=== PATIENT | male | born 1950 | race Caucasian/White ===

== ENCOUNTER 2018-03-13 17:22 | Inpatient (IN) | payer MEDICARE, MEDICAID ==
[~2018-03-13] VITALS: Ht 165.1 cm; Wt 73.5 kg
[2018-03-13 17:36] VITALS: BP 100/68
[2018-03-13] MEDS ORDERED: Sodium Chloride 500ML 500 ML IV ONE (17:45)
[2018-03-13 18:20] LABS: ANION GAP 10 mmol/L (5-15); BLOOD UREA NITROGEN 48 mg/dL (7-18); CALCIUM 8.8 MG/DL (8.5-10.1); CARBON DIOXIDE 21 MMOL/L (21-32); CHLORIDE 103 MMOL/L (98-107); CREATININE 1.3 MG/DL (0.55-1.30); POTASSIUM 3.9 MMOL/L (3.5-5.1); SODIUM 134 MMOL/L (136-145)
[2018-03-13 18:30] LABS: ALANINE AMINOTRANSFERASE 270 U/L (12-78); ALBUMIN 3.4 G/DL (3.4-5.0); ALBUMIN/GLOBULIN RATIO 0.8 (1.0-2.7); ALKALINE PHOSPHATASE 70 U/L (46-116); ASPARTATE AMINO TRANSFERASE 1206 U/L (15-37); BILIRUBIN,TOTAL 0.6 MG/DL (0.2-1.0)
[2018-03-13 18:32] LABS: INR 1.1 (0.9-1.1)
[2018-03-13 18:40] LABS: APPEARANCE,URINE CLEAR; BILIRUBIN, URINE 1+ (NEGATIVE); GLUCOSE, URINE (UA) NEGATIVE (NEGATIVE); KETONES,URINE 1+ (NEGATIVE); LEUKOCYTE ESTERASE ,URINE 1+ (NEGATIVE); NITRITE,URINE NEGATIVE (NEGATIVE); PH,URINE 6 (4.5-8.0); PROTEIN,URINE 3+ (NEGATIVE); UROBILINOGEN,URINE NORMAL (NORMAL)
[2018-03-13 18:42] LABS: COLOR,URINE YELLOW
--- NOTE | 2018-03-13 18:53 | Emergency Room Report ---
History of Present Illness General Chief Complaint: Altered Level of Consciousness Source: Patient, EMS Present Illness HPI Patient is a 67-year-old male brought in by EMS after increased generalized weakness and altered mental status. Patient had reportedly had prior history of ALS and was noted to have increased generalized weakness by caregiver. The patient was noted to have a DO NOT RESUSCITATE. The patient was noted to have been less responsive. History is limited by patient's mental status Allergies: Coded Allergies: CEPHALEXIN MONOHYDRATE (Verified Allergy, Unknown, 01/24/12) TETRACYCLINE (Verified Allergy, Unknown, 01/24/12) Patient History Reviewed Nursing Documentation: PMH: Agreed; PSxH: Agreed Nursing Documentation-PMH Hx Neurological Problems: Yes Hx Seizures: Yes Review of Systems All Other Systems: limited - by mental status Physical Exam Vital Signs Date Time Temp Pulse Resp B/P (MAP) Pulse Ox O2 Delivery O2 Flow Rate FiO2 03/13/18 17:26 110 16 100/68 98 Room Air 03/13/18 17:51 100 General Appearance: moderate distress, Chronically Ill Head: normocephalic Eyes: bilateral eye PERRL, bilateral eye other - tracks with eyes ENT: dry mucus membranes Neck: limited range of motion Respiratory: normal inspection, lungs clear Cardiovascular #1: normal peripheral pulses, no edema Gastrointestinal: normal inspection, normal bowel sounds, non tender Musculoskeletal: normal inspection, decreased range of motion Neurologic: responsive, motor weakness, other - tracks with eyes Psychiatric: normal inspection Skin: normal inspection, no rash Procedures Critical Care Time Critical Care Time Patient had a critical medical condition which untreated could potentially result in life or limb threatening injury. Total critical care time excluding procedures approximately 45 minutes. Medical Decision Making Diagnostic Impression: Primary Impression: Hypotension Additional Impressions: ALS (amyotrophic lateral sclerosis) Generalized weakness Dehydration Gastroenteritis ER Course Patient was noted for altered mental status and hypotension. Differential diagnosis included but was not limited to dehydration, sepsis, cardiomyopathy, medication reaction, anaphylaxis, distributive shock, pulmonary embolism, cardiac tamponade.Because of complexity of patient's case laboratory testing and imaging studies were ordered. Patient was given IV fluids. The patient was noted to be hypotensive initially. Additional history was obtained from caregiver and patient was noted to be baseline able to ambulate with a walker. The patient had recently had episodes of vomiting and diarrhea. The patient's durable power of employee benefits attorney was contacted. The patient was noted to have the prior documentation which was patient is DO NOT RESUSCITATE. The patient is to receive IV fluids and not to receive any blood transfusions. Dr. Marc Conley was contacted for inpatient management due to covering physician for Dr. Wan Labs Test 03/13/18 10:15 03/13/18 18:00 Urine Color Yellow Urine Appearance Clear Urine pH 6 (4.5-8.0) Urine Specific [place] 1.015 (1.005-1.035) Urine Protein 3+ (NEGATIVE) Urine Glucose (UA) Negative (NEGATIVE) Urine Ketones 1+ (NEGATIVE) Urine Occult Blood 5+ (NEGATIVE) Urine Nitrite Negative (NEGATIVE) Urine Bilirubin 1+ (NEGATIVE) Urine Urobilinogen Normal MG/DL (NORMAL) Urine Leukocyte Esterase 1+ (NEGATIVE) Urine HCG, Qualitative Negative (NEGATIVE) Prothrombin Time 11.2 SEC (9.30-11.50) Prothromb Time International Ratio 1.1 (0.9-1.1) Activated Partial Thromboplast Time 21 SEC (23-33) Sodium Level 134 MMOL/L (136-145) Potassium Level 3.9 MMOL/L (3.5-5.1) Chloride Level 103 MMOL/L (98-107) Carbon Dioxide Level 21 MMOL/L (21-32) Anion Gap 10 mmol/L (5-15) Blood Urea Nitrogen 48 mg/dL (7-18) Creatinine 1.3 MG/DL (0.55-1.30) Estimat Glomerular Filtration Rate 55.1 mL/min (>60) Glucose Level 106 MG/DL (74-106) Calcium Level 8.8 MG/DL (8.5-10.1) Total Bilirubin 0.6 MG/DL (0.2-1.0) Aspartate Amino Transf (AST/SGOT) 1206 U/L (15-37) Alanine Aminotransferase (ALT/SGPT) 270 U/L (12-78) Alkaline Phosphatase 70 U/L (46-116) Troponin I 0.065 ng/mL (0.000-0.056) Total Protein 7.5 G/DL (6.4-8.2) Albumin 3.4 G/DL (3.4-5.0) Globulin 4.1 g/dL Albumin/Globulin Ratio 0.8 (1.0-2.7) Last Vital Signs Date Time Temp Pulse Resp B/P (MAP) Pulse Ox O2 Delivery O2 Flow Rate FiO2 03/13/18 17:51 116 18 97 Facial 100 03/13/18 17:36 100/68 Status: unchanged Disposition: ADMITTED INPATIENT Condition: Serious Referrals: NOT CHOSEN IPA/,REFERRING (PCP) Raghavendra Olivares MD Mar 13, 2018 18:53
[2018-03-13 19:33] LABS: BASOPHILS % (AUTO) 0.7 % (0.0-2.0); EOSINOPHILS % (AUTO) 0.1 % (0.0-3.0); HEMATOCRIT 52.4 % (42.0-52.0); HEMOGLOBIN 16.2 G/DL (14.2-18.0); LYMPHOCYTES % (AUTO) 22.7 % (20.0-45.0); MEAN CORPUSCULAR VOLUME 97 FL (80-99); MONOCYTES % (AUTO) 12.1 % (1.0-10.0); NEUTROPHILS % (AUTO) 64.4 % (45.0-75.0); PLATELET COUNT 186 K/UL (150-450); RED BLOOD COUNT 5.41 M/UL (4.70-6.10); RED CELL DISTRIBUTION WIDTH 13.6 % (11.6-14.8); WHITE BLOOD COUNT 12.5 K/UL (4.8-10.8)
[2018-03-13] MEDS ORDERED: GABAPENTIN800 MG ORAL (19:52)
[2018-03-13] MEDS ORDERED: KLONOPIN0.5 MG ORAL (19:52)
[2018-03-13] MEDS ORDERED: FENOFIBRIC ACID35 MG PO (19:52)
[2018-03-13] MEDS ORDERED: CRESTOR10 M2 ORAL (19:52)
[2018-03-13] MEDS ORDERED: DIAZEPAM5 MG ORAL (19:52)
[2018-03-13] MEDS ORDERED: [UNRECOGNIZED DRUG - OTHER] PO (19:52)
[2018-03-13] MEDS ORDERED: FUROSEMIDE40 MG ORAL (19:52)
[2018-03-13] MEDS ORDERED: AMBIEN5 MG ORAL (19:52)
[2018-03-13] MEDS ORDERED: BENADRYL25 MG ORAL (19:52)
[2018-03-13] MEDS ORDERED: TOPIRAMATE100 MG ORAL (20:06)
[2018-03-13] MEDS ORDERED: VALACYCLOVIR500 MG ORAL (20:06)
[2018-03-13] MEDS ORDERED: PROAIR HFA8.5 GM INH (20:06)
[2018-03-13] MEDS ORDERED: ZANTAC150 MG ORAL (20:06)
[2018-03-13] MEDS ORDERED: ZOCOR40 MG ORAL (20:06)
[2018-03-13] MEDS ORDERED: METFORMIN HCL500 M1 ORAL (20:06)
[2018-03-13] MEDS ORDERED: TIZANIDINE HCL4 MG ORAL (20:06)
[2018-03-13] MEDS ORDERED: RISPERDAL2 MG ORAL (20:06)
[2018-03-13] MEDS ORDERED: MODAFINIL100 MG ORAL (20:06)
[2018-03-13] MEDS ORDERED: NORTRIPTYLINE H50 MG PO (20:06)
[2018-03-13] MEDS ORDERED: PRAMIPEXOLE D0.25 MG ORAL (20:06)
[2018-03-13] MEDS ORDERED: LORAZEPAM1 MG ORAL (20:06)
[2018-03-13] MEDS ORDERED: SALAGEN5 MG GT (20:06)
[2018-03-13] MEDS ORDERED: MELOXICAM7.5 MG PO (20:06)
[2018-03-13 20:19] VITALS: BP 106/63
[2018-03-13 21:00] VITALS: BP 107/69
[2018-03-13 22:00] VITALS: BP 108/63
[2018-03-13] MEDS ORDERED: Albuterol/Ipratropium 3ml neb HHN PRN (22:00)
[2018-03-13] MEDS ORDERED: Morphine Sulfate 2mg/ml Inj(IV/IM USE ONLY) IVP PRN (22:00)
[2018-03-13] MEDS ORDERED: Miralax 17gm pkt ORAL PRN (22:00)
[2018-03-13] MEDS ORDERED: Nitroglycerin Subl 0.4mg tab SL PRN (22:00)
[2018-03-13] MEDS: NS w/KCl 20mEq 1,000 ML IV SCH (22:35)
[2018-03-13] MEDS: Heparin 5000 units/ml inj SUBQ SCH (22:49)
[2018-03-13 23:00] VITALS: BP 112/70
[2018-03-14] VITALS (24 sets, daily range): BP systolic 90–124; BP diastolic 61–81
[2018-03-14] MEDS: Topiramate 100mg tab ORAL SCH ×2 (01:48→08:46)
[2018-03-14] MEDS: Vancomycin 1 GM in D5W 275 ML IVPB SCH (01:48)
[2018-03-14] MEDS: Nortriptyline 25mg cap ORAL SCH ×2 (01:54→21:08)
[2018-03-14 06:12] LABS: BASOPHILS % (AUTO) 0.3 % (0.0-2.0); EOSINOPHILS % (AUTO) 0.1 % (0.0-3.0); HEMATOCRIT 49.9 % (42.0-52.0); HEMOGLOBIN 15.8 G/DL (14.2-18.0); LYMPHOCYTES % (AUTO) 8.2 % (20.0-45.0); MEAN CORPUSCULAR VOLUME 98 FL (80-99); NEUTROPHILS % (AUTO) 83.4 % (45.0-75.0); PLATELET COUNT 158 K/UL (150-450); RED BLOOD COUNT 5.09 M/UL (4.70-6.10); RED CELL DISTRIBUTION WIDTH 13.4 % (11.6-14.8); WHITE BLOOD COUNT 15.4 K/UL (4.8-10.8)
[2018-03-14] MEDS ORDERED: metFORMIN 500mg tab ORAL SCH (06:30)
[2018-03-14 06:39] LABS: ALANINE AMINOTRANSFERASE 229 U/L (12-78); ALBUMIN 2.2 G/DL (3.4-5.0); ALBUMIN/GLOBULIN RATIO 0.6 (1.0-2.7); ALKALINE PHOSPHATASE 53 U/L (46-116); ANION GAP 11 mmol/L (5-15); ASPARTATE AMINO TRANSFERASE 856 U/L (15-37); BILIRUBIN,TOTAL 0.4 MG/DL (0.2-1.0); CALCIUM 7.3 MG/DL (8.5-10.1); CARBON DIOXIDE 22 MMOL/L (21-32); CHLORIDE 108 MMOL/L (98-107); CREATINE KINASE > 10000 U/L (26-308); CREATININE 1.6 MG/DL (0.55-1.30); POTASSIUM 3.9 MMOL/L (3.5-5.1); SODIUM 140 MMOL/L (136-145)
[2018-03-14 07:07] LABS: BLOOD UREA NITROGEN 48 mg/dL (7-18)
[2018-03-14] MEDS: Pilocarpine 2% Opth 15ml Soln BOTH EYES SCH ×2 (08:45→18:38)
[2018-03-14] MEDS: Modafinil 100mg tab ORAL SCH (08:46)
[2018-03-14] MEDS: Pramipexole 0.5mg tab ORAL SCH ×3 (08:47→18:38)
[2018-03-14] MEDS: Heparin 5000 units/ml inj SUBQ SCH ×2 (08:48→21:09)
--- NOTE | 2018-03-14 10:12 | Consultation ---
History of Present Illness General Date patient seen: Mar 14, 2018 Chief Complaint: Altered Level of Consciousness Present Illness HPI 67-year-old male with hx of ALS or around 10 years, DM, brought in by EMS after increased generalized weakness and altered mental status. Patient was noted to have increased generalized weakness by caregiver. She was less responsive. History is limited by patient's mental status. She was hypotensive and tachycardic and admitted to ICU last night. He looks chronically ill and c/o poor appetite. Allergies: Coded Allergies: CEPHALEXIN MONOHYDRATE (Verified Allergy, Unknown, 01/24/12) TETRACYCLINE (Verified Allergy, Unknown, 01/24/12) Medication History Scheduled Albuterol Sulfate* (Proair Hfa*), 1 PUFF INH Q6H, (Reported) Clonazepam* (Klonopin*), 0.5 MG ORAL Q6H, (Reported) Furosemide* (Lasix*), 40 MG ORAL DAILY, (Reported) Gabapentin* (Gabapentin*), 1,200 MG ORAL THREE TIMES A DAY, (Reported) Lorazepam* (Lorazepam*), 1 MG ORAL THREE TIMES A DAY, (Reported) Meloxicam* (Meloxicam*), 7.5 MG PO DAILY, (Reported) Metformin Hcl* (Metformin Hcl*), 500 MG ORAL THREE TIMES A DAY, (Reported) Modafinil* (Provigil), 200 MG ORAL DAILY, (Reported) Pramipexole* (Mirapex*), 0.25 MG ORAL THREE TIMES A DAY, (Reported) Ranitidine Hcl* (Zantac*), 300 MG ORAL DAILY, (Reported) Risperidone* (Risperdal*), 15 MG ORAL DAILY, (Reported) Rosuvastatin Calcium* (Crestor*), 10 MG ORAL DAILY, (Reported) Simvastatin (Zocor), 40 MG ORAL BEDTIME, (Reported) Tizanidine Hcl* (Zanaflex*), 4 MG ORAL BID, (Reported) Topiramate* (Topamax*), 200 MG ORAL TWICE A DAY, (Reported) Valacyclovir Hcl* (Valtrex*), 1,000 MG ORAL TWICE A DAY, (Reported) [andorxy CIII], 15 MG PO DAILY, (Reported) Scheduled PRN Diazepam* (Diazepam*), 5 MG ORAL BID PRN for ANXIETY, (Reported) Diphenhydramine Hcl* (Benadryl*), 25 MG ORAL Q6H PRN for Itching, (Reported) Zolpidem Tartrate* (Ambien*), 5 MG ORAL BEDTIME PRN for Insomnia, (Reported) Miscellaneous Medications Fenofibric Acid (Fenofibric Acid), 135 MG PO, (Reported) Nortriptyline Hcl (Nortriptyline Hcl), 50 MG PO, (Reported) Pilocarpine (Pilocarpine HCl), 5 MG GT, (Reported) Patient History Healthcare decision maker JULITA URBAN Resuscitation status Do Not Resuscitate Advanced Directive on File Yes Past Medical/Surgical History Past Medical/Surgical History: (1) Diabetes mellitus (2) ALS (amyotrophic lateral sclerosis) (3) Depression Review of Systems All Other Systems: negative except mentioned in HPI Physical Exam General Appearance: cachetic Lines, tubes and drains: peripheral HEENT: normocephalic, atraumatic Neck: non-tender, normal alignment Respiratory/Chest: chest wall non-tender, lungs clear, normal breath sounds Breasts: no masses Cardiovascular/Chest: normal peripheral pulses Abdomen: normal bowel sounds Genitourinary/Rectal: normal genital exam Extremities: normal range of motion Last 24 Hour Vital Signs Date Time Temp Pulse Resp B/P (MAP) Pulse Ox O2 Delivery O2 Flow Rate FiO2 03/14/18 08:00 103 03/14/18 07:00 97.9 98 17 123/81 (95) 99 97.9 03/14/18 07:00 Nasal Cannula 2.0 28 03/14/18 07:00 99 Nasal Cannula 2.0 28 03/14/18 06:00 102 17 114/74 (87) 99 03/14/18 05:00 98 16 108/80 (89) 99 03/14/18 04:00 Nasal Cannula 2.0 03/14/18 04:00 96 03/14/18 04:00 97.6 91 16 107/76 (86) 100 97.6 03/14/18 03:00 90 17 120/74 (89) 100 03/14/18 02:00 91 13 124/68 (86) 100 03/14/18 01:00 91 13 124/68 (86) 100 03/14/18 00:00 Nasal Cannula 2.0 03/14/18 00:00 97.2 89 13 112/73 (86) 100 97.2 03/13/18 23:00 89 13 112/70 (84) 99 03/13/18 22:00 Nasal Cannula 2.0 03/13/18 22:00 Nasal Cannula 2.0 03/13/18 22:00 92 14 108/63 (78) 99 03/13/18 21:35 Nasal Cannula 03/13/18 21:35 99 Nasal Cannula 2.0 28 03/13/18 21:15 94 8 106/62 100 Bi-pap 03/13/18 21:00 97.6 91 13 107/69 (82) 100 97.6 03/13/18 21:00 93 03/13/18 20:19 96 14 106/63 100 Bi-pap 03/13/18 19:05 108 23 100 Facial 100 03/13/18 18:00 15.0 100 03/13/18 17:51 116 18 97 Facial 100 03/13/18 17:36 16 100/68 98 Room Air 03/13/18 17:26 110 16 100/68 98 Room Air Intake and Output 03/13/18 03/14/18 19:00 07:00 Intake Total 1686.6 ml Output Total 330 ml Balance 1356.6 ml Intake Oral 220 ml IV Total 1466.6 ml Output Urine Total 330 ml # Voids 1 Laboratory Tests Test 03/13/18 10:15 03/13/18 18:00 03/13/18 18:39 03/13/18 19:00 Urine Color Yellow Urine Appearance Clear Urine pH 6 (4.5-8.0) Urine Specific [place] 1.015 (1.005-1.035) Urine Protein 3+ (NEGATIVE) H Urine Glucose (UA) Negative (NEGATIVE) Urine Ketones 1+ (NEGATIVE) H Urine Occult Blood 5+ (NEGATIVE) H Urine Nitrite Negative (NEGATIVE) Urine Bilirubin 1+ (NEGATIVE) H Urine Ictotest Negative (NEGATIVE) Urine Urobilinogen Normal MG/DL (NORMAL) Urine Leukocyte Esterase 1+ (NEGATIVE) H Urine RBC 2-4 /HPF (0 - 0) H Urine WBC 0-2 /HPF (0 - 0) Urine Squamous Epithelial Cells None /LPF (NONE/OCC) Urine Amorphous Sediment Few /LPF (NONE) H Urine Bacteria Few /HPF (NONE) Urine HCG, Qualitative Negative (NEGATIVE) Prothrombin Time 11.2 SEC (9.30-11.50) Prothromb Time International Ratio 1.1 (0.9-1.1) Activated Partial Thromboplast Time 21 SEC (23-33) L Sodium Level 134 MMOL/L (136-145) L Potassium Level 3.9 MMOL/L (3.5-5.1) Chloride Level 103 MMOL/L (98-107) Carbon Dioxide Level 21 MMOL/L (21-32) Anion Gap 10 mmol/L (5-15) Blood Urea Nitrogen 48 mg/dL (7-18) H Creatinine 1.3 MG/DL (0.55-1.30) Estimat Glomerular Filtration Rate 55.1 mL/min (>60) Glucose Level 106 MG/DL (74-106) Calcium Level 8.8 MG/DL (8.5-10.1) Total Bilirubin 0.6 MG/DL (0.2-1.0) Aspartate Amino Transf (AST/SGOT) 1206 U/L (15-37) H Alanine Aminotransferase (ALT/SGPT) 270 U/L (12-78) H Alkaline Phosphatase 70 U/L (46-116) Troponin I 0.065 ng/mL (0.000-0.056) Total Protein 7.5 G/DL (6.4-8.2) Albumin 3.4 G/DL (3.4-5.0) Globulin 4.1 g/dL Albumin/Globulin Ratio 0.8 (1.0-2.7) L Arterial Blood pH 7.286 (7.350-7.450) Arterial Blood Partial Pressure CO2 36.1 mmHg (35.0-45.0) Arterial Blood Partial Pressure O2 539.4 mmHg (75.0-100.0) H Arterial Blood HCO3 16.8 mmol/L (22.0-26.0) L Arterial Blood Oxygen Saturation 99.8 % (92.0-98.0) H Arterial Blood Base Excess -8.9 Damion Test Positive White Blood Count 12.5 K/UL (4.8-10.8) H Red Blood Count 5.41 M/UL (4.70-6.10) Hemoglobin 16.2 G/DL (14.2-18.0) Hematocrit 52.4 % (42.0-52.0) H Mean Corpuscular Volume 97 FL (80-99) Mean Corpuscular Hemoglobin 29.9 PG (27.0-31.0) Mean Corpuscular Hemoglobin Concent 31.0 G/DL (32.0-36.0) L Red Cell Distribution Width 13.6 % (11.6-14.8) Platelet Count 186 K/UL (150-450) Mean Platelet Volume 6.7 FL (6.5-10.1) Neutrophils (%) (Auto) 64.4 % (45.0-75.0) Lymphocytes (%) (Auto) 22.7 % (20.0-45.0) Monocytes (%) (Auto) 12.1 % (1.0-10.0) H Eosinophils (%) (Auto) 0.1 % (0.0-3.0) Basophils (%) (Auto) 0.7 % (0.0-2.0) Test 03/14/18 05:20 White Blood Count 15.4 K/UL (4.8-10.8) H Red Blood Count 5.09 M/UL (4.70-6.10) Hemoglobin 15.8 G/DL (14.2-18.0) Hematocrit 49.9 % (42.0-52.0) Mean Corpuscular Volume 98 FL (80-99) Mean Corpuscular Hemoglobin 31.1 PG (27.0-31.0) H Mean Corpuscular Hemoglobin Concent 31.8 G/DL (32.0-36.0) L Red Cell Distribution Width 13.4 % (11.6-14.8) Platelet Count 158 K/UL (150-450) Mean Platelet Volume 6.8 FL (6.5-10.1) Neutrophils (%) (Auto) 83.4 % (45.0-75.0) H Lymphocytes (%) (Auto) 8.2 % (20.0-45.0) L Monocytes (%) (Auto) 8.0 % (1.0-10.0) Eosinophils (%) (Auto) 0.1 % (0.0-3.0) Basophils (%) (Auto) 0.3 % (0.0-2.0) Sodium Level 140 MMOL/L (136-145) Potassium Level 3.9 MMOL/L (3.5-5.1) Chloride Level 108 MMOL/L (98-107) H Carbon Dioxide Level 22 MMOL/L (21-32) Anion Gap 11 mmol/L (5-15) Blood Urea Nitrogen 48 mg/dL (7-18) H Creatinine 1.6 MG/DL (0.55-1.30) H Estimat Glomerular Filtration Rate 43.3 mL/min (>60) Glucose Level 197 MG/DL (74-106) H Osmolality 306 mOsm/kg (297-317) Uric Acid Pending Calcium Level 7.3 MG/DL (8.5-10.1) L Phosphorus Level 6.0 MG/DL (2.5-4.9) H Magnesium Level 1.9 MG/DL (1.8-2.4) Total Bilirubin 0.4 MG/DL (0.2-1.0) Aspartate Amino Transf (AST/SGOT) 856 U/L (15-37) H Alanine Aminotransferase (ALT/SGPT) 229 U/L (12-78) H Alkaline Phosphatase 53 U/L (46-116) Total Creatine Kinase Pending Troponin I 0.048 ng/mL (0.000-0.056) Total Protein 5.7 G/DL (6.4-8.2) L Albumin 2.2 G/DL (3.4-5.0) L Globulin 3.5 g/dL Albumin/Globulin Ratio 0.6 (1.0-2.7) L Free Thyroxine 0.92 NG/DL (0.76-1.46) Microbiology Date/Time Source Procedure Growth Status 03/13/18 19:30 Rectum Received Height (Feet): 5 Height (Inches): 5.00 Weight (Pounds): 128 Medications Current Medications Medications (Trade) Dose Ordered Sig/Maria Victoria Route PRN Reason Start Time Stop Time Status Last Admin Dose Admin Acetaminophen (Tylenol) 650 mg Q4H PRN ORAL fever 03/13/18 22:00 04/12/18 21:59 Albuterol/ Ipratropium (Albuterol/ Ipratropium) 3 ml Q4H PRN HHN Shortness of Breath 03/13/18 22:00 03/18/18 21:59 Clonazepam (KlonoPIN) 0.5 mg Q6H ORAL 03/14/18 09:45 03/21/18 09:44 UNV Dextrose (Dextrose 50%) STAT PRN IV Hypoglycemia 03/13/18 22:00 04/12/18 21:59 Dextrose (Dextrose 50%) STAT PRN IV Hypoglycemia 03/14/18 10:00 04/13/18 09:59 UNV Gabapentin (Neurontin) 1,200 mg THREE TIMES A DAY ORAL 03/14/18 09:00 04/13/18 08:59 UNV Gabapentin (Neurontin) 1,200 mg THREE TIMES A DAY ORAL 03/14/18 13:00 04/13/18 12:59 UNV Heparin Sodium (Porcine) (Heparin 5000 units/ml) 5,000 units EVERY 12 HOURS SUBQ 03/13/18 22:15 04/12/18 22:14 03/14/18 08:48 Insulin Aspart (NovoLOG) BEFORE MEALS AND HS SUBQ 03/14/18 11:30 04/13/18 11:29 UNV Modafinil (Provigil) 200 mg DAILY ORAL 03/14/18 09:00 03/21/18 08:59 03/14/18 08:46 Morphine Sulfate (Morphine Sulfate) 2 mg EVERY 4 HOURS PRN IVP Moderate Pain (Pain Scale 4-6) 03/13/18 22:00 03/20/18 21:59 Nitroglycerin (Ntg) 0.4 mg Q5M PRN SL Prn Chest Pain 03/13/18 22:00 04/12/18 21:59 Nortriptyline HCl (Pamelor) 50 mg BEDTIME ORAL 03/13/18 23:00 04/12/18 22:59 03/14/18 01:54 Ondansetron HCl (Zofran) 4 mg Q6H PRN IVP Nausea & Vomiting 03/13/18 22:00 04/12/18 21:59 Pantoprazole (Protonix) 40 mg DAILY ORAL 03/14/18 09:00 04/13/18 08:59 03/14/18 08:47 Pilocarpine (Isopto Carpine 2% Op Soln) 1 drop BID BOTH EYES 03/14/18 09:00 04/13/18 08:59 03/14/18 08:45 Pramipexole (Mirapex) 0.25 mg TID ORAL 03/14/18 09:00 04/13/18 08:59 03/14/18 08:47 Risperidone (RisperDAL) 2 mg DAILY ORAL 03/14/18 09:00 04/13/18 08:59 03/14/18 08:47 Risperidone (RisperDAL) 15 mg DAILY ORAL 03/15/18 09:00 04/14/18 08:59 UNV Sodium Chloride 1,000 ml @ 75 mls/hr [id number] IV 03/13/18 22:00 04/12/18 21:59 03/13/18 22:35 Temazepam (Restoril) 15 mg HSPRN PRN ORAL Insomnia 03/13/18 22:00 03/20/18 21:59 Topiramate (Topamax) 200 mg EVERY 12 HOURS ORAL 03/13/18 23:00 04/12/18 22:59 03/14/18 08:46 Vancomycin HCl (Vanco rx to dose) 1 ea DAILY PRN MISC . 03/14/18 09:00 04/13/18 08:59 Vancomycin HCl 1 gm/Dextrose 275 ml @ 183.3 mls/ hr Q24H IVPB 03/14/18 00:30 03/19/18 00:29 03/14/18 01:48 Assessment/Plan Problem List: (1) Hypotension ICD Codes: I95.9 - Hypotension, unspecified SNOMED: 91295388 (2) ALS (amyotrophic lateral sclerosis) ICD Codes: G12.21 - Amyotrophic lateral sclerosis SNOMED: 24550482 (3) ATN (acute tubular necrosis) ICD Codes: N17.0 - Acute kidney failure with tubular necrosis SNOMED: 43166334 (4) Generalized weakness ICD Codes: R53.1 - Weakness SNOMED: 76331071 (5) Amyotrophic lateral sclerosis (ALS) ICD Codes: G12.21 - Amyotrophic lateral sclerosis SNOMED: 83591443 (6) Diabetes mellitus ICD Codes: E11.9 - Type 2 diabetes mellitus without complications SNOMED: 70885036 (7) Depression ICD Codes: F32.9 - Major depressive disorder, single episode, unspecified SNOMED: 13468334 Assessment/Plan pereyra cultures iv fluids echo renals studies Neuro to see sliding scale dc nephrotoxic drugs. Loulou Ernandez MD Mar 14, 2018 10:12
[2018-03-14 10:40] LABS: CREATINE KINASE > 10000 U/L (26-308)
--- NOTE | 2018-03-14 10:42 | Consultation ---
History of Present Illness General Date patient seen: Mar 14, 2018 Chief Complaint: Altered Level of Consciousness Reason for Consultation: Leukocytosis Present Illness HPI Mr. Albarado is a 67 yo male with ALS who is presenting with weakness and AMS after a fall. He was sent to the ER by ambulance yesterday and then admitted the ICU for AMS and Hypotension. Today he is alert and oriented to name location. He is not sure exactly why he was brought to the ED. He reports not being hungry and not eating, He says that he has had some diarrhea last week but not any more. He says that he has not been having any other symptoms of infection. He denies Dysuria, Abdominal pain and SOB. He now had a stable blood pressure and is only on 2L O2. He is noted to have leukocytosis of 15 and dark urine. Cultures are pending. He was started on vancomycin. He denies sick contacts but has been losing weight. 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 FamHx Non-contributory Allergies: Coded Allergies: CEPHALEXIN MONOHYDRATE (Verified Allergy, Unknown, 01/24/12) TETRACYCLINE (Verified Allergy, Unknown, 01/24/12) Medication History Scheduled Albuterol Sulfate* (Proair Hfa*), 1 PUFF INH Q6H, (Reported) Clonazepam* (Klonopin*), 0.5 MG ORAL Q6H, (Reported) Furosemide* (Lasix*), 40 MG ORAL DAILY, (Reported) Gabapentin* (Gabapentin*), 1,200 MG ORAL THREE TIMES A DAY, (Reported) Lorazepam* (Lorazepam*), 1 MG ORAL THREE TIMES A DAY, (Reported) Meloxicam* (Meloxicam*), 7.5 MG PO DAILY, (Reported) Metformin Hcl* (Metformin Hcl*), 500 MG ORAL THREE TIMES A DAY, (Reported) Modafinil* (Provigil), 200 MG ORAL DAILY, (Reported) Pramipexole* (Mirapex*), 0.25 MG ORAL THREE TIMES A DAY, (Reported) Ranitidine Hcl* (Zantac*), 300 MG ORAL DAILY, (Reported) Risperidone* (Risperdal*), 15 MG ORAL DAILY, (Reported) Rosuvastatin Calcium* (Crestor*), 10 MG ORAL DAILY, (Reported) Simvastatin (Zocor), 40 MG ORAL BEDTIME, (Reported) Tizanidine Hcl* (Zanaflex*), 4 MG ORAL BID, (Reported) Topiramate* (Topamax*), 200 MG ORAL TWICE A DAY, (Reported) Valacyclovir Hcl* (Valtrex*), 1,000 MG ORAL TWICE A DAY, (Reported) [andorxy CIII], 15 MG PO DAILY, (Reported) Scheduled PRN Diazepam* (Diazepam*), 5 MG ORAL BID PRN for ANXIETY, (Reported) Diphenhydramine Hcl* (Benadryl*), 25 MG ORAL Q6H PRN for Itching, (Reported) Zolpidem Tartrate* (Ambien*), 5 MG ORAL BEDTIME PRN for Insomnia, (Reported) Miscellaneous Medications Fenofibric Acid (Fenofibric Acid), 135 MG PO, (Reported) Nortriptyline Hcl (Nortriptyline Hcl), 50 MG PO, (Reported) Pilocarpine (Pilocarpine HCl), 5 MG GT, (Reported) Patient History Healthcare decision maker JULITA URBAN Resuscitation status Do Not Resuscitate Advanced Directive on File Yes Review of Systems All Other Systems: negative except mentioned in HPI Physical Exam Last 24 Hour Vital Signs Date Time Temp Pulse Resp B/P (MAP) Pulse Ox O2 Delivery O2 Flow Rate FiO2 03/14/18 10:00 107 17 90/76 (81) 99 03/14/18 09:00 103 17 106/69 (81) 99 03/14/18 08:00 102 17 118/76 (90) 99 03/14/18 08:00 Nasal Cannula 2.0 03/14/18 08:00 103 03/14/18 07:00 97.9 98 17 123/81 (95) 99 97.9 03/14/18 07:00 Nasal Cannula 2.0 28 03/14/18 07:00 99 Nasal Cannula 2.0 28 03/14/18 06:00 102 17 114/74 (87) 99 03/14/18 05:00 98 16 108/80 (89) 99 03/14/18 04:00 Nasal Cannula 2.0 03/14/18 04:00 96 03/14/18 04:00 97.6 91 16 107/76 (86) 100 97.6 03/14/18 03:00 90 17 120/74 (89) 100 03/14/18 02:00 91 13 124/68 (86) 100 03/14/18 01:00 91 13 124/68 (86) 100 03/14/18 00:00 Nasal Cannula 2.0 03/14/18 00:00 97.2 89 13 112/73 (86) 100 97.2 03/13/18 23:00 89 13 112/70 (84) 99 03/13/18 22:00 Nasal Cannula 2.0 03/13/18 22:00 Nasal Cannula 2.0 03/13/18 22:00 92 14 108/63 (78) 99 03/13/18 21:35 Nasal Cannula 03/13/18 21:35 99 Nasal Cannula 2.0 28 03/13/18 21:15 94 8 106/62 100 Bi-pap 03/13/18 21:00 97.6 91 13 107/69 (82) 100 97.6 03/13/18 21:00 93 03/13/18 20:19 96 14 106/63 100 Bi-pap 03/13/18 19:05 108 23 100 Facial 100 03/13/18 18:00 15.0 100 03/13/18 17:51 116 18 97 Facial 100 03/13/18 17:36 16 100/68 98 Room Air 03/13/18 17:26 110 16 100/68 98 Room Air Intake and Output 03/13/18 03/14/18 19:00 07:00 Intake Total 1686.6 ml Output Total 330 ml Balance 1356.6 ml Intake Oral 220 ml IV Total 1466.6 ml Output Urine Total 330 ml # Voids 1 Laboratory Tests Test 03/13/18 18:00 03/13/18 18:39 03/13/18 19:00 03/14/18 05:20 Prothrombin Time 11.2 SEC (9.30-11.50) Prothromb Time International Ratio 1.1 (0.9-1.1) Activated Partial Thromboplast Time 21 SEC (23-33) L Sodium Level 134 MMOL/L (136-145) L 140 MMOL/L (136-145) Potassium Level 3.9 MMOL/L (3.5-5.1) 3.9 MMOL/L (3.5-5.1) Chloride Level 103 MMOL/L (98-107) 108 MMOL/L (98-107) H Carbon Dioxide Level 21 MMOL/L (21-32) 22 MMOL/L (21-32) Anion Gap 10 mmol/L (5-15) 11 mmol/L (5-15) Blood Urea Nitrogen 48 mg/dL (7-18) H 48 mg/dL (7-18) H Creatinine 1.3 MG/DL (0.55-1.30) 1.6 MG/DL (0.55-1.30) H Estimat Glomerular Filtration Rate 55.1 mL/min (>60) 43.3 mL/min (>60) Glucose Level 106 MG/DL (74-106) 197 MG/DL (74-106) H Calcium Level 8.8 MG/DL (8.5-10.1) 7.3 MG/DL (8.5-10.1) L Total Bilirubin 0.6 MG/DL (0.2-1.0) 0.4 MG/DL (0.2-1.0) Aspartate Amino Transf (AST/SGOT) 1206 U/L (15-37) H 856 U/L (15-37) H Alanine Aminotransferase (ALT/SGPT) 270 U/L (12-78) H 229 U/L (12-78) H Alkaline Phosphatase 70 U/L (46-116) 53 U/L (46-116) Troponin I 0.065 ng/mL (0.000-0.056) 0.048 ng/mL (0.000-0.056) Total Protein 7.5 G/DL (6.4-8.2) 5.7 G/DL (6.4-8.2) L Albumin 3.4 G/DL (3.4-5.0) 2.2 G/DL (3.4-5.0) L Globulin 4.1 g/dL 3.5 g/dL Albumin/Globulin Ratio 0.8 (1.0-2.7) L 0.6 (1.0-2.7) L Arterial Blood pH 7.286 (7.350-7.450) Arterial Blood Partial Pressure CO2 36.1 mmHg (35.0-45.0) Arterial Blood Partial Pressure O2 539.4 mmHg (75.0-100.0) H Arterial Blood HCO3 16.8 mmol/L (22.0-26.0) L Arterial Blood Oxygen Saturation 99.8 % (92.0-98.0) H Arterial Blood Base Excess -8.9 Damion Test Positive White Blood Count 12.5 K/UL (4.8-10.8) H 15.4 K/UL (4.8-10.8) H Red Blood Count 5.41 M/UL (4.70-6.10) 5.09 M/UL (4.70-6.10) Hemoglobin 16.2 G/DL (14.2-18.0) 15.8 G/DL (14.2-18.0) Hematocrit 52.4 % (42.0-52.0) H 49.9 % (42.0-52.0) Mean Corpuscular Volume 97 FL (80-99) 98 FL (80-99) Mean Corpuscular Hemoglobin 29.9 PG (27.0-31.0) 31.1 PG (27.0-31.0) H Mean Corpuscular Hemoglobin Concent 31.0 G/DL (32.0-36.0) L 31.8 G/DL (32.0-36.0) L Red Cell Distribution Width 13.6 % (11.6-14.8) 13.4 % (11.6-14.8) Platelet Count 186 K/UL (150-450) 158 K/UL (150-450) Mean Platelet Volume 6.7 FL (6.5-10.1) 6.8 FL (6.5-10.1) Neutrophils (%) (Auto) 64.4 % (45.0-75.0) 83.4 % (45.0-75.0) H Lymphocytes (%) (Auto) 22.7 % (20.0-45.0) 8.2 % (20.0-45.0) L Monocytes (%) (Auto) 12.1 % (1.0-10.0) H 8.0 % (1.0-10.0) Eosinophils (%) (Auto) 0.1 % (0.0-3.0) 0.1 % (0.0-3.0) Basophils (%) (Auto) 0.7 % (0.0-2.0) 0.3 % (0.0-2.0) Osmolality 306 mOsm/kg (297-317) Uric Acid Pending Phosphorus Level 6.0 MG/DL (2.5-4.9) H Magnesium Level 1.9 MG/DL (1.8-2.4) Total Creatine Kinase Pending Free Thyroxine 0.92 NG/DL (0.76-1.46) Microbiology Date/Time Source Procedure Growth Status 03/13/18 19:30 Rectum Received Height (Feet): 5 Height (Inches): 5.00 Weight (Pounds): 128 Medications Current Medications Medications (Trade) Dose Ordered Sig/Maria Victoria Route PRN Reason Start Time Stop Time Status Last Admin Dose Admin Acetaminophen (Tylenol) 650 mg Q4H PRN ORAL fever 03/13/18 22:00 04/12/18 21:59 Albuterol/ Ipratropium (Albuterol/ Ipratropium) 3 ml Q4H PRN HHN Shortness of Breath 03/13/18 22:00 03/18/18 21:59 Clonazepam (KlonoPIN) 0.5 mg Q6H ORAL 03/14/18 09:45 03/21/18 09:44 UNV Dextrose (Dextrose 50%) STAT PRN IV Hypoglycemia 03/13/18 22:00 04/12/18 21:59 Dextrose (Dextrose 50%) STAT PRN IV Hypoglycemia 03/14/18 10:00 04/13/18 09:59 UNV Gabapentin (Neurontin) 1,200 mg THREE TIMES A DAY ORAL 03/14/18 09:00 04/13/18 08:59 UNV Gabapentin (Neurontin) 1,200 mg THREE TIMES A DAY ORAL 03/14/18 13:00 04/13/18 12:59 UNV Heparin Sodium (Porcine) (Heparin 5000 units/ml) 5,000 units EVERY 12 HOURS SUBQ 03/13/18 22:15 04/12/18 22:14 03/14/18 08:48 Insulin Aspart (NovoLOG) BEFORE MEALS AND HS SUBQ 03/14/18 11:30 04/13/18 11:29 UNV Modafinil (Provigil) 200 mg DAILY ORAL 03/14/18 09:00 03/21/18 08:59 03/14/18 08:46 Morphine Sulfate (Morphine Sulfate) 2 mg EVERY 4 HOURS PRN IVP Moderate Pain (Pain Scale 4-6) 03/13/18 22:00 03/20/18 21:59 Nitroglycerin (Ntg) 0.4 mg Q5M PRN SL Prn Chest Pain 03/13/18 22:00 04/12/18 21:59 Nortriptyline HCl (Pamelor) 50 mg BEDTIME ORAL 03/13/18 23:00 04/12/18 22:59 03/14/18 01:54 Ondansetron HCl (Zofran) 4 mg Q6H PRN IVP Nausea & Vomiting 03/13/18 22:00 04/12/18 21:59 Pantoprazole (Protonix) 40 mg DAILY ORAL 03/14/18 09:00 04/13/18 08:59 03/14/18 08:47 Pilocarpine (Isopto Carpine 2% Op Soln) 1 drop BID BOTH EYES 03/14/18 09:00 04/13/18 08:59 03/14/18 08:45 Pramipexole (Mirapex) 0.25 mg TID ORAL 03/14/18 09:00 04/13/18 08:59 03/14/18 08:47 Risperidone (RisperDAL) 2 mg DAILY ORAL 03/14/18 09:00 04/13/18 08:59 03/14/18 08:47 Risperidone (RisperDAL) 15 mg DAILY ORAL 03/15/18 09:00 04/14/18 08:59 UNV Sodium Chloride 1,000 ml @ 75 mls/hr [id number] IV 03/13/18 22:00 04/12/18 21:59 03/13/18 22:35 Temazepam (Restoril) 15 mg HSPRN PRN ORAL Insomnia 03/13/18 22:00 03/20/18 21:59 Topiramate (Topamax) 200 mg EVERY 12 HOURS ORAL 03/13/18 23:00 04/12/18 22:59 03/14/18 08:46 Vancomycin HCl (Vanco rx to dose) 1 ea DAILY PRN MISC . 03/14/18 09:00 04/13/18 08:59 Vancomycin HCl 1 gm/Dextrose 275 ml @ 183.3 mls/ hr Q24H IVPB 03/14/18 00:30 03/19/18 00:29 03/14/18 01:48 Objective Narrative Gen:~ NAD, Think male, Ill appearing HEENT: NCAT, MMM, EOMI, PERRL, No Oral lesion, no scleral icterus~ NECK:~ full range of motion, supple, no meningismus, No LAD, No JVD LUNGS:~ CTAB, No W/C, No Accessory muscle use CARDS: RRR, S1, S2, No M/R/G,~ ABD: Soft, NT, ND, No R/G, + BS, No HSM, No Masses Ext: C/C/E, Pulses 2+ B/L (DP, Rad), Left shoulder with bruising and decreases ROM NEURO: A/O x 2 (Name and location), Strength and Sensation Grossly intact PSYCH:~ mood/affect normal SKIN:~ warm/dry, No rashes, Multiple erythematous patches/bruising. Assessment/Plan Assessment/Plan Mr. Albarado is a 67 yo male with ALS who is presenting with weakness and AMS after a fall #Leukocytosis Post trauma vs active infection UTI? PNA? Cultures and CXR still pending On Vancomycin empirically #Diabetes mellitus #ALS (amyotrophic lateral sclerosis) #Depression #S/P Fall with bruising of left shoulder PLAN - - Patient stable mentation improved. - Will continue vancomycin today and f/u cultures and imaging - Monitor CBC and Temps -f/u imaging -Supportive care Thank you for consulting us for the care of this patient. We will continue to follow with you. Ovidio Acosta M.D. Mar 14, 2018 10:42
[2018-03-14] MEDS ORDERED: clonazePAM 0.5mg tab ORAL PRN (10:45)
[2018-03-14] MEDS ORDERED: clonazePAM 0.5mg tab ORAL SCH (10:45)
--- NOTE | 2018-03-14 11:45 | Diagnostic Imaging Report ---
Indication: Dyspnea Technique: XRAY Chest 1v Comparison: None Findings: Heart size and mediastinal contours within normal limits. There is elevation of the right hemidiaphragm and mild eventration of the left hemidiaphragm. There is linear atelectasis in the right base. There is no definite focal consolidation. No pleural effusion or pneumothorax. There is osteopenia and degenerative change of the spine. No appreciable acute osseous abnormality. There are atherosclerotic vascular calcifications. Impression: * Elevation of the right hemidiaphragm with adjacent linear likely atelectasis at the right base. * Otherwise no focal airspace consolidation, pleural effusion. No pneumothorax.
--- NOTE | 2018-03-14 12:13 | Diagnostic Imaging Report ---
Indication: Pain status post fall Technique: Portable frontal view of the shoulder Comparison: None FINDINGS/IMPRESSION: Limited exam without orthogonal views. No definite evidence of acute fracture or subluxation noted on this single frontal projection of the shoulder. Acromioclavicular joint appears preserved. Imaged portions of the left lung grossly clear. This corresponds with the [facility] preliminary report.
--- NOTE | 2018-03-14 12:23 | Diagnostic Imaging Report ---
Indication: Pain status post fall Technique: Single portable frontal view of the left hip Comparison: None Findings: No radiographically evident acute fracture or dislocation noted on this single frontal portable view of the left hip. Left sacroiliac joint and symphysis pubis appear maintained. There are pelvic phleboliths. No radiopaque foreign body identified. IMPRESSION: No definite radiographically appreciable acute fracture noted on this single portable frontal view of the pelvis.
--- NOTE | 2018-03-14 12:25 | Diagnostic Imaging Report ---
Indication: Pain status post fall Technique: Frontal and frog lateral view of the left hip Comparison: Exam 03/13/2018, 23:05 Findings: No radiographically evident acute fracture or dislocation. Additional findings without significant change. IMPRESSION: No evidence of acute fracture or dislocation. This corresponds with the [facility] preliminary report.
[2018-03-14] MEDS: NS w/KCl 20mEq 1,000 ML IV SCH (12:31)
[2018-03-14] MEDS: NovoLOG Insulin Flexpen SUBQ SCH ×3 (12:34→21:16)
--- NOTE | 2018-03-14 13:32 | Cardiology Report ---
APPROVED REPORT EXAM: Two-dimensional and M-mode echocardiogram with Doppler and color Doppler. INDICATION LV FUNCTION M-Mode DIMENSIONS IVSd2.0 (0.7-1.1cm)Left Atrium (MM)2.4 (1.6-4.0cm) LVDd3.8 (3.5-5.6cm)Aortic Root2.5 (2.0-3.7cm) PWd1.9 (0.7-1.1cm)Aortic Cusp Exc.1.6 (1.5-2.0cm) IVSs2.0 cm LVDs2.4 (2.5-4.0cm) PWs2.6 cm Normal left ventricular chamber size, Not all quiroz were seen and the lv cavity was poorly visualized Left ventricular ejection fraction cannot estimated No evidence of left ventricular hypertrophy. No evidence of pericardial effusion. All other cardiac chamber sizes are within normal limits. Focal aortic valve sclerosis with adequate cusp excursion. Thickened mitral valve leaflets with normal excursion. Mitral annulus and aortic root calcification. Pulmonic valve not well visualized. Normal tricuspid valve structure.
--- NOTE | 2018-03-14 14:46 | Consultation ---
Consult Note Consult Note asked to eval for renal failure Patient is a 67-year-old male brought in by EMS after increased generalized weakness and altered mental status. Patient had reportedly had prior history of ALS and was noted to have increased generalized weakness by caregiver. The patient was noted to have a DO NOT RESUSCITATE. The patient was noted to have been less responsive. History is limited by patient's mental status Allergies: Coded Allergies: CEPHALEXIN MONOHYDRATE (Verified Allergy, Unknown, 01/24/12) TETRACYCLINE (Verified Allergy, Unknown, 01/24/12) Hx Neurological Problems: Yes Hx Seizures: Yes data reviewed Patient examined Assessment/Plan Hypotension, leading to acute renal failure and rising Cr ALS (amyotrophic lateral sclerosis) Generalized weakness Dehydration Gastroenteritis Bolus IV Monitor renal parameters Avoid Nephrotoxics Urine studies per orders discussed with Eleazar Garner MD Mar 14, 2018 14:46
--- NOTE | 2018-03-14 15:14 | Consultation ---
History of Present Illness General Date patient seen: Mar 14, 2018 Chief Complaint: Altered Level of Consciousness Reason for Consultation: Leukocytosis Present Illness HPI 67 yo male with ALS who is presenting with weakness and AMS after a fall. He was sent to the ER by ambulance yesterday and then admitted the ICU for AMS and Hypotension. the pt has hx of seizure and depression. the pt has not been eating and is depressed. low energy, his sister committed suicide in november the pt doesn't endorse suicidal homicidal ideations Allergies: Coded Allergies: CEPHALEXIN MONOHYDRATE (Verified Allergy, Unknown, 01/24/12) TETRACYCLINE (Verified Allergy, Unknown, 01/24/12) Medication History Scheduled Albuterol Sulfate* (Proair Hfa*), 1 PUFF INH Q6H, (Reported) Clonazepam* (Klonopin*), 0.5 MG ORAL Q6H, (Reported) Furosemide* (Lasix*), 40 MG ORAL DAILY, (Reported) Gabapentin* (Gabapentin*), 1,200 MG ORAL THREE TIMES A DAY, (Reported) Lorazepam* (Lorazepam*), 1 MG ORAL THREE TIMES A DAY, (Reported) Meloxicam* (Meloxicam*), 7.5 MG PO DAILY, (Reported) Metformin Hcl* (Metformin Hcl*), 500 MG ORAL THREE TIMES A DAY, (Reported) Modafinil* (Provigil), 200 MG ORAL DAILY, (Reported) Pramipexole* (Mirapex*), 0.25 MG ORAL THREE TIMES A DAY, (Reported) Ranitidine Hcl* (Zantac*), 300 MG ORAL DAILY, (Reported) Risperidone* (Risperdal*), 15 MG ORAL DAILY, (Reported) Rosuvastatin Calcium* (Crestor*), 10 MG ORAL DAILY, (Reported) Simvastatin (Zocor), 40 MG ORAL BEDTIME, (Reported) Tizanidine Hcl* (Zanaflex*), 4 MG ORAL BID, (Reported) Topiramate* (Topamax*), 200 MG ORAL TWICE A DAY, (Reported) Valacyclovir Hcl* (Valtrex*), 1,000 MG ORAL TWICE A DAY, (Reported) [andorxy CIII], 15 MG PO DAILY, (Reported) Scheduled PRN Diazepam* (Diazepam*), 5 MG ORAL BID PRN for ANXIETY, (Reported) Diphenhydramine Hcl* (Benadryl*), 25 MG ORAL Q6H PRN for Itching, (Reported) Zolpidem Tartrate* (Ambien*), 5 MG ORAL BEDTIME PRN for Insomnia, (Reported) Miscellaneous Medications Fenofibric Acid (Fenofibric Acid), 135 MG PO, (Reported) Nortriptyline Hcl (Nortriptyline Hcl), 50 MG PO, (Reported) Pilocarpine (Pilocarpine HCl), 5 MG GT, (Reported) Patient History Limited by: medical condition History Provided By: Patient, Medical Record, PMD Healthcare decision maker JULITA URBAN Resuscitation status Do Not Resuscitate Advanced Directive on File Yes Past Medical/Surgical History Past Medical/Surgical History: (1) Dehydration (2) Gastroenteritis (3) Hypotension (4) ALS (amyotrophic lateral sclerosis) (5) Diabetes mellitus (6) Depression (7) Generalized weakness (8) Amyotrophic lateral sclerosis (ALS) (9) ATN (acute tubular necrosis) Review of Systems Psychiatric: Reports: prior hx, anxiety, depressed feelings, emotional problems Physical Exam General Appearance: no apparent distress, alert Neurologic: oriented x 3, responsive, depressed affect Last 24 Hour Vital Signs Date Time Temp Pulse Resp B/P (MAP) Pulse Ox O2 Delivery O2 Flow Rate FiO2 03/14/18 14:00 109 16 93/62 (72) 99 03/14/18 13:00 108 16 95/63 (74) 99 03/14/18 12:00 102 16 102/72 (82) 99 03/14/18 12:00 102 03/14/18 12:00 Nasal Cannula 2.0 03/14/18 11:00 103 17 114/69 (84) 99 03/14/18 10:00 107 17 90/76 (81) 99 03/14/18 09:00 103 17 106/69 (81) 99 03/14/18 08:00 102 17 118/76 (90) 99 03/14/18 08:00 Nasal Cannula 2.0 03/14/18 08:00 103 03/14/18 07:00 97.9 98 17 123/81 (95) 99 97.9 03/14/18 07:00 Nasal Cannula 2.0 28 03/14/18 07:00 99 Nasal Cannula 2.0 28 03/14/18 06:00 102 17 114/74 (87) 99 03/14/18 05:00 98 16 108/80 (89) 99 03/14/18 04:00 Nasal Cannula 2.0 03/14/18 04:00 96 03/14/18 04:00 97.6 91 16 107/76 (86) 100 97.6 03/14/18 03:00 90 17 120/74 (89) 100 03/14/18 02:00 91 13 124/68 (86) 100 03/14/18 01:00 91 13 124/68 (86) 100 03/14/18 00:00 Nasal Cannula 2.0 03/14/18 00:00 97.2 89 13 112/73 (86) 100 97.2 03/13/18 23:00 89 13 112/70 (84) 99 03/13/18 22:00 Nasal Cannula 2.0 03/13/18 22:00 Nasal Cannula 2.0 03/13/18 22:00 92 14 108/63 (78) 99 03/13/18 21:35 Nasal Cannula 03/13/18 21:35 99 Nasal Cannula 2.0 28 03/13/18 21:15 94 8 106/62 100 Bi-pap 03/13/18 21:00 97.6 91 13 107/69 (82) 100 97.6 03/13/18 21:00 93 03/13/18 20:19 96 14 106/63 100 Bi-pap 03/13/18 19:05 108 23 100 Facial 100 03/13/18 18:00 15.0 100 03/13/18 17:51 116 18 97 Facial 100 03/13/18 17:36 16 100/68 98 Room Air 03/13/18 17:26 110 16 100/68 98 Room Air Intake and Output 03/13/18 03/14/18 19:00 07:00 Intake Total 1686.6 ml Output Total 330 ml Balance 1356.6 ml Intake Oral 220 ml IV Total 1466.6 ml Output Urine Total 330 ml # Voids 1 Laboratory Tests Test 03/13/18 18:00 03/13/18 18:39 03/13/18 19:00 03/14/18 05:20 Prothrombin Time 11.2 SEC (9.30-11.50) Prothromb Time International Ratio 1.1 (0.9-1.1) Activated Partial Thromboplast Time 21 SEC (23-33) L Sodium Level 134 MMOL/L (136-145) L 140 MMOL/L (136-145) Potassium Level 3.9 MMOL/L (3.5-5.1) 3.9 MMOL/L (3.5-5.1) Chloride Level 103 MMOL/L (98-107) 108 MMOL/L (98-107) H Carbon Dioxide Level 21 MMOL/L (21-32) 22 MMOL/L (21-32) Anion Gap 10 mmol/L (5-15) 11 mmol/L (5-15) Blood Urea Nitrogen 48 mg/dL (7-18) H 48 mg/dL (7-18) H Creatinine 1.3 MG/DL (0.55-1.30) 1.6 MG/DL (0.55-1.30) H Estimat Glomerular Filtration Rate 55.1 mL/min (>60) 43.3 mL/min (>60) Glucose Level 106 MG/DL (74-106) 197 MG/DL (74-106) H Calcium Level 8.8 MG/DL (8.5-10.1) 7.3 MG/DL (8.5-10.1) L Total Bilirubin 0.6 MG/DL (0.2-1.0) 0.4 MG/DL (0.2-1.0) Aspartate Amino Transf (AST/SGOT) 1206 U/L (15-37) H 856 U/L (15-37) H Alanine Aminotransferase (ALT/SGPT) 270 U/L (12-78) H 229 U/L (12-78) H Alkaline Phosphatase 70 U/L (46-116) 53 U/L (46-116) Troponin I 0.065 ng/mL (0.000-0.056) 0.048 ng/mL (0.000-0.056) Total Protein 7.5 G/DL (6.4-8.2) 5.7 G/DL (6.4-8.2) L Albumin 3.4 G/DL (3.4-5.0) 2.2 G/DL (3.4-5.0) L Globulin 4.1 g/dL 3.5 g/dL Albumin/Globulin Ratio 0.8 (1.0-2.7) L 0.6 (1.0-2.7) L Arterial Blood pH 7.286 (7.350-7.450) Arterial Blood Partial Pressure CO2 36.1 mmHg (35.0-45.0) Arterial Blood Partial Pressure O2 539.4 mmHg (75.0-100.0) H Arterial Blood HCO3 16.8 mmol/L (22.0-26.0) L Arterial Blood Oxygen Saturation 99.8 % (92.0-98.0) H Arterial Blood Base Excess -8.9 Damion Test Positive White Blood Count 12.5 K/UL (4.8-10.8) H 15.4 K/UL (4.8-10.8) H Red Blood Count 5.41 M/UL (4.70-6.10) 5.09 M/UL (4.70-6.10) Hemoglobin 16.2 G/DL (14.2-18.0) 15.8 G/DL (14.2-18.0) Hematocrit 52.4 % (42.0-52.0) H 49.9 % (42.0-52.0) Mean Corpuscular Volume 97 FL (80-99) 98 FL (80-99) Mean Corpuscular Hemoglobin 29.9 PG (27.0-31.0) 31.1 PG (27.0-31.0) H Mean Corpuscular Hemoglobin Concent 31.0 G/DL (32.0-36.0) L 31.8 G/DL (32.0-36.0) L Red Cell Distribution Width 13.6 % (11.6-14.8) 13.4 % (11.6-14.8) Platelet Count 186 K/UL (150-450) 158 K/UL (150-450) Mean Platelet Volume 6.7 FL (6.5-10.1) 6.8 FL (6.5-10.1) Neutrophils (%) (Auto) 64.4 % (45.0-75.0) 83.4 % (45.0-75.0) H Lymphocytes (%) (Auto) 22.7 % (20.0-45.0) 8.2 % (20.0-45.0) L Monocytes (%) (Auto) 12.1 % (1.0-10.0) H 8.0 % (1.0-10.0) Eosinophils (%) (Auto) 0.1 % (0.0-3.0) 0.1 % (0.0-3.0) Basophils (%) (Auto) 0.7 % (0.0-2.0) 0.3 % (0.0-2.0) Osmolality 306 mOsm/kg (297-317) Uric Acid 3.7 MG/DL (2.6-7.2) Phosphorus Level 6.0 MG/DL (2.5-4.9) H Magnesium Level 1.9 MG/DL (1.8-2.4) Total Creatine Kinase > 83228 U/L (26-308) H Free Thyroxine 0.92 NG/DL (0.76-1.46) Test 03/14/18 05:35 C-Reactive Protein, Quantitative Pending Microbiology Date/Time Source Procedure Growth Status 03/13/18 19:30 Rectum Received Height (Feet): 5 Height (Inches): 5.00 Weight (Pounds): 128 Medications Current Medications Medications (Trade) Dose Ordered Sig/Maria Victoria Route PRN Reason Start Time Stop Time Status Last Admin Dose Admin Acetaminophen (Tylenol) 650 mg Q4H PRN ORAL fever 03/13/18 22:00 04/12/18 21:59 Albumin Human 500 ml @ 0 mls/hr Q0M ONCE IV 03/14/18 15:00 03/14/18 15:01 UNV Albuterol/ Ipratropium (Albuterol/ Ipratropium) 3 ml Q4H PRN HHN Shortness of Breath 03/13/18 22:00 03/18/18 21:59 Clonazepam (KlonoPIN) 0.5 mg Q6H PRN ORAL anxiety/agitation 03/14/18 10:45 03/21/18 10:44 Dextrose (Dextrose 50%) STAT PRN IV Hypoglycemia 03/14/18 11:00 04/13/18 10:59 Dextrose (Dextrose 50%) STAT PRN IV Hypoglycemia 03/14/18 11:00 04/13/18 10:59 Gabapentin (Neurontin) 600 mg Q12HR ORAL 03/14/18 12:00 04/13/18 11:59 03/14/18 12:47 Heparin Sodium (Porcine) (Heparin 5000 units/ml) 5,000 units EVERY 12 HOURS SUBQ 03/13/18 22:15 04/12/18 22:14 03/14/18 08:48 Insulin Aspart (NovoLOG) BEFORE MEALS AND HS SUBQ 03/14/18 11:30 04/13/18 11:29 03/14/18 12:34 Modafinil (Provigil) 200 mg DAILY ORAL 03/14/18 09:00 03/21/18 08:59 03/14/18 08:46 Morphine Sulfate (Morphine Sulfate) 2 mg EVERY 4 HOURS PRN IVP Moderate Pain (Pain Scale 4-6) 03/13/18 22:00 03/20/18 21:59 Nitroglycerin (Ntg) 0.4 mg Q5M PRN SL Prn Chest Pain 03/13/18 22:00 04/12/18 21:59 Nortriptyline HCl (Pamelor) 50 mg BEDTIME ORAL 03/13/18 23:00 04/12/18 22:59 03/14/18 01:54 Ondansetron HCl (Zofran) 4 mg Q6H PRN IVP Nausea & Vomiting 03/13/18 22:00 04/12/18 21:59 Pantoprazole (Protonix) 40 mg DAILY ORAL 03/14/18 09:00 04/13/18 08:59 03/14/18 08:47 Pilocarpine (Isopto Carpine 2% Op Soln) 1 drop BID BOTH EYES 03/14/18 09:00 04/13/18 08:59 03/14/18 08:45 Pramipexole (Mirapex) 0.25 mg TID ORAL 03/14/18 09:00 04/13/18 08:59 03/14/18 12:47 Risperidone (RisperDAL) 2 mg DAILY ORAL 03/14/18 09:00 04/13/18 08:59 03/14/18 08:47 Sodium Chloride 500 ml @ 999 mls/hr Q31M ONCE IV 03/14/18 15:15 03/14/18 15:45 UNV Sodium Chloride 1,000 ml @ 75 mls/hr [id number] IV 03/13/18 22:00 04/12/18 21:59 03/14/18 12:31 Temazepam (Restoril) 15 mg HSPRN PRN ORAL Insomnia 03/13/18 22:00 03/20/18 21:59 Topiramate (Topamax) 200 mg EVERY 12 HOURS ORAL 03/13/18 23:00 04/12/18 22:59 03/14/18 08:46 Vancomycin HCl (Vanco rx to dose) 1 ea DAILY PRN MISC . 03/14/18 09:00 04/13/18 08:59 Vancomycin HCl 1 gm/Dextrose 275 ml @ 183.3 mls/ hr Q24H IVPB 03/14/18 00:30 03/19/18 00:29 03/14/18 01:48 Assessment/Plan Status: stable, progressing Assessment/Plan MDD Anxiety d/o Encephalopathy -Remeron 15mg qhs -dc topamax -dc welbutrin -change risperdal to qhs -start Merritt Mustafa MD Mar 14, 2018 15:14
[2018-03-14] MEDS: Depakote 500mg tab ORAL SCH ×2 (15:15→21:08)
[2018-03-14] MEDS ORDERED: Sodium Chloride 500ML 500 ML IV ONE (15:15)
--- NOTE | 2018-03-14 16:43 | History & Physical ---
History and Physical History & Physicial Dictated for Int Med Dr Conley no. [id number]. Pipo Marvin MD Mar 14, 2018 16:43
--- NOTE | 2018-03-14 20:45 | Consultation ---
Consult Note Consult Note NEUROLOGY CONSULTATION: Full note dictated #[id number] 67 y/o, RH, CM with PH of ALS, Seizures, depression, glaucoma, and spinal problems who was found down at home one day after he was seen by his caregiver. He was found on his left side with bruises and in a confused disoriented state. ON EXAM: Problems with orientation, memory, VSF, HCF language. Generally weak with poor effort. Globally absent DTRs IMPRESSION: Encephalopathy - multifactorial. REC: CT of brain. Labs for encephalopathy Mobilize with PT/OT. Sandra Obregon M.D., M.S.P.H. SANDRA OBREGON Mar 14, 2018 20:45
--- NOTE | 2018-03-14 22:30 | History and Physical Report ---
DATE OF ADMISSION: 03/13/2018 CHIEF COMPLAINT: The patient is a 67-year-old white male with history of amyotrophic lateral sclerosis, who presents with a chief complaint of syncopal episode. HISTORY OF PRESENT ILLNESS: The patient apparently lives alone. The patient has a caregiver, who comes in part-time. The patient states history of present illness began on Monday March 12, 2018. The patient states he was on his way to the kitchen, however, decided to go to the bathroom. The patient then fell. The patient denies loss of consciousness. The patient was found by his caregiver. The patient was transported to [facility]. It is not unknown how long the patient was down. The patient thinks it may have only been a few minutes. The patient presented to [facility] emergency room. The patient was admitted for altered mental status and syncopal episode. PAST MEDICAL HISTORY: Significant for, 1. Hypertension. 2. Amyotrophic lateral sclerosis, which was diagnosed in 2008. 3. Diabetes CURRENT MEDICATIONS: 1. Tylenol 650 mg p.o. q.6 hours p.r.n. 2. Metformin 500 mg p.o. BID ALLERGIES: Keflex SOCIAL HISTORY: The patient is single. The patient denies tobacco use having quit in the 70s. The patient denies alcohol use. REVIEW OF SYSTEMS: CONSTITUTIONAL: The patient has relapsed again. The patient denies fevers or chills. HEENT: The patient denies ear or throat pain. The patient denies headache. CARDIOVASCULAR: The patient denies palpitations or chest pain. CHEST: The patient denies wheeze or shortness of breath. ABDOMEN: The patient denies nausea, vomiting, diarrhea, or constipation. GENITOURINARY: The patient denies dysuria or frequency of urination. NEUROMUSCULAR: The patient has a history of a ALS as above. The patient denies seizures. The patient does complain of generalized weakness. PHYSICAL EXAMINATION: VITAL SIGNS: Temperature 98.1, respirations 18, pulse 65, blood pressure 112/44, and pulse ox 84 on two liters per nasal cannula. GENERAL: The patient is frail appearing male, who appears older than his stated age. HEENT: Pupils equal and responsive to light and accommodation. Extraocular movements are intact. NECK: Supple without lymphadenopathy. CHEST: Decreased breath sounds in bilateral bases. Otherwise, without wheezes or rales. CARDIOVASCULAR: Regular rhythm and rate. S1 and S2 are normal without murmurs, rubs, or gallops. ABDOMEN: Soft, nontender, and nondistended. Positive bowel sounds. No evidence of hepatosplenomegaly. Currently, no rebound or guarding. EXTREMITIES: Negative for clubbing, cyanosis, or edema. RECTAL/GENITAL: Refused. NEUROLOGIC: Cranial nerves II through XII are grossly intact without focal deficits. Motor strength is 2/5 bilaterally. LABORATORY STUDIES: WBC 7.6, hemoglobin 11.5, hematocrit 37.8, and platelets 43,000. Sodium 147, potassium 3.9, chloride 113, CO2 22, BUN 80, creatinine 3.9, and glucose . Troponin elevated at 0.086. CPK elevated at greater than 1,000. Chest x-ray revealed bilateral opacities consistent with pneumonia. A CT scan of the brain failed to demonstrate acute hemorrhage or infarct. ASSESSMENT: This is a 67-year-old white male. 1. Altered mental status. 2. Rhabdomyolysis. 3. Syncopal episode. 4. Renal failure. 5. Amyotrophic lateral sclerosis. 9. Diabetes TREATMENT: 1. Altered mental status probably secondary to sepsis. 2. Possible Sepsis. A Pulmonary consultation has been obtained with Dr. Loulou Ernandez. The patient has been started empirically on cefepime and vancomycin. 3. Syncopal episode. 4. Elevated CPK/Rhabdomyolysis. A cardiology consultation has been obtained with Dr Duque. Differential includes acute coronary syndrome versus Rhabdomyolysis. Serial troponin and CPK levels will be performed. 5. Renal failure. This may be secondary to dehydration as it is unknown how long the patient was down. A nephrology consult has been obtained with Dr. Aguilar. 6. Amyotrophic lateral sclerosis. A Neurology consultation was obtained with Dr. Obregon. 7. Diabetes. A novolog sliding scale has been instituted. Pipo Marvin M.D. DR: ROLY JOB#: [id number] CC: CARA
--- NOTE | 2018-03-14 22:52 | Consultation ---
History of Present Illness General Date patient seen: Mar 14, 2018 Time patient seen: 22:38 Chief Complaint: Altered Level of Consciousness Reason for Consultation: Leukocytosis Present Illness HPI Pt was brought in by ambulance from home with AMS, found down with Unknown fall incident. 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 Creatinine kinase elevated. He has a hx of DM. He was found to be hypotensive and tachycardic. He was given NS blous with good response. NO fractures. Echo inadequate visualization. BP stable. WBC elevated, troponin marginally elevated. Patient does not endorse chest pain but does not make much sense otherwise. Allergies: Coded Allergies: CEPHALEXIN MONOHYDRATE (Verified Allergy, Unknown, 01/24/12) TETRACYCLINE (Verified Allergy, Unknown, 01/24/12) Medication History Scheduled Albuterol Sulfate* (Proair Hfa*), 1 PUFF INH Q6H, (Reported) Clonazepam* (Klonopin*), 0.5 MG ORAL Q6H, (Reported) Furosemide* (Lasix*), 40 MG ORAL DAILY, (Reported) Gabapentin* (Gabapentin*), 1,200 MG ORAL THREE TIMES A DAY, (Reported) Lorazepam* (Lorazepam*), 1 MG ORAL THREE TIMES A DAY, (Reported) Meloxicam* (Meloxicam*), 7.5 MG PO DAILY, (Reported) Metformin Hcl* (Metformin Hcl*), 500 MG ORAL THREE TIMES A DAY, (Reported) Modafinil* (Provigil), 200 MG ORAL DAILY, (Reported) Pramipexole* (Mirapex*), 0.25 MG ORAL THREE TIMES A DAY, (Reported) Ranitidine Hcl* (Zantac*), 300 MG ORAL DAILY, (Reported) Risperidone* (Risperdal*), 15 MG ORAL DAILY, (Reported) Rosuvastatin Calcium* (Crestor*), 10 MG ORAL DAILY, (Reported) Simvastatin (Zocor), 40 MG ORAL BEDTIME, (Reported) Tizanidine Hcl* (Zanaflex*), 4 MG ORAL BID, (Reported) Topiramate* (Topamax*), 200 MG ORAL TWICE A DAY, (Reported) Valacyclovir Hcl* (Valtrex*), 1,000 MG ORAL TWICE A DAY, (Reported) [andorxy CIII], 15 MG PO DAILY, (Reported) Scheduled PRN Diazepam* (Diazepam*), 5 MG ORAL BID PRN for ANXIETY, (Reported) Diphenhydramine Hcl* (Benadryl*), 25 MG ORAL Q6H PRN for Itching, (Reported) Zolpidem Tartrate* (Ambien*), 5 MG ORAL BEDTIME PRN for Insomnia, (Reported) Miscellaneous Medications Fenofibric Acid (Fenofibric Acid), 135 MG PO, (Reported) Nortriptyline Hcl (Nortriptyline Hcl), 50 MG PO, (Reported) Pilocarpine (Pilocarpine HCl), 5 MG GT, (Reported) Patient History Healthcare decision maker JULITA URBAN Resuscitation status Do Not Resuscitate Advanced Directive on File Yes Review of Systems Constitutional: Reports: no symptoms, chills, fever, malaise, weakness Eye: Reports: no symptoms ENT: Reports: no symptoms Respiratory: Reports: no symptoms Cardiovascular: Reports: no symptoms Gastrointestinal: Reports: no symptoms Genitourinary: Reports: no symptoms Musculoskeletal: Reports: no symptoms Skin: Reports: no symptoms Psychiatric: Reports: no symptoms Neurological: Reports: no symptoms Endocrine: Reports: no symptoms Hematologic/Lymphatic: Reports: no symptoms Physical Exam General Appearance: no apparent distress, lethargic, confused Lines, tubes and drains: peripheral HEENT: normocephalic, atraumatic Neck: non-tender, normal alignment, supple, normal inspection Respiratory/Chest: chest wall non-tender, lungs clear, normal breath sounds Cardiovascular/Chest: normal peripheral pulses, normal rate Abdomen: normal bowel sounds, non tender Neurologic: concrete rod buster II-XII grossly normal Lymphatic: posterior cervical (L) Last 24 Hour Vital Signs Date Time Temp Pulse Resp B/P (MAP) Pulse Ox O2 Delivery O2 Flow Rate FiO2 03/14/18 22:00 102 19 102/63 (76) 99 03/14/18 21:00 110 19 100/65 (77) 99 03/14/18 20:00 98.0 108 18 100/65 (77) 99 98.0 03/14/18 20:00 Nasal Cannula 2.0 28 03/14/18 20:00 Nasal Cannula 2.0 03/14/18 20:00 108 03/14/18 20:00 99 Nasal Cannula 2.0 28 03/14/18 20:00 110 18 Nasal Cannula 2.0 28 03/14/18 19:00 110 21 100/65 (77) 99 03/14/18 18:00 110 21 95/66 (76) 99 03/14/18 17:00 112 21 99/63 (75) 99 03/14/18 16:00 112 03/14/18 16:00 Nasal Cannula 2.0 03/14/18 16:00 98.1 110 20 99/63 (75) 99 98.1 03/14/18 15:00 110 21 96/67 (77) 99 03/14/18 14:00 109 16 93/62 (72) 99 03/14/18 13:00 108 16 95/63 (74) 99 03/14/18 12:00 102 16 102/72 (82) 99 03/14/18 12:00 102 03/14/18 12:00 Nasal Cannula 2.0 03/14/18 11:00 103 17 114/69 (84) 99 03/14/18 10:00 107 17 90/76 (81) 99 03/14/18 09:00 103 17 106/69 (81) 99 03/14/18 08:00 102 17 118/76 (90) 99 03/14/18 08:00 Nasal Cannula 2.0 03/14/18 08:00 103 03/14/18 07:00 97.9 98 17 123/81 (95) 99 97.9 03/14/18 07:00 Nasal Cannula 2.0 28 03/14/18 07:00 99 Nasal Cannula 2.0 28 03/14/18 06:00 102 17 114/74 (87) 99 03/14/18 05:00 98 16 108/80 (89) 99 03/14/18 04:00 Nasal Cannula 2.0 03/14/18 04:00 96 03/14/18 04:00 97.6 91 16 107/76 (86) 100 97.6 03/14/18 03:00 90 17 120/74 (89) 100 03/14/18 02:00 91 13 124/68 (86) 100 03/14/18 01:00 91 13 124/68 (86) 100 03/14/18 00:00 Nasal Cannula 2.0 03/14/18 00:00 97.2 89 13 112/73 (86) 100 97.2 03/13/18 23:00 89 13 112/70 (84) 99 Intake and Output 03/13/18 03/14/18 19:00 07:00 Intake Total 1761.6 ml Output Total 330 ml Balance 1431.6 ml Intake Oral 220 ml IV Total 1541.6 ml Output Urine Total 330 ml # Voids 1 Laboratory Tests Test 03/14/18 05:20 03/14/18 05:35 03/14/18 21:35 White Blood Count 15.4 K/UL (4.8-10.8) H Red Blood Count 5.09 M/UL (4.70-6.10) Hemoglobin 15.8 G/DL (14.2-18.0) Hematocrit 49.9 % (42.0-52.0) Mean Corpuscular Volume 98 FL (80-99) Mean Corpuscular Hemoglobin 31.1 PG (27.0-31.0) H Mean Corpuscular Hemoglobin Concent 31.8 G/DL (32.0-36.0) L Red Cell Distribution Width 13.4 % (11.6-14.8) Platelet Count 158 K/UL (150-450) Mean Platelet Volume 6.8 FL (6.5-10.1) Neutrophils (%) (Auto) 83.4 % (45.0-75.0) H Lymphocytes (%) (Auto) 8.2 % (20.0-45.0) L Monocytes (%) (Auto) 8.0 % (1.0-10.0) Eosinophils (%) (Auto) 0.1 % (0.0-3.0) Basophils (%) (Auto) 0.3 % (0.0-2.0) Sodium Level 140 MMOL/L (136-145) Potassium Level 3.9 MMOL/L (3.5-5.1) Chloride Level 108 MMOL/L (98-107) H Carbon Dioxide Level 22 MMOL/L (21-32) Anion Gap 11 mmol/L (5-15) Blood Urea Nitrogen 48 mg/dL (7-18) H Creatinine 1.6 MG/DL (0.55-1.30) H Estimat Glomerular Filtration Rate 43.3 mL/min (>60) Glucose Level 197 MG/DL (74-106) H Osmolality 306 mOsm/kg (297-317) Uric Acid 3.7 MG/DL (2.6-7.2) Calcium Level 7.3 MG/DL (8.5-10.1) L Phosphorus Level 6.0 MG/DL (2.5-4.9) H Magnesium Level 1.9 MG/DL (1.8-2.4) Total Bilirubin 0.4 MG/DL (0.2-1.0) Aspartate Amino Transf (AST/SGOT) 856 U/L (15-37) H Alanine Aminotransferase (ALT/SGPT) 229 U/L (12-78) H Alkaline Phosphatase 53 U/L (46-116) Total Creatine Kinase > 61737 U/L (26-308) H Troponin I 0.048 ng/mL (0.000-0.056) Total Protein 5.7 G/DL (6.4-8.2) L Albumin 2.2 G/DL (3.4-5.0) L Globulin 3.5 g/dL Albumin/Globulin Ratio 0.6 (1.0-2.7) L Free Thyroxine 0.92 NG/DL (0.76-1.46) C-Reactive Protein, Quantitative 5.8 mg/dL (0.00-0.90) H Ammonia 12 umol/L (11-32) Vitamin D 25-Hydroxy Pending 25-Hydroxy Vitamin D2 Pending 25-Hydroxy Vitamin D3 Pending Rapid Plasma Reagin Pending Height (Feet): 5 Height (Inches): 5.00 Weight (Pounds): 128 Medications Current Medications Medications (Trade) Dose Ordered Sig/Maria Victoria Route PRN Reason Start Time Stop Time Status Last Admin Dose Admin Acetaminophen (Tylenol) 650 mg Q4H PRN ORAL fever 03/13/18 22:00 04/12/18 21:59 Albuterol/ Ipratropium (Albuterol/ Ipratropium) 3 ml Q4H PRN HHN Shortness of Breath 03/13/18 22:00 03/18/18 21:59 Clonazepam (KlonoPIN) 0.5 mg Q6H PRN ORAL anxiety/agitation 03/14/18 10:45 03/21/18 10:44 Dextrose (Dextrose 50%) STAT PRN IV Hypoglycemia 03/14/18 11:00 04/13/18 10:59 Dextrose (Dextrose 50%) STAT PRN IV Hypoglycemia 03/14/18 11:00 04/13/18 10:59 Divalproex Sodium (Depakote) 500 mg EVERY 12 HOURS ORAL 03/14/18 15:15 04/13/18 15:14 03/14/18 21:08 Gabapentin (Neurontin) 600 mg Q12HR ORAL 03/14/18 12:00 04/13/18 11:59 03/14/18 21:08 Heparin Sodium (Porcine) (Heparin 5000 units/ml) 5,000 units EVERY 12 HOURS SUBQ 03/13/18 22:15 04/12/18 22:14 03/14/18 21:09 Insulin Aspart (NovoLOG) BEFORE MEALS AND HS SUBQ 03/14/18 11:30 04/13/18 11:29 03/14/18 21:16 Mirtazapine (Remeron) 15 mg BEDTIME ORAL 03/14/18 21:00 04/13/18 20:59 03/14/18 21:08 Modafinil (Provigil) 200 mg DAILY ORAL 03/14/18 09:00 03/21/18 08:59 03/14/18 08:46 Morphine Sulfate (Morphine Sulfate) 2 mg EVERY 4 HOURS PRN IVP Moderate Pain (Pain Scale 4-6) 03/13/18 22:00 03/20/18 21:59 Nitroglycerin (Ntg) 0.4 mg Q5M PRN SL Prn Chest Pain 03/13/18 22:00 04/12/18 21:59 Nortriptyline HCl (Pamelor) 50 mg BEDTIME ORAL 03/13/18 23:00 04/12/18 22:59 03/14/18 21:08 Ondansetron HCl (Zofran) 4 mg Q6H PRN IVP Nausea & Vomiting 03/13/18 22:00 04/12/18 21:59 Pantoprazole (Protonix) 40 mg DAILY ORAL 03/14/18 09:00 04/13/18 08:59 03/14/18 08:47 Pilocarpine (Isopto Carpine 2% Op Soln) 1 drop BID BOTH EYES 03/14/18 09:00 04/13/18 08:59 03/14/18 18:38 Pramipexole (Mirapex) 0.25 mg TID ORAL 03/14/18 09:00 04/13/18 08:59 03/14/18 18:38 Risperidone (RisperDAL) 2 mg BEDTIME ORAL 03/14/18 21:00 04/13/18 20:59 03/14/18 21:08 Sodium Chloride 1,000 ml @ 75 mls/hr [id number] IV 03/13/18 22:00 04/12/18 21:59 03/14/18 12:31 Temazepam (Restoril) 15 mg HSPRN PRN ORAL Insomnia 03/13/18 22:00 03/20/18 21:59 Vancomycin HCl (Vanco rx to dose) 1 ea DAILY PRN MISC . 03/14/18 09:00 04/13/18 08:59 Vancomycin HCl 1 gm/Dextrose 275 ml @ 183.3 mls/ hr Q24H IVPB 03/14/18 00:30 03/19/18 00:29 03/14/18 01:48 Assessment/Plan Status: stable Assessment/Plan Assessment/Plan Problem List: (1) Hypotension (2) ALS (amyotrophic lateral sclerosis) (3) ATN (acute tubular necrosis) (4) Generalized weakness (5) Amyotrophic lateral sclerosis (ALS) (6) Diabetes mellitus (7) Depression Plan: IV fluids Cultures Abx Serial Troponin No indication for cath Telemetry to evaluate arrhythmias CT brain Carotid Ovidio Clement M.D. Mar 14, 2018 22:52
[2018-03-15] VITALS (19 sets, daily range): BP systolic 96–117; BP diastolic 56–73
[2018-03-15] MEDS: Vancomycin 1 GM in D5W 275 ML IVPB SCH (00:33)
--- NOTE | 2018-03-15 01:00 | Consultation ---
DATE OF CONSULTATION: 03/14/2018 NEUROLOGY CONSULTATION CONSULTING PHYSICIAN: Julien Obregon M.D. REQUESTING PHYSICIAN: Pipo Marvin M.D. HISTORY: Mr. Jana Albarado is a 67-year-old, right-handed, gentleman, who carries a past history of amyotrophic lateral sclerosis, a seizure disorder which is ill-defined, depression, glaucoma, spinal problems as a result of which he has had a kyphoscoliotic curve who was functioning relatively well at home until he apparently fell down and was found by his caregiver a day later. He was apparently lying on his left side and had bruises on his left side with swelling and pain involving his left shoulder and left hip. He has since been x-rayed and no fracture has been discovered. He however has continued to be in a confused disoriented state ever since. This consultation was requested to evaluate the patient for his altered mental state. At this point in time, the patient is unable to give me much of a history. He is quite oblivious as to what exactly happened. He is also quite oblivious with regards to his prior medical history. PAST MEDICAL HISTORY: Significant for ALS diagnosed by Dr. Lindsay Johnston 8 years ago, seizure disorder - the exact details of which are unknown to us, depression, glaucoma, kyphoscoliotic curve involving the spine. FAMILY HISTORY: Nothing significant. PERSONAL HISTORY: Home: He lives at home with a caregiver. 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 Habits: He used to smoke and drink in the past, but stopped doing both quite sometime back. He denies use of any illicit drugs. MEDICATIONS: Risperidone, mirtazapine, Depakote 500 mg q.12 h., gabapentin 600 mg q.12 h., insulin, clonazepam 0.5 mg q.6 h. p.r.n., modafinil 200 mg daily, Mirapex 0.25 mg 3 times a day, pilocarpine eye drops, Protonix, vancomycin, nortriptyline 50 mg at bedtime, topiramate 200 mg every 12 hours, heparin for DVT prophylaxis, Duo-Neb inhaler, Tylenol p.r.n., morphine p.r.n., Zofran p.r.n., Restoril p.r.n. and nitroglycerin p.r.n. PHYSICAL EXAMINATION: GENERAL: He is a well-developed, well-nourished, gentleman, lying in bed, in no acute distress. VITAL SIGNS: Pulse 110/minute, blood pressure 100/65 mmHg, respirations 20/minute, and temperature 98.1 degrees Fahrenheit. HEAD: Normocephalic and atraumatic with light bruise over his nose. EENT: Examination benign. NECK: No neck rigidity was observed. NEUROLOGIC EXAMINATION: MENTAL STATUS EXAMINATION: He was awake, but not alert. He was oriented to [facility]. He did not know the date or the month. He was able to recall 3/3 words immediately, but could only remember 1/3 words in 1 minute and 3 minutes even on the second trial. He was unable to remember any [place] presidents. His mathematical skills were impaired. His visuospatial function was also impaired. SPEECH: He had a mild dysarthria. LANGUAGE: He had problems with comprehension, repetition, naming and expression of language. CRANIAL NERVE EXAMINATION: II: The visual oquedno were intact on confrontation testing. III, IV & : External ocular movements were full and the pupils 3 mm in diameter, equal, round, regular, and reactive to light. V: He had normal facial sensations and the temporales, masseters, and pterygoids functioned normally. VII: He had normal facial expressions and no facial asymmetry. VIII: He was able to hear well bilaterally and had no nystagmus. IX: The palate moved symmetrically on phonation. X: He had no hoarseness of voice. XI: Sternocleidomastoids and trapezii functioned normally. XII: The tongue was in the midline without any fasciculations or atrophy. MOTOR SYSTEM: The tone was normal in all four extremities. Examination of muscle mass revealed mild generalized wasting. Examination of power was exceedingly difficult to perform because of varying degrees of cooperation. He however moved all four extremities relatively well, but tended to move his left side less due to pain in his left shoulder and left hip. SENSORY EXAMINATION: He was unable to cooperate for sensory testing. He did however feel painful stimuli well. REFLEXES: 0 at the biceps, triceps, brachioradialis, knees, and ankles. The plantar responses were flexor bilaterally. COORDINATION, STANCE & GAIT: Could not be tested. DIAGNOSTIC IMPRESSION: 1. Mr. Jana Albarado is a 67-year-old, right-handed, gentleman, who does have a past history of ALS, seizures, depression, glaucoma, and spinal problems who apparently fell down in the absence of any one at home and was found on the next day by his caregiver lying on his left-side, with bruises over his left side in a confused disoriented state. At this point in time, he continues to be confused and disoriented. 2. On neurological examination, at this time, he has problems with orientation, recent and remote memory, visuospatial function, higher cognitive function, and language. He is also generally weak and gives a poor effort with motor testing. He also has globally absent deep tendon reflexes. 3. The patient's history and neurological examination are most compatible with an ongoing encephalopathic process, the exact etiology for the encephalopathy is unclear at this point in time. Offending factors could be an acute infectious process as he does have WBC count elevated to 15,400. He also has renal dysfunction with a BUN of 48 with a creatinine of 1.6. His blood glucose is elevated at 197. He has liver dysfunction in the form of AST elevated to 856 and ALT elevated to 229, and he does have rhabdomyolysis with his CK is greater than 10,000. His free T4 is normal at 0.92. His urinalysis also reveals 1+ leukocyte esterase, 0-4 RBCs and 0-2 WBCs per high-power field. 4. Although, the patient carries a history of ALS, his neurological findings at this point in time are not very consistent with it. The diagnosis is suspect. RECOMMENDATIONS: 1. Agree with management thus far. 2. A CT scan of the brain will be ordered to evaluate the patient for intracranial pathology. 3. He should be worked up thoroughly for treatable causes of encephalopathy with a B12 level, folate level, vitamin D level, RPR, glycohemoglobin, and Westergren sedimentation rate. 4. An EEG will be ordered to evaluate the patient for his underlying seizure disorder. 5. The patient should be mobilized with the help of physical and occupational therapy. Thank you for entrusting me with the care of Mr. Albarado. I shall follow him with you. Julien Obregon M.D., M.S.P.H. DR: KRYSTAL JOB#: [id number] CARA
[2018-03-15] MEDS: NS w/KCl 20mEq 1,000 ML IV SCH (04:20)
[2018-03-15] MEDS: NovoLOG Insulin Flexpen SUBQ SCH ×4 (06:25→20:46)
[2018-03-15] MEDS: Pramipexole 0.5mg tab ORAL SCH ×3 (08:21→18:26)
[2018-03-15] MEDS: Depakote 500mg tab ORAL SCH ×2 (08:21→20:35)
[2018-03-15] MEDS: Modafinil 100mg tab ORAL SCH (08:22)
[2018-03-15] MEDS: Heparin 5000 units/ml inj SUBQ SCH ×2 (08:26→20:39)
[2018-03-15 08:27] LABS: HEMATOCRIT 45.8 % (42.0-52.0); HEMOGLOBIN 14.5 G/DL (14.2-18.0); MEAN CORPUSCULAR VOLUME 96 FL (80-99); PLATELET COUNT 144 K/UL (150-450); RED BLOOD COUNT 4.79 M/UL (4.70-6.10); RED CELL DISTRIBUTION WIDTH 12.8 % (11.6-14.8); WHITE BLOOD COUNT 16.9 K/UL (4.8-10.8)
[2018-03-15] MEDS: Pilocarpine 2% Opth 15ml Soln BOTH EYES SCH ×2 (08:34→18:27)
[2018-03-15 08:56] LABS: ALANINE AMINOTRANSFERASE 161 U/L (12-78); ALBUMIN 1.6 G/DL (3.4-5.0); ALBUMIN/GLOBULIN RATIO 0.4 (1.0-2.7); ALKALINE PHOSPHATASE 49 U/L (46-116); ANION GAP 10 mmol/L (5-15); ASPARTATE AMINO TRANSFERASE 437 U/L (15-37); BILIRUBIN,TOTAL 0.3 MG/DL (0.2-1.0); BLOOD UREA NITROGEN 53 mg/dL (7-18); CALCIUM 7.7 MG/DL (8.5-10.1); CARBON DIOXIDE 18 MMOL/L (21-32); CHLORIDE 105 MMOL/L (98-107); CHOLESTEROL 150 MG/DL (< 200); CREATININE 1.8 MG/DL (0.55-1.30); HDL CHOLESTEROL 29 MG/DL (40-60); POTASSIUM 4.7 MMOL/L (3.5-5.1); SODIUM 132 MMOL/L (136-145); TRIGLYCERIDES 155 MG/DL (30-150)
[2018-03-15 09:08] LABS: CREATINE KINASE > 10000 U/L (26-308); GAMMA GLUTAMYL TRANSPEPTIDASE 109 U/L (5-85); PHOSPHORUS 5.3 MG/DL (2.5-4.9)
--- NOTE | 2018-03-15 09:38 | Diagnostic Imaging Report ---
Indication: Dyspnea Technique: Portable AP view of the chest Comparison: 03/14/2018 Findings: Heart size and mediastinal contours within normal limits. There is elevation of the right hemidiaphragm with unchanged mild recent linear atelectasis in the right base. There is eventration of the left hemidiaphragm versus small left-sided diaphragmatic hernia; margins appear well circumscribed. There is no definite focal airspace consolidation. No pleural effusion or pneumothorax. There is osteopenia and degenerative change of the spine. No appreciable acute osseous abnormality. There are atherosclerotic vascular calcifications. IMPRESSION: No significant interval change compared to exam one day prior. Unchanged elevation of the right hemidiaphragm with adjacent linear atelectasis at the right base. Eventration of the left hemidiaphragm versus small diaphragmatic hernia. CT of the chest can be obtained for further evaluation as clinically indicated.
--- NOTE | 2018-03-15 09:55 | Pulmonolgy Critical Care Note ---
Critical Care - Asmt/Plan Problems: (1) Sepsis (2) Hypotension (3) ATN (acute tubular necrosis) (4) Generalized weakness (5) Dehydration (6) Diabetes mellitus (7) Depression (8) Amyotrophic lateral sclerosis (ALS) Respiratory: monitor respiratory rate, adjust FIO2, CXR Cardiac: d/c monitoring coordinator Renal: F/U I&O, keep IV fluid, check electrolytes, other - check renal US Infectious Disease: check cultures Gastrointestinal: continue feedings/current rate Endocrine: monitor blood sugar, continue sliding scale insulin Hematologic: monitor H/H, transfuse if hgb<8.5 Neurologic: PRN Ativan, PRN Morphine Disposition: transfer to Time Spent (Minutes): 40 Notes Reviewed: broaching machine repairer, cardio, renal Discussed with: nurses, consultants, rehabilitation case coordinatortactical air control party manager - Objective Last 24 Hour Vital Signs Date Time Temp Pulse Resp B/P (MAP) Pulse Ox O2 Delivery O2 Flow Rate FiO2 03/15/18 09:00 109 14 104/62 (76) 98 03/15/18 08:00 Nasal Cannula 2.0 03/15/18 08:00 104 03/15/18 08:00 104 16 114/67 (83) 95 03/15/18 07:00 98.6 102 16 110/70 (83) 100 98.6 03/15/18 06:55 100 Nasal Cannula 2.0 28 03/15/18 06:55 Nasal Cannula 2.0 28 03/15/18 06:55 104 18 Nasal Cannula 2.0 28 03/15/18 06:00 90 17 110/70 (83) 100 03/15/18 05:00 100 17 117/63 (81) 100 03/15/18 04:00 Nasal Cannula 2.0 03/15/18 04:00 98.4 100 16 115/61 (79) 100 98.4 03/15/18 03:00 100 14 117/63 (81) 100 03/15/18 02:00 102 19 114/73 (87) 99 03/15/18 01:00 101 03/15/18 01:00 101 17 117/72 (87) 99 03/15/18 00:00 98.0 106 19 115/56 (75) 99 98.0 03/15/18 00:00 Nasal Cannula 2.0 03/15/18 00:00 106 03/14/18 23:00 106 18 106/61 (76) 99 03/14/18 22:00 102 19 102/63 (76) 99 03/14/18 21:00 110 19 100/65 (77) 99 03/14/18 20:00 98.0 108 18 100/65 (77) 99 98.0 03/14/18 20:00 Nasal Cannula 2.0 28 03/14/18 20:00 Nasal Cannula 2.0 03/14/18 20:00 108 03/14/18 20:00 99 Nasal Cannula 2.0 28 03/14/18 20:00 110 18 Nasal Cannula 2.0 28 03/14/18 19:00 110 21 100/65 (77) 99 03/14/18 18:00 110 21 95/66 (76) 99 03/14/18 17:00 112 21 99/63 (75) 99 03/14/18 16:00 112 03/14/18 16:00 Nasal Cannula 2.0 03/14/18 16:00 98.1 110 20 99/63 (75) 99 98.1 03/14/18 15:00 110 21 96/67 (77) 99 03/14/18 14:00 109 16 93/62 (72) 99 03/14/18 13:00 108 16 95/63 (74) 99 03/14/18 12:00 102 16 102/72 (82) 99 03/14/18 12:00 102 03/14/18 12:00 Nasal Cannula 2.0 03/14/18 11:00 103 17 114/69 (84) 99 03/14/18 10:00 107 17 90/76 (81) 99 Status: awake Condition: improving HEENT: atraumatic Neck: full ROM Lungs: clear Heart: HR/BP stable Abdomen: soft, non-tender Extremities: no C/C/E Decubiti: location Micro: Microbiology Date/Time Source Procedure Growth Status 03/14/18 18:43 Indwelling Cath Urine Culture - Preliminary Gram Negative Bacillus 1 Resulted 03/13/18 19:30 Rectum VRE Culture - Final NO VANCOMYCIN RESISTANT ENTEROCOCCUS ... Complete Accucheck: 98 Critical Care - Subjective ROS Limited/Unobtainable: No Condition: critical EKG Rhythm: Sinus Rhythm FI02: 28 Vent Support Breath Rate: 14 Vent Support Mode: BiLevel Sputum Amount: None I&O: Intake and Output 03/14/18 03/15/18 19:00 07:00 Intake Total 1550 ml 525 ml Output Total 185 ml 370 ml Balance 1365 ml 155 ml Intake Oral 650 ml 300 ml IV Total 900 ml 225 ml Output Urine Total 185 ml 370 ml Stool Total 0 ml CXR: jose rafael Labs: Laboratory Tests Test 03/14/18 21:35 03/15/18 06:30 03/15/18 07:55 Ammonia 12 umol/L (11-32) Vitamin D 25-Hydroxy Pending 25-Hydroxy Vitamin D2 Pending 25-Hydroxy Vitamin D3 Pending Rapid Plasma Reagin Pending Hemoglobin A1c 6.0 % (4.3-6.0) Uric Acid 3.8 MG/DL (2.6-7.2) Phosphorus Level 5.3 MG/DL (2.5-4.9) H Magnesium Level 1.8 MG/DL (1.8-2.4) Gamma Glutamyl Transpeptidase 109 U/L (5-85) H Total Creatine Kinase > 71407 U/L (26-308) H Troponin I 0.020 ng/mL (0.000-0.056) Vitamin B12 Level 1085 PG/ML (193-986) H Folate 14.8 NG/ML (8.6-58.9) White Blood Count 16.9 K/UL (4.8-10.8) H Red Blood Count 4.79 M/UL (4.70-6.10) Hemoglobin 14.5 G/DL (14.2-18.0) Hematocrit 45.8 % (42.0-52.0) Mean Corpuscular Volume 96 FL (80-99) Mean Corpuscular Hemoglobin 30.3 PG (27.0-31.0) Mean Corpuscular Hemoglobin Concent 31.7 G/DL (32.0-36.0) L Red Cell Distribution Width 12.8 % (11.6-14.8) Platelet Count 144 K/UL (150-450) L Mean Platelet Volume 8.0 FL (6.5-10.1) Neutrophils (%) (Auto) % (45.0-75.0) Lymphocytes (%) (Auto) % (20.0-45.0) Monocytes (%) (Auto) % (1.0-10.0) Eosinophils (%) (Auto) % (0.0-3.0) Basophils (%) (Auto) % (0.0-2.0) Differential Total Cells Counted 100 Neutrophils % (Manual) 79 % (45-75) H Lymphocytes % (Manual) 12 % (20-45) L Monocytes % (Manual) 5 % (1-10) Eosinophils % (Manual) 0 % (0-3) Basophils % (Manual) 0 % (0-2) Band Neutrophils 4 % (0-8) Platelet Estimate Decreased L Platelet Morphology Normal Red Blood Cell Morphology Normal Sodium Level 132 MMOL/L (136-145) L Potassium Level 4.7 MMOL/L (3.5-5.1) Chloride Level 105 MMOL/L (98-107) Carbon Dioxide Level 18 MMOL/L (21-32) L Anion Gap 10 mmol/L (5-15) Blood Urea Nitrogen 53 mg/dL (7-18) H Creatinine 1.8 MG/DL (0.55-1.30) H Estimat Glomerular Filtration Rate 37.8 mL/min (>60) Glucose Level 146 MG/DL (74-106) H Calcium Level 7.7 MG/DL (8.5-10.1) L Total Bilirubin 0.3 MG/DL (0.2-1.0) Aspartate Amino Transf (AST/SGOT) 437 U/L (15-37) H Alanine Aminotransferase (ALT/SGPT) 161 U/L (12-78) H Alkaline Phosphatase 49 U/L (46-116) Pro-B-Type Natriuretic Peptide 34 pg/mL (0-125) Total Protein 5.2 G/DL (6.4-8.2) L Albumin 1.6 G/DL (3.4-5.0) L Globulin 3.6 g/dL Albumin/Globulin Ratio 0.4 (1.0-2.7) L Triglycerides Level 155 MG/DL (30-150) H Cholesterol Level 150 MG/DL (< 200) LDL Cholesterol 97 mg/dL (<100) HDL Cholesterol 29 MG/DL (40-60) L Cholesterol/HDL Ratio 5.2 (3.3-4.4) H Thyroid Stimulating Hormone (TSH) 0.565 uiU/mL (0.358-3.740) Loulou Ernandez MD Mar 15, 2018 09:55
--- NOTE | 2018-03-15 11:20 | Diagnostic Imaging Report ---
Indication: altered mental status Technique: Continuous helical CT scanning of the head was performed utilizing automated exposure control without intravenous contrast material. Axial and coronal reconstructions were obtained. Comparison: 01/24/2012 CT dose: Total DLP 1375.91 mGycm; CTDI vol 70.38 mGy Findings: There is no acute intracranial hemorrhage, mass effect or cortical edema. The ventricles, cisterns and sulci are within normal limits for age and overall stable compared to the prior exam. There are minimal the ventricular hypoattenuation is seen, a nonspecific finding suggestive of sequela of chronic microvascular ischemia. There are atherosclerotic vascular calcifications. Visualized mastoid air cells and paranasal sinuses are unremarkable. No focal lesions of the bony calvarium or soft tissues of the scalp are seen. IMPRESSION: No evidence of acute intracranial hemorrhage, mass effect or cortical edema. MRI may be obtained for more sensitive evaluation as clinically indicated. The CT scanner at [facility] is accredited by the [employer] and the scans are performed using protocols designed to limit radiation exposure to as low as reasonably achievable to attain images of sufficient resolution adequate for diagnostic evaluation.
--- NOTE | 2018-03-15 12:14 | Cardiology Progress Note ---
Assessment/Plan Status: stable Assessment/Plan Assessment/Plan Problem List: (1) Hypotension (2) ALS (amyotrophic lateral sclerosis) (3) ATN (acute tubular necrosis) (4) Generalized weakness (5) Amyotrophic lateral sclerosis (ALS) (6) Diabetes mellitus (7) Depression Plan: IV fluids EEG Renal US Physical therapy Cultures Abx Serial Troponin No indication for cath Telemetry to evaluate arrhythmias CT brain negative for CVA Carotid US Subjective Cardiovascular: Reports: no symptoms Respiratory: Reports: no symptoms Gastrointestinal/Abdominal: Reports: no symptoms Genitourinary: Reports: no symptoms Subjective Remains in ICU, altered and can not provide history. CT brain negative for CVA. Renal US/EEG pending. CXR negative for PNA/Effusion/consolidations. Vitals stable. Objective Last 24 Hour Vital Signs Date Time Temp Pulse Resp B/P (MAP) Pulse Ox O2 Delivery O2 Flow Rate FiO2 03/15/18 10:00 102 14 113/64 (80) 100 03/15/18 09:00 109 14 104/62 (76) 98 03/15/18 08:00 Nasal Cannula 2.0 03/15/18 08:00 104 03/15/18 08:00 104 16 114/67 (83) 95 03/15/18 07:00 98.6 102 16 110/70 (83) 100 98.6 03/15/18 06:55 100 Nasal Cannula 2.0 28 03/15/18 06:55 Nasal Cannula 2.0 28 03/15/18 06:55 104 18 Nasal Cannula 2.0 28 03/15/18 06:00 90 17 110/70 (83) 100 03/15/18 05:00 100 17 117/63 (81) 100 03/15/18 04:00 Nasal Cannula 2.0 03/15/18 04:00 98.4 100 16 115/61 (79) 100 98.4 03/15/18 03:00 100 14 117/63 (81) 100 03/15/18 02:00 102 19 114/73 (87) 99 03/15/18 01:00 101 03/15/18 01:00 101 17 117/72 (87) 99 03/15/18 00:00 98.0 106 19 115/56 (75) 99 98.0 03/15/18 00:00 Nasal Cannula 2.0 8/8/18 00:00 106 03/14/18 23:00 106 18 106/61 (76) 99 03/14/18 22:00 102 19 102/63 (76) 99 03/14/18 21:00 110 19 100/65 (77) 99 03/14/18 20:00 98.0 108 18 100/65 (77) 99 98.0 03/14/18 20:00 Nasal Cannula 2.0 28 03/14/18 20:00 Nasal Cannula 2.0 03/14/18 20:00 108 03/14/18 20:00 99 Nasal Cannula 2.0 28 03/14/18 20:00 110 18 Nasal Cannula 2.0 28 03/14/18 19:00 110 21 100/65 (77) 99 03/14/18 18:00 110 21 95/66 (76) 99 03/14/18 17:00 112 21 99/63 (75) 99 03/14/18 16:00 112 03/14/18 16:00 Nasal Cannula 2.0 03/14/18 16:00 98.1 110 20 99/63 (75) 99 98.1 03/14/18 15:00 110 21 96/67 (77) 99 03/14/18 14:00 109 16 93/62 (72) 99 03/14/18 13:00 108 16 95/63 (74) 99 General Appearance: no apparent distress, alert EENT: PERRL/EOMI, normal ENT inspection Neck: non-tender, normal alignment Rhythm: ST Cardiovascular: normal peripheral pulses, normal rate, regular rhythm Respiratory/Chest: chest wall non-tender, lungs clear Abdomen: normal bowel sounds, non tender, soft, no organomegaly, no mass Extremities: normal range of motion, non-tender Neurologic: cutter inspector II-XII grossly normal, no motor/sensory deficits Intake and Output 03/14/18 03/15/18 19:00 07:00 Intake Total 1550 ml 525 ml Output Total 185 ml 370 ml Balance 1365 ml 155 ml Intake Oral 650 ml 300 ml IV Total 900 ml 225 ml Output Urine Total 185 ml 370 ml Stool Total 0 ml Laboratory Tests Test 03/14/18 21:35 03/15/18 06:30 03/15/18 07:55 Ammonia 12 umol/L (11-32) Vitamin D 25-Hydroxy Pending 25-Hydroxy Vitamin D2 Pending 25-Hydroxy Vitamin D3 Pending Rapid Plasma Reagin Pending Hemoglobin A1c 6.0 % (4.3-6.0) Uric Acid 3.8 MG/DL (2.6-7.2) Phosphorus Level 5.3 MG/DL (2.5-4.9) H Magnesium Level 1.8 MG/DL (1.8-2.4) Gamma Glutamyl Transpeptidase 109 U/L (5-85) H Total Creatine Kinase > 62858 U/L (26-308) H Troponin I 0.020 ng/mL (0.000-0.056) Vitamin B12 Level 1085 PG/ML (193-986) H Folate 14.8 NG/ML (8.6-58.9) White Blood Count 16.9 K/UL (4.8-10.8) H Red Blood Count 4.79 M/UL (4.70-6.10) Hemoglobin 14.5 G/DL (14.2-18.0) Hematocrit 45.8 % (42.0-52.0) Mean Corpuscular Volume 96 FL (80-99) Mean Corpuscular Hemoglobin 30.3 PG (27.0-31.0) Mean Corpuscular Hemoglobin Concent 31.7 G/DL (32.0-36.0) L Red Cell Distribution Width 12.8 % (11.6-14.8) Platelet Count 144 K/UL (150-450) L Mean Platelet Volume 8.0 FL (6.5-10.1) Neutrophils (%) (Auto) % (45.0-75.0) Lymphocytes (%) (Auto) % (20.0-45.0) Monocytes (%) (Auto) % (1.0-10.0) Eosinophils (%) (Auto) % (0.0-3.0) Basophils (%) (Auto) % (0.0-2.0) Differential Total Cells Counted 100 Neutrophils % (Manual) 79 % (45-75) H Lymphocytes % (Manual) 12 % (20-45) L Monocytes % (Manual) 5 % (1-10) Eosinophils % (Manual) 0 % (0-3) Basophils % (Manual) 0 % (0-2) Band Neutrophils 4 % (0-8) Platelet Estimate Decreased L Platelet Morphology Normal Red Blood Cell Morphology Normal Sodium Level 132 MMOL/L (136-145) L Potassium Level 4.7 MMOL/L (3.5-5.1) Chloride Level 105 MMOL/L (98-107) Carbon Dioxide Level 18 MMOL/L (21-32) L Anion Gap 10 mmol/L (5-15) Blood Urea Nitrogen 53 mg/dL (7-18) H Creatinine 1.8 MG/DL (0.55-1.30) H Estimat Glomerular Filtration Rate 37.8 mL/min (>60) Glucose Level 146 MG/DL (74-106) H Calcium Level 7.7 MG/DL (8.5-10.1) L Total Bilirubin 0.3 MG/DL (0.2-1.0) Aspartate Amino Transf (AST/SGOT) 437 U/L (15-37) H Alanine Aminotransferase (ALT/SGPT) 161 U/L (12-78) H Alkaline Phosphatase 49 U/L (46-116) Pro-B-Type Natriuretic Peptide 34 pg/mL (0-125) Total Protein 5.2 G/DL (6.4-8.2) L Albumin 1.6 G/DL (3.4-5.0) L Globulin 3.6 g/dL Albumin/Globulin Ratio 0.4 (1.0-2.7) L Triglycerides Level 155 MG/DL (30-150) H Cholesterol Level 150 MG/DL (< 200) LDL Cholesterol 97 mg/dL (<100) HDL Cholesterol 29 MG/DL (40-60) L Cholesterol/HDL Ratio 5.2 (3.3-4.4) H Thyroid Stimulating Hormone (TSH) 0.565 uiU/mL (0.358-3.740) Cortisol Pending Microbiology Date/Time Source Procedure Growth Status 03/13/18 19:30 Nasal Nares MRSA Culture - Final NO METHICILLIN RESISTANT STAPH AUREUS... Complete 03/14/18 18:43 Indwelling Cath Urine Culture - Preliminary Gram Negative Bacillus 1 Resulted 03/13/18 19:30 Rectum VRE Culture - Final NO VANCOMYCIN RESISTANT ENTEROCOCCUS ... Complete Ovidio Duque M.D. Mar 15, 2018 12:14
--- NOTE | 2018-03-15 12:15 | Infectious Diseases Prog Note ---
Assessment/Plan Assessment/Plan Mr. Albarado is a 67 yo male with ALS who is presenting with weakness and AMS after a fall #Leukocytosis - increasing - Post trauma vs active infection UTI? PNA? Cultures pend CXR no clear sign of PNA #Diabetes mellitus #ALS (amyotrophic lateral sclerosis) #Depression #S/P Fall with bruising of left shoulder PLAN - Start Levofloxacin #1 - D/C Vancomycin - Patient stable mentation improved. - f/u cultures - Monitor CBC and Temps -Supportive care Thank you for consulting us for the care of this patient. We will continue to follow with you. Subjective Allergies: Coded Allergies: CEPHALEXIN MONOHYDRATE (Verified Allergy, Unknown, 01/24/12) TETRACYCLINE (Verified Allergy, Unknown, 01/24/12) Subjective Patient awake and alert. No Complaints Afebrile Objective Vital Signs Last 24 Hour Vital Signs Date Time Temp Pulse Resp B/P (MAP) Pulse Ox O2 Delivery O2 Flow Rate FiO2 03/15/18 10:00 102 14 113/64 (80) 100 03/15/18 09:00 109 14 104/62 (76) 98 03/15/18 08:00 Nasal Cannula 2.0 03/15/18 08:00 104 03/15/18 08:00 104 16 114/67 (83) 95 03/15/18 07:00 98.6 102 16 110/70 (83) 100 98.6 03/15/18 06:55 100 Nasal Cannula 2.0 28 03/15/18 06:55 Nasal Cannula 2.0 28 03/15/18 06:55 104 18 Nasal Cannula 2.0 28 03/15/18 06:00 90 17 110/70 (83) 100 03/15/18 05:00 100 17 117/63 (81) 100 03/15/18 04:00 Nasal Cannula 2.0 03/15/18 04:00 98.4 100 16 115/61 (79) 100 98.4 03/15/18 03:00 100 14 117/63 (81) 100 03/15/18 02:00 102 19 114/73 (87) 99 03/15/18 01:00 101 03/15/18 01:00 101 17 117/72 (87) 99 03/15/18 00:00 98.0 106 19 115/56 (75) 99 98.0 03/15/18 00:00 Nasal Cannula 2.0 8/8/18 00:00 106 03/14/18 23:00 106 18 106/61 (76) 99 03/14/18 22:00 102 19 102/63 (76) 99 03/14/18 21:00 110 19 100/65 (77) 99 03/14/18 20:00 98.0 108 18 100/65 (77) 99 98.0 03/14/18 20:00 Nasal Cannula 2.0 28 03/14/18 20:00 Nasal Cannula 2.0 03/14/18 20:00 108 03/14/18 20:00 99 Nasal Cannula 2.0 28 03/14/18 20:00 110 18 Nasal Cannula 2.0 28 03/14/18 19:00 110 21 100/65 (77) 99 03/14/18 18:00 110 21 95/66 (76) 99 03/14/18 17:00 112 21 99/63 (75) 99 03/14/18 16:00 112 03/14/18 16:00 Nasal Cannula 2.0 03/14/18 16:00 98.1 110 20 99/63 (75) 99 98.1 03/14/18 15:00 110 21 96/67 (77) 99 03/14/18 14:00 109 16 93/62 (72) 99 03/14/18 13:00 108 16 95/63 (74) 99 Height (Feet): 5 Height (Inches): 5.00 Weight (Pounds): 131 Objective Gen:~ NAD, Think male, Ill appearing HEENT: NCAT, MMM, EOMI LUNGS:~ CTAB, No W/C, CARDS: RRR, S1, S2, No M/R/G,~ ABD: Soft, NT, ND, No R/G, + BS, No HSM, No Masses Ext: C/C/E, Pulses 2+ B/L (DP, Rad), Left shoulder with bruising and decreases ROM NEURO: A/O x 2 (Name and location), Strength and Sensation Grossly intact SKIN:~ warm/dry, No rashes, Multiple erythematous patches/bruising. Microbiology Date/Time Source Procedure Growth Status 03/13/18 19:30 Nasal Nares MRSA Culture - Final NO METHICILLIN RESISTANT STAPH AUREUS... Complete 03/14/18 18:43 Indwelling Cath Urine Culture - Preliminary Gram Negative Bacillus 1 Resulted 03/13/18 19:30 Rectum VRE Culture - Final NO VANCOMYCIN RESISTANT ENTEROCOCCUS ... Complete Laboratory Tests Test 03/14/18 21:35 03/15/18 06:30 03/15/18 07:55 Ammonia 12 umol/L (11-32) Vitamin D 25-Hydroxy Pending 25-Hydroxy Vitamin D2 Pending 25-Hydroxy Vitamin D3 Pending Rapid Plasma Reagin Pending Hemoglobin A1c 6.0 % (4.3-6.0) Uric Acid 3.8 MG/DL (2.6-7.2) Phosphorus Level 5.3 MG/DL (2.5-4.9) H Magnesium Level 1.8 MG/DL (1.8-2.4) Gamma Glutamyl Transpeptidase 109 U/L (5-85) H Total Creatine Kinase > 36167 U/L (26-308) H Troponin I 0.020 ng/mL (0.000-0.056) Vitamin B12 Level 1085 PG/ML (193-986) H Folate 14.8 NG/ML (8.6-58.9) White Blood Count 16.9 K/UL (4.8-10.8) H Red Blood Count 4.79 M/UL (4.70-6.10) Hemoglobin 14.5 G/DL (14.2-18.0) Hematocrit 45.8 % (42.0-52.0) Mean Corpuscular Volume 96 FL (80-99) Mean Corpuscular Hemoglobin 30.3 PG (27.0-31.0) Mean Corpuscular Hemoglobin Concent 31.7 G/DL (32.0-36.0) L Red Cell Distribution Width 12.8 % (11.6-14.8) Platelet Count 144 K/UL (150-450) L Mean Platelet Volume 8.0 FL (6.5-10.1) Neutrophils (%) (Auto) % (45.0-75.0) Lymphocytes (%) (Auto) % (20.0-45.0) Monocytes (%) (Auto) % (1.0-10.0) Eosinophils (%) (Auto) % (0.0-3.0) Basophils (%) (Auto) % (0.0-2.0) Differential Total Cells Counted 100 Neutrophils % (Manual) 79 % (45-75) H Lymphocytes % (Manual) 12 % (20-45) L Monocytes % (Manual) 5 % (1-10) Eosinophils % (Manual) 0 % (0-3) Basophils % (Manual) 0 % (0-2) Band Neutrophils 4 % (0-8) Platelet Estimate Decreased L Platelet Morphology Normal Red Blood Cell Morphology Normal Sodium Level 132 MMOL/L (136-145) L Potassium Level 4.7 MMOL/L (3.5-5.1) Chloride Level 105 MMOL/L (98-107) Carbon Dioxide Level 18 MMOL/L (21-32) L Anion Gap 10 mmol/L (5-15) Blood Urea Nitrogen 53 mg/dL (7-18) H Creatinine 1.8 MG/DL (0.55-1.30) H Estimat Glomerular Filtration Rate 37.8 mL/min (>60) Glucose Level 146 MG/DL (74-106) H Calcium Level 7.7 MG/DL (8.5-10.1) L Total Bilirubin 0.3 MG/DL (0.2-1.0) Aspartate Amino Transf (AST/SGOT) 437 U/L (15-37) H Alanine Aminotransferase (ALT/SGPT) 161 U/L (12-78) H Alkaline Phosphatase 49 U/L (46-116) Pro-B-Type Natriuretic Peptide 34 pg/mL (0-125) Total Protein 5.2 G/DL (6.4-8.2) L Albumin 1.6 G/DL (3.4-5.0) L Globulin 3.6 g/dL Albumin/Globulin Ratio 0.4 (1.0-2.7) L Triglycerides Level 155 MG/DL (30-150) H Cholesterol Level 150 MG/DL (< 200) LDL Cholesterol 97 mg/dL (<100) HDL Cholesterol 29 MG/DL (40-60) L Cholesterol/HDL Ratio 5.2 (3.3-4.4) H Thyroid Stimulating Hormone (TSH) 0.565 uiU/mL (0.358-3.740) Cortisol Pending Current Medications Medications (Trade) Dose Ordered Sig/Maria Victoria Route PRN Reason Start Time Stop Time Status Last Admin Dose Admin Acetaminophen (Tylenol) 650 mg Q4H PRN ORAL fever 03/13/18 22:00 04/12/18 21:59 Albuterol/ Ipratropium (Albuterol/ Ipratropium) 3 ml Q4H PRN HHN Shortness of Breath 03/13/18 22:00 03/18/18 21:59 Clonazepam (KlonoPIN) 0.5 mg Q6H PRN ORAL anxiety/agitation 03/14/18 10:45 03/21/18 10:44 Dextrose (Dextrose 50%) STAT PRN IV Hypoglycemia 03/14/18 11:00 04/13/18 10:59 Dextrose (Dextrose 50%) STAT PRN IV Hypoglycemia 03/14/18 11:00 04/13/18 10:59 Divalproex Sodium (Depakote) 500 mg EVERY 12 HOURS ORAL 03/14/18 15:15 04/13/18 15:14 03/15/18 08:21 Gabapentin (Neurontin) 600 mg Q12HR ORAL 03/14/18 12:00 04/13/18 11:59 03/15/18 08:21 Heparin Sodium (Porcine) (Heparin 5000 units/ml) 5,000 units EVERY 12 HOURS SUBQ 03/13/18 22:15 04/12/18 22:14 03/15/18 08:26 Insulin Aspart (NovoLOG) BEFORE MEALS AND HS SUBQ 03/14/18 11:30 04/13/18 11:29 03/14/18 21:16 Mirtazapine (Remeron) 15 mg BEDTIME ORAL 03/14/18 21:00 04/13/18 20:59 03/14/18 21:08 Modafinil (Provigil) 200 mg DAILY ORAL 03/14/18 09:00 03/21/18 08:59 03/15/18 08:22 Morphine Sulfate (Morphine Sulfate) 2 mg EVERY 4 HOURS PRN IVP Moderate Pain (Pain Scale 4-6) 03/13/18 22:00 03/20/18 21:59 Nitroglycerin (Ntg) 0.4 mg Q5M PRN SL Prn Chest Pain 03/13/18 22:00 04/12/18 21:59 Nortriptyline HCl (Pamelor) 50 mg BEDTIME ORAL 03/13/18 23:00 04/12/18 22:59 03/14/18 21:08 Ondansetron HCl (Zofran) 4 mg Q6H PRN IVP Nausea & Vomiting 03/13/18 22:00 04/12/18 21:59 Pantoprazole (Protonix) 40 mg DAILY ORAL 03/14/18 09:00 04/13/18 08:59 03/15/18 08:20 Pilocarpine (Isopto Carpine 2% Op Soln) 1 drop BID BOTH EYES 03/14/18 09:00 04/13/18 08:59 03/15/18 08:34 Pramipexole (Mirapex) 0.25 mg TID ORAL 03/14/18 09:00 04/13/18 08:59 03/15/18 08:21 Risperidone (RisperDAL) 2 mg BEDTIME ORAL 03/14/18 21:00 04/13/18 20:59 03/14/18 21:08 Sodium Chloride 1,000 ml @ 75 mls/hr [id number] IV 03/13/18 22:00 04/12/18 21:59 03/15/18 04:20 Temazepam (Restoril) 15 mg HSPRN PRN ORAL Insomnia 03/13/18 22:00 03/20/18 21:59 Vancomycin HCl (Vanco rx to dose) 1 ea DAILY PRN MISC . 03/14/18 09:00 04/13/18 08:59 Vancomycin HCl 1 gm/Dextrose 275 ml @ 183.3 mls/ hr Q24H IVPB 03/14/18 00:30 03/19/18 00:29 03/15/18 00:33 Ovidio Acosta M.D. Mar 15, 2018 12:15
--- NOTE | 2018-03-15 12:46 | Nephrology Progress Note ---
Assessment/Plan Problem List: (1) ATN (acute tubular necrosis) (2) Sepsis (3) ALS (amyotrophic lateral sclerosis) (4) Hypotension (5) Dehydration (6) Hypoalbuminemia due to protein-calorie malnutrition Assessment: 3+ proteinuria Assessment Hypotension, leading to acute renal failure and rising Cr- Cr up 1.8 ALS (amyotrophic lateral sclerosis) Generalized weakness Dehydration Gastroenteritis Hypoalbuminemia , Malnutrition Elevated liver enzymes, improving Plan Bolus IV as needed Monitor renal parameters Avoid Nephrotoxics Urine studies per orders discussed with RN Subjective ROS Limited/Unobtainable: No Constitutional: Reports: malaise Objective Objective Last 24 Hour Vital Signs Date Time Temp Pulse Resp B/P (MAP) Pulse Ox O2 Delivery O2 Flow Rate FiO2 03/15/18 10:00 102 14 113/64 (80) 100 03/15/18 09:00 109 14 104/62 (76) 98 03/15/18 08:00 Nasal Cannula 2.0 03/15/18 08:00 104 03/15/18 08:00 104 16 114/67 (83) 95 03/15/18 07:00 98.6 102 16 110/70 (83) 100 98.6 03/15/18 06:55 100 Nasal Cannula 2.0 28 03/15/18 06:55 Nasal Cannula 2.0 28 03/15/18 06:55 104 18 Nasal Cannula 2.0 28 03/15/18 06:00 90 17 110/70 (83) 100 03/15/18 05:00 100 17 117/63 (81) 100 03/15/18 04:00 Nasal Cannula 2.0 03/15/18 04:00 98.4 100 16 115/61 (79) 100 98.4 03/15/18 03:00 100 14 117/63 (81) 100 03/15/18 02:00 102 19 114/73 (87) 99 03/15/18 01:00 101 03/15/18 01:00 101 17 117/72 (87) 99 03/15/18 00:00 98.0 106 19 115/56 (75) 99 98.0 03/15/18 00:00 Nasal Cannula 2.0 03/15/18 00:00 106 03/14/18 23:00 106 18 106/61 (76) 99 03/14/18 22:00 102 19 102/63 (76) 99 03/14/18 21:00 110 19 100/65 (77) 99 03/14/18 20:00 98.0 108 18 100/65 (77) 99 98.0 03/14/18 20:00 Nasal Cannula 2.0 28 03/14/18 20:00 Nasal Cannula 2.0 03/14/18 20:00 108 03/14/18 20:00 99 Nasal Cannula 2.0 28 03/14/18 20:00 110 18 Nasal Cannula 2.0 28 03/14/18 19:00 110 21 100/65 (77) 99 03/14/18 18:00 110 21 95/66 (76) 99 03/14/18 17:00 112 21 99/63 (75) 99 03/14/18 16:00 112 03/14/18 16:00 Nasal Cannula 2.0 03/14/18 16:00 98.1 110 20 99/63 (75) 99 98.1 03/14/18 15:00 110 21 96/67 (77) 99 03/14/18 14:00 109 16 93/62 (72) 99 03/14/18 13:00 108 16 95/63 (74) 99 Intake and Output 03/14/18 03/15/18 19:00 07:00 Intake Total 1550 ml 525 ml Output Total 185 ml 370 ml Balance 1365 ml 155 ml Intake Oral 650 ml 300 ml IV Total 900 ml 225 ml Output Urine Total 185 ml 370 ml Stool Total 0 ml Laboratory Tests 03/14/18 21:35: Ammonia 12, Vitamin D 25-Hydroxy [Pending], 25-Hydroxy Vitamin D2 [Pending], 25- Hydroxy Vitamin D3 [Pending], Rapid Plasma Reagin [Pending] 03/15/18 06:30: Hemoglobin A1c 6.0, Uric Acid 3.8, Phosphorus Level 5.3H, Magnesium Level 1.8, Gamma Glutamyl Transpeptidase 109H, Total Creatine Kinase > 51473J, Troponin I 0.020, Vitamin B12 Level 1085H, Folate 14.8 03/15/18 07:55: White Blood Count 16.9H, Red Blood Count 4.79, Hemoglobin 14.5, Hematocrit 45.8 , Mean Corpuscular Volume 96, Mean Corpuscular Hemoglobin 30.3, Mean Corpuscular Hemoglobin Concent 31.7L, Red Cell Distribution Width 12.8, Platelet Count 144L, Mean Platelet Volume 8.0, Neutrophils (%) (Auto) , Lymphocytes (%) (Auto) , Monocytes (%) (Auto) , Eosinophils (%) (Auto) , Basophils (%) (Auto) , Differential Total Cells Counted 100, Neutrophils % ( Manual) 79H, Lymphocytes % (Manual) 12L, Monocytes % (Manual) 5, Eosinophils % ( Manual) 0, Basophils % (Manual) 0, Band Neutrophils 4, Platelet Estimate DecreasedL, Platelet Morphology Normal, Red Blood Cell Morphology Normal, Sodium Level 132L, Potassium Level 4.7, Chloride Level 105, Carbon Dioxide Level 18L, Anion Gap 10, Blood Urea Nitrogen 53H, Creatinine 1.8H, Estimat Glomerular Filtration Rate 37.8, Glucose Level 146H, Calcium Level 7.7L, Total Bilirubin 0.3, Aspartate Amino Transf (AST/SGOT) 437H, Alanine Aminotransferase (ALT/SGPT) 161H, Alkaline Phosphatase 49, Pro-B-Type Natriuretic Peptide 34, Total Protein 5.2L, Albumin 1.6L, Globulin 3.6, Albumin/Globulin Ratio 0.4L, Triglycerides Level 155H, Cholesterol Level 150, LDL Cholesterol 97, HDL Cholesterol 29L, Cholesterol/HDL Ratio 5.2H, Thyroid Stimulating Hormone (TSH) 0.565, Cortisol [Pending] Height (Feet): 5 Height (Inches): 5.00 Weight (Pounds): 131 General Appearance: no apparent distress Objective PE no change Eleazar Aguilar MD Mar 15, 2018 12:46
--- NOTE | 2018-03-15 14:06 | Internal Med Progress Note ---
Subjective Date of Service: Mar 15, 2018 Physician Name Pipo Marvin Attending Physician Marc Conley MD Current Medications Medications (Trade) Dose Ordered Sig/Maria Victoria Route PRN Reason Start Time Stop Time Status Last Admin Dose Admin Acetaminophen (Tylenol) 650 mg Q4H PRN ORAL fever 03/13/18 22:00 04/12/18 21:59 Albuterol/ Ipratropium (Albuterol/ Ipratropium) 3 ml Q4H PRN HHN Shortness of Breath 03/13/18 22:00 03/18/18 21:59 Clonazepam (KlonoPIN) 0.5 mg Q6H PRN ORAL anxiety/agitation 03/14/18 10:45 03/21/18 10:44 Dextrose (Dextrose 50%) STAT PRN IV Hypoglycemia 03/14/18 11:00 04/13/18 10:59 Dextrose (Dextrose 50%) STAT PRN IV Hypoglycemia 03/14/18 11:00 04/13/18 10:59 Divalproex Sodium (Depakote) 500 mg EVERY 12 HOURS ORAL 03/14/18 15:15 04/13/18 15:14 03/15/18 08:21 Gabapentin (Neurontin) 600 mg Q12HR ORAL 03/14/18 12:00 04/13/18 11:59 03/15/18 08:21 Heparin Sodium (Porcine) (Heparin 5000 units/ml) 5,000 units EVERY 12 HOURS SUBQ 03/13/18 22:15 04/12/18 22:14 03/15/18 08:26 Insulin Aspart (NovoLOG) BEFORE MEALS AND HS SUBQ 03/14/18 11:30 04/13/18 11:29 03/14/18 21:16 Mirtazapine (Remeron) 15 mg BEDTIME ORAL 03/14/18 21:00 04/13/18 20:59 03/14/18 21:08 Modafinil (Provigil) 200 mg DAILY ORAL 03/14/18 09:00 03/21/18 08:59 03/15/18 08:22 Morphine Sulfate (Morphine Sulfate) 2 mg EVERY 4 HOURS PRN IVP Moderate Pain (Pain Scale 4-6) 03/13/18 22:00 03/20/18 21:59 Nitroglycerin (Ntg) 0.4 mg Q5M PRN SL Prn Chest Pain 03/13/18 22:00 04/12/18 21:59 Nortriptyline HCl (Pamelor) 50 mg BEDTIME ORAL 03/13/18 23:00 04/12/18 22:59 03/14/18 21:08 Ondansetron HCl (Zofran) 4 mg Q6H PRN IVP Nausea & Vomiting 03/13/18 22:00 04/12/18 21:59 Pantoprazole (Protonix) 40 mg DAILY ORAL 03/14/18 09:00 04/13/18 08:59 03/15/18 08:20 Pilocarpine (Isopto Carpine 2% Op Soln) 1 drop BID BOTH EYES 03/14/18 09:00 04/13/18 08:59 03/15/18 08:34 Pramipexole (Mirapex) 0.25 mg TID ORAL 03/14/18 09:00 04/13/18 08:59 03/15/18 08:21 Risperidone (RisperDAL) 2 mg BEDTIME ORAL 03/14/18 21:00 04/13/18 20:59 03/14/18 21:08 Sodium Chloride 1,000 ml @ 75 mls/hr [id number] IV 03/15/18 12:45 04/14/18 12:44 Temazepam (Restoril) 15 mg HSPRN PRN ORAL Insomnia 03/13/18 22:00 03/20/18 21:59 Vancomycin HCl (Vanco rx to dose) 1 ea DAILY PRN MISC . 03/14/18 09:00 04/13/18 08:59 Vancomycin HCl 1 gm/Dextrose 275 ml @ 183.3 mls/ hr Q24H IVPB 03/14/18 00:30 03/19/18 00:29 03/15/18 00:33 Allergies: Coded Allergies: CEPHALEXIN MONOHYDRATE (Verified Allergy, Unknown, 01/24/12) TETRACYCLINE (Verified Allergy, Unknown, 01/24/12) ROS Limited/Unobtainable: Yes Subjective 67 YO M admitted with syncope. Now rhabdomyolysis. Cover for Int Med-Dr Conley. ICU Objective Last Vital Signs Date Time Temp Pulse Resp B/P (MAP) Pulse Ox O2 Delivery O2 Flow Rate FiO2 03/15/18 10:00 102 14 113/64 (80) 100 03/15/18 08:00 Nasal Cannula 2.0 03/15/18 07:00 98.6 98.6 03/15/18 06:55 28 General Appearance: lethargic, thin EENT: PERRL/EOMI, normal ENT inspection Neck: non-tender, normal alignment, supple Cardiovascular: normal peripheral pulses, normal rate, regular rhythm, no gallop/murmur, no JVD Respiratory/Chest: chest wall non-tender, no respiratory distress, no accessory muscle use, crackles/rales, rhonchi - bilaterally Abdomen: normal bowel sounds, non tender, soft, no organomegaly, no mass Extremities: normal range of motion 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 Skin: normal pigmentation, warm/dry, palled Laboratory Tests Test 03/14/18 21:35 03/15/18 06:30 03/15/18 07:55 Ammonia 12 umol/L (11-32) Vitamin D 25-Hydroxy Pending 25-Hydroxy Vitamin D2 Pending 25-Hydroxy Vitamin D3 Pending Rapid Plasma Reagin Pending Hemoglobin A1c 6.0 % (4.3-6.0) Uric Acid 3.8 MG/DL (2.6-7.2) Phosphorus Level 5.3 MG/DL (2.5-4.9) H Magnesium Level 1.8 MG/DL (1.8-2.4) Gamma Glutamyl Transpeptidase 109 U/L (5-85) H Total Creatine Kinase > 77436 U/L (26-308) H Troponin I 0.020 ng/mL (0.000-0.056) Vitamin B12 Level 1085 PG/ML (193-986) H Folate 14.8 NG/ML (8.6-58.9) White Blood Count 16.9 K/UL (4.8-10.8) H Red Blood Count 4.79 M/UL (4.70-6.10) Hemoglobin 14.5 G/DL (14.2-18.0) Hematocrit 45.8 % (42.0-52.0) Mean Corpuscular Volume 96 FL (80-99) Mean Corpuscular Hemoglobin 30.3 PG (27.0-31.0) Mean Corpuscular Hemoglobin Concent 31.7 G/DL (32.0-36.0) L Red Cell Distribution Width 12.8 % (11.6-14.8) Platelet Count 144 K/UL (150-450) L Mean Platelet Volume 8.0 FL (6.5-10.1) Neutrophils (%) (Auto) % (45.0-75.0) Lymphocytes (%) (Auto) % (20.0-45.0) Monocytes (%) (Auto) % (1.0-10.0) Eosinophils (%) (Auto) % (0.0-3.0) Basophils (%) (Auto) % (0.0-2.0) Differential Total Cells Counted 100 Neutrophils % (Manual) 79 % (45-75) H Lymphocytes % (Manual) 12 % (20-45) L Monocytes % (Manual) 5 % (1-10) Eosinophils % (Manual) 0 % (0-3) Basophils % (Manual) 0 % (0-2) Band Neutrophils 4 % (0-8) Platelet Estimate Decreased L Platelet Morphology Normal Red Blood Cell Morphology Normal Sodium Level 132 MMOL/L (136-145) L Potassium Level 4.7 MMOL/L (3.5-5.1) Chloride Level 105 MMOL/L (98-107) Carbon Dioxide Level 18 MMOL/L (21-32) L Anion Gap 10 mmol/L (5-15) Blood Urea Nitrogen 53 mg/dL (7-18) H Creatinine 1.8 MG/DL (0.55-1.30) H Estimat Glomerular Filtration Rate 37.8 mL/min (>60) Glucose Level 146 MG/DL (74-106) H Calcium Level 7.7 MG/DL (8.5-10.1) L Total Bilirubin 0.3 MG/DL (0.2-1.0) Aspartate Amino Transf (AST/SGOT) 437 U/L (15-37) H Alanine Aminotransferase (ALT/SGPT) 161 U/L (12-78) H Alkaline Phosphatase 49 U/L (46-116) Pro-B-Type Natriuretic Peptide 34 pg/mL (0-125) Total Protein 5.2 G/DL (6.4-8.2) L Albumin 1.6 G/DL (3.4-5.0) L Globulin 3.6 g/dL Albumin/Globulin Ratio 0.4 (1.0-2.7) L Triglycerides Level 155 MG/DL (30-150) H Cholesterol Level 150 MG/DL (< 200) LDL Cholesterol 97 mg/dL (<100) HDL Cholesterol 29 MG/DL (40-60) L Cholesterol/HDL Ratio 5.2 (3.3-4.4) H Thyroid Stimulating Hormone (TSH) 0.565 uiU/mL (0.358-3.740) Cortisol Pending Microbiology Date/Time Source Procedure Growth Status 03/13/18 19:30 Nasal Nares MRSA Culture - Final NO METHICILLIN RESISTANT STAPH AUREUS... Complete 03/14/18 18:43 Indwelling Cath Urine Culture - Preliminary Gram Negative Bacillus 1 Resulted 03/13/18 19:30 Rectum VRE Culture - Final NO VANCOMYCIN RESISTANT ENTEROCOCCUS ... Complete Intake and Output 03/14/18 03/15/18 19:00 07:00 Intake Total 1550 ml 525 ml Output Total 185 ml 370 ml Balance 1365 ml 155 ml Intake Oral 650 ml 300 ml IV Total 900 ml 225 ml Output Urine Total 185 ml 370 ml Stool Total 0 ml Assessment/Plan Problem List: (1) Rhabdomyolysis Assessment & Plan: See nephrology and cardiology note. (2) Syncope (3) Diabetes mellitus type II, controlled Assessment & Plan: Continue novolog sliding sclae. (4) Renal failure (5) Amyotrophic lateral sclerosis (ALS) Assessment & Plan: See neuro note. (6) Seizure disorder Assessment & Plan: D/C topamax. See neruo note. Status: progressing Pipo Marvin MD Mar 15, 2018 14:06
--- NOTE | 2018-03-15 16:14 | Cardiology Report ---
APPROVED REPORT EKG Measurement Heart [id number] Sinus tachycardia Left anterior fascicular block Possible Lateral infarct, age undetermined Abnormal ECG
--- NOTE | 2018-03-15 17:41 | Neurology Progress Note ---
Interim History Interim History Interim History Mr. Albarado feels better. He is still confused about the circumstances that brought him to the hospital. He is very intolerant of loud sounds. He continues to be cognitively impoverished. He continues to be generally weak. He denies any new neurologic symptoms. He has been transferred out of the ICU. Review of Systems Neuro Review of Systems Benign. Objective Physical Exam Last Vital Signs Date Time Temp Pulse Resp B/P (MAP) Pulse Ox O2 Delivery O2 Flow Rate FiO2 03/15/18 15:44 Nasal Cannula 2.0 03/15/18 15:00 107 18 99/60 (73) 81 03/15/18 12:00 98.9 98.9 03/15/18 06:55 28 Laboratory Tests Test 03/14/18 21:35 03/15/18 06:30 03/15/18 07:55 Ammonia 12 umol/L (11-32) Vitamin D 25-Hydroxy Pending 25-Hydroxy Vitamin D2 Pending 25-Hydroxy Vitamin D3 Pending Rapid Plasma Reagin Pending Hemoglobin A1c 6.0 % (4.3-6.0) Uric Acid 3.8 MG/DL (2.6-7.2) Phosphorus Level 5.3 MG/DL (2.5-4.9) H Magnesium Level 1.8 MG/DL (1.8-2.4) Gamma Glutamyl Transpeptidase 109 U/L (5-85) H Total Creatine Kinase > 81594 U/L (26-308) H Troponin I 0.020 ng/mL (0.000-0.056) Vitamin B12 Level 1085 PG/ML (193-986) H Folate 14.8 NG/ML (8.6-58.9) White Blood Count 16.9 K/UL (4.8-10.8) H Red Blood Count 4.79 M/UL (4.70-6.10) Hemoglobin 14.5 G/DL (14.2-18.0) Hematocrit 45.8 % (42.0-52.0) Mean Corpuscular Volume 96 FL (80-99) Mean Corpuscular Hemoglobin 30.3 PG (27.0-31.0) Mean Corpuscular Hemoglobin Concent 31.7 G/DL (32.0-36.0) L Red Cell Distribution Width 12.8 % (11.6-14.8) Platelet Count 144 K/UL (150-450) L Mean Platelet Volume 8.0 FL (6.5-10.1) Neutrophils (%) (Auto) % (45.0-75.0) Lymphocytes (%) (Auto) % (20.0-45.0) Monocytes (%) (Auto) % (1.0-10.0) Eosinophils (%) (Auto) % (0.0-3.0) Basophils (%) (Auto) % (0.0-2.0) Differential Total Cells Counted 100 Neutrophils % (Manual) 79 % (45-75) H Lymphocytes % (Manual) 12 % (20-45) L Monocytes % (Manual) 5 % (1-10) Eosinophils % (Manual) 0 % (0-3) Basophils % (Manual) 0 % (0-2) Band Neutrophils 4 % (0-8) Platelet Estimate Decreased L Platelet Morphology Normal Red Blood Cell Morphology Normal Sodium Level 132 MMOL/L (136-145) L Potassium Level 4.7 MMOL/L (3.5-5.1) Chloride Level 105 MMOL/L (98-107) Carbon Dioxide Level 18 MMOL/L (21-32) L Anion Gap 10 mmol/L (5-15) Blood Urea Nitrogen 53 mg/dL (7-18) H Creatinine 1.8 MG/DL (0.55-1.30) H Estimat Glomerular Filtration Rate 37.8 mL/min (>60) Glucose Level 146 MG/DL (74-106) H Calcium Level 7.7 MG/DL (8.5-10.1) L Total Bilirubin 0.3 MG/DL (0.2-1.0) Aspartate Amino Transf (AST/SGOT) 437 U/L (15-37) H Alanine Aminotransferase (ALT/SGPT) 161 U/L (12-78) H Alkaline Phosphatase 49 U/L (46-116) Pro-B-Type Natriuretic Peptide 34 pg/mL (0-125) Total Protein 5.2 G/DL (6.4-8.2) L Albumin 1.6 G/DL (3.4-5.0) L Globulin 3.6 g/dL Albumin/Globulin Ratio 0.4 (1.0-2.7) L Triglycerides Level 155 MG/DL (30-150) H Cholesterol Level 150 MG/DL (< 200) LDL Cholesterol 97 mg/dL (<100) HDL Cholesterol 29 MG/DL (40-60) L Cholesterol/HDL Ratio 5.2 (3.3-4.4) H Thyroid Stimulating Hormone (TSH) 0.565 uiU/mL (0.358-3.740) Cortisol Pending Neurologic Exam Objective PHYSICAL EXAMINATION: GENERAL: He is a well-developed, well-nourished, gentleman, lying in bed, in no acute distress. HEAD: Normocephalic and atraumatic with light bruise over his nose. EENT: Examination benign. NECK: No neck rigidity was observed. NEUROLOGIC EXAMINATION: MENTAL STATUS EXAMINATION: He was awake, but not alert. He was oriented to [facility], [facility] and March 2018. He did not know the date. He was able to recall 3/3 words immediately, but could only remember 1/3 words in 1 minute and 3 minutes even on the second trial. He was able to remember presidents Trump and Obama only with hints. His mathematical skills were impaired. His visuospatial function was also impaired. SPEECH: He had a mild dysarthria. LANGUAGE: He had problems with comprehension, repetition, naming and expression of language - but was less aphasic. CRANIAL NERVE EXAMINATION: II: The visual oquendo were intact on confrontation testing. III, IV & : External ocular movements were full and the pupils 3 mm in diameter, equal, round, regular, and reactive to light. V: He had normal facial sensations and the temporales, masseters, and pterygoids functioned normally. VII: He had normal facial expressions and no facial asymmetry. VIII: He was able to hear well bilaterally and had no nystagmus. IX: The palate moved symmetrically on phonation. X: He had no hoarseness of voice. XI: Sternocleidomastoids and trapezii functioned normally. XII: The tongue was in the midline without any fasciculations or atrophy. MOTOR SYSTEM: The tone was normal in all four extremities. Examination of muscle mass revealed mild generalized wasting. Examination of power was exceedingly difficult to perform because of varying degrees of cooperation. He however moved all four extremities relatively well, but tended to move his left side less due to pain in his left shoulder and left hip. SENSORY EXAMINATION: He was unable to cooperate for sensory testing. He did however feel painful stimuli well. REFLEXES: 0 at the biceps, triceps, brachioradialis, knees, and ankles. The plantar responses were flexor bilaterally. COORDINATION: He performed well on finger to nose testing. STANCE & GAIT: Could not be tested. Impression/Recommendations Diagnostic Impression 1. Mr. Jana Albarado is a 67-year-old, right-handed, gentleman, who does have a past history of ALS, seizures, depression, glaucoma, and spinal problems who apparently fell down in the absence of any one at home and was found on the next day by his caregiver lying on his left-side, with bruises over his left side in a confused disoriented state. 2. He feels better. He is still confused about the circumstances that brought him to the hospital. He is very intolerant of loud sounds. He continues to be cognitively impoverished. He continues to be generally weak. He denies any new neurologic symptoms. He has been transferred out of the ICU. 3. On neurological examination, at this time, he has mild problems with orientation, problems with recent and remote memory, visuospatial function, higher cognitive function, and language. He is also generally weak and gives a poor effort with motor testing. He also has globally absent deep tendon reflexes. 4. The CT of the brain is normal. 5. The patient's history and neurological examination are most compatible with an ongoing encephalopathic process, the exact etiology for the encephalopathy is unclear at this point in time. Offending factors could be an acute infectious process as he does have WBC count elevated to 15,400. He also has renal dysfunction with a BUN of 48 with a creatinine of 1.6. His blood glucose is elevated at 197. He has liver dysfunction in the form of AST elevated to 856 and ALT elevated to 229, and he does have rhabdomyolysis with his CK is greater than 10,000. His free T4 is normal at 0.92. His urinalysis also reveals 1+ leukocyte esterase, 0-4 RBCs and 0-2 WBCs per high- power field. 6. Although, the patient carries a history of ALS, his neurological findings at this point in time are not very consistent with it. The diagnosis is suspect. Recommendations 1. Continue present management. 2. An EEG to evaluate for an underlying seizure disorder. 3. The patient should be mobilized with the help of physical and occupational therapy. Sandra Obregon M.D., M.S.P.H. SANDRA OBREGON Mar 15, 2018 17:41
[2018-03-15] MEDS ORDERED: Nitroglycerin Subl 0.4mg tab SL PRN (17:45)
[2018-03-15] MEDS ORDERED: clonazePAM 0.5mg tab ORAL PRN (18:00)
[2018-03-15] MEDS ORDERED: Morphine Sulfate 2mg/ml Inj(IV/IM USE ONLY) IVP PRN (18:00)
[2018-03-15] MEDS ORDERED: Albuterol/Ipratropium 3ml neb HHN PRN (18:00)
[2018-03-15] MEDS ORDERED: Nortriptyline 25mg cap ORAL SCH (21:00)
[2018-03-15 21:42] LABS: APPEARANCE,URINE CLEAR; BILIRUBIN, URINE NEGATIVE (NEGATIVE); GLUCOSE, URINE (UA) NEGATIVE (NEGATIVE); KETONES,URINE 1+ (NEGATIVE); LEUKOCYTE ESTERASE ,URINE 2+ (NEGATIVE); NITRITE,URINE POSITIVE (NEGATIVE); PH,URINE 5 (4.5-8.0); PROTEIN,URINE 2+ (NEGATIVE); UROBILINOGEN,URINE NORMAL MG/DL (0.0-1.0)
[2018-03-15 21:45] LABS: COLOR,URINE YELLOW
--- NOTE | 2018-03-15 23:00 | General Progress Note ---
Assessment/Plan Assessment/Plan MDD Anxiety d/o Encephalopathy -Remeron 15mg qhs -dc topamax -dc welbutrin -change risperdal to qhs -start depakote Subjective Date patient seen: Mar 15, 2018 Neurologic/Psychiatric: Reports: anxiety, depressed, emotional problems Allergies: Coded Allergies: CEPHALEXIN MONOHYDRATE (Verified Allergy, Unknown, 01/24/12) TETRACYCLINE (Verified Allergy, Unknown, 01/24/12) Subjective appetite improved Objective Last 24 Hour Vital Signs Date Time Temp Pulse Resp B/P (MAP) Pulse Ox O2 Delivery O2 Flow Rate FiO2 03/15/18 20:00 98.8 109 20 109/61 (77) 95 98.8 03/15/18 20:00 109 03/15/18 20:00 Nasal Cannula 2.0 03/15/18 17:00 107 18 96/62 (73) 95 03/15/18 16:00 106 03/15/18 16:00 99.0 109 19 96/62 (73) 83 99.0 03/15/18 15:44 Nasal Cannula 2.0 03/15/18 15:00 107 18 99/60 (73) 81 03/15/18 14:00 105 18 111/60 (77) 81 03/15/18 13:00 105 17 108/56 (73) 88 03/15/18 12:00 Nasal Cannula 2.0 03/15/18 12:00 103 03/15/18 12:00 98.9 103 14 102/67 (79) 84 98.9 03/15/18 11:00 102 14 103/66 (78) 84 03/15/18 10:00 102 14 113/64 (80) 100 03/15/18 09:00 109 14 104/62 (76) 98 03/15/18 08:00 Nasal Cannula 2.0 03/15/18 08:00 104 03/15/18 08:00 104 16 114/67 (83) 95 03/15/18 07:00 98.6 102 16 110/70 (83) 100 98.6 03/15/18 06:55 100 Nasal Cannula 2.0 28 03/15/18 06:55 Nasal Cannula 2.0 28 03/15/18 06:55 104 18 Nasal Cannula 2.0 28 03/15/18 06:00 90 17 110/70 (83) 100 03/15/18 05:00 100 17 117/63 (81) 100 03/15/18 04:00 Nasal Cannula 2.0 03/15/18 04:00 98.4 100 16 115/61 (79) 100 98.4 03/15/18 03:00 100 14 117/63 (81) 100 03/15/18 02:00 102 19 114/73 (87) 99 03/15/18 01:00 101 03/15/18 01:00 101 17 117/72 (87) 99 03/15/18 00:00 98.0 106 19 115/56 (75) 99 98.0 03/15/18 00:00 Nasal Cannula 2.0 03/15/18 00:00 106 03/14/18 23:00 106 18 106/61 (76) 99 Intake and Output 03/14/18 03/15/18 19:00 07:00 Intake Total 1550 ml 525 ml Output Total 185 ml 370 ml Balance 1365 ml 155 ml Intake Oral 650 ml 300 ml IV Total 900 ml 225 ml Output Urine Total 185 ml 370 ml Stool Total 0 ml Laboratory Tests 03/15/18 06:30: Hemoglobin A1c 6.0, Uric Acid 3.8, Phosphorus Level 5.3H, Magnesium Level 1.8, Gamma Glutamyl Transpeptidase 109H, Total Creatine Kinase > [id number], Troponin I 0.020, Vitamin B12 Level 1085H, Folate 14.8 03/15/18 07:55: White Blood Count 16.9H, Red Blood Count 4.79, Hemoglobin 14.5, Hematocrit 45.8 , Mean Corpuscular Volume 96, Mean Corpuscular Hemoglobin 30.3, Mean Corpuscular Hemoglobin Concent 31.7L, Red Cell Distribution Width 12.8, Platelet Count 144L, Mean Platelet Volume 8.0, Neutrophils (%) (Auto) , Lymphocytes (%) (Auto) , Monocytes (%) (Auto) , Eosinophils (%) (Auto) , Basophils (%) (Auto) , Differential Total Cells Counted 100, Neutrophils % ( Manual) 79H, Lymphocytes % (Manual) 12L, Monocytes % (Manual) 5, Eosinophils % ( Manual) 0, Basophils % (Manual) 0, Band Neutrophils 4, Platelet Estimate DecreasedL, Platelet Morphology Normal, Red Blood Cell Morphology Normal, Sodium Level 132L, Potassium Level 4.7, Chloride Level 105, Carbon Dioxide Level 18L, Anion Gap 10, Blood Urea Nitrogen 53H, Creatinine 1.8H, Estimat Glomerular Filtration Rate 37.8, Glucose Level 146H, Calcium Level 7.7L, Total Bilirubin 0.3, Aspartate Amino Transf (AST/SGOT) 437H, Alanine Aminotransferase (ALT/SGPT) 161H, Alkaline Phosphatase 49, Pro-B-Type Natriuretic Peptide 34, Total Protein 5.2L, Albumin 1.6L, Globulin 3.6, Albumin/Globulin Ratio 0.4L, Triglycerides Level 155H, Cholesterol Level 150, LDL Cholesterol 97, HDL Cholesterol 29L, Cholesterol/HDL Ratio 5.2H, Thyroid Stimulating Hormone (TSH) 0.565, Cortisol [Pending] 03/15/18 21:00: Urine Color Yellow, Urine Appearance Clear, Urine pH 5, Urine Specific [place] 1.020, Urine Protein 2+H, Urine Glucose (UA) Negative, Urine Ketones 1+H, Urine Occult Blood 5+H, Urine Nitrite PositiveH, Urine Bilirubin Negative, Urine Urobilinogen Normal, Urine Leukocyte Esterase 2+H, Urine RBC 5-10H, Urine WBC 10 -15H, Urine Squamous Epithelial Cells None, Urine Bacteria ManyH, Urine Eosinophils None seen, Urine Random Sodium < 20L, Urine Potassium Timed 46 Height (Feet): 5 Height (Inches): 5.00 Weight (Pounds): 131 General Appearance: no apparent distress, alert Neurologic: oriented x 3, responsive, depressed affect Merritt Martinez MD Mar 15, 2018 22:59
[2018-03-16] VITALS: BP 105/56
[2018-03-16 04:00] VITALS: BP 106/45
[2018-03-16 05:20] LABS: BASOPHILS % (AUTO) 0.4 % (0.0-2.0); EOSINOPHILS % (AUTO) 0.4 % (0.0-3.0); HEMATOCRIT 37.3 % (42.0-52.0); HEMOGLOBIN 12.1 G/DL (14.2-18.0); LYMPHOCYTES % (AUTO) 10.7 % (20.0-45.0); MEAN CORPUSCULAR VOLUME 97 FL (80-99); MONOCYTES % (AUTO) 8.8 % (1.0-10.0); NEUTROPHILS % (AUTO) 79.8 % (45.0-75.0); PLATELET COUNT 131 K/UL (150-450); RED BLOOD COUNT 3.86 M/UL (4.70-6.10); WHITE BLOOD COUNT 13.3 K/UL (4.8-10.8)
[2018-03-16] MEDS: NovoLOG Insulin Flexpen SUBQ SCH ×4 (06:13→21:45)
[2018-03-16 06:44] LABS: ALANINE AMINOTRANSFERASE 142 U/L (12-78); ALBUMIN 1.4 G/DL (3.4-5.0); ALBUMIN/GLOBULIN RATIO 0.4 (1.0-2.7); ALKALINE PHOSPHATASE 53 U/L (46-116); ANION GAP 9 mmol/L (5-15); ASPARTATE AMINO TRANSFERASE 355 U/L (15-37); BILIRUBIN,TOTAL 0.2 MG/DL (0.2-1.0); BLOOD UREA NITROGEN 59 mg/dL (7-18); CARBON DIOXIDE 19 MMOL/L (21-32); CHLORIDE 107 MMOL/L (98-107); PHOSPHORUS 3.2 MG/DL (2.5-4.9); POTASSIUM 4.5 MMOL/L (3.5-5.1); SODIUM 135 MMOL/L (136-145)
[2018-03-16 07:38] LABS: CKMB 11.5 NG/ML (0.0-3.6)
[2018-03-16 08:00] VITALS: BP 101/63
[2018-03-16] MEDS ORDERED: Modafinil 100mg tab ORAL SCH (09:00)
[2018-03-16] MEDS: Pilocarpine 2% Opth 15ml Soln BOTH EYES SCH ×2 (09:09→19:17)
[2018-03-16] MEDS: Depakote 500mg tab ORAL SCH ×2 (09:09→21:43)
[2018-03-16] MEDS: Pramipexole 0.5mg tab ORAL SCH (09:10)
[2018-03-16] MEDS: Heparin 5000 units/ml inj SUBQ SCH ×2 (09:11→21:00)
--- NOTE | 2018-03-16 09:20 | Infectious Diseases Prog Note ---
Assessment/Plan Assessment/Plan Mr. Albarado is a 67 yo male with ALS who is presenting with weakness and AMS after a fall #Leukocytosis - Resolving - 2/2 to UTI - K. pneumo on UCx UTI? PNA? CXR no clear sign of PNA # UTI - See above #Diabetes mellitus #ALS (amyotrophic lateral sclerosis) #Depression #S/P Fall with bruising of left shoulder PLAN -Continue Levofloxacin #2/7 - end date 03/21/18 - 03/15 SP Vancomycin #2 - Monitor CBC and Temps - Supportive care Thank you for consulting us for the care of this patient. We will continue to follow with you. Subjective Allergies: Coded Allergies: CEPHALEXIN MONOHYDRATE (Verified Allergy, Unknown, 01/24/12) TETRACYCLINE (Verified Allergy, Unknown, 01/24/12) Subjective Patient awake and alert. No N/V/D or fever Objective Vital Signs Last 24 Hour Vital Signs Date Time Temp Pulse Resp B/P (MAP) Pulse Ox O2 Delivery O2 Flow Rate FiO2 03/16/18 08:21 Nasal Cannula 2.0 28 03/16/18 08:20 98 Nasal Cannula 2.0 28 03/16/18 08:20 101 18 Nasal Cannula 2.0 28 03/16/18 08:19 101 03/16/18 08:00 97.4 98 17 101/63 (76) 97 97.4 03/16/18 04:00 Nasal Cannula 2.0 03/16/18 04:00 101 03/16/18 04:00 98.0 101 18 106/45 (65) 95 98.0 03/16/18 00:00 98.0 107 18 105/56 (72) 95 98.0 03/16/18 00:00 107 03/16/18 00:00 Nasal Cannula 2.0 03/15/18 20:00 98.8 109 20 109/61 (77) 95 98.8 03/15/18 20:00 109 03/15/18 20:00 Nasal Cannula 2.0 03/15/18 19:00 97 Nasal Cannula 2.0 28 03/15/18 19:00 109 20 Nasal Cannula 2.0 28 03/15/18 19:00 Nasal Cannula 2.0 28 03/15/18 17:00 107 18 96/62 (73) 95 03/15/18 16:00 106 03/15/18 16:00 99.0 109 19 96/62 (73) 83 99.0 03/15/18 15:44 Nasal Cannula 2.0 03/15/18 15:00 107 18 99/60 (73) 81 03/15/18 14:00 105 18 111/60 (77) 81 03/15/18 13:00 105 17 108/56 (73) 88 03/15/18 12:00 Nasal Cannula 2.0 03/15/18 12:00 103 03/15/18 12:00 98.9 103 14 102/67 (79) 84 98.9 03/15/18 11:00 102 14 103/66 (78) 84 03/15/18 10:00 102 14 113/64 (80) 100 Height (Feet): 5 Height (Inches): 5.00 Weight (Pounds): 132 Objective Gen: NAD, Thin male, Ill appearing HEENT: NCAT, MMM, EOMI, No scleral icterus LUNGS: CTAB, No W/C, CARDS: RRR, S1, S2, No M/R/G, ABD: Soft, NT, ND, No R/G, + BS Ext: C/C/E, Pulses 2+ B/L (DP, Rad), Left shoulder with bruising and decreases ROM NEURO: A/O x 2 (Name and location), Strength and Sensation Grossly intact SKIN:~ warm/dry, No rashes, Multiple erythematous patches/bruising. Microbiology Date/Time Source Procedure Growth Status 03/14/18 15:43 Blood Blood Culture - Preliminary NO GROWTH AFTER 24 HOURS Resulted 03/14/18 15:38 Blood Blood Culture - Preliminary NO GROWTH AFTER 24 HOURS Resulted 03/13/18 19:30 Nasal Nares MRSA Culture - Final NO METHICILLIN RESISTANT STAPH AUREUS... Complete 03/14/18 18:43 Indwelling Cath Urine Culture - Final Klebsiella Pneumoniae Complete 03/13/18 19:30 Rectum - Final NO CARBAPENEM-RESISTANT ENTEROBACTERI... Complete 03/13/18 19:30 Rectum VRE Culture - Final NO VANCOMYCIN RESISTANT ENTEROCOCCUS ... Complete Laboratory Tests Test 03/15/18 21:00 03/16/18 04:10 Urine Color Yellow Urine Appearance Clear Urine pH 5 (4.5-8.0) Urine Specific [place] 1.020 (1.005-1.035) Urine Protein 2+ (NEGATIVE) H Urine Glucose (UA) Negative (NEGATIVE) Urine Ketones 1+ (NEGATIVE) H Urine Occult Blood 5+ (NEGATIVE) H Urine Nitrite Positive (NEGATIVE) H Urine Bilirubin Negative (NEGATIVE) Urine Urobilinogen Normal MG/DL (0.0-1.0) Urine Leukocyte Esterase 2+ (NEGATIVE) H Urine RBC 5-10 /HPF (0 - 0) H Urine WBC 10-15 /HPF (0 - 0) H Urine Squamous Epithelial Cells None /LPF (NONE/OCC) Urine Bacteria Many /HPF (NONE) H Urine Eosinophils None seen (NONE SEEN) Urine Random Sodium < 20 mmol/L (20-110) L Urine Potassium Timed 46 mmol/L (12-62) White Blood Count 13.3 K/UL (4.8-10.8) H Red Blood Count 3.86 M/UL (4.70-6.10) L Hemoglobin 12.1 G/DL (14.2-18.0) L Hematocrit 37.3 % (42.0-52.0) L Mean Corpuscular Volume 97 FL (80-99) Mean Corpuscular Hemoglobin 31.3 PG (27.0-31.0) H Mean Corpuscular Hemoglobin Concent 32.4 G/DL (32.0-36.0) Red Cell Distribution Width 13.0 % (11.6-14.8) Platelet Count 131 K/UL (150-450) L Mean Platelet Volume 7.1 FL (6.5-10.1) Neutrophils (%) (Auto) 79.8 % (45.0-75.0) H Lymphocytes (%) (Auto) 10.7 % (20.0-45.0) L Monocytes (%) (Auto) 8.8 % (1.0-10.0) Eosinophils (%) (Auto) 0.4 % (0.0-3.0) Basophils (%) (Auto) 0.4 % (0.0-2.0) Sodium Level 135 MMOL/L (136-145) L Potassium Level 4.5 MMOL/L (3.5-5.1) Chloride Level 107 MMOL/L (98-107) Carbon Dioxide Level 19 MMOL/L (21-32) L Anion Gap 9 mmol/L (5-15) Blood Urea Nitrogen 59 mg/dL (7-18) H Creatinine 2.0 MG/DL (0.55-1.30) H Estimat Glomerular Filtration Rate 33.5 mL/min (>60) Glucose Level 111 MG/DL (74-106) H Uric Acid 3.8 MG/DL (2.6-7.2) Calcium Level 8.0 MG/DL (8.5-10.1) L Phosphorus Level 3.2 MG/DL (2.5-4.9) Magnesium Level 1.9 MG/DL (1.8-2.4) Total Bilirubin 0.2 MG/DL (0.2-1.0) Aspartate Amino Transf (AST/SGOT) 355 U/L (15-37) H Alanine Aminotransferase (ALT/SGPT) 142 U/L (12-78) H Alkaline Phosphatase 53 U/L (46-116) Total Creatine Kinase 9548 U/L (26-308) H Creatine Kinase MB 11.5 NG/ML (0.0-3.6) H Creatine Kinase MB Relative Index 0.1 Troponin I 0.017 ng/mL (0.000-0.056) C-Reactive Protein, Quantitative 18.9 mg/dL (0.00-0.90) H Pro-B-Type Natriuretic Peptide 36 pg/mL (0-125) Total Protein 4.7 G/DL (6.4-8.2) L Albumin 1.4 G/DL (3.4-5.0) L Globulin 3.3 g/dL Albumin/Globulin Ratio 0.4 (1.0-2.7) L Current Medications Medications (Trade) Dose Ordered Sig/Maria Victoria Route PRN Reason Start Time Stop Time Status Last Admin Dose Admin Acetaminophen (Tylenol) 650 mg Q4H PRN ORAL fever 03/15/18 18:00 04/12/18 21:59 Albuterol/ Ipratropium (Albuterol/ Ipratropium) 3 ml Q4H PRN HHN Shortness of Breath 03/15/18 18:00 03/18/18 21:59 Clonazepam (KlonoPIN) 0.5 mg Q6H PRN ORAL anxiety/agitation 03/15/18 18:00 03/21/18 17:59 Dextrose (Dextrose 50%) 25 ml STAT PRN IV Hypoglycemia 03/15/18 18:00 04/14/18 17:59 Dextrose (Dextrose 50%) 50 ml STAT PRN IV Hypoglycemia 03/15/18 18:00 04/14/18 17:59 Divalproex Sodium (Depakote) 500 mg EVERY 12 HOURS ORAL 03/15/18 21:00 04/13/18 15:14 03/16/18 09:09 Gabapentin (Neurontin) 600 mg Q12HR ORAL 03/15/18 21:00 04/13/18 11:59 03/16/18 09:09 Heparin Sodium (Porcine) (Heparin 5000 units/ml) 5,000 units EVERY 12 HOURS SUBQ 03/15/18 21:00 04/12/18 22:14 03/16/18 09:11 Insulin Aspart (NovoLOG) BEFORE MEALS AND HS SUBQ 03/15/18 21:00 04/13/18 11:29 03/16/18 06:13 Levofloxacin (Levaquin) 750 mg Q48H ORAL 03/17/18 15:00 03/22/18 14:59 Mirtazapine (Remeron) 15 mg BEDTIME ORAL 03/15/18 21:00 04/13/18 20:59 03/15/18 20:35 Modafinil (Provigil) 200 mg DAILY ORAL 03/16/18 09:00 03/21/18 08:59 03/16/18 09:09 Morphine Sulfate (Morphine Sulfate) 2 mg Q4H PRN IVP Moderate Pain (Pain Scale 4-6) 03/15/18 18:00 03/22/18 17:59 Nitroglycerin (Ntg) 0.4 mg Q5M PRN SL Prn Chest Pain 03/15/18 17:45 04/12/18 21:59 Nortriptyline HCl (Pamelor) 50 mg BEDTIME ORAL 03/15/18 21:00 04/12/18 22:59 03/15/18 20:34 Ondansetron HCl (Zofran) 4 mg Q6H PRN IVP Nausea & Vomiting 03/15/18 18:00 04/12/18 17:59 Pantoprazole (Protonix) 40 mg DAILY ORAL 03/16/18 09:00 04/13/18 08:59 03/16/18 09:10 Pilocarpine (Isopto Carpine 2% Op Soln) 1 drop BID BOTH EYES 03/15/18 18:00 04/13/18 08:59 03/16/18 09:09 Pramipexole (Mirapex) 0.25 mg TID ORAL 03/15/18 18:00 04/13/18 08:59 03/16/18 09:10 Risperidone (RisperDAL) 2 mg BEDTIME ORAL 03/15/18 21:00 04/13/18 20:59 03/15/18 20:35 Sodium Chloride 1,000 ml @ 75 mls/hr [id number] IV 03/15/18 17:45 04/14/18 12:44 03/16/18 07:41 Temazepam (Restoril) 15 mg HSPRN PRN ORAL Insomnia 03/15/18 21:00 03/20/18 20:59 Ovidio Acosta M.D. Mar 16, 2018 09:20
--- NOTE | 2018-03-16 10:32 | Pulmonology Progress Note ---
Assessment/Plan Problems: (1) Hypotension (2) ALS (amyotrophic lateral sclerosis) (3) ATN (acute tubular necrosis) (4) Generalized weakness (5) Amyotrophic lateral sclerosis (ALS) (6) Diabetes mellitus (7) Depression Assessment/Plan BP better pt/ot med/surg sliding scale renal f/u Subjective ROS Limited/Unobtainable: No Constitutional: Reports: no symptoms HEENT: Repors: no symptoms Respiratory: Reports: no symptoms Allergies: Coded Allergies: CEPHALEXIN MONOHYDRATE (Verified Allergy, Unknown, 01/24/12) TETRACYCLINE (Verified Allergy, Unknown, 01/24/12) Objective Last 24 Hour Vital Signs Date Time Temp Pulse Resp B/P (MAP) Pulse Ox O2 Delivery O2 Flow Rate FiO2 03/16/18 08:21 Nasal Cannula 2.0 28 03/16/18 08:20 98 Nasal Cannula 2.0 28 03/16/18 08:20 101 18 Nasal Cannula 2.0 28 03/16/18 08:19 101 03/16/18 08:00 97.4 98 17 101/63 (76) 97 97.4 03/16/18 04:00 Nasal Cannula 2.0 03/16/18 04:00 101 03/16/18 04:00 98.0 101 18 106/45 (65) 95 98.0 03/16/18 00:00 98.0 107 18 105/56 (72) 95 98.0 03/16/18 00:00 107 03/16/18 00:00 Nasal Cannula 2.0 03/15/18 20:00 98.8 109 20 109/61 (77) 95 98.8 03/15/18 20:00 109 03/15/18 20:00 Nasal Cannula 2.0 03/15/18 19:00 97 Nasal Cannula 2.0 28 03/15/18 19:00 109 20 Nasal Cannula 2.0 28 03/15/18 19:00 Nasal Cannula 2.0 28 03/15/18 17:00 107 18 96/62 (73) 95 03/15/18 16:00 106 03/15/18 16:00 99.0 109 19 96/62 (73) 83 99.0 03/15/18 15:44 Nasal Cannula 2.0 03/15/18 15:00 107 18 99/60 (73) 81 03/15/18 14:00 105 18 111/60 (77) 81 03/15/18 13:00 105 17 108/56 (73) 88 03/15/18 12:00 Nasal Cannula 2.0 03/15/18 12:00 103 03/15/18 12:00 98.9 103 14 102/67 (79) 84 98.9 03/15/18 11:00 102 14 103/66 (78) 84 Intake and Output 03/15/18 03/16/18 19:00 07:00 Intake Total 1205 ml 1225 ml Output Total 170 ml 200 ml Balance 1035 ml 1025 ml Intake Oral 430 ml 400 ml IV Total 775 ml 825 ml Output Urine Total 170 ml 200 ml General Appearance: cachetic HEENT: normocephalic Respiratory/Chest: chest wall non-tender, lungs clear Cardiovascular: normal peripheral pulses, normal rate Abdomen: normal bowel sounds, soft, non tender Extremities: no cyanosis Skin: no lesions Microbiology Date/Time Source Procedure Growth Status 03/14/18 15:43 Blood Blood Culture - Preliminary NO GROWTH AFTER 24 HOURS Resulted 03/14/18 15:38 Blood Blood Culture - Preliminary NO GROWTH AFTER 24 HOURS Resulted 03/13/18 19:30 Nasal Nares MRSA Culture - Final NO METHICILLIN RESISTANT STAPH AUREUS... Complete 03/14/18 18:43 Indwelling Cath Urine Culture - Final Klebsiella Pneumoniae Complete 03/13/18 19:30 Rectum - Final NO CARBAPENEM-RESISTANT ENTEROBACTERI... Complete 03/13/18 19:30 Rectum VRE Culture - Final NO VANCOMYCIN RESISTANT ENTEROCOCCUS ... Complete Laboratory Tests 03/15/18 21:00: Urine Color Yellow, Urine Appearance Clear, Urine pH 5, Urine Specific [place] 1.020, Urine Protein 2+H, Urine Glucose (UA) Negative, Urine Ketones 1+H, Urine Occult Blood 5+H, Urine Nitrite PositiveH, Urine Bilirubin Negative, Urine Urobilinogen Normal, Urine Leukocyte Esterase 2+H, Urine RBC 5-10H, Urine WBC 10 -15H, Urine Squamous Epithelial Cells None, Urine Bacteria ManyH, Urine Eosinophils None seen, Urine Random Sodium < 20L, Urine Potassium Timed 46 03/16/18 04:10: White Blood Count 13.3H, Red Blood Count 3.86L, Hemoglobin 12.1L, Hematocrit 37.3L, Mean Corpuscular Volume 97, Mean Corpuscular Hemoglobin 31.3H, Mean Corpuscular Hemoglobin Concent 32.4, Red Cell Distribution Width 13.0, Platelet Count 131L, Mean Platelet Volume 7.1, Neutrophils (%) (Auto) 79.8H, Lymphocytes (%) (Auto) 10.7L, Monocytes (%) (Auto) 8.8, Eosinophils (%) (Auto) 0.4, Basophils (%) (Auto) 0.4, Sodium Level 135L, Potassium Level 4.5, Chloride Level 107, Carbon Dioxide Level 19L, Anion Gap 9, Blood Urea Nitrogen 59H, Creatinine 2.0H, Estimat Glomerular Filtration Rate 33.5, Glucose Level 111H, Uric Acid 3.8, Calcium Level 8.0L, Phosphorus Level 3.2, Magnesium Level 1.9, Total Bilirubin 0.2, Aspartate Amino Transf (AST/SGOT) 355H, Alanine Aminotransferase (ALT/SGPT) 142H, Alkaline Phosphatase 53, Total Creatine Kinase 9548H, Creatine Kinase MB 11.5H, Creatine Kinase MB Relative Index 0.1, Troponin I 0.017, C-Reactive Protein, Quantitative 18.9H, Pro-B-Type Natriuretic Peptide 36, Total Protein 4.7L, Albumin 1.4L, Globulin 3.3, Albumin/ Globulin Ratio 0.4L Current Medications Medications (Trade) Dose Ordered Sig/Maria Victoria Route PRN Reason Start Time Stop Time Status Last Admin Dose Admin Acetaminophen (Tylenol) 650 mg Q4H PRN ORAL fever 03/15/18 18:00 04/12/18 21:59 Albuterol/ Ipratropium (Albuterol/ Ipratropium) 3 ml Q4H PRN HHN Shortness of Breath 03/15/18 18:00 03/18/18 21:59 Clonazepam (KlonoPIN) 0.5 mg Q6H PRN ORAL anxiety/agitation 03/15/18 18:00 03/21/18 17:59 Dextrose (Dextrose 50%) 25 ml STAT PRN IV Hypoglycemia 03/15/18 18:00 04/14/18 17:59 Dextrose (Dextrose 50%) 50 ml STAT PRN IV Hypoglycemia 03/15/18 18:00 04/14/18 17:59 Divalproex Sodium (Depakote) 500 mg EVERY 12 HOURS ORAL 03/15/18 21:00 04/13/18 15:14 03/16/18 09:09 Gabapentin (Neurontin) 600 mg Q12HR ORAL 03/15/18 21:00 04/13/18 11:59 03/16/18 09:09 Heparin Sodium (Porcine) (Heparin 5000 units/ml) 5,000 units EVERY 12 HOURS SUBQ 03/15/18 21:00 04/12/18 22:14 03/16/18 09:11 Insulin Aspart (NovoLOG) BEFORE MEALS AND HS SUBQ 03/15/18 21:00 04/13/18 11:29 03/16/18 06:13 Levofloxacin (Levaquin) 750 mg Q48H ORAL 03/17/18 15:00 03/22/18 14:59 Mirtazapine (Remeron) 15 mg BEDTIME ORAL 03/15/18 21:00 04/13/18 20:59 03/15/18 20:35 Modafinil (Provigil) 200 mg DAILY ORAL 03/16/18 09:00 03/21/18 08:59 03/16/18 09:09 Morphine Sulfate (Morphine Sulfate) 2 mg Q4H PRN IVP Moderate Pain (Pain Scale 4-6) 03/15/18 18:00 03/22/18 17:59 Nitroglycerin (Ntg) 0.4 mg Q5M PRN SL Prn Chest Pain 03/15/18 17:45 04/12/18 21:59 Nortriptyline HCl (Pamelor) 50 mg BEDTIME ORAL 03/15/18 21:00 04/12/18 22:59 03/15/18 20:34 Ondansetron HCl (Zofran) 4 mg Q6H PRN IVP Nausea & Vomiting 03/15/18 18:00 04/12/18 17:59 Pantoprazole (Protonix) 40 mg DAILY ORAL 03/16/18 09:00 04/13/18 08:59 03/16/18 09:10 Pilocarpine (Isopto Carpine 2% Op Soln) 1 drop BID BOTH EYES 03/15/18 18:00 04/13/18 08:59 03/16/18 09:09 Pramipexole (Mirapex) 0.25 mg TID ORAL 03/15/18 18:00 04/13/18 08:59 03/16/18 09:10 Risperidone (RisperDAL) 2 mg BEDTIME ORAL 03/15/18 21:00 04/13/18 20:59 03/15/18 20:35 Sodium Chloride 1,000 ml @ 75 mls/hr [id number] IV 03/15/18 17:45 04/14/18 12:44 03/16/18 07:41 Temazepam (Restoril) 15 mg HSPRN PRN ORAL Insomnia 03/15/18 21:00 03/20/18 20:59 Loulou Ernandez MD Mar 16, 2018 10:32
--- NOTE | 2018-03-16 11:00 | General Progress Note ---
Assessment/Plan Status: stable, progressing Assessment/Plan MDD Anxiety d/o Encephalopathy -Remeron 15mg qhs -change risperdal to qhs -depakote Subjective Date patient seen: Mar 16, 2018 Neurologic/Psychiatric: Reports: anxiety, depressed Allergies: Coded Allergies: CEPHALEXIN MONOHYDRATE (Verified Allergy, Unknown, 01/24/12) TETRACYCLINE (Verified Allergy, Unknown, 01/24/12) Subjective appetite improved sleeps better still depressed. sleep arousable Objective Last 24 Hour Vital Signs Date Time Temp Pulse Resp B/P (MAP) Pulse Ox O2 Delivery O2 Flow Rate FiO2 03/16/18 08:21 Nasal Cannula 2.0 28 03/16/18 08:20 98 Nasal Cannula 2.0 28 03/16/18 08:20 101 18 Nasal Cannula 2.0 28 03/16/18 08:19 101 03/16/18 08:00 97.4 98 17 101/63 (76) 97 97.4 03/16/18 04:00 Nasal Cannula 2.0 03/16/18 04:00 101 03/16/18 04:00 98.0 101 18 106/45 (65) 95 98.0 03/16/18 00:00 98.0 107 18 105/56 (72) 95 98.0 03/16/18 00:00 107 03/16/18 00:00 Nasal Cannula 2.0 03/15/18 20:00 98.8 109 20 109/61 (77) 95 98.8 03/15/18 20:00 109 03/15/18 20:00 Nasal Cannula 2.0 03/15/18 19:00 97 Nasal Cannula 2.0 28 03/15/18 19:00 109 20 Nasal Cannula 2.0 28 03/15/18 19:00 Nasal Cannula 2.0 28 03/15/18 17:00 107 18 96/62 (73) 95 03/15/18 16:00 106 03/15/18 16:00 99.0 109 19 96/62 (73) 83 99.0 03/15/18 15:44 Nasal Cannula 2.0 03/15/18 15:00 107 18 99/60 (73) 81 03/15/18 14:00 105 18 111/60 (77) 81 03/15/18 13:00 105 17 108/56 (73) 88 03/15/18 12:00 Nasal Cannula 2.0 03/15/18 12:00 103 03/15/18 12:00 98.9 103 14 102/67 (79) 84 98.9 03/15/18 11:00 102 14 103/66 (78) 84 Intake and Output 03/15/18 03/16/18 19:00 07:00 Intake Total 1205 ml 1225 ml Output Total 170 ml 200 ml Balance 1035 ml 1025 ml Intake Oral 430 ml 400 ml IV Total 775 ml 825 ml Output Urine Total 170 ml 200 ml Laboratory Tests 03/15/18 21:00: Urine Color Yellow, Urine Appearance Clear, Urine pH 5, Urine Specific [place] 1.020, Urine Protein 2+H, Urine Glucose (UA) Negative, Urine Ketones 1+H, Urine Occult Blood 5+H, Urine Nitrite PositiveH, Urine Bilirubin Negative, Urine Urobilinogen Normal, Urine Leukocyte Esterase 2+H, Urine RBC 5-10H, Urine WBC 10 -15H, Urine Squamous Epithelial Cells None, Urine Bacteria ManyH, Urine Eosinophils None seen, Urine Random Sodium < 20L, Urine Potassium Timed 46 03/16/18 04:10: White Blood Count 13.3H, Red Blood Count 3.86L, Hemoglobin 12.1L, Hematocrit 37.3L, Mean Corpuscular Volume 97, Mean Corpuscular Hemoglobin 31.3H, Mean Corpuscular Hemoglobin Concent 32.4, Red Cell Distribution Width 13.0, Platelet Count 131L, Mean Platelet Volume 7.1, Neutrophils (%) (Auto) 79.8H, Lymphocytes (%) (Auto) 10.7L, Monocytes (%) (Auto) 8.8, Eosinophils (%) (Auto) 0.4, Basophils (%) (Auto) 0.4, Sodium Level 135L, Potassium Level 4.5, Chloride Level 107, Carbon Dioxide Level 19L, Anion Gap 9, Blood Urea Nitrogen 59H, Creatinine 2.0H, Estimat Glomerular Filtration Rate 33.5, Glucose Level 111H, Uric Acid 3.8, Calcium Level 8.0L, Phosphorus Level 3.2, Magnesium Level 1.9, Total Bilirubin 0.2, Aspartate Amino Transf (AST/SGOT) 355H, Alanine Aminotransferase (ALT/SGPT) 142H, Alkaline Phosphatase 53, Total Creatine Kinase 9548H, Creatine Kinase MB 11.5H, Creatine Kinase MB Relative Index 0.1, Troponin I 0.017, C-Reactive Protein, Quantitative 18.9H, Pro-B-Type Natriuretic Peptide 36, Total Protein 4.7L, Albumin 1.4L, Globulin 3.3, Albumin/ Globulin Ratio 0.4L Height (Feet): 5 Height (Inches): 5.00 Weight (Pounds): 132 General Appearance: no apparent distress, alert Neurologic: oriented x 3, responsive, depressed affect Merritt Martinez MD Mar 16, 2018 11:00
--- NOTE | 2018-03-16 11:57 | Cardiology Progress Note ---
Assessment/Plan Status: stable Assessment/Plan Assessment/Plan Problem List: (1) Hypotension (2) ALS (amyotrophic lateral sclerosis) (3) ATN (acute tubular necrosis) (4) Generalized weakness (5) Amyotrophic lateral sclerosis (ALS) (6) Diabetes mellitus (7) Depression Plan: IV fluids EEG Renal US Physical therapy Cultures - continue abx treatment of UTI No indication for cath Telemetry to evaluate arrhythmias CT brain negative for CVA Carotid US Mental status improving Subjective Cardiovascular: Reports: no symptoms Respiratory: Reports: no symptoms Gastrointestinal/Abdominal: Reports: no symptoms Genitourinary: Reports: no symptoms Subjective Transferred to [facility], no acute events, BP stable, UA positive for kliebsiella, creatinine elevated. No chest pain or SOB, vitals stable. Objective Last 24 Hour Vital Signs Date Time Temp Pulse Resp B/P (MAP) Pulse Ox O2 Delivery O2 Flow Rate FiO2 03/16/18 08:21 Nasal Cannula 2.0 28 03/16/18 08:20 98 Nasal Cannula 2.0 28 03/16/18 08:20 101 18 Nasal Cannula 2.0 28 03/16/18 08:19 101 03/16/18 08:00 97.4 98 17 101/63 (76) 97 97.4 03/16/18 08:00 Nasal Cannula 2.0 03/16/18 04:00 Nasal Cannula 2.0 03/16/18 04:00 101 03/16/18 04:00 98.0 101 18 106/45 (65) 95 98.0 03/16/18 00:00 98.0 107 18 105/56 (72) 95 98.0 03/16/18 00:00 107 03/16/18 00:00 Nasal Cannula 2.0 03/15/18 20:00 98.8 109 20 109/61 (77) 95 98.8 03/15/18 20:00 109 03/15/18 20:00 Nasal Cannula 2.0 03/15/18 19:00 97 Nasal Cannula 2.0 28 03/15/18 19:00 109 20 Nasal Cannula 2.0 28 03/15/18 19:00 Nasal Cannula 2.0 28 03/15/18 17:00 107 18 96/62 (73) 95 03/15/18 16:00 106 03/15/18 16:00 99.0 109 19 96/62 (73) 83 99.0 03/15/18 15:44 Nasal Cannula 2.0 03/15/18 15:00 107 18 99/60 (73) 81 03/15/18 14:00 105 18 111/60 (77) 81 03/15/18 13:00 105 17 108/56 (73) 88 03/15/18 12:00 Nasal Cannula 2.0 03/15/18 12:00 103 03/15/18 12:00 98.9 103 14 102/67 (79) 84 98.9 General Appearance: no apparent distress, alert EENT: PERRL/EOMI, normal ENT inspection Neck: non-tender, normal alignment, supple, normal inspection, no JVD Rhythm: ST Cardiovascular: normal peripheral pulses, normal rate, regular rhythm Respiratory/Chest: chest wall non-tender, lungs clear Abdomen: normal bowel sounds, non tender Extremities: normal range of motion, non-tender Neurologic: clinical services specialist II-XII grossly normal Intake and Output 03/15/18 03/16/18 19:00 07:00 Intake Total 1205 ml 1225 ml Output Total 170 ml 200 ml Balance 1035 ml 1025 ml Intake Oral 430 ml 400 ml IV Total 775 ml 825 ml Output Urine Total 170 ml 200 ml Laboratory Tests Test 03/15/18 21:00 03/16/18 04:10 Urine Color Yellow Urine Appearance Clear Urine pH 5 (4.5-8.0) Urine Specific [place] 1.020 (1.005-1.035) Urine Protein 2+ (NEGATIVE) H Urine Glucose (UA) Negative (NEGATIVE) Urine Ketones 1+ (NEGATIVE) H Urine Occult Blood 5+ (NEGATIVE) H Urine Nitrite Positive (NEGATIVE) H Urine Bilirubin Negative (NEGATIVE) Urine Urobilinogen Normal MG/DL (0.0-1.0) Urine Leukocyte Esterase 2+ (NEGATIVE) H Urine RBC 5-10 /HPF (0 - 0) H Urine WBC 10-15 /HPF (0 - 0) H Urine Squamous Epithelial Cells None /LPF (NONE/OCC) Urine Bacteria Many /HPF (NONE) H Urine Eosinophils None seen (NONE SEEN) Urine Random Sodium < 20 mmol/L (20-110) L Urine Potassium Timed 46 mmol/L (12-62) White Blood Count 13.3 K/UL (4.8-10.8) H Red Blood Count 3.86 M/UL (4.70-6.10) L Hemoglobin 12.1 G/DL (14.2-18.0) L Hematocrit 37.3 % (42.0-52.0) L Mean Corpuscular Volume 97 FL (80-99) Mean Corpuscular Hemoglobin 31.3 PG (27.0-31.0) H Mean Corpuscular Hemoglobin Concent 32.4 G/DL (32.0-36.0) Red Cell Distribution Width 13.0 % (11.6-14.8) Platelet Count 131 K/UL (150-450) L Mean Platelet Volume 7.1 FL (6.5-10.1) Neutrophils (%) (Auto) 79.8 % (45.0-75.0) H Lymphocytes (%) (Auto) 10.7 % (20.0-45.0) L Monocytes (%) (Auto) 8.8 % (1.0-10.0) Eosinophils (%) (Auto) 0.4 % (0.0-3.0) Basophils (%) (Auto) 0.4 % (0.0-2.0) Sodium Level 135 MMOL/L (136-145) L Potassium Level 4.5 MMOL/L (3.5-5.1) Chloride Level 107 MMOL/L (98-107) Carbon Dioxide Level 19 MMOL/L (21-32) L Anion Gap 9 mmol/L (5-15) Blood Urea Nitrogen 59 mg/dL (7-18) H Creatinine 2.0 MG/DL (0.55-1.30) H Estimat Glomerular Filtration Rate 33.5 mL/min (>60) Glucose Level 111 MG/DL (74-106) H Uric Acid 3.8 MG/DL (2.6-7.2) Calcium Level 8.0 MG/DL (8.5-10.1) L Phosphorus Level 3.2 MG/DL (2.5-4.9) Magnesium Level 1.9 MG/DL (1.8-2.4) Total Bilirubin 0.2 MG/DL (0.2-1.0) Aspartate Amino Transf (AST/SGOT) 355 U/L (15-37) H Alanine Aminotransferase (ALT/SGPT) 142 U/L (12-78) H Alkaline Phosphatase 53 U/L (46-116) Total Creatine Kinase 9548 U/L (26-308) H Creatine Kinase MB 11.5 NG/ML (0.0-3.6) H Creatine Kinase MB Relative Index 0.1 Troponin I 0.017 ng/mL (0.000-0.056) C-Reactive Protein, Quantitative 18.9 mg/dL (0.00-0.90) H Pro-B-Type Natriuretic Peptide 36 pg/mL (0-125) Total Protein 4.7 G/DL (6.4-8.2) L Albumin 1.4 G/DL (3.4-5.0) L Globulin 3.3 g/dL Albumin/Globulin Ratio 0.4 (1.0-2.7) L Microbiology Date/Time Source Procedure Growth Status 03/14/18 15:43 Blood Blood Culture - Preliminary NO GROWTH AFTER 24 HOURS Resulted 03/14/18 15:38 Blood Blood Culture - Preliminary NO GROWTH AFTER 24 HOURS Resulted 03/13/18 19:30 Nasal Nares MRSA Culture - Final NO METHICILLIN RESISTANT STAPH AUREUS... Complete 03/14/18 18:43 Indwelling Cath Urine Culture - Final Klebsiella Pneumoniae Complete 03/13/18 19:30 Rectum - Final NO CARBAPENEM-RESISTANT ENTEROBACTERI... Complete 03/13/18 19:30 Rectum VRE Culture - Final NO VANCOMYCIN RESISTANT ENTEROCOCCUS ... Complete Ovidio Duque M.D. Mar 16, 2018 11:57
[2018-03-16 12:00] VITALS: BP 142/71
[2018-03-16] MEDS ORDERED: Nitroglycerin Subl 0.4mg tab SL PRN (12:15)
--- NOTE | 2018-03-16 12:17 | Neurology Progress Note ---
Interim History Interim History Interim History Mr. Albarado feels much better. The mind feels clearer. He is still confused about the circumstances that brought him to the hospital. He continues to be cognitively impoverished. He continues to be generally weak. The left shoulder and hip pain are better. He denies any new neurologic symptoms. Review of Systems Neuro Review of Systems Benign. Objective Physical Exam Last Vital Signs Date Time Temp Pulse Resp B/P (MAP) Pulse Ox O2 Delivery O2 Flow Rate FiO2 03/16/18 08:21 Nasal Cannula 2.0 28 03/16/18 08:20 98 03/16/18 08:20 101 18 03/16/18 08:00 97.4 101/63 (76) 97.4 Laboratory Tests Test 03/15/18 21:00 03/16/18 04:10 Urine Color Yellow Urine Appearance Clear Urine pH 5 (4.5-8.0) Urine Specific [place] 1.020 (1.005-1.035) Urine Protein 2+ (NEGATIVE) H Urine Glucose (UA) Negative (NEGATIVE) Urine Ketones 1+ (NEGATIVE) H Urine Occult Blood 5+ (NEGATIVE) H Urine Nitrite Positive (NEGATIVE) H Urine Bilirubin Negative (NEGATIVE) Urine Urobilinogen Normal MG/DL (0.0-1.0) Urine Leukocyte Esterase 2+ (NEGATIVE) H Urine RBC 5-10 /HPF (0 - 0) H Urine WBC 10-15 /HPF (0 - 0) H Urine Squamous Epithelial Cells None /LPF (NONE/OCC) Urine Bacteria Many /HPF (NONE) H Urine Eosinophils None seen (NONE SEEN) Urine Random Sodium < 20 mmol/L (20-110) L Urine Potassium Timed 46 mmol/L (12-62) White Blood Count 13.3 K/UL (4.8-10.8) H Red Blood Count 3.86 M/UL (4.70-6.10) L Hemoglobin 12.1 G/DL (14.2-18.0) L Hematocrit 37.3 % (42.0-52.0) L Mean Corpuscular Volume 97 FL (80-99) Mean Corpuscular Hemoglobin 31.3 PG (27.0-31.0) H Mean Corpuscular Hemoglobin Concent 32.4 G/DL (32.0-36.0) Red Cell Distribution Width 13.0 % (11.6-14.8) Platelet Count 131 K/UL (150-450) L Mean Platelet Volume 7.1 FL (6.5-10.1) Neutrophils (%) (Auto) 79.8 % (45.0-75.0) H Lymphocytes (%) (Auto) 10.7 % (20.0-45.0) L Monocytes (%) (Auto) 8.8 % (1.0-10.0) Eosinophils (%) (Auto) 0.4 % (0.0-3.0) Basophils (%) (Auto) 0.4 % (0.0-2.0) Sodium Level 135 MMOL/L (136-145) L Potassium Level 4.5 MMOL/L (3.5-5.1) Chloride Level 107 MMOL/L (98-107) Carbon Dioxide Level 19 MMOL/L (21-32) L Anion Gap 9 mmol/L (5-15) Blood Urea Nitrogen 59 mg/dL (7-18) H Creatinine 2.0 MG/DL (0.55-1.30) H Estimat Glomerular Filtration Rate 33.5 mL/min (>60) Glucose Level 111 MG/DL (74-106) H Uric Acid 3.8 MG/DL (2.6-7.2) Calcium Level 8.0 MG/DL (8.5-10.1) L Phosphorus Level 3.2 MG/DL (2.5-4.9) Magnesium Level 1.9 MG/DL (1.8-2.4) Total Bilirubin 0.2 MG/DL (0.2-1.0) Aspartate Amino Transf (AST/SGOT) 355 U/L (15-37) H Alanine Aminotransferase (ALT/SGPT) 142 U/L (12-78) H Alkaline Phosphatase 53 U/L (46-116) Total Creatine Kinase 9548 U/L (26-308) H Creatine Kinase MB 11.5 NG/ML (0.0-3.6) H Creatine Kinase MB Relative Index 0.1 Troponin I 0.017 ng/mL (0.000-0.056) C-Reactive Protein, Quantitative 18.9 mg/dL (0.00-0.90) H Pro-B-Type Natriuretic Peptide 36 pg/mL (0-125) Total Protein 4.7 G/DL (6.4-8.2) L Albumin 1.4 G/DL (3.4-5.0) L Globulin 3.3 g/dL Albumin/Globulin Ratio 0.4 (1.0-2.7) L Neurologic Exam Objective PHYSICAL EXAMINATION: GENERAL: He is a well-developed, well-nourished, gentleman, lying in bed, in no acute distress. HEAD: Normocephalic and atraumatic with light bruise over his nose. EENT: Examination benign. NECK: No neck rigidity was observed. NEUROLOGIC EXAMINATION: MENTAL STATUS EXAMINATION: He was awake and more alert. He was oriented to [facility], [facility] and March 2018. He did not know the date. He was able to recall 3/3 words immediately, but could only remember 2/3 words in 1 minute and 3 minutes. He was able to remember presidents Trump through [place] only. His mathematical skills were impaired. His visuospatial function was also impaired. SPEECH: He had no dysarthria. LANGUAGE: He had a mild anomia. CRANIAL NERVE EXAMINATION: II: The visual oquendo were intact on confrontation testing. III, IV & : External ocular movements were full and the pupils 3 mm in diameter, equal, round, regular, and reactive to light. V: He had normal facial sensations and the temporales, masseters, and pterygoids functioned normally. VII: He had normal facial expressions and no facial asymmetry. VIII: He was able to hear well bilaterally and had no nystagmus. IX: The palate moved symmetrically on phonation. X: He had no hoarseness of voice. XI: Sternocleidomastoids and trapezii functioned normally. XII: The tongue was in the midline without any fasciculations or atrophy. MOTOR SYSTEM: The tone was normal in all four extremities. Examination of muscle mass revealed mild generalized wasting. Examination of power was exceedingly difficult to perform because of varying degrees of cooperation. He however moved all four extremities relatively well, but tended to move his left side less due to pain in his left shoulder and left hip. SENSORY EXAMINATION: He was unable to cooperate for sensory testing. He did however feel painful stimuli well. REFLEXES: 0 at the biceps, triceps, brachioradialis, knees, and ankles. The plantar responses were flexor bilaterally. COORDINATION: He performed well on finger to nose testing. STANCE & GAIT: Could not be tested. Impression/Recommendations Diagnostic Impression 1. Mr. Jana Albarado is a 67-year-old, right-handed, gentleman, who does have a past history of ALS, seizures, depression, glaucoma, and spinal problems who apparently fell down in the absence of any one at home and was found on the next day by his caregiver lying on his left-side, with bruises over his left side in a confused disoriented state. 2. He feels much better. The mind feels clearer. He is still confused about the circumstances that brought him to the hospital. He continues to be cognitively impoverished. He continues to be generally weak. The left shoulder and hip pain are better. He denies any new neurologic symptoms. 3. On neurological examination, at this time, he has mild problems with orientation, problems with recent and remote memory, visuospatial function, higher cognitive function, and language - all of which are better. He is also generally weak and gives a poor effort with motor testing. He also has globally absent deep tendon reflexes. 4. The CT of the brain is normal. 5. The EEG revealed findings consis tent with a toxic/metabolic encephalopathy. 6. The patient's history and neurological examination are most compatible with an ongoing encephalopathic process, the exact etiology for the encephalopathy is unclear at this point in time. Offending factors could be an acute infectious process as he does have WBC count elevated to 15,400. He also has renal dysfunction with a BUN of 48 with a creatinine of 1.6. His blood glucose is elevated at 197. He has liver dysfunction in the form of AST elevated to 856 and ALT elevated to 229, and he does have rhabdomyolysis with his CK is greater than 10,000. His free T4 is normal at 0.92. His urinalysis also reveals 1+ leukocyte esterase, 0-4 RBCs and 0-2 WBCs per high- power field. 7. Although, the patient carries a history of ALS, his neurological findings at this point in time are not very consistent with it. The diagnosis is suspect. Recommendations 1. Continue present management. 2. Increase activity as tolerated. 3. The patient should be mobilized with the help of physical and occupational therapy. Sandra Juarez M.D., M.S.P.H. SANDRA JUAREZ Mar 16, 2018 12:17
[2018-03-16] MEDS ORDERED: clonazePAM 0.5mg tab ORAL PRN (13:30)
--- NOTE | 2018-03-16 13:41 | Nephrology Progress Note ---
Assessment/Plan Problem List: (1) ATN (acute tubular necrosis) (2) Sepsis (3) ALS (amyotrophic lateral sclerosis) (4) Hypotension (5) Dehydration (6) Hypoalbuminemia due to protein-calorie malnutrition Assessment: 3+ proteinuria (7) Rhabdomyolysis Assessment: or high CK due to ALS?? Assessment Hypotension, leading to acute renal failure and rising Cr- Cr up 2.0 CPK high too ALS (amyotrophic lateral sclerosis) Generalized weakness Dehydration Gastroenteritis Hypoalbuminemia , Malnutrition Elevated liver enzymes, improving Plan Bolus IV as needed Monitor renal parameters Avoid Nephrotoxics Urine studies per orders discussed with RN low dose beta aarti Subjective ROS Limited/Unobtainable: No Constitutional: Reports: malaise Objective Objective Last 24 Hour Vital Signs Date Time Temp Pulse Resp B/P (MAP) Pulse Ox O2 Delivery O2 Flow Rate FiO2 03/16/18 08:21 Nasal Cannula 2.0 28 03/16/18 08:20 98 Nasal Cannula 2.0 28 03/16/18 08:20 101 18 Nasal Cannula 2.0 28 03/16/18 08:19 101 03/16/18 08:00 97.4 98 17 101/63 (76) 97 97.4 03/16/18 08:00 Nasal Cannula 2.0 03/16/18 04:00 Nasal Cannula 2.0 03/16/18 04:00 101 03/16/18 04:00 98.0 101 18 106/45 (65) 95 98.0 03/16/18 00:00 98.0 107 18 105/56 (72) 95 98.0 03/16/18 00:00 107 03/16/18 00:00 Nasal Cannula 2.0 03/15/18 20:00 98.8 109 20 109/61 (77) 95 98.8 03/15/18 20:00 109 03/15/18 20:00 Nasal Cannula 2.0 03/15/18 19:00 97 Nasal Cannula 2.0 28 03/15/18 19:00 109 20 Nasal Cannula 2.0 28 03/15/18 19:00 Nasal Cannula 2.0 28 03/15/18 17:00 107 18 96/62 (73) 95 03/15/18 16:00 106 03/15/18 16:00 99.0 109 19 96/62 (73) 83 99.0 03/15/18 15:44 Nasal Cannula 2.0 03/15/18 15:00 107 18 99/60 (73) 81 03/15/18 14:00 105 18 111/60 (77) 81 Intake and Output 03/15/18 03/16/18 19:00 07:00 Intake Total 1205 ml 1225 ml Output Total 170 ml 200 ml Balance 1035 ml 1025 ml Intake Oral 430 ml 400 ml IV Total 775 ml 825 ml Output Urine Total 170 ml 200 ml Laboratory Tests 03/15/18 21:00: Urine Color Yellow, Urine Appearance Clear, Urine pH 5, Urine Specific [place] 1.020, Urine Protein 2+H, Urine Glucose (UA) Negative, Urine Ketones 1+H, Urine Occult Blood 5+H, Urine Nitrite PositiveH, Urine Bilirubin Negative, Urine Urobilinogen Normal, Urine Leukocyte Esterase 2+H, Urine RBC 5-10H, Urine WBC 10 -15H, Urine Squamous Epithelial Cells None, Urine Bacteria ManyH, Urine Eosinophils None seen, Urine Random Sodium < 20L, Urine Potassium Timed 46 03/16/18 04:10: White Blood Count 13.3H, Red Blood Count 3.86L, Hemoglobin 12.1L, Hematocrit 37.3L, Mean Corpuscular Volume 97, Mean Corpuscular Hemoglobin 31.3H, Mean Corpuscular Hemoglobin Concent 32.4, Red Cell Distribution Width 13.0, Platelet Count 131L, Mean Platelet Volume 7.1, Neutrophils (%) (Auto) 79.8H, Lymphocytes (%) (Auto) 10.7L, Monocytes (%) (Auto) 8.8, Eosinophils (%) (Auto) 0.4, Basophils (%) (Auto) 0.4, Sodium Level 135L, Potassium Level 4.5, Chloride Level 107, Carbon Dioxide Level 19L, Anion Gap 9, Blood Urea Nitrogen 59H, Creatinine 2.0H, Estimat Glomerular Filtration Rate 33.5, Glucose Level 111H, Uric Acid 3.8, Calcium Level 8.0L, Phosphorus Level 3.2, Magnesium Level 1.9, Total Bilirubin 0.2, Aspartate Amino Transf (AST/SGOT) 355H, Alanine Aminotransferase (ALT/SGPT) 142H, Alkaline Phosphatase 53, Total Creatine Kinase 9548H, Creatine Kinase MB 11.5H, Creatine Kinase MB Relative Index 0.1, Troponin I 0.017, C-Reactive Protein, Quantitative 18.9H, Pro-B-Type Natriuretic Peptide 36, Total Protein 4.7L, Albumin 1.4L, Globulin 3.3, Albumin/ Globulin Ratio 0.4L Height (Feet): 5 Height (Inches): 5.00 Weight (Pounds): 132 General Appearance: no apparent distress Cardiovascular: tachycardia Respiratory/Chest: decreased breath sounds Abdomen: distended Eleazar Aguilar MD Mar 16, 2018 13:41
[2018-03-16] MEDS ORDERED: Metoprolol Tartrate 12.5mg TAB ORAL ONE (14:00)
[2018-03-16] MEDS ORDERED: Albuterol/Ipratropium 3ml neb HHN PRN (14:00)
[2018-03-16] MEDS ORDERED: Morphine Sulfate 2mg/ml Inj(IV/IM USE ONLY) IVP PRN (14:00)
[2018-03-16] MEDS ORDERED: Albumin Human 5% 250ml IV ONE (14:30)
[2018-03-16 15:44] VITALS: BP 111/69
--- NOTE | 2018-03-16 17:12 | Internal Med Progress Note ---
Subjective Date of Service: Mar 16, 2018 Physician Name Pipo Marvin Attending Physician Marc Conley MD Current Medications Medications (Trade) Dose Ordered Sig/Maria Victoria Route PRN Reason Start Time Stop Time Status Last Admin Dose Admin Acetaminophen (Tylenol) 650 mg Q4H PRN ORAL fever 03/16/18 14:00 04/12/18 21:59 Albuterol/ Ipratropium (Albuterol/ Ipratropium) 3 ml Q4H PRN HHN Shortness of Breath 03/16/18 14:00 03/18/18 21:59 Dextrose (Dextrose 50%) 25 ml STAT PRN IV Hypoglycemia 03/16/18 13:30 04/14/18 13:29 Dextrose (Dextrose 50%) 50 ml STAT PRN IV Hypoglycemia 03/16/18 13:30 04/14/18 13:29 Divalproex Sodium (Depakote) 500 mg BEDTIME ORAL 03/16/18 21:00 04/13/18 15:14 Gabapentin (Neurontin) 600 mg Q12HR ORAL 03/16/18 21:00 04/13/18 11:59 Heparin Sodium (Porcine) (Heparin 5000 units/ml) 5,000 units EVERY 12 HOURS SUBQ 03/16/18 21:00 04/12/18 22:14 Insulin Aspart (NovoLOG) BEFORE MEALS AND HS SUBQ 03/16/18 16:30 04/13/18 11:29 Levofloxacin (Levaquin) 750 mg Q48H ORAL 03/17/18 15:00 03/22/18 14:59 Metoprolol Tartrate (Lopressor) 12.5 mg Q12HR ORAL 03/16/18 21:00 04/15/18 20:59 Mirtazapine (Remeron) 15 mg BEDTIME ORAL 03/16/18 21:00 04/13/18 20:59 Modafinil (Provigil) 200 mg DAILY ORAL 03/17/18 09:00 03/21/18 08:59 Nitroglycerin (Ntg) 0.4 mg Q5M PRN SL Prn Chest Pain 03/16/18 12:15 04/12/18 21:59 Nortriptyline HCl (Pamelor) 50 mg BEDTIME ORAL 03/16/18 21:00 04/12/18 22:59 Ondansetron HCl (Zofran) 4 mg Q6H PRN IVP Nausea & Vomiting 03/16/18 13:30 04/12/18 13:29 Pantoprazole (Protonix) 40 mg DAILY ORAL 03/17/18 09:00 04/13/18 08:59 Pilocarpine (Isopto Carpine 2% Op Soln) 1 drop BID BOTH EYES 03/16/18 18:00 04/13/18 08:59 Pramipexole (Mirapex) 0.25 mg TID ORAL 03/16/18 14:00 04/15/18 13:59 03/16/18 15:34 Risperidone (RisperDAL) 2 mg BEDTIME ORAL 03/16/18 21:00 04/13/18 20:59 Sodium Chloride 1,000 ml @ 75 mls/hr [id number] IV 03/16/18 13:30 04/14/18 13:29 Temazepam (Restoril) 15 mg HSPRN PRN ORAL Insomnia 03/16/18 21:00 03/20/18 20:59 Allergies: Coded Allergies: CEPHALEXIN MONOHYDRATE (Verified Allergy, Unknown, 01/24/12) TETRACYCLINE (Verified Allergy, Unknown, 01/24/12) ROS Limited/Unobtainable: No Constitutional: Reports: no symptoms HEENT: Reports: no symptoms Cardiovascular: Reports: no symptoms Respiratory: Reports: no symptoms Gastrointestinal/Abdominal: Reports: no symptoms Genitourinary: Reports: no symptoms Neurologic/Psychiatric: Reports: no symptoms Subjective 67 YO M with a history of ALS, admitted with syncope. Now rhabdomyolysis. Cover for Int Jon-Dr Conley. Objective Last Vital Signs Date Time Temp Pulse Resp B/P (MAP) Pulse Ox O2 Delivery O2 Flow Rate FiO2 03/16/18 15:44 97.8 98 18 111/69 (83) 97 97.8 03/16/18 12:00 Nasal Cannula 2.0 03/16/18 08:21 28 General Appearance: WD/WN, no apparent distress, alert EENT: PERRL/EOMI, normal ENT inspection Neck: non-tender, normal alignment, supple Cardiovascular: normal peripheral pulses, normal rate, regular rhythm, no gallop/murmur Respiratory/Chest: chest wall non-tender, lungs clear, normal breath sounds, no respiratory distress, no accessory muscle use Abdomen: normal bowel sounds, non tender, soft, no organomegaly, no mass Extremities: other - gen weakness Neurologic: transport medic II-XII grossly normal, motor weakness Skin: normal pigmentation, warm/dry Laboratory Tests Test 03/15/18 21:00 03/16/18 04:10 Urine Color Yellow Urine Appearance Clear Urine pH 5 (4.5-8.0) Urine Specific [place] 1.020 (1.005-1.035) Urine Protein 2+ (NEGATIVE) H Urine Glucose (UA) Negative (NEGATIVE) Urine Ketones 1+ (NEGATIVE) H Urine Occult Blood 5+ (NEGATIVE) H Urine Nitrite Positive (NEGATIVE) H Urine Bilirubin Negative (NEGATIVE) Urine Urobilinogen Normal MG/DL (0.0-1.0) Urine Leukocyte Esterase 2+ (NEGATIVE) H Urine RBC 5-10 /HPF (0 - 0) H Urine WBC 10-15 /HPF (0 - 0) H Urine Squamous Epithelial Cells None /LPF (NONE/OCC) Urine Bacteria Many /HPF (NONE) H Urine Eosinophils None seen (NONE SEEN) Urine Random Sodium < 20 mmol/L (20-110) L Urine Potassium Timed 46 mmol/L (12-62) White Blood Count 13.3 K/UL (4.8-10.8) H Red Blood Count 3.86 M/UL (4.70-6.10) L Hemoglobin 12.1 G/DL (14.2-18.0) L Hematocrit 37.3 % (42.0-52.0) L Mean Corpuscular Volume 97 FL (80-99) Mean Corpuscular Hemoglobin 31.3 PG (27.0-31.0) H Mean Corpuscular Hemoglobin Concent 32.4 G/DL (32.0-36.0) Red Cell Distribution Width 13.0 % (11.6-14.8) Platelet Count 131 K/UL (150-450) L Mean Platelet Volume 7.1 FL (6.5-10.1) Neutrophils (%) (Auto) 79.8 % (45.0-75.0) H Lymphocytes (%) (Auto) 10.7 % (20.0-45.0) L Monocytes (%) (Auto) 8.8 % (1.0-10.0) Eosinophils (%) (Auto) 0.4 % (0.0-3.0) Basophils (%) (Auto) 0.4 % (0.0-2.0) Sodium Level 135 MMOL/L (136-145) L Potassium Level 4.5 MMOL/L (3.5-5.1) Chloride Level 107 MMOL/L (98-107) Carbon Dioxide Level 19 MMOL/L (21-32) L Anion Gap 9 mmol/L (5-15) Blood Urea Nitrogen 59 mg/dL (7-18) H Creatinine 2.0 MG/DL (0.55-1.30) H Estimat Glomerular Filtration Rate 33.5 mL/min (>60) Glucose Level 111 MG/DL (74-106) H Uric Acid 3.8 MG/DL (2.6-7.2) Calcium Level 8.0 MG/DL (8.5-10.1) L Phosphorus Level 3.2 MG/DL (2.5-4.9) Magnesium Level 1.9 MG/DL (1.8-2.4) Total Bilirubin 0.2 MG/DL (0.2-1.0) Aspartate Amino Transf (AST/SGOT) 355 U/L (15-37) H Alanine Aminotransferase (ALT/SGPT) 142 U/L (12-78) H Alkaline Phosphatase 53 U/L (46-116) Total Creatine Kinase 9548 U/L (26-308) H Creatine Kinase MB 11.5 NG/ML (0.0-3.6) H Creatine Kinase MB Relative Index 0.1 Troponin I 0.017 ng/mL (0.000-0.056) C-Reactive Protein, Quantitative 18.9 mg/dL (0.00-0.90) H Pro-B-Type Natriuretic Peptide 36 pg/mL (0-125) Total Protein 4.7 G/DL (6.4-8.2) L Albumin 1.4 G/DL (3.4-5.0) L Globulin 3.3 g/dL Albumin/Globulin Ratio 0.4 (1.0-2.7) L Microbiology Date/Time Source Procedure Growth Status 03/14/18 15:43 Blood Blood Culture - Preliminary NO GROWTH AFTER 24 HOURS Resulted 03/14/18 15:38 Blood Blood Culture - Preliminary NO GROWTH AFTER 24 HOURS Resulted 03/13/18 19:30 Nasal Nares MRSA Culture - Final NO METHICILLIN RESISTANT STAPH AUREUS... Complete 03/14/18 18:43 Indwelling Cath Urine Culture - Final Klebsiella Pneumoniae Complete 03/13/18 19:30 Rectum - Final NO CARBAPENEM-RESISTANT ENTEROBACTERI... Complete 03/13/18 19:30 Rectum VRE Culture - Final NO VANCOMYCIN RESISTANT ENTEROCOCCUS ... Complete Intake and Output 03/15/18 03/16/18 19:00 07:00 Intake Total 1205 ml 1300 ml Output Total 170 ml 200 ml Balance 1035 ml 1100 ml Intake Oral 430 ml 400 ml IV Total 775 ml 900 ml Output Urine Total 170 ml 200 ml Assessment/Plan Problem List: (1) Rhabdomyolysis Assessment & Plan: See nephrology and cardiology note. (2) Syncope (3) Diabetes mellitus type II, controlled Assessment & Plan: Continue novolog sliding sclae. (4) Renal failure (5) Amyotrophic lateral sclerosis (ALS) Assessment & Plan: See neuro note. (6) Seizure disorder Assessment & Plan: D/C topamax. See neruo note. Status: progressing Pipo Marvin MD Mar 16, 2018 17:12
--- NOTE | 2018-03-16 17:30 | Electroencephalogram ---
DATE OF PROCEDURE: 03/15/2018 EEG REPORT HISTORY: This EEG was performed on a 67-year-old gentleman with a history of multiple medical problems including ALS, seizures, and spinal problems who was hospitalized after he was found down in a confused state. The purpose of this EEG was to evaluate the patient for the degree and type of cerebral dysfunction and to exclude ongoing ictal or interictal phenomena. TECHNICAL NOTE: This EEG was performed on a [employer] Unit with electrodes placed on the scalp according to the International 10-20 system. [id number] and [id number] montages were used. The EEG was technically satisfactory and was performed in the awake, drowsy and sleep states. OBSERVATIONS: In the best awake state, the background activity consisted of 6-7 Hz posterior rhythmic theta activity. Drowsiness was characterized by irregular 4-5 Hz theta, with intermixed bilateral frontotemporal polymorphic delta activity, and in addition, a few triphasics. Stage II sleep was characterized by further slowing of the background in the delta and theta range, the presence of vertex waves, and 14 hertz sleep spindles. No definite focal abnormalities or epileptiform discharges were seen. IMPRESSION: This is an abnormal EEG characterized by: 1. Slowing of the background in the 6-7 Hz theta range in the best awake state. 2. The presence of bilateral frontotemporal polymorphic delta activity seen during drowsiness. 3. The presence of triphasic waveforms seen during drowsiness. COMMENT: This study is consistent with an encephalopathy of a moderate degree, most probably with a toxic metabolic component, as evidenced by the triphasic waveforms. Julien Obregon M.D., M.S.P.H. DR: KRYSTAL JOB#: [id number] [id number]
[2018-03-16 20:00] VITALS: BP 101/59
[2018-03-16] MEDS ORDERED: Depakote 500mg tab ORAL SCH (21:00)
[2018-03-16] MEDS: Nortriptyline 25mg cap ORAL SCH (21:42)
[2018-03-16] MEDS: Metoprolol Tartrate 12.5mg TAB ORAL SCH (21:43)
[2018-03-17] VITALS: BP 96/58
[2018-03-17 04:00] VITALS: BP 85/49
[2018-03-17 06:24] LABS: BASOPHILS % (AUTO) 0.2 % (0.0-2.0); HEMATOCRIT 28.2 % (42.0-52.0); HEMOGLOBIN 9.1 G/DL (14.2-18.0); LYMPHOCYTES % (AUTO) 13.7 % (20.0-45.0); MEAN CORPUSCULAR VOLUME 96 FL (80-99); NEUTROPHILS % (AUTO) 74.1 % (45.0-75.0); PLATELET COUNT 121 K/UL (150-450); RED BLOOD COUNT 2.94 M/UL (4.70-6.10); RED CELL DISTRIBUTION WIDTH 12.6 % (11.6-14.8); WHITE BLOOD COUNT 9.2 K/UL (4.8-10.8)
[2018-03-17] MEDS: NovoLOG Insulin Flexpen SUBQ SCH ×4 (06:30→22:04)
[2018-03-17 06:40] LABS: ALANINE AMINOTRANSFERASE 114 U/L (12-78); ALBUMIN 1.6 G/DL (3.4-5.0); ALBUMIN/GLOBULIN RATIO 0.6 (1.0-2.7); ALKALINE PHOSPHATASE 42 U/L (46-116); ANION GAP 10 mmol/L (5-15); ASPARTATE AMINO TRANSFERASE 295 U/L (15-37); BILIRUBIN,TOTAL 0.4 MG/DL (0.2-1.0); BLOOD UREA NITROGEN 55 mg/dL (7-18); CALCIUM 7.8 MG/DL (8.5-10.1); CARBON DIOXIDE 18 MMOL/L (21-32); CHLORIDE 109 MMOL/L (98-107); CREATININE 1.8 MG/DL (0.55-1.30); PHOSPHORUS 2.6 MG/DL (2.5-4.9); POTASSIUM 3.9 MMOL/L (3.5-5.1); SODIUM 137 MMOL/L (136-145)
[2018-03-17 07:00] LABS: GAMMA GLUTAMYL TRANSPEPTIDASE 71 U/L (5-85)
[2018-03-17 07:33] LABS: CREATINE KINASE 7966 U/L (26-308)
[2018-03-17 08:00] VITALS: BP 94/61
--- NOTE | 2018-03-17 08:02 | Nephrology Progress Note ---
Assessment/Plan Problem List: (1) ATN (acute tubular necrosis) (2) Sepsis (3) ALS (amyotrophic lateral sclerosis) (4) Hypotension (5) Dehydration (6) Hypoalbuminemia due to protein-calorie malnutrition Assessment: 3+ proteinuria (7) Rhabdomyolysis Assessment: or high CK due to ALS?? Assessment Hypotension, leading to acute renal failure and rising Cr- Cr up 2.0 CPK high too ALS (amyotrophic lateral sclerosis) Generalized weakness Dehydration Gastroenteritis Hypoalbuminemia , Malnutrition Elevated liver enzymes, improving Plan Bolus IV as needed Monitor renal parameters Avoid Nephrotoxics Urine studies per orders discussed with RN low dose beta aarti Subjective ROS Limited/Unobtainable: No Constitutional: Reports: malaise Objective Objective Last 24 Hour Vital Signs Date Time Temp Pulse Resp B/P (MAP) Pulse Ox O2 Delivery O2 Flow Rate FiO2 03/17/18 04:00 Nasal Cannula 2.0 03/17/18 04:00 98.3 84 22 85/49 (61) 95 98.3 03/17/18 00:00 Nasal Cannula 2.0 03/17/18 00:00 98.9 82 18 96/58 (71) 96 98.9 03/16/18 21:43 98 111/69 03/16/18 20:00 99.0 89 18 101/59 (73) 95 99.0 03/16/18 15:44 97.8 98 18 111/69 (83) 97 97.8 03/16/18 14:59 99 142/71 03/16/18 12:00 Nasal Cannula 2.0 03/16/18 12:00 99 03/16/18 12:00 98.1 100 18 142/71 (94) 96 98.1 03/16/18 08:21 Nasal Cannula 2.0 28 03/16/18 08:20 98 Nasal Cannula 2.0 28 03/16/18 08:20 101 18 Nasal Cannula 2.0 28 03/16/18 08:19 101 Intake and Output 03/16/18 03/17/18 19:00 07:00 Intake Total 1245.00 ml 825 ml Output Total 1300 ml Balance 1245.00 ml -475 ml Intake Oral 305 ml IV Total 940.00 ml 825 ml Output Urine Total 1300 ml Laboratory Tests 03/17/18 05:30: White Blood Count 9.2, Red Blood Count 2.94L, Hemoglobin 9.1L, Hematocrit 28.2L , Mean Corpuscular Volume 96, Mean Corpuscular Hemoglobin 31.0, Mean Corpuscular Hemoglobin Concent 32.3, Red Cell Distribution Width 12.6, Platelet Count 121L, Mean Platelet Volume 7.6, Neutrophils (%) (Auto) 74.1, Lymphocytes ( %) (Auto) 13.7L, Monocytes (%) (Auto) 11.0H, Eosinophils (%) (Auto) 1.0, Basophils (%) (Auto) 0.2, Erythrocyte Sedimentation Rate 76H, Sodium Level 137, Potassium Level 3.9, Chloride Level 109H, Carbon Dioxide Level 18L, Anion Gap 10 , Blood Urea Nitrogen 55H, Creatinine 1.8H, Estimat Glomerular Filtration Rate 37.8, Glucose Level 97, Calcium Level 7.8L, Phosphorus Level 2.6, Magnesium Level 1.8, Total Bilirubin 0.4, Gamma Glutamyl Transpeptidase 71, Aspartate Amino Transf (AST/SGOT) 295H, Alanine Aminotransferase (ALT/SGPT) 114H, Alkaline Phosphatase 42L, Total Creatine Kinase 7966H, C-Reactive Protein, Quantitative 11.3H, Total Protein 4.5L, Albumin 1.6L, Globulin 2.9, Albumin/ Globulin Ratio 0.6L Height (Feet): 5 Height (Inches): 5.00 Weight (Pounds): 145 General Appearance: no apparent distress Objective PE not changed Eleazar Aguilar MD Mar 17, 2018 08:02
--- NOTE | 2018-03-17 08:43 | Infectious Diseases Prog Note ---
Assessment/Plan Assessment/Plan Mr. Albarado is a 67 yo male with ALS who is presenting with weakness and AMS after a fall #Leukocytosis - Resolved - 2/2 to UTI / PNA - K. pneumo on UCx CXR no clear sign of PNA # UTI - See above #Diabetes mellitus #ALS (amyotrophic lateral sclerosis) #Depression #S/P Fall with bruising of left shoulder PLAN -Continue Levofloxacin #3/7 - end date 03/21/18 - 03/15 SP Vancomycin #2 - Monitor CBC and Temps - Supportive care Thank you for consulting us for the care of this patient. We will continue to follow with you. Subjective Allergies: Coded Allergies: CEPHALEXIN MONOHYDRATE (Verified Allergy, Unknown, 01/24/12) TETRACYCLINE (Verified Allergy, Unknown, 01/24/12) Subjective Patient awake and alert. No New complaints No N/V/D or fever Objective Vital Signs Last 24 Hour Vital Signs Date Time Temp Pulse Resp B/P (MAP) Pulse Ox O2 Delivery O2 Flow Rate FiO2 03/17/18 04:00 Nasal Cannula 2.0 03/17/18 04:00 98.3 84 22 85/49 (61) 95 98.3 03/17/18 00:00 Nasal Cannula 2.0 03/17/18 00:00 98.9 82 18 96/58 (71) 96 98.9 03/16/18 21:43 98 111/69 03/16/18 20:00 99.0 89 18 101/59 (73) 95 99.0 03/16/18 15:44 97.8 98 18 111/69 (83) 97 97.8 03/16/18 14:59 99 142/71 03/16/18 12:00 Nasal Cannula 2.0 03/16/18 12:00 99 03/16/18 12:00 98.1 100 18 142/71 (94) 96 98.1 Height (Feet): 5 Height (Inches): 5.00 Weight (Pounds): 145 Objective Gen: NAD, Thin male, Ill appearing HEENT: NCAT, MMM, EOMI, No scleral icterus LUNGS: CTAB, No W/C, CARDS: RRR, S1, S2, No M/R/G, ABD: Soft, NT, ND, No R/G, + BS Ext: C/C/E, Pulses 2+ B/L (DP, Rad), Left shoulder with bruising and decreased ROM pain with movement NEURO: A/O x 4, Strength and Sensation Grossly intact SKIN:~ warm/dry, No rashes, Multiple erythematous patches/bruising. Microbiology Date/Time Source Procedure Growth Status 03/14/18 15:43 Blood Blood Culture - Preliminary NO GROWTH AFTER 48 HOURS Resulted 03/14/18 15:38 Blood Blood Culture - Preliminary NO GROWTH AFTER 48 HOURS Resulted 03/14/18 18:43 Indwelling Cath Urine Culture - Final Klebsiella Pneumoniae Complete Laboratory Tests Test 03/17/18 05:30 White Blood Count 9.2 K/UL (4.8-10.8) Red Blood Count 2.94 M/UL (4.70-6.10) L Hemoglobin 9.1 G/DL (14.2-18.0) L Hematocrit 28.2 % (42.0-52.0) L Mean Corpuscular Volume 96 FL (80-99) Mean Corpuscular Hemoglobin 31.0 PG (27.0-31.0) Mean Corpuscular Hemoglobin Concent 32.3 G/DL (32.0-36.0) Red Cell Distribution Width 12.6 % (11.6-14.8) Platelet Count 121 K/UL (150-450) L Mean Platelet Volume 7.6 FL (6.5-10.1) Neutrophils (%) (Auto) 74.1 % (45.0-75.0) Lymphocytes (%) (Auto) 13.7 % (20.0-45.0) L Monocytes (%) (Auto) 11.0 % (1.0-10.0) H Eosinophils (%) (Auto) 1.0 % (0.0-3.0) Basophils (%) (Auto) 0.2 % (0.0-2.0) Erythrocyte Sedimentation Rate 76 MM/HR (0-20) H Sodium Level 137 MMOL/L (136-145) Potassium Level 3.9 MMOL/L (3.5-5.1) Chloride Level 109 MMOL/L (98-107) H Carbon Dioxide Level 18 MMOL/L (21-32) L Anion Gap 10 mmol/L (5-15) Blood Urea Nitrogen 55 mg/dL (7-18) H Creatinine 1.8 MG/DL (0.55-1.30) H Estimat Glomerular Filtration Rate 37.8 mL/min (>60) Glucose Level 97 MG/DL (74-106) Calcium Level 7.8 MG/DL (8.5-10.1) L Phosphorus Level 2.6 MG/DL (2.5-4.9) Magnesium Level 1.8 MG/DL (1.8-2.4) Total Bilirubin 0.4 MG/DL (0.2-1.0) Gamma Glutamyl Transpeptidase 71 U/L (5-85) Aspartate Amino Transf (AST/SGOT) 295 U/L (15-37) H Alanine Aminotransferase (ALT/SGPT) 114 U/L (12-78) H Alkaline Phosphatase 42 U/L (46-116) L Total Creatine Kinase 7966 U/L (26-308) H C-Reactive Protein, Quantitative 11.3 mg/dL (0.00-0.90) H Total Protein 4.5 G/DL (6.4-8.2) L Albumin 1.6 G/DL (3.4-5.0) L Globulin 2.9 g/dL Albumin/Globulin Ratio 0.6 (1.0-2.7) L Current Medications Medications (Trade) Dose Ordered Sig/Maria Victoria Route PRN Reason Start Time Stop Time Status Last Admin Dose Admin Acetaminophen (Tylenol) 650 mg Q4H PRN ORAL fever 03/16/18 14:00 04/12/18 21:59 Albuterol/ Ipratropium (Albuterol/ Ipratropium) 3 ml Q4H PRN HHN Shortness of Breath 03/16/18 14:00 03/18/18 21:59 Dextrose (Dextrose 50%) 25 ml STAT PRN IV Hypoglycemia 03/16/18 13:30 04/14/18 13:29 Dextrose (Dextrose 50%) 50 ml STAT PRN IV Hypoglycemia 03/16/18 13:30 04/14/18 13:29 Divalproex Sodium (Depakote) 500 mg BEDTIME ORAL 03/16/18 21:00 04/13/18 15:14 03/16/18 21:43 Gabapentin (Neurontin) 600 mg Q12HR ORAL 03/16/18 21:00 04/13/18 11:59 03/16/18 21:42 Heparin Sodium (Porcine) (Heparin 5000 units/ml) 5,000 units EVERY 12 HOURS SUBQ 03/16/18 21:00 04/12/18 22:14 Insulin Aspart (NovoLOG) BEFORE MEALS AND HS SUBQ 03/16/18 16:30 04/13/18 11:29 03/16/18 21:45 Levofloxacin (Levaquin) 750 mg Q48H ORAL 03/17/18 15:00 03/22/18 14:59 Metoprolol Tartrate (Lopressor) 12.5 mg Q12HR ORAL 03/16/18 21:00 04/15/18 20:59 03/16/18 21:43 Mirtazapine (Remeron) 15 mg BEDTIME ORAL 03/16/18 21:00 04/13/18 20:59 03/16/18 21:42 Modafinil (Provigil) 200 mg DAILY ORAL 03/17/18 09:00 03/21/18 08:59 Nitroglycerin (Ntg) 0.4 mg Q5M PRN SL Prn Chest Pain 03/16/18 12:15 04/12/18 21:59 Nortriptyline HCl (Pamelor) 50 mg BEDTIME ORAL 03/16/18 21:00 04/12/18 22:59 03/16/18 21:42 Ondansetron HCl (Zofran) 4 mg Q6H PRN IVP Nausea & Vomiting 03/16/18 13:30 04/12/18 13:29 Pantoprazole (Protonix) 40 mg DAILY ORAL 03/17/18 09:00 04/13/18 08:59 Pilocarpine (Isopto Carpine 2% Op Soln) 1 drop BID BOTH EYES 03/16/18 18:00 04/13/18 08:59 03/16/18 19:17 Pramipexole (Mirapex) 0.25 mg TID ORAL 03/16/18 14:00 04/15/18 13:59 03/16/18 17:31 Risperidone (RisperDAL) 2 mg BEDTIME ORAL 03/16/18 21:00 04/13/18 20:59 03/16/18 21:43 Sodium Chloride 1,000 ml @ 75 mls/hr [id number] IV 03/16/18 13:30 04/14/18 13:29 03/17/18 03:04 Temazepam (Restoril) 15 mg HSPRN PRN ORAL Insomnia 03/16/18 21:00 03/20/18 20:59 Ovidio Acosta M.D. Mar 17, 2018 08:43
[2018-03-17] MEDS: Heparin 5000 units/ml inj SUBQ SCH ×2 (09:00→21:00)
[2018-03-17] MEDS: Metoprolol Tartrate 12.5mg TAB ORAL SCH ×2 (09:00→22:03)
[2018-03-17] MEDS: Modafinil 100mg tab ORAL SCH (09:21)
[2018-03-17] MEDS: Pilocarpine 2% Opth 15ml Soln BOTH EYES SCH ×2 (09:23→17:05)
--- NOTE | 2018-03-17 11:22 | Cardiology Progress Note ---
Assessment/Plan Status: stable, progressing Assessment/Plan Assessment/Plan Problem List: (1) Hypotension (2) ALS (amyotrophic lateral sclerosis) (3) ATN (acute tubular necrosis) (4) Generalized weakness (5) Amyotrophic lateral sclerosis (ALS) (6) Diabetes mellitus (7) Depression Plan: Improving clinically continue IV fluids until CK normal Repeat CBC to evaluate drop in HgB Cultures - continue abx treatment of UTI No indication for cath Telemetry to evaluate arrhythmias CT brain negative for CVA Carotid US Mental status improving Physical therapy Subjective Cardiovascular: Reports: no symptoms Respiratory: Reports: no symptoms Gastrointestinal/Abdominal: Reports: no symptoms Genitourinary: Reports: no symptoms Subjective Transferred to floor, no acute events, BP stable, UA positive for kliebsiella, Mental status improved. vitals stable, creatinine improved, ck improved, however HgB down from 12.1 to 9.1 for some reason. Objective Last 24 Hour Vital Signs Date Time Temp Pulse Resp B/P (MAP) Pulse Ox O2 Delivery O2 Flow Rate FiO2 03/17/18 09:00 88 94/61 03/17/18 08:00 97.0 88 17 94/61 (72) 96 97.0 03/17/18 08:00 Nasal Cannula 2.0 03/17/18 04:00 Nasal Cannula 2.0 03/17/18 04:00 98.3 84 22 85/49 (61) 95 98.3 03/17/18 00:00 Nasal Cannula 2.0 03/17/18 00:00 98.9 82 18 96/58 (71) 96 98.9 03/16/18 21:43 98 111/69 03/16/18 20:00 99.0 89 18 101/59 (73) 95 99.0 03/16/18 15:44 97.8 98 18 111/69 (83) 97 97.8 03/16/18 14:59 99 142/71 03/16/18 12:00 Nasal Cannula 2.0 03/16/18 12:00 99 03/16/18 12:00 98.1 100 18 142/71 (94) 96 98.1 General Appearance: no apparent distress, alert EENT: PERRL/EOMI, normal ENT inspection Neck: non-tender, normal alignment Rhythm: NSR Cardiovascular: normal peripheral pulses, normal rate Respiratory/Chest: chest wall non-tender, lungs clear Abdomen: normal bowel sounds, non tender Extremities: normal range of motion, non-tender 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, no motor/sensory deficits Intake and Output 03/16/18 03/17/18 18:59 06:59 Intake Total 1320.00 ml 825 ml Output Total 1300 ml Balance 1320.00 ml -475 ml Intake Oral 305 ml IV Total 1015.00 ml 825 ml Output Urine Total 1300 ml Laboratory Tests Test 03/17/18 05:30 White Blood Count 9.2 K/UL (4.8-10.8) Red Blood Count 2.94 M/UL (4.70-6.10) L Hemoglobin 9.1 G/DL (14.2-18.0) L Hematocrit 28.2 % (42.0-52.0) L Mean Corpuscular Volume 96 FL (80-99) Mean Corpuscular Hemoglobin 31.0 PG (27.0-31.0) Mean Corpuscular Hemoglobin Concent 32.3 G/DL (32.0-36.0) Red Cell Distribution Width 12.6 % (11.6-14.8) Platelet Count 121 K/UL (150-450) L Mean Platelet Volume 7.6 FL (6.5-10.1) Neutrophils (%) (Auto) 74.1 % (45.0-75.0) Lymphocytes (%) (Auto) 13.7 % (20.0-45.0) L Monocytes (%) (Auto) 11.0 % (1.0-10.0) H Eosinophils (%) (Auto) 1.0 % (0.0-3.0) Basophils (%) (Auto) 0.2 % (0.0-2.0) Erythrocyte Sedimentation Rate 76 MM/HR (0-20) H Sodium Level 137 MMOL/L (136-145) Potassium Level 3.9 MMOL/L (3.5-5.1) Chloride Level 109 MMOL/L (98-107) H Carbon Dioxide Level 18 MMOL/L (21-32) L Anion Gap 10 mmol/L (5-15) Blood Urea Nitrogen 55 mg/dL (7-18) H Creatinine 1.8 MG/DL (0.55-1.30) H Estimat Glomerular Filtration Rate 37.8 mL/min (>60) Glucose Level 97 MG/DL (74-106) Calcium Level 7.8 MG/DL (8.5-10.1) L Phosphorus Level 2.6 MG/DL (2.5-4.9) Magnesium Level 1.8 MG/DL (1.8-2.4) Total Bilirubin 0.4 MG/DL (0.2-1.0) Gamma Glutamyl Transpeptidase 71 U/L (5-85) Aspartate Amino Transf (AST/SGOT) 295 U/L (15-37) H Alanine Aminotransferase (ALT/SGPT) 114 U/L (12-78) H Alkaline Phosphatase 42 U/L (46-116) L Total Creatine Kinase 7966 U/L (26-308) H C-Reactive Protein, Quantitative 11.3 mg/dL (0.00-0.90) H Total Protein 4.5 G/DL (6.4-8.2) L Albumin 1.6 G/DL (3.4-5.0) L Globulin 2.9 g/dL Albumin/Globulin Ratio 0.6 (1.0-2.7) L Microbiology Date/Time Source Procedure Growth Status 03/14/18 15:43 Blood Blood Culture - Preliminary NO GROWTH AFTER 48 HOURS Resulted 03/14/18 15:38 Blood Blood Culture - Preliminary NO GROWTH AFTER 48 HOURS Resulted 03/15/18 21:00 Urine,Clean Catch Urine Culture - Preliminary NO GROWTH AFTER 24 HOURS Resulted 03/14/18 18:43 Indwelling Cath Urine Culture - Final Klebsiella Pneumoniae Complete Ovidio Duque M.D. Mar 17, 2018 11:22
[2018-03-17 12:00] VITALS: BP 112/66
--- NOTE | 2018-03-17 13:43 | General Progress Note ---
Assessment/Plan Assessment/Plan MDD Anxiety d/o Encephalopathy -Remeron 15mg qhs -change risperdal to qhs -depakote Subjective Date patient seen: Mar 17, 2018 Neurologic/Psychiatric: Reports: anxiety, depressed Allergies: Coded Allergies: CEPHALEXIN MONOHYDRATE (Verified Allergy, Unknown, 01/24/12) TETRACYCLINE (Verified Allergy, Unknown, 01/24/12) Subjective appetite improved sleeps better doing better c/o left arm swelling Objective Last 24 Hour Vital Signs Date Time Temp Pulse Resp B/P (MAP) Pulse Ox O2 Delivery O2 Flow Rate FiO2 03/17/18 12:00 98.2 94 21 112/66 (81) 98 98.2 03/17/18 12:00 Nasal Cannula 2.0 03/17/18 09:00 88 94/61 03/17/18 08:00 97.0 88 17 94/61 (72) 96 97.0 03/17/18 08:00 Nasal Cannula 2.0 03/17/18 04:00 Nasal Cannula 2.0 03/17/18 04:00 98.3 84 22 85/49 (61) 95 98.3 03/17/18 00:00 Nasal Cannula 2.0 03/17/18 00:00 98.9 82 18 96/58 (71) 96 98.9 03/16/18 21:43 98 111/69 03/16/18 20:00 99.0 89 18 101/59 (73) 95 99.0 03/16/18 15:44 97.8 98 18 111/69 (83) 97 97.8 03/16/18 14:59 99 142/71 Intake and Output 03/16/18 03/17/18 19:00 07:00 Intake Total 1245.00 ml 825 ml Output Total 1300 ml Balance 1245.00 ml -475 ml Intake Oral 305 ml IV Total 940.00 ml 825 ml Output Urine Total 1300 ml Laboratory Tests 03/17/18 05:30: White Blood Count 9.2, Red Blood Count 2.94L, Hemoglobin 9.1L, Hematocrit 28.2L , Mean Corpuscular Volume 96, Mean Corpuscular Hemoglobin 31.0, Mean Corpuscular Hemoglobin Concent 32.3, Red Cell Distribution Width 12.6, Platelet Count 121L, Mean Platelet Volume 7.6, Neutrophils (%) (Auto) 74.1, Lymphocytes ( %) (Auto) 13.7L, Monocytes (%) (Auto) 11.0H, Eosinophils (%) (Auto) 1.0, Basophils (%) (Auto) 0.2, Erythrocyte Sedimentation Rate 76H, Sodium Level 137, Potassium Level 3.9, Chloride Level 109H, Carbon Dioxide Level 18L, Anion Gap 10 , Blood Urea Nitrogen 55H, Creatinine 1.8H, Estimat Glomerular Filtration Rate 37.8, Glucose Level 97, Calcium Level 7.8L, Phosphorus Level 2.6, Magnesium Level 1.8, Total Bilirubin 0.4, Gamma Glutamyl Transpeptidase 71, Aspartate Amino Transf (AST/SGOT) 295H, Alanine Aminotransferase (ALT/SGPT) 114H, Alkaline Phosphatase 42L, Total Creatine Kinase 7966H, C-Reactive Protein, Quantitative 11.3H, Total Protein 4.5L, Albumin 1.6L, Globulin 2.9, Albumin/ Globulin Ratio 0.6L Height (Feet): 5 Height (Inches): 5.00 Weight (Pounds): 145 General Appearance: no apparent distress, alert Neurologic: oriented x 3, responsive, depressed affect Merritt Martinez MD Mar 17, 2018 13:43
--- NOTE | 2018-03-17 14:32 | Pulmonology Progress Note ---
Assessment/Plan Problems: (1) Hypotension (2) ALS (amyotrophic lateral sclerosis) (3) ATN (acute tubular necrosis) (4) Generalized weakness (5) Amyotrophic lateral sclerosis (ALS) (6) Diabetes mellitus (7) Depression Assessment/Plan imrpoving renal function better all reivewed BP better pt/ot med/surg sliding scale renal f/u Subjective ROS Limited/Unobtainable: No Constitutional: Reports: no symptoms HEENT: Repors: no symptoms Respiratory: Reports: no symptoms Allergies: Coded Allergies: CEPHALEXIN MONOHYDRATE (Verified Allergy, Unknown, 01/24/12) TETRACYCLINE (Verified Allergy, Unknown, 01/24/12) Objective Last 24 Hour Vital Signs Date Time Temp Pulse Resp B/P (MAP) Pulse Ox O2 Delivery O2 Flow Rate FiO2 03/17/18 12:00 98.2 94 21 112/66 (81) 98 98.2 03/17/18 12:00 Nasal Cannula 2.0 03/17/18 09:00 88 94/61 03/17/18 08:00 97.0 88 17 94/61 (72) 96 97.0 03/17/18 08:00 Nasal Cannula 2.0 03/17/18 04:00 Nasal Cannula 2.0 03/17/18 04:00 98.3 84 22 85/49 (61) 95 98.3 03/17/18 00:00 Nasal Cannula 2.0 03/17/18 00:00 98.9 82 18 96/58 (71) 96 98.9 03/16/18 21:43 98 111/69 03/16/18 20:00 99.0 89 18 101/59 (73) 95 99.0 03/16/18 15:44 97.8 98 18 111/69 (83) 97 97.8 03/16/18 14:59 99 142/71 Intake and Output 03/16/18 03/17/18 19:00 07:00 Intake Total 1245.00 ml 825 ml Output Total 1300 ml Balance 1245.00 ml -475 ml Intake Oral 305 ml IV Total 940.00 ml 825 ml Output Urine Total 1300 ml General Appearance: cachetic HEENT: normocephalic, atraumatic Respiratory/Chest: chest wall non-tender, lungs clear Cardiovascular: normal peripheral pulses, regular rhythm Abdomen: normal bowel sounds, non distended Extremities: no clubbing Microbiology Date/Time Source Procedure Growth Status 03/14/18 15:43 Blood Blood Culture - Preliminary NO GROWTH AFTER 48 HOURS Resulted 03/14/18 15:38 Blood Blood Culture - Preliminary NO GROWTH AFTER 48 HOURS Resulted 03/15/18 21:00 Urine,Clean Catch Urine Culture - Preliminary NO GROWTH AFTER 24 HOURS Resulted 03/14/18 18:43 Indwelling Cath Urine Culture - Final Klebsiella Pneumoniae Complete Laboratory Tests 03/17/18 05:30: White Blood Count 9.2, Red Blood Count 2.94L, Hemoglobin 9.1L, Hematocrit 28.2L , Mean Corpuscular Volume 96, Mean Corpuscular Hemoglobin 31.0, Mean Corpuscular Hemoglobin Concent 32.3, Red Cell Distribution Width 12.6, Platelet Count 121L, Mean Platelet Volume 7.6, Neutrophils (%) (Auto) 74.1, Lymphocytes ( %) (Auto) 13.7L, Monocytes (%) (Auto) 11.0H, Eosinophils (%) (Auto) 1.0, Basophils (%) (Auto) 0.2, Erythrocyte Sedimentation Rate 76H, Sodium Level 137, Potassium Level 3.9, Chloride Level 109H, Carbon Dioxide Level 18L, Anion Gap 10 , Blood Urea Nitrogen 55H, Creatinine 1.8H, Estimat Glomerular Filtration Rate 37.8, Glucose Level 97, Calcium Level 7.8L, Phosphorus Level 2.6, Magnesium Level 1.8, Total Bilirubin 0.4, Gamma Glutamyl Transpeptidase 71, Aspartate Amino Transf (AST/SGOT) 295H, Alanine Aminotransferase (ALT/SGPT) 114H, Alkaline Phosphatase 42L, Total Creatine Kinase 7966H, C-Reactive Protein, Quantitative 11.3H, Total Protein 4.5L, Albumin 1.6L, Globulin 2.9, Albumin/ Globulin Ratio 0.6L Current Medications Medications (Trade) Dose Ordered Sig/Maria Victoria Route PRN Reason Start Time Stop Time Status Last Admin Dose Admin Acetaminophen (Tylenol) 650 mg Q4H PRN ORAL fever 03/16/18 14:00 04/12/18 21:59 Albuterol/ Ipratropium (Albuterol/ Ipratropium) 3 ml Q4H PRN HHN Shortness of Breath 03/16/18 14:00 03/18/18 21:59 Dextrose (Dextrose 50%) 25 ml STAT PRN IV Hypoglycemia 8/9/18 13:30 04/14/18 13:29 Dextrose (Dextrose 50%) 50 ml STAT PRN IV Hypoglycemia 03/16/18 13:30 04/14/18 13:29 Divalproex Sodium (Depakote) 500 mg BEDTIME ORAL 03/16/18 21:00 04/13/18 15:14 03/16/18 21:43 Gabapentin (Neurontin) 600 mg Q12HR ORAL 03/16/18 21:00 04/13/18 11:59 03/17/18 09:21 Heparin Sodium (Porcine) (Heparin 5000 units/ml) 5,000 units EVERY 12 HOURS SUBQ 03/16/18 21:00 04/12/18 22:14 Insulin Aspart (NovoLOG) BEFORE MEALS AND HS SUBQ 03/16/18 16:30 04/13/18 11:29 03/16/18 21:45 Levofloxacin (Levaquin) 750 mg Q48H ORAL 03/17/18 15:00 03/22/18 14:59 Metoprolol Tartrate (Lopressor) 12.5 mg Q12HR ORAL 03/16/18 21:00 04/15/18 20:59 03/16/18 21:43 Mirtazapine (Remeron) 15 mg BEDTIME ORAL 03/16/18 21:00 04/13/18 20:59 03/16/18 21:42 Modafinil (Provigil) 200 mg DAILY ORAL 03/17/18 09:00 03/21/18 08:59 03/17/18 09:21 Nitroglycerin (Ntg) 0.4 mg Q5M PRN SL Prn Chest Pain 03/16/18 12:15 04/12/18 21:59 Nortriptyline HCl (Pamelor) 50 mg BEDTIME ORAL 03/16/18 21:00 04/12/18 22:59 03/16/18 21:42 Ondansetron HCl (Zofran) 4 mg Q6H PRN IVP Nausea & Vomiting 03/16/18 13:30 04/12/18 13:29 Pantoprazole (Protonix) 40 mg DAILY ORAL 03/17/18 09:00 04/13/18 08:59 03/17/18 09:23 Pilocarpine (Isopto Carpine 2% Op Soln) 1 drop BID BOTH EYES 03/16/18 18:00 04/13/18 08:59 03/17/18 09:23 Pramipexole (Mirapex) 0.25 mg TID ORAL 03/16/18 14:00 04/15/18 13:59 03/17/18 12:21 Risperidone (RisperDAL) 2 mg BEDTIME ORAL 03/16/18 21:00 04/13/18 20:59 03/16/18 21:43 Sodium Chloride 1,000 ml @ 75 mls/hr [id number] IV 03/16/18 13:30 04/14/18 13:29 03/17/18 03:04 Temazepam (Restoril) 15 mg HSPRN PRN ORAL Insomnia 03/16/18 21:00 03/20/18 20:59 Loulou Ernandez MD Mar 17, 2018 14:31
--- NOTE | 2018-03-17 14:44 | Neurology Progress Note ---
Interim History Interim History Interim History Mr. Albarado feels much better. The mind is clearing up. He is still amnestic of the circumstances that brought him to the hospital. He continues to be cognitively impoverished. He continues to be generally weak. The left shoulder and hip pain are better. He denies any new neurologic symptoms. Review of Systems Neuro Review of Systems Benign. Objective Physical Exam Last Vital Signs Date Time Temp Pulse Resp B/P (MAP) Pulse Ox O2 Delivery O2 Flow Rate FiO2 03/17/18 12:00 98.2 94 21 112/66 (81) 98 98.2 03/17/18 12:00 Nasal Cannula 2.0 03/16/18 08:21 28 Laboratory Tests Test 03/17/18 05:30 White Blood Count 9.2 K/UL (4.8-10.8) Red Blood Count 2.94 M/UL (4.70-6.10) L Hemoglobin 9.1 G/DL (14.2-18.0) L Hematocrit 28.2 % (42.0-52.0) L Mean Corpuscular Volume 96 FL (80-99) Mean Corpuscular Hemoglobin 31.0 PG (27.0-31.0) Mean Corpuscular Hemoglobin Concent 32.3 G/DL (32.0-36.0) Red Cell Distribution Width 12.6 % (11.6-14.8) Platelet Count 121 K/UL (150-450) L Mean Platelet Volume 7.6 FL (6.5-10.1) Neutrophils (%) (Auto) 74.1 % (45.0-75.0) Lymphocytes (%) (Auto) 13.7 % (20.0-45.0) L Monocytes (%) (Auto) 11.0 % (1.0-10.0) H Eosinophils (%) (Auto) 1.0 % (0.0-3.0) Basophils (%) (Auto) 0.2 % (0.0-2.0) Erythrocyte Sedimentation Rate 76 MM/HR (0-20) H Sodium Level 137 MMOL/L (136-145) Potassium Level 3.9 MMOL/L (3.5-5.1) Chloride Level 109 MMOL/L (98-107) H Carbon Dioxide Level 18 MMOL/L (21-32) L Anion Gap 10 mmol/L (5-15) Blood Urea Nitrogen 55 mg/dL (7-18) H Creatinine 1.8 MG/DL (0.55-1.30) H Estimat Glomerular Filtration Rate 37.8 mL/min (>60) Glucose Level 97 MG/DL (74-106) Calcium Level 7.8 MG/DL (8.5-10.1) L Phosphorus Level 2.6 MG/DL (2.5-4.9) Magnesium Level 1.8 MG/DL (1.8-2.4) Total Bilirubin 0.4 MG/DL (0.2-1.0) Gamma Glutamyl Transpeptidase 71 U/L (5-85) Aspartate Amino Transf (AST/SGOT) 295 U/L (15-37) H Alanine Aminotransferase (ALT/SGPT) 114 U/L (12-78) H Alkaline Phosphatase 42 U/L (46-116) L Total Creatine Kinase 7966 U/L (26-308) H C-Reactive Protein, Quantitative 11.3 mg/dL (0.00-0.90) H Total Protein 4.5 G/DL (6.4-8.2) L Albumin 1.6 G/DL (3.4-5.0) L Globulin 2.9 g/dL Albumin/Globulin Ratio 0.6 (1.0-2.7) L Neurologic Exam Objective PHYSICAL EXAMINATION: GENERAL: He is a well-developed, well-nourished, gentleman, lying in bed, in no acute distress. HEAD: Normocephalic and atraumatic with light bruise over his nose. EENT: Examination benign. NECK: No neck rigidity was observed. NEUROLOGIC EXAMINATION: MENTAL STATUS EXAMINATION: He was awake and more alert. He was [facility] and March 2018. He did not know the date. He was able to recall 3/3 words immediately, but could only remember 2/3 words in 1 minute and 3 minutes. He was able to remember presidents Trump through [place] only. His mathematical skills were impaired. His visuospatial function was also impaired. SPEECH: He had no dysarthria. LANGUAGE: He had a mild anomia. CRANIAL NERVE EXAMINATION: II: The visual oquendo were intact on confrontation testing. III, IV & : External ocular movements were full and the pupils 3 mm in diameter, equal, round, regular, and reactive to light. V: He had normal facial sensations and the temporales, masseters, and pterygoids functioned normally. VII: He had normal facial expressions and no facial asymmetry. VIII: He was able to hear well bilaterally and had no nystagmus. IX: The palate moved symmetrically on phonation. X: He had no hoarseness of voice. XI: Sternocleidomastoids and trapezii functioned normally. XII: The tongue was in the midline without any fasciculations or atrophy. MOTOR SYSTEM: The tone was normal in all four extremities. Examination of muscle mass revealed mild generalized wasting. Examination of power was exceedingly difficult to perform because of varying degrees of cooperation. He however moved all four extremities relatively well, but tended to move his left side less due to pain in his left shoulder and left hip. SENSORY EXAMINATION: He was unable to cooperate for sensory testing. He did however feel painful stimuli well. REFLEXES: 0 at the biceps, triceps, brachioradialis, knees, and ankles. The plantar responses were flexor bilaterally. COORDINATION: He performed well on finger to nose testing. STANCE & GAIT: Could not be tested. Impression/Recommendations Diagnostic Impression 1. Mr. Jana Albarado is a 67-year-old, right-handed, gentleman, who does have a past history of ALS, seizures, depression, glaucoma, and spinal problems who apparently fell down in the absence of any one at home and was found on the next day by his caregiver lying on his left-side, with bruises over his left side in a confused disoriented state. 2. He feels much better. The mind feels clearer. He is still confused about the circumstances that brought him to the hospital. He continues to be cognitively impoverished. He continues to be generally weak. The left shoulder and hip pain are better. He denies any new neurologic symptoms. 3. On neurological examination, at this time, he has mild problems with orientation, problems with recent and remote memory, visuospatial function, higher cognitive function, and language - all of which are better. He is also generally weak and gives a poor effort with motor testing. He also has globally absent deep tendon reflexes. 4. The CT of the brain is normal. 5. The EEG revealed findings consistent with a toxic/metabolic encephalopathy. 6. The patient's history and neurological examination are most compatible with an ongoing encephalopathic process, the exact etiology for the encephalopathy is unclear at this point in time. Offending factors could be an acute infectious process as he does have WBC count elevated to 15,400. He also has renal dysfunction with a BUN of 48 with a creatinine of 1.6. His blood glucose is elevated at 197. He has liver dysfunction in the form of AST elevated to 856 and ALT elevated to 229, and he does have rhabdomyolysis with his CK is greater than 10,000. His free T4 is normal at 0.92. His urinalysis also reveals 1+ leukocyte esterase, 0-4 RBCs and 0-2 WBCs per high-power field. 7. Although, the patient carries a history of ALS, his neurological findings at this point in time are not very consistent with it. The diagnosis is suspect. Recommendations 1. Continue present management. 2. Increase activity as tolerated. 3. The patient should be mobilized with the help of physical and occupational therapy. Sandra Obregon M.D., M.S.P.SANDRA LOPEZ Mar 17, 2018 14:44
[2018-03-17 16:00] VITALS: BP 96/58
--- NOTE | 2018-03-17 16:44 | Diagnostic Imaging Report ---
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 The remaining segments are within normal limits. There is no evidence of thrombus within the subclavian, axillary and brachial veins. The cephalic and basilic veins are also patent. Doppler indicates normal spontaneous flow within these venous segments. There is no evidence of acute deep vein thrombosis.
--- NOTE | 2018-03-17 17:14 | Internal Med Progress Note ---
Subjective Date of Service: Mar 17, 2018 Physician Name Pipo Marvin Attending Physician Marc Conley MD Current Medications Medications (Trade) Dose Ordered Sig/Maria Victoria Route PRN Reason Start Time Stop Time Status Last Admin Dose Admin Acetaminophen (Tylenol) 650 mg Q4H PRN ORAL fever 03/16/18 14:00 04/12/18 21:59 Albuterol/ Ipratropium (Albuterol/ Ipratropium) 3 ml Q4H PRN HHN Shortness of Breath 03/16/18 14:00 03/18/18 21:59 Dextrose (Dextrose 50%) 25 ml STAT PRN IV Hypoglycemia 03/16/18 13:30 04/14/18 13:29 Dextrose (Dextrose 50%) 50 ml STAT PRN IV Hypoglycemia 03/16/18 13:30 04/14/18 13:29 Divalproex Sodium (Depakote) 500 mg BEDTIME ORAL 03/16/18 21:00 04/13/18 15:14 03/16/18 21:43 Gabapentin (Neurontin) 600 mg Q12HR ORAL 03/16/18 21:00 04/13/18 11:59 03/17/18 09:21 Heparin Sodium (Porcine) (Heparin 5000 units/ml) 5,000 units EVERY 12 HOURS SUBQ 03/16/18 21:00 04/12/18 22:14 Insulin Aspart (NovoLOG) BEFORE MEALS AND HS SUBQ 03/16/18 16:30 04/13/18 11:29 03/17/18 16:24 Levofloxacin (Levaquin) 750 mg Q48H ORAL 03/17/18 15:00 03/22/18 14:59 03/17/18 15:31 Metoprolol Tartrate (Lopressor) 12.5 mg Q12HR ORAL 03/16/18 21:00 04/15/18 20:59 03/16/18 21:43 Mirtazapine (Remeron) 15 mg BEDTIME ORAL 03/16/18 21:00 04/13/18 20:59 03/16/18 21:42 Modafinil (Provigil) 200 mg DAILY ORAL 03/17/18 09:00 03/21/18 08:59 03/17/18 09:21 Nitroglycerin (Ntg) 0.4 mg Q5M PRN SL Prn Chest Pain 03/16/18 12:15 04/12/18 21:59 Nortriptyline HCl (Pamelor) 50 mg BEDTIME ORAL 03/16/18 21:00 04/12/18 22:59 03/16/18 21:42 Ondansetron HCl (Zofran) 4 mg Q6H PRN IVP Nausea & Vomiting 03/16/18 13:30 04/12/18 13:29 Pantoprazole (Protonix) 40 mg DAILY ORAL 03/17/18 09:00 04/13/18 08:59 03/17/18 09:23 Pilocarpine (Isopto Carpine 2% Op Soln) 1 drop BID BOTH EYES 03/16/18 18:00 04/13/18 08:59 03/17/18 17:05 Pramipexole (Mirapex) 0.25 mg TID ORAL 03/16/18 14:00 04/15/18 13:59 03/17/18 17:04 Risperidone (RisperDAL) 2 mg BEDTIME ORAL 03/16/18 21:00 04/13/18 20:59 03/16/18 21:43 Sodium Chloride 1,000 ml @ 75 mls/hr [id number] IV 03/16/18 13:30 04/14/18 13:29 03/17/18 15:32 Temazepam (Restoril) 15 mg HSPRN PRN ORAL Insomnia 03/16/18 21:00 03/20/18 20:59 Allergies: Coded Allergies: CEPHALEXIN MONOHYDRATE (Verified Allergy, Unknown, 01/24/12) TETRACYCLINE (Verified Allergy, Unknown, 01/24/12) ROS Limited/Unobtainable: No Constitutional: Reports: no symptoms HEENT: Reports: no symptoms Cardiovascular: Reports: no symptoms Respiratory: Reports: no symptoms Gastrointestinal/Abdominal: Reports: no symptoms Genitourinary: Reports: no symptoms Neurologic/Psychiatric: Reports: no symptoms Subjective 67 YO M with a history of ALS, admitted with syncope. Now rhabdomyolysis. Cover for Int Jon-Dr Conley. C/O left upper arm swelling Objective Last Vital Signs Date Time Temp Pulse Resp B/P (MAP) Pulse Ox O2 Delivery O2 Flow Rate FiO2 03/17/18 16:00 98.5 96 18 96/58 (71) 98 98.5 03/17/18 16:00 Nasal Cannula 2.0 03/16/18 08:21 28 Laboratory Tests Test 03/17/18 05:30 White Blood Count 9.2 K/UL (4.8-10.8) Red Blood Count 2.94 M/UL (4.70-6.10) L Hemoglobin 9.1 G/DL (14.2-18.0) L Hematocrit 28.2 % (42.0-52.0) L Mean Corpuscular Volume 96 FL (80-99) Mean Corpuscular Hemoglobin 31.0 PG (27.0-31.0) Mean Corpuscular Hemoglobin Concent 32.3 G/DL (32.0-36.0) Red Cell Distribution Width 12.6 % (11.6-14.8) Platelet Count 121 K/UL (150-450) L Mean Platelet Volume 7.6 FL (6.5-10.1) Neutrophils (%) (Auto) 74.1 % (45.0-75.0) Lymphocytes (%) (Auto) 13.7 % (20.0-45.0) L Monocytes (%) (Auto) 11.0 % (1.0-10.0) H Eosinophils (%) (Auto) 1.0 % (0.0-3.0) Basophils (%) (Auto) 0.2 % (0.0-2.0) Erythrocyte Sedimentation Rate 76 MM/HR (0-20) H Sodium Level 137 MMOL/L (136-145) Potassium Level 3.9 MMOL/L (3.5-5.1) Chloride Level 109 MMOL/L (98-107) H Carbon Dioxide Level 18 MMOL/L (21-32) L Anion Gap 10 mmol/L (5-15) Blood Urea Nitrogen 55 mg/dL (7-18) H Creatinine 1.8 MG/DL (0.55-1.30) H Estimat Glomerular Filtration Rate 37.8 mL/min (>60) Glucose Level 97 MG/DL (74-106) Calcium Level 7.8 MG/DL (8.5-10.1) L Phosphorus Level 2.6 MG/DL (2.5-4.9) Magnesium Level 1.8 MG/DL (1.8-2.4) Total Bilirubin 0.4 MG/DL (0.2-1.0) Gamma Glutamyl Transpeptidase 71 U/L (5-85) Aspartate Amino Transf (AST/SGOT) 295 U/L (15-37) H Alanine Aminotransferase (ALT/SGPT) 114 U/L (12-78) H Alkaline Phosphatase 42 U/L (46-116) L Total Creatine Kinase 7966 U/L (26-308) H C-Reactive Protein, Quantitative 11.3 mg/dL (0.00-0.90) H Total Protein 4.5 G/DL (6.4-8.2) L Albumin 1.6 G/DL (3.4-5.0) L Globulin 2.9 g/dL Albumin/Globulin Ratio 0.6 (1.0-2.7) L Microbiology Date/Time Source Procedure Growth Status 03/15/18 21:00 Urine,Clean Catch Urine Culture - Preliminary NO GROWTH AFTER 24 HOURS Resulted 03/14/18 18:43 Indwelling Cath Urine Culture - Final Klebsiella Pneumoniae Complete Intake and Output 03/16/18 03/17/18 19:00 07:00 Intake Total 1245.00 ml 825 ml Output Total 1300 ml Balance 1245.00 ml -475 ml Intake Oral 305 ml IV Total 940.00 ml 825 ml Output Urine Total 1300 ml Objective General Appearance: WD/WN, no apparent distress, alert EENT: PERRL/EOMI, normal ENT inspection Neck: non-tender, normal alignment, supple Cardiovascular: normal peripheral pulses, normal rate, regular rhythm, no gallop/murmur Respiratory/Chest: chest wall non-tender, lungs clear, normal breath sounds, no respiratory distress, no accessory muscle use Abdomen: normal bowel sounds, non tender, soft, no organomegaly, no mass Extremities: other - gen weakness 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 See nephrology and cardiology note. (2) Syncope (3) Diabetes mellitus type II, controlled Assessment & Plan: Continue novolog sliding sclae. (4) Renal failure (5) Amyotrophic lateral sclerosis (ALS) Assessment & Plan: See neuro note. (6) Seizure disorder Assessment & Plan: D/C topamax. See neruo note. Status: progressing Pipo Marvin MD Mar 17, 2018 17:14
[2018-03-17 19:17] LABS: CREATINE KINASE 7719 U/L (26-308)
[2018-03-17 20:00] VITALS: BP 104/59
[2018-03-17] MEDS: Nortriptyline 25mg cap ORAL SCH (22:03)
[2018-03-17] MEDS: Depakote 500mg tab ORAL SCH (22:03)
[2018-03-18] VITALS: BP 120/69
[2018-03-18 04:00] VITALS: BP 105/58
[2018-03-18 06:20] LABS: BASOPHILS % (AUTO) 0.3 % (0.0-2.0); EOSINOPHILS % (AUTO) 0.6 % (0.0-3.0); HEMATOCRIT 27.4 % (42.0-52.0); HEMOGLOBIN 9.2 G/DL (14.2-18.0); LYMPHOCYTES % (AUTO) 6.1 % (20.0-45.0); MEAN CORPUSCULAR VOLUME 96 FL (80-99); MONOCYTES % (AUTO) 10.7 % (1.0-10.0); NEUTROPHILS % (AUTO) 82.3 % (45.0-75.0); PLATELET COUNT 163 K/UL (150-450); RED BLOOD COUNT 2.87 M/UL (4.70-6.10); RED CELL DISTRIBUTION WIDTH 12.9 % (11.6-14.8); WHITE BLOOD COUNT 10.2 K/UL (4.8-10.8)
[2018-03-18] MEDS: NovoLOG Insulin Flexpen SUBQ SCH ×4 (06:25→21:02)
[2018-03-18 06:36] LABS: ANION GAP 8 mmol/L (5-15); BLOOD UREA NITROGEN 51 mg/dL (7-18); CALCIUM 8.2 MG/DL (8.5-10.1); CARBON DIOXIDE 19 MMOL/L (21-32); CHLORIDE 111 MMOL/L (98-107); CREATININE 1.9 MG/DL (0.55-1.30); POTASSIUM 3.8 MMOL/L (3.5-5.1); SODIUM 138 MMOL/L (136-145)
[2018-03-18 08:00] VITALS: BP_SYST 107; BP_SYST 124; BP_DIAS 56; BP_DIAS 63
--- NOTE | 2018-03-18 08:20 | Infectious Diseases Prog Note ---
Assessment/Plan Assessment/Plan Mr. Albarado is a 67 yo male with ALS who is presenting with weakness and AMS after a fall #Leukocytosis - Resolved - 2/2 to UTI / PNA - K. pneumo on UCx CXR no clear sign of PNA # UTI - See above #Diabetes mellitus #ALS (amyotrophic lateral sclerosis) #Depression #S/P Fall with bruising of left shoulder PLAN -Continue Levofloxacin #4/7 - end date 03/21/18 - 03/15 SP Vancomycin #2 - Monitor CBC and Temps - Supportive care Thank you for consulting us for the care of this patient. We will continue to follow with you. Subjective Allergies: Coded Allergies: CEPHALEXIN MONOHYDRATE (Verified Allergy, Unknown, 01/24/12) TETRACYCLINE (Verified Allergy, Unknown, 01/24/12) Subjective No acute events No N/V/D or fever Objective Vital Signs Last 24 Hour Vital Signs Date Time Temp Pulse Resp B/P (MAP) Pulse Ox O2 Delivery O2 Flow Rate FiO2 03/18/18 07:30 Nasal Cannula 2.0 28 03/18/18 07:30 97 Nasal Cannula 2.0 28 03/18/18 04:00 Nasal Cannula 2.0 03/18/18 04:00 98.6 94 20 105/58 (74) 97 98.6 03/18/18 00:00 97.8 94 20 120/69 (86) 99 97.8 03/18/18 00:00 Nasal Cannula 2.0 03/17/18 22:03 95 96/58 03/17/18 20:00 97.7 95 18 104/59 (74) 94 97.7 03/17/18 20:00 Nasal Cannula 2.0 03/17/18 19:28 Nasal Cannula 2.0 28 03/17/18 19:28 98 Nasal Cannula 2.0 28 03/17/18 19:27 95 18 Nasal Cannula 2.0 28 03/17/18 16:00 98.5 96 18 96/58 (71) 98 98.5 03/17/18 16:00 Nasal Cannula 2.0 03/17/18 12:00 98.2 94 21 112/66 (81) 98 98.2 03/17/18 12:00 Nasal Cannula 2.0 03/17/18 09:00 88 94/61 Height (Feet): 5 Height (Inches): 5.00 Weight (Pounds): 151 Objective Gen: NAD, Thin male. More energetic today HEENT: NCAT, MMM, EOMI LUNGS: CTAB, No W/C, CARDS: RRR, S1, S2, No M/R/G, ABD: Soft, NT, ND, No R/G, + BS Ext: C/C/E, Pulses 2+ B/L (DP, Rad), Left shoulder with bruising and decreased ROM pain with movement NEURO: A/O x 4, Strength and Sensation Grossly intact SKIN:~ warm/dry, No rashes, Multiple erythematous patches/bruising. Microbiology Date/Time Source Procedure Growth Status 03/15/18 21:00 Urine,Clean Catch Urine Culture - Final NO GROWTH AFTER 48 HOURS Complete Laboratory Tests Test 03/17/18 18:00 03/18/18 05:45 Total Creatine Kinase 7719 U/L (26-308) H White Blood Count 10.2 K/UL (4.8-10.8) Red Blood Count 2.87 M/UL (4.70-6.10) L Hemoglobin 9.2 G/DL (14.2-18.0) L Hematocrit 27.4 % (42.0-52.0) L Mean Corpuscular Volume 96 FL (80-99) Mean Corpuscular Hemoglobin 32.1 PG (27.0-31.0) H Mean Corpuscular Hemoglobin Concent 33.5 G/DL (32.0-36.0) Red Cell Distribution Width 12.9 % (11.6-14.8) Platelet Count 163 K/UL (150-450) Mean Platelet Volume 6.9 FL (6.5-10.1) Neutrophils (%) (Auto) 82.3 % (45.0-75.0) H Lymphocytes (%) (Auto) 6.1 % (20.0-45.0) L Monocytes (%) (Auto) 10.7 % (1.0-10.0) H Eosinophils (%) (Auto) 0.6 % (0.0-3.0) Basophils (%) (Auto) 0.3 % (0.0-2.0) Sodium Level 138 MMOL/L (136-145) Potassium Level 3.8 MMOL/L (3.5-5.1) Chloride Level 111 MMOL/L (98-107) H Carbon Dioxide Level 19 MMOL/L (21-32) L Anion Gap 8 mmol/L (5-15) Blood Urea Nitrogen 51 mg/dL (7-18) H Creatinine 1.9 MG/DL (0.55-1.30) H Estimat Glomerular Filtration Rate 35.5 mL/min (>60) Glucose Level 117 MG/DL (74-106) H Calcium Level 8.2 MG/DL (8.5-10.1) L Current Medications Medications (Trade) Dose Ordered Sig/Maria Victoria Route PRN Reason Start Time Stop Time Status Last Admin Dose Admin Acetaminophen (Tylenol) 650 mg Q4H PRN ORAL fever 03/16/18 14:00 04/12/18 21:59 Albuterol/ Ipratropium (Albuterol/ Ipratropium) 3 ml Q4H PRN HHN Shortness of Breath 03/16/18 14:00 03/18/18 21:59 Dextrose (Dextrose 50%) 25 ml STAT PRN IV Hypoglycemia 03/16/18 13:30 04/14/18 13:29 Dextrose (Dextrose 50%) 50 ml STAT PRN IV Hypoglycemia 03/16/18 13:30 04/14/18 13:29 Divalproex Sodium (Depakote) 500 mg BEDTIME ORAL 03/16/18 21:00 04/13/18 15:14 03/17/18 22:03 Gabapentin (Neurontin) 600 mg Q12HR ORAL 03/16/18 21:00 04/13/18 11:59 03/17/18 22:03 Heparin Sodium (Porcine) (Heparin 5000 units/ml) 5,000 units EVERY 12 HOURS SUBQ 03/16/18 21:00 04/12/18 22:14 Insulin Aspart (NovoLOG) BEFORE MEALS AND HS SUBQ 03/16/18 16:30 04/13/18 11:29 03/18/18 06:25 Levofloxacin (Levaquin) 750 mg Q48H ORAL 03/17/18 15:00 03/22/18 14:59 03/17/18 15:31 Metoprolol Tartrate (Lopressor) 12.5 mg Q12HR ORAL 03/16/18 21:00 04/15/18 20:59 03/17/18 22:03 Mirtazapine (Remeron) 15 mg BEDTIME ORAL 03/16/18 21:00 04/13/18 20:59 03/17/18 22:03 Modafinil (Provigil) 200 mg DAILY ORAL 03/17/18 09:00 03/21/18 08:59 03/17/18 09:21 Nitroglycerin (Ntg) 0.4 mg Q5M PRN SL Prn Chest Pain 03/16/18 12:15 04/12/18 21:59 Nortriptyline HCl (Pamelor) 50 mg BEDTIME ORAL 03/16/18 21:00 04/12/18 22:59 03/17/18 22:03 Ondansetron HCl (Zofran) 4 mg Q6H PRN IVP Nausea & Vomiting 03/16/18 13:30 04/12/18 13:29 Pantoprazole (Protonix) 40 mg DAILY ORAL 03/17/18 09:00 04/13/18 08:59 03/17/18 09:23 Pilocarpine (Isopto Carpine 2% Op Soln) 1 drop BID BOTH EYES 03/16/18 18:00 04/13/18 08:59 03/17/18 17:05 Pramipexole (Mirapex) 0.25 mg TID ORAL 03/16/18 14:00 04/15/18 13:59 03/17/18 17:04 Risperidone (RisperDAL) 2 mg BEDTIME ORAL 03/16/18 21:00 04/13/18 20:59 03/17/18 22:03 Sodium Chloride 1,000 ml @ 75 mls/hr [id number] IV 03/16/18 13:30 04/14/18 13:29 03/18/18 05:50 Temazepam (Restoril) 15 mg HSPRN PRN ORAL Insomnia 03/16/18 21:00 03/20/18 20:59 Ovidio Acosta M.D. Mar 18, 2018 08:20
[2018-03-18] MEDS: Modafinil 100mg tab ORAL SCH (08:58)
[2018-03-18] MEDS: Metoprolol Tartrate 12.5mg TAB ORAL SCH ×2 (08:58→21:00)
[2018-03-18] MEDS: Heparin 5000 units/ml inj SUBQ SCH ×2 (09:00→21:01)
[2018-03-18] MEDS: Pilocarpine 2% Opth 15ml Soln BOTH EYES SCH ×2 (09:06→17:41)
--- NOTE | 2018-03-18 09:15 | Nephrology Progress Note ---
Assessment/Plan Problem List: (1) ATN (acute tubular necrosis) (2) Sepsis (3) ALS (amyotrophic lateral sclerosis) (4) Hypotension (5) Dehydration (6) Hypoalbuminemia due to protein-calorie malnutrition Assessment: 3+ proteinuria (7) Rhabdomyolysis Assessment: or high CK due to ALS?? Assessment Hypotension, leading to acute renal failure and rising Cr- Cr up 2.0 CPK high too ALS (amyotrophic lateral sclerosis) Generalized weakness Dehydration Gastroenteritis Hypoalbuminemia , Malnutrition Elevated liver enzymes, improving Plan Bolus IV as needed Monitor renal parameters Avoid Nephrotoxics Urine studies per orders discussed with RN low dose beta aarti Subjective ROS Limited/Unobtainable: No Constitutional: Reports: other - feels better Objective Objective Last 24 Hour Vital Signs Date Time Temp Pulse Resp B/P (MAP) Pulse Ox O2 Delivery O2 Flow Rate FiO2 03/18/18 08:58 85 124/63 03/18/18 08:00 97.7 85 20 124/63 (83) 97 97.7 03/18/18 07:30 Nasal Cannula 2.0 28 03/18/18 07:30 97 Nasal Cannula 2.0 28 03/18/18 04:00 Nasal Cannula 2.0 03/18/18 04:00 98.6 94 20 105/58 (74) 97 98.6 03/18/18 00:00 97.8 94 20 120/69 (86) 99 97.8 03/18/18 00:00 Nasal Cannula 2.0 03/17/18 22:03 95 96/58 03/17/18 20:00 97.7 95 18 104/59 (74) 94 97.7 03/17/18 20:00 Nasal Cannula 2.0 03/17/18 19:28 Nasal Cannula 2.0 28 03/17/18 19:28 98 Nasal Cannula 2.0 28 03/17/18 19:27 95 18 Nasal Cannula 2.0 28 03/17/18 16:00 98.5 96 18 96/58 (71) 98 98.5 03/17/18 16:00 Nasal Cannula 2.0 03/17/18 12:00 98.2 94 21 112/66 (81) 98 98.2 03/17/18 12:00 Nasal Cannula 2.0 Intake and Output 03/17/18 03/18/18 19:00 07:00 Intake Total 1350 ml 950 ml Output Total 900 ml 750 ml Balance 450 ml 200 ml Intake Oral 450 ml 200 ml IV Total 900 ml 750 ml Output Urine Total 900 ml 750 ml Laboratory Tests 03/17/18 18:00: Total Creatine Kinase 7719H 03/18/18 05:45: White Blood Count 10.2, Red Blood Count 2.87L, Hemoglobin 9.2L, Hematocrit 27.4L , Mean Corpuscular Volume 96, Mean Corpuscular Hemoglobin 32.1H, Mean Corpuscular Hemoglobin Concent 33.5, Red Cell Distribution Width 12.9, Platelet Count 163, Mean Platelet Volume 6.9, Neutrophils (%) (Auto) 82.3H, Lymphocytes ( %) (Auto) 6.1L, Monocytes (%) (Auto) 10.7H, Eosinophils (%) (Auto) 0.6, Basophils (%) (Auto) 0.3, Sodium Level 138, Potassium Level 3.8, Chloride Level 111H, Carbon Dioxide Level 19L, Anion Gap 8, Blood Urea Nitrogen 51H, Creatinine 1.9H, Estimat Glomerular Filtration Rate 35.5, Glucose Level 117H, Calcium Level 8.2L Height (Feet): 5 Height (Inches): 5.00 Weight (Pounds): 151 General Appearance: no apparent distress Respiratory/Chest: decreased breath sounds Abdomen: soft Objective PE not changed Eleazar Aguilar MD Mar 18, 2018 09:15
[2018-03-18] MEDS ORDERED: Albumin Human 5% 250ml IV SCH (09:45)
--- NOTE | 2018-03-18 09:55 | Cardiology Progress Note ---
Assessment/Plan Status: stable Assessment/Plan Assessment/Plan Problem List: (1) Hypotension (2) ALS (amyotrophic lateral sclerosis) (3) ATN (acute tubular necrosis) (4) Generalized weakness (5) Amyotrophic lateral sclerosis (ALS) (6) Diabetes mellitus (7) Depression Plan: Improving clinically continue IV fluids until CK normal H/H stable Cultures - continue abx treatment of UTI No indication for cath Telemetry to evaluate arrhythmias CT brain negative for CVA Carotid US Mental status improving Physical therapy Ultrasound reviewed, no acute clot, has old jugular venous clot. Subjective Cardiovascular: Reports: no symptoms Respiratory: Reports: no symptoms Gastrointestinal/Abdominal: Reports: no symptoms Genitourinary: Reports: no symptoms Subjective Mental status improved. vitals stable, creatinine improved, ck improved, patient is stable. Objective Last 24 Hour Vital Signs Date Time Temp Pulse Resp B/P (MAP) Pulse Ox O2 Delivery O2 Flow Rate FiO2 03/18/18 08:58 85 124/63 03/18/18 08:00 97.7 85 20 124/63 (83) 97 97.7 03/18/18 07:30 Nasal Cannula 2.0 28 03/18/18 07:30 97 Nasal Cannula 2.0 28 03/18/18 04:00 Nasal Cannula 2.0 03/18/18 04:00 98.6 94 20 105/58 (74) 97 98.6 03/18/18 00:00 97.8 94 20 120/69 (86) 99 97.8 03/18/18 00:00 Nasal Cannula 2.0 03/17/18 22:03 95 96/58 03/17/18 20:00 97.7 95 18 104/59 (74) 94 97.7 03/17/18 20:00 Nasal Cannula 2.0 03/17/18 19:28 Nasal Cannula 2.0 28 03/17/18 19:28 98 Nasal Cannula 2.0 28 03/17/18 19:27 95 18 Nasal Cannula 2.0 28 03/17/18 16:00 98.5 96 18 96/58 (71) 98 98.5 03/17/18 16:00 Nasal Cannula 2.0 03/17/18 12:00 98.2 94 21 112/66 (81) 98 98.2 03/17/18 12:00 Nasal Cannula 2.0 General Appearance: no apparent distress, alert EENT: PERRL/EOMI, normal ENT inspection Neck: non-tender, normal alignment Rhythm: NSR Cardiovascular: normal peripheral pulses, normal rate, regular rhythm Respiratory/Chest: chest wall non-tender, lungs clear Abdomen: normal bowel sounds, non tender Extremities: normal range of motion, non-tender Neurologic: duct layer II-XII grossly normal Intake and Output 03/17/18 03/18/18 19:00 07:00 Intake Total 1350 ml 950 ml Output Total 900 ml 750 ml Balance 450 ml 200 ml Intake Oral 450 ml 200 ml IV Total 900 ml 750 ml Output Urine Total 900 ml 750 ml Laboratory Tests Test 03/17/18 18:00 03/18/18 05:45 Total Creatine Kinase 7719 U/L (26-308) H White Blood Count 10.2 K/UL (4.8-10.8) Red Blood Count 2.87 M/UL (4.70-6.10) L Hemoglobin 9.2 G/DL (14.2-18.0) L Hematocrit 27.4 % (42.0-52.0) L Mean Corpuscular Volume 96 FL (80-99) Mean Corpuscular Hemoglobin 32.1 PG (27.0-31.0) H Mean Corpuscular Hemoglobin Concent 33.5 G/DL (32.0-36.0) Red Cell Distribution Width 12.9 % (11.6-14.8) Platelet Count 163 K/UL (150-450) Mean Platelet Volume 6.9 FL (6.5-10.1) Neutrophils (%) (Auto) 82.3 % (45.0-75.0) H Lymphocytes (%) (Auto) 6.1 % (20.0-45.0) L Monocytes (%) (Auto) 10.7 % (1.0-10.0) H Eosinophils (%) (Auto) 0.6 % (0.0-3.0) Basophils (%) (Auto) 0.3 % (0.0-2.0) Sodium Level 138 MMOL/L (136-145) Potassium Level 3.8 MMOL/L (3.5-5.1) Chloride Level 111 MMOL/L (98-107) H Carbon Dioxide Level 19 MMOL/L (21-32) L Anion Gap 8 mmol/L (5-15) Blood Urea Nitrogen 51 mg/dL (7-18) H Creatinine 1.9 MG/DL (0.55-1.30) H Estimat Glomerular Filtration Rate 35.5 mL/min (>60) Glucose Level 117 MG/DL (74-106) H Calcium Level 8.2 MG/DL (8.5-10.1) L Microbiology Date/Time Source Procedure Growth Status 03/15/18 21:00 Urine,Clean Catch Urine Culture - Final NO GROWTH AFTER 48 HOURS Complete Ovidio Duque M.D. Mar 18, 2018 09:55
--- NOTE | 2018-03-18 11:10 | Pulmonology Progress Note ---
Assessment/Plan Problems: (1) Hypotension (2) ALS (amyotrophic lateral sclerosis) (3) ATN (acute tubular necrosis) (4) Generalized weakness (5) Amyotrophic lateral sclerosis (ALS) (6) Diabetes mellitus (7) Depression Assessment/Plan eating better improving renal function better all reviewed BP better pt/ot med/surg sliding scale renal f/u Subjective ROS Limited/Unobtainable: No Constitutional: Reports: no symptoms HEENT: Repors: no symptoms Respiratory: Reports: no symptoms Allergies: Coded Allergies: CEPHALEXIN MONOHYDRATE (Verified Allergy, Unknown, 01/24/12) TETRACYCLINE (Verified Allergy, Unknown, 01/24/12) Objective Last 24 Hour Vital Signs Date Time Temp Pulse Resp B/P (MAP) Pulse Ox O2 Delivery O2 Flow Rate FiO2 03/18/18 08:58 85 124/63 03/18/18 08:00 97.7 85 20 124/63 (83) 97 97.7 03/18/18 07:30 Nasal Cannula 2.0 28 03/18/18 07:30 97 Nasal Cannula 2.0 28 03/18/18 04:00 Nasal Cannula 2.0 03/18/18 04:00 98.6 94 20 105/58 (74) 97 98.6 03/18/18 00:00 97.8 94 20 120/69 (86) 99 97.8 03/18/18 00:00 Nasal Cannula 2.0 03/17/18 22:03 95 96/58 03/17/18 20:00 97.7 95 18 104/59 (74) 94 97.7 03/17/18 20:00 Nasal Cannula 2.0 03/17/18 19:28 Nasal Cannula 2.0 28 03/17/18 19:28 98 Nasal Cannula 2.0 28 03/17/18 19:27 95 18 Nasal Cannula 2.0 28 03/17/18 16:00 98.5 96 18 96/58 (71) 98 98.5 03/17/18 16:00 Nasal Cannula 2.0 03/17/18 12:00 98.2 94 21 112/66 (81) 98 98.2 03/17/18 12:00 Nasal Cannula 2.0 Intake and Output 03/17/18 03/18/18 19:00 07:00 Intake Total 1350 ml 950 ml Output Total 900 ml 750 ml Balance 450 ml 200 ml Intake Oral 450 ml 200 ml IV Total 900 ml 750 ml Output Urine Total 900 ml 750 ml Objective General Appearance: cachectic HEENT: normocephalic, atraumatic Respiratory/Chest: chest wall non-tender, lungs clear Breasts: no masses Cardiovascular: normal peripheral pulses, no gallop/murmur Abdomen: no organomegaly, no mass Genitourinary: normal external genitalia Extremities: no clubbing Microbiology Date/Time Source Procedure Growth Status 03/15/18 21:00 Urine,Clean Catch Urine Culture - Final NO GROWTH AFTER 48 HOURS Complete Laboratory Tests 03/17/18 18:00: Total Creatine Kinase 7719H 03/18/18 05:45: White Blood Count 10.2, Red Blood Count 2.87L, Hemoglobin 9.2L, Hematocrit 27.4L , Mean Corpuscular Volume 96, Mean Corpuscular Hemoglobin 32.1H, Mean Corpuscular Hemoglobin Concent 33.5, Red Cell Distribution Width 12.9, Platelet Count 163, Mean Platelet Volume 6.9, Neutrophils (%) (Auto) 82.3H, Lymphocytes ( %) (Auto) 6.1L, Monocytes (%) (Auto) 10.7H, Eosinophils (%) (Auto) 0.6, Basophils (%) (Auto) 0.3, Sodium Level 138, Potassium Level 3.8, Chloride Level 111H, Carbon Dioxide Level 19L, Anion Gap 8, Blood Urea Nitrogen 51H, Creatinine 1.9H, Estimat Glomerular Filtration Rate 35.5, Glucose Level 117H, Calcium Level 8.2L Current Medications Medications (Trade) Dose Ordered Sig/Maria Victoria Route PRN Reason Start Time Stop Time Status Last Admin Dose Admin Acetaminophen (Tylenol) 650 mg Q4H PRN ORAL fever 03/16/18 14:00 04/12/18 21:59 Albuterol/ Ipratropium (Albuterol/ Ipratropium) 3 ml Q4H PRN HHN Shortness of Breath 03/16/18 14:00 03/18/18 21:59 Dextrose (Dextrose 50%) 25 ml STAT PRN IV Hypoglycemia 03/16/18 13:30 04/14/18 13:29 Dextrose (Dextrose 50%) 50 ml STAT PRN IV Hypoglycemia 03/16/18 13:30 04/14/18 13:29 Divalproex Sodium (Depakote) 500 mg BEDTIME ORAL 03/16/18 21:00 04/13/18 15:14 03/17/18 22:03 Gabapentin (Neurontin) 600 mg Q12HR ORAL 03/16/18 21:00 04/13/18 11:59 03/18/18 08:58 Heparin Sodium (Porcine) (Heparin 5000 units/ml) 5,000 units EVERY 12 HOURS SUBQ 03/16/18 21:00 04/12/18 22:14 03/18/18 09:00 Insulin Aspart (NovoLOG) BEFORE MEALS AND HS SUBQ 03/16/18 16:30 04/13/18 11:29 03/18/18 06:25 Levofloxacin (Levaquin) 750 mg Q48H ORAL 03/17/18 15:00 03/22/18 14:59 03/17/18 15:31 Metoprolol Tartrate (Lopressor) 12.5 mg Q12HR ORAL 03/16/18 21:00 04/15/18 20:59 03/18/18 08:58 Mirtazapine (Remeron) 15 mg BEDTIME ORAL 03/16/18 21:00 04/13/18 20:59 03/17/18 22:03 Modafinil (Provigil) 200 mg DAILY ORAL 03/17/18 09:00 03/21/18 08:59 03/18/18 08:58 Nitroglycerin (Ntg) 0.4 mg Q5M PRN SL Prn Chest Pain 03/16/18 12:15 04/12/18 21:59 Nortriptyline HCl (Pamelor) 50 mg BEDTIME ORAL 03/16/18 21:00 04/12/18 22:59 03/17/18 22:03 Ondansetron HCl (Zofran) 4 mg Q6H PRN IVP Nausea & Vomiting 03/16/18 13:30 04/12/18 13:29 Pantoprazole (Protonix) 40 mg DAILY ORAL 03/17/18 09:00 04/13/18 08:59 03/18/18 08:58 Pilocarpine (Isopto Carpine 2% Op Soln) 1 drop BID BOTH EYES 03/16/18 18:00 04/13/18 08:59 03/18/18 09:06 Pramipexole (Mirapex) 0.25 mg TID ORAL 03/16/18 14:00 04/15/18 13:59 03/18/18 09:06 Risperidone (RisperDAL) 2 mg BEDTIME ORAL 03/16/18 21:00 04/13/18 20:59 03/17/18 22:03 Sodium Chloride 1,000 ml @ 75 mls/hr [id number] IV 03/16/18 13:30 04/14/18 13:29 03/18/18 05:50 Temazepam (Restoril) 15 mg HSPRN PRN ORAL Insomnia 03/16/18 21:00 03/20/18 20:59 Loulou Ernandez MD Mar 18, 2018 11:10
[2018-03-18 12:00] VITALS: BP 96/57
--- NOTE | 2018-03-18 13:13 | Internal Med Progress Note ---
Subjective Date of Service: Mar 18, 2018 Physician Name Pipo Marvin Attending Physician Marc Conley MD Current Medications Medications (Trade) Dose Ordered Sig/Maria Victoria Route PRN Reason Start Time Stop Time Status Last Admin Dose Admin Acetaminophen (Tylenol) 650 mg Q4H PRN ORAL fever 03/16/18 14:00 04/12/18 21:59 Albuterol/ Ipratropium (Albuterol/ Ipratropium) 3 ml Q4H PRN HHN Shortness of Breath 03/16/18 14:00 03/18/18 21:59 Dextrose (Dextrose 50%) 25 ml STAT PRN IV Hypoglycemia 03/16/18 13:30 04/14/18 13:29 Dextrose (Dextrose 50%) 50 ml STAT PRN IV Hypoglycemia 03/16/18 13:30 04/14/18 13:29 Divalproex Sodium (Depakote) 500 mg BEDTIME ORAL 03/16/18 21:00 04/13/18 15:14 03/17/18 22:03 Gabapentin (Neurontin) 600 mg Q12HR ORAL 03/16/18 21:00 04/13/18 11:59 03/18/18 08:58 Heparin Sodium (Porcine) (Heparin 5000 units/ml) 5,000 units EVERY 12 HOURS SUBQ 03/16/18 21:00 04/12/18 22:14 03/18/18 09:00 Insulin Aspart (NovoLOG) BEFORE MEALS AND HS SUBQ 03/16/18 16:30 04/13/18 11:29 03/18/18 12:03 Levofloxacin (Levaquin) 750 mg Q48H ORAL 03/17/18 15:00 03/22/18 14:59 03/17/18 15:31 Metoprolol Tartrate (Lopressor) 12.5 mg Q12HR ORAL 03/16/18 21:00 04/15/18 20:59 03/18/18 08:58 Mirtazapine (Remeron) 15 mg BEDTIME ORAL 03/16/18 21:00 04/13/18 20:59 03/17/18 22:03 Modafinil (Provigil) 200 mg DAILY ORAL 03/17/18 09:00 03/21/18 08:59 03/18/18 08:58 Nitroglycerin (Ntg) 0.4 mg Q5M PRN SL Prn Chest Pain 03/16/18 12:15 04/12/18 21:59 Nortriptyline HCl (Pamelor) 50 mg BEDTIME ORAL 03/16/18 21:00 04/12/18 22:59 03/17/18 22:03 Ondansetron HCl (Zofran) 4 mg Q6H PRN IVP Nausea & Vomiting 03/16/18 13:30 04/12/18 13:29 Pantoprazole (Protonix) 40 mg DAILY ORAL 03/17/18 09:00 04/13/18 08:59 03/18/18 08:58 Pilocarpine (Isopto Carpine 2% Op Soln) 1 drop BID BOTH EYES 03/16/18 18:00 04/13/18 08:59 03/18/18 09:06 Pramipexole (Mirapex) 0.25 mg TID ORAL 03/16/18 14:00 04/15/18 13:59 03/18/18 12:05 Risperidone (RisperDAL) 2 mg BEDTIME ORAL 03/16/18 21:00 04/13/18 20:59 03/17/18 22:03 Sodium Chloride 1,000 ml @ 75 mls/hr [id number] IV 03/16/18 13:30 04/14/18 13:29 03/18/18 05:50 Temazepam (Restoril) 15 mg HSPRN PRN ORAL Insomnia 03/16/18 21:00 03/20/18 20:59 Allergies: Coded Allergies: CEPHALEXIN MONOHYDRATE (Verified Allergy, Unknown, 01/24/12) TETRACYCLINE (Verified Allergy, Unknown, 01/24/12) ROS Limited/Unobtainable: No Constitutional: Reports: no symptoms HEENT: Reports: no symptoms Cardiovascular: Reports: no symptoms Respiratory: Reports: no symptoms Gastrointestinal/Abdominal: Reports: no symptoms Genitourinary: Reports: no symptoms Neurologic/Psychiatric: Reports: no symptoms Subjective 67 YO M with a history of ALS, admitted with syncope. Now rhabdomyolysis. Cover for Int Jon-Dr Conley. C/O left upper arm swelling Objective Last Vital Signs Date Time Temp Pulse Resp B/P (MAP) Pulse Ox O2 Delivery O2 Flow Rate FiO2 03/18/18 12:00 97.7 81 20 96/57 (70) 100 97.7 03/18/18 09:00 Nasal Cannula 2.0 03/18/18 07:30 28 Laboratory Tests Test 03/17/18 18:00 03/18/18 05:45 Total Creatine Kinase 7719 U/L (26-308) H White Blood Count 10.2 K/UL (4.8-10.8) Red Blood Count 2.87 M/UL (4.70-6.10) L Hemoglobin 9.2 G/DL (14.2-18.0) L Hematocrit 27.4 % (42.0-52.0) L Mean Corpuscular Volume 96 FL (80-99) Mean Corpuscular Hemoglobin 32.1 PG (27.0-31.0) H Mean Corpuscular Hemoglobin Concent 33.5 G/DL (32.0-36.0) Red Cell Distribution Width 12.9 % (11.6-14.8) Platelet Count 163 K/UL (150-450) Mean Platelet Volume 6.9 FL (6.5-10.1) Neutrophils (%) (Auto) 82.3 % (45.0-75.0) H Lymphocytes (%) (Auto) 6.1 % (20.0-45.0) L Monocytes (%) (Auto) 10.7 % (1.0-10.0) H Eosinophils (%) (Auto) 0.6 % (0.0-3.0) Basophils (%) (Auto) 0.3 % (0.0-2.0) Sodium Level 138 MMOL/L (136-145) Potassium Level 3.8 MMOL/L (3.5-5.1) Chloride Level 111 MMOL/L (98-107) H Carbon Dioxide Level 19 MMOL/L (21-32) L Anion Gap 8 mmol/L (5-15) Blood Urea Nitrogen 51 mg/dL (7-18) H Creatinine 1.9 MG/DL (0.55-1.30) H Estimat Glomerular Filtration Rate 35.5 mL/min (>60) Glucose Level 117 MG/DL (74-106) H Calcium Level 8.2 MG/DL (8.5-10.1) L Microbiology Date/Time Source Procedure Growth Status 03/15/18 21:00 Urine,Clean Catch Urine Culture - Final NO GROWTH AFTER 48 HOURS Complete Intake and Output 03/17/18 03/18/18 19:00 07:00 Intake Total 1350 ml 950 ml Output Total 900 ml 750 ml Balance 450 ml 200 ml Intake Oral 450 ml 200 ml IV Total 900 ml 750 ml Output Urine Total 900 ml 750 ml Objective General Appearance: WD/WN, no apparent distress, alert EENT: PERRL/EOMI, normal ENT inspection Neck: non-tender, normal alignment, supple Cardiovascular: normal peripheral pulses, normal rate, regular rhythm, no gallop/murmur Respiratory/Chest: chest wall non-tender, lungs clear, normal breath sounds, no respiratory distress, no accessory muscle use Abdomen: normal bowel sounds, non tender, soft, no organomegaly, no mass Extremities: other - gen weakness Neurologic: roll dough divider II-XII grossly normal, motor weakness Skin: normal pigmentation, warm/dry Assessment/Plan Problem List: (1) Rhabdomyolysis Assessment & Plan: Continue IV fluids. See nephrology and cardiology note. (2) Syncope (3) Diabetes mellitus type II, controlled Assessment & Plan: Continue novolog sliding sclae. (4) Renal failure (5) Amyotrophic lateral sclerosis (ALS) Assessment & Plan: See neuro note. (6) Seizure disorder Assessment & Plan: D/C topamax. See neruo note. (7) Swelling of right upper extremity Assessment & Plan: Venous duplex neg for DVT. Await xray Status: Pipo Charles MD Mar 18, 2018 13:13
--- NOTE | 2018-03-18 13:36 | Neurology Progress Note ---
Interim History Interim History Interim History Mr. Albarado feels better. He sat up at the edge of his bed with the PT today. The mind is clearer. He is still amnestic of the circumstances that brought him to the hospital. He continues to be cognitively impoverished. He continues to be generally weak. The left shoulder and hip pain are better. He denies any new neurologic symptoms. Review of Systems Neuro Review of Systems Benign. Objective Physical Exam Last Vital Signs Date Time Temp Pulse Resp B/P (MAP) Pulse Ox O2 Delivery O2 Flow Rate FiO2 03/18/18 12:00 97.7 81 20 96/57 (70) 100 97.7 03/18/18 09:00 Nasal Cannula 2.0 03/18/18 07:30 28 Laboratory Tests Test 03/17/18 18:00 03/18/18 05:45 Total Creatine Kinase 7719 U/L (26-308) H White Blood Count 10.2 K/UL (4.8-10.8) Red Blood Count 2.87 M/UL (4.70-6.10) L Hemoglobin 9.2 G/DL (14.2-18.0) L Hematocrit 27.4 % (42.0-52.0) L Mean Corpuscular Volume 96 FL (80-99) Mean Corpuscular Hemoglobin 32.1 PG (27.0-31.0) H Mean Corpuscular Hemoglobin Concent 33.5 G/DL (32.0-36.0) Red Cell Distribution Width 12.9 % (11.6-14.8) Platelet Count 163 K/UL (150-450) Mean Platelet Volume 6.9 FL (6.5-10.1) Neutrophils (%) (Auto) 82.3 % (45.0-75.0) H Lymphocytes (%) (Auto) 6.1 % (20.0-45.0) L Monocytes (%) (Auto) 10.7 % (1.0-10.0) H Eosinophils (%) (Auto) 0.6 % (0.0-3.0) Basophils (%) (Auto) 0.3 % (0.0-2.0) Sodium Level 138 MMOL/L (136-145) Potassium Level 3.8 MMOL/L (3.5-5.1) Chloride Level 111 MMOL/L (98-107) H Carbon Dioxide Level 19 MMOL/L (21-32) L Anion Gap 8 mmol/L (5-15) Blood Urea Nitrogen 51 mg/dL (7-18) H Creatinine 1.9 MG/DL (0.55-1.30) H Estimat Glomerular Filtration Rate 35.5 mL/min (>60) Glucose Level 117 MG/DL (74-106) H Calcium Level 8.2 MG/DL (8.5-10.1) L Neurologic Exam Objective PHYSICAL EXAMINATION: GENERAL: He is a well-developed, well-nourished, gentleman, lying in bed, in no acute distress. HEAD: Normocephalic and atraumatic. EENT: Examination benign. NECK: No neck rigidity was observed. NEUROLOGIC EXAMINATION: MENTAL STATUS EXAMINATION: He was awake and more alert. He was oriented to [facility], [facility] and March 2018. He did not know the date. He was able to recall 3/3 words immediately, but could only remember 2/3 words in 1 minute and 3 minutes. He was able to remember presidents Trump and Obama only. His mathematical skills were impaired. His visuospatial function was also impaired. SPEECH: He had no dysarthria. LANGUAGE: He had a mild anomia. CRANIAL NERVE EXAMINATION: II: The visual oquendo were intact on confrontation testing. III, IV & : External ocular movements were full and the pupils 3 mm in diameter, equal, round, regular, and reactive to light. V: He had normal facial sensations and the temporales, masseters, and pterygoids functioned normally. VII: He had normal facial expressions and no facial asymmetry. VIII: He was able to hear well bilaterally and had no nystagmus. IX: The palate moved symmetrically on phonation. X: He had no hoarseness of voice. XI: Sternocleidomastoids and trapezii functioned normally. XII: The tongue was in the midline without any fasciculations or atrophy. MOTOR SYSTEM: The tone was normal in all four extremities. Examination of muscle mass revealed mild generalized wasting. Examination of power was exceedingly difficult to perform because of varying degrees of cooperation. He however moved all four extremities relatively well, but tended to move his left side less due to pain in his left shoulder and left hip. SENSORY EXAMINATION: He was unable to cooperate for sensory testing. He did however feel painful stimuli well. REFLEXES: 0 at the biceps, triceps, brachioradialis, knees, and ankles. The plantar responses were flexor bilaterally. COORDINATION: He performed well on finger to nose testing. STANCE & GAIT: Could not be tested. Impression/Recommendations Diagnostic Impression 1. Mr. Jana Albarado is a 67-year-old, right-handed, gentleman, who does have a past history of ALS, seizures, depression, glaucoma, and spinal problems who apparently fell down in the absence of any one at home and was found on the next day by his caregiver lying on his left-side, with bruises over his left side in a confused disoriented state. 2. He feels better. He sat up at the edge of his bed with the PT today. The mind is clearer. He is still amnestic of the circumstances that brought him to the hospital. He continues to be cognitively impoverished. He continues to be generally weak. The left shoulder and hip pain are better. He denies any new neurologic symptoms. 3. On neurological examination, at this time, he has mild problems with orientation, problems with recent and remote memory, visuospatial function, higher cognitive function, and language - all of which are better. He is also generally weak and gives a poor effort with motor testing. He also has globally absent deep tendon reflexes. 4. The CT of the brain is normal. 5. The EEG revealed findings consistent with a toxic/metabolic encephalopathy. 6. The patient's history and neurological examination are most compatible with an ongoing encephalopathic process, the exact etiology for the encephalopathy is unclear at this point in time. Offending factors could be an acute infectious process as he does have WBC count elevated to 15,400. He also has renal dysfunction with a BUN of 48 with a creatinine of 1.6. His blood glucose is elevated at 197. He has liver dysfunction in the form of AST elevated to 856 and ALT elevated to 229, and he does have rhabdomyolysis with his CK is greater than 10,000. His free T4 is normal at 0.92. His urinalysis also reveals 1+ leukocyte esterase, 0-4 RBCs and 0-2 WBCs per high-power field. His encephalopathy is improving. 7. Although, the patient carries a history of ALS, his neurological findings at this point in time are not very consistent with it. The diagnosis is suspect. Recommendations 1. Continue present management. 2. Increase activity as tolerated. 3. The patient should be mobilized with the help of physical and occupational therapy. Sandra Obregon M.D., M.S.[facility].H. SANDRA OBREOGN Mar 18, 2018 13:36
--- NOTE | 2018-03-18 15:34 | Diagnostic Imaging Report ---
EXAM: XR Left Humerus, 2 or More Views CLINICAL HISTORY: PAIN TECHNIQUE: Frontal and lateral views of the left humerus. COMPARISON: No relevant prior studies available. FINDINGS: Bones/joints: Degenerative changes of the elbow. No acute fracture. No dislocation. Soft tissues: Soft tissue swelling. Other findings: IMPRESSION: 1. Soft tissue swelling. 2. No fracture or malalignment.
--- NOTE | 2018-03-18 15:35 | Diagnostic Imaging Report ---
EXAM: XR Left Elbow Complete, 3 or More Views CLINICAL HISTORY: PAIN TECHNIQUE: Frontal, lateral and oblique views of the left elbow. COMPARISON: No relevant prior studies available. FINDINGS: Bones/joints: Mild degenerative change at the elbow. No acute fracture. No dislocation. No joint effusion. Soft tissues: Diffuse Soft tissue swelling. IMPRESSION: 1. Diffuse soft tissue swelling. 2. No fracture or malalignment. Mild degenerative changes.
[2018-03-18 16:00] VITALS: BP 110/57
[2018-03-18 20:00] VITALS: BP 121/61
[2018-03-18] MEDS: Depakote 500mg tab ORAL SCH (21:00)
[2018-03-18] MEDS: Nortriptyline 25mg cap ORAL SCH (21:00)
[2018-03-19] VITALS: BP 136/64
[2018-03-19 04:00] VITALS: BP 137/63
[2018-03-19] MEDS: NovoLOG Insulin Flexpen SUBQ SCH ×4 (06:12→20:24)
[2018-03-19 06:53] LABS: BASOPHILS % (AUTO) 0.4 % (0.0-2.0); EOSINOPHILS % (AUTO) 1.1 % (0.0-3.0); HEMATOCRIT 27.4 % (42.0-52.0); LYMPHOCYTES % (AUTO) 9.5 % (20.0-45.0); MEAN CORPUSCULAR VOLUME 95 FL (80-99); MONOCYTES % (AUTO) 12.1 % (1.0-10.0); PLATELET COUNT 203 K/UL (150-450); RED BLOOD COUNT 2.88 M/UL (4.70-6.10); RED CELL DISTRIBUTION WIDTH 12.7 % (11.6-14.8); WHITE BLOOD COUNT 11.1 K/UL (4.8-10.8)
[2018-03-19 07:20] LABS: ALANINE AMINOTRANSFERASE 112 U/L (12-78); ALBUMIN 1.5 G/DL (3.4-5.0); ALBUMIN/GLOBULIN RATIO 0.5 (1.0-2.7); ALKALINE PHOSPHATASE 57 U/L (46-116); ANION GAP 11 mmol/L (5-15); ASPARTATE AMINO TRANSFERASE 209 U/L (15-37); BILIRUBIN,TOTAL 0.3 MG/DL (0.2-1.0); BLOOD UREA NITROGEN 52 mg/dL (7-18); CALCIUM 8.5 MG/DL (8.5-10.1); CARBON DIOXIDE 19 MMOL/L (21-32); CHLORIDE 111 MMOL/L (98-107); CREATINE KINASE 3953 U/L (26-308); CREATININE 1.6 MG/DL (0.55-1.30); PHOSPHORUS 2.7 MG/DL (2.5-4.9); POTASSIUM 3.7 MMOL/L (3.5-5.1); SODIUM 141 MMOL/L (136-145)
[2018-03-19 08:00] VITALS: BP 141/85
[2018-03-19] MEDS: Metoprolol Tartrate 12.5mg TAB ORAL SCH ×2 (10:14→20:22)
[2018-03-19] MEDS: Modafinil 100mg tab ORAL SCH (10:15)
[2018-03-19] MEDS: Pilocarpine 2% Opth 15ml Soln BOTH EYES SCH ×2 (10:17→17:18)
[2018-03-19] MEDS: Heparin 5000 units/ml inj SUBQ SCH ×2 (10:17→20:24)
--- NOTE | 2018-03-19 10:41 | Cardiology Progress Note ---
Assessment/Plan Status: stable, progressing Assessment/Plan Assessment/Plan Problem List: (1) Hypotension (2) ALS (amyotrophic lateral sclerosis) (3) ATN (acute tubular necrosis) (4) Generalized weakness (5) Amyotrophic lateral sclerosis (ALS) (6) Diabetes mellitus (7) Depression Plan: Improving clinically continue IV fluids until CK normal H/H stable Cultures - continue abx treatment of UTI No indication for cath Telemetry to evaluate arrhythmias CT brain negative for CVA Carotid US Mental status improving Physical therapy Ultrasound reviewed, no acute clot, has old jugular venous clot, x ray negative for fracture. Subjective Cardiovascular: Reports: no symptoms Respiratory: Reports: no symptoms Gastrointestinal/Abdominal: Reports: no symptoms Genitourinary: Reports: no symptoms Subjective Mental status improved. vitals stable, creatinine improved, ck improved, patient is stable. No acute events, no complaints. Still has EMILE swelling, X ray negative for fracture and negative for acute thrombus. Objective Last 24 Hour Vital Signs Date Time Temp Pulse Resp B/P (MAP) Pulse Ox O2 Delivery O2 Flow Rate FiO2 03/19/18 10:14 84 141/85 03/19/18 08:00 97.2 84 20 141/85 (103) 94 97.2 03/19/18 07:42 98 Nasal Cannula 2.0 28 03/19/18 07:42 Nasal Cannula 2.0 28 03/19/18 04:00 98.4 99 20 137/63 (87) 97 98.4 03/19/18 00:00 98.6 94 20 136/64 (88) 93 98.6 03/18/18 21:00 90 110/57 03/18/18 21:00 Nasal Cannula 2.0 03/18/18 20:00 98.4 94 20 121/61 (81) 97 98.4 03/18/18 19:54 Nasal Cannula 2.0 28 03/18/18 19:54 97 Nasal Cannula 2.0 28 03/18/18 16:00 97.7 90 20 110/57 (74) 98 97.7 03/18/18 12:00 97.7 81 20 96/57 (70) 100 97.7 General Appearance: no apparent distress, alert EENT: PERRL/EOMI Neck: non-tender, normal alignment, supple, normal inspection, no JVD Rhythm: NSR Cardiovascular: normal peripheral pulses, normal rate, regular rhythm Respiratory/Chest: chest wall non-tender, lungs clear Abdomen: normal bowel sounds, non tender Extremities: normal range of motion, non-tender Neurologic: signal intelligence/electronic warfare II-XII grossly normal, no motor/sensory deficits, abnormal gait Intake and Output 03/18/18 03/19/18 19:00 07:00 Intake Total 1100 ml 750 ml Output Total 800 ml 1250 ml Balance 300 ml -500 ml Intake Oral 200 ml IV Total 900 ml 750 ml Output Urine Total 800 ml 1250 ml Laboratory Tests Test 03/19/18 05:30 White Blood Count 11.1 K/UL (4.8-10.8) H Red Blood Count 2.88 M/UL (4.70-6.10) L Hemoglobin 9.0 G/DL (14.2-18.0) L Hematocrit 27.4 % (42.0-52.0) L Mean Corpuscular Volume 95 FL (80-99) Mean Corpuscular Hemoglobin 31.4 PG (27.0-31.0) H Mean Corpuscular Hemoglobin Concent 33.0 G/DL (32.0-36.0) Red Cell Distribution Width 12.7 % (11.6-14.8) Platelet Count 203 K/UL (150-450) Mean Platelet Volume 5.7 FL (6.5-10.1) L Neutrophils (%) (Auto) 77.0 % (45.0-75.0) H Lymphocytes (%) (Auto) 9.5 % (20.0-45.0) L Monocytes (%) (Auto) 12.1 % (1.0-10.0) H Eosinophils (%) (Auto) 1.1 % (0.0-3.0) Basophils (%) (Auto) 0.4 % (0.0-2.0) Sodium Level 141 MMOL/L (136-145) Potassium Level 3.7 MMOL/L (3.5-5.1) Chloride Level 111 MMOL/L (98-107) H Carbon Dioxide Level 19 MMOL/L (21-32) L Anion Gap 11 mmol/L (5-15) Blood Urea Nitrogen 52 mg/dL (7-18) H Creatinine 1.6 MG/DL (0.55-1.30) H Estimat Glomerular Filtration Rate 43.3 mL/min (>60) Glucose Level 119 MG/DL (74-106) H Uric Acid 3.5 MG/DL (2.6-7.2) Calcium Level 8.5 MG/DL (8.5-10.1) Phosphorus Level 2.7 MG/DL (2.5-4.9) Magnesium Level 1.7 MG/DL (1.8-2.4) L Total Bilirubin 0.3 MG/DL (0.2-1.0) Aspartate Amino Transf (AST/SGOT) 209 U/L (15-37) H Alanine Aminotransferase (ALT/SGPT) 112 U/L (12-78) H Alkaline Phosphatase 57 U/L (46-116) Total Creatine Kinase 3953 U/L (26-308) H C-Reactive Protein, Quantitative 7.0 mg/dL (0.00-0.90) H Total Protein 4.3 G/DL (6.4-8.2) L Albumin 1.5 G/DL (3.4-5.0) L Globulin 2.8 g/dL Albumin/Globulin Ratio 0.5 (1.0-2.7) L Ovidio Duque M.D. Mar 19, 2018 10:41
[2018-03-19 12:00] VITALS: BP 117/59
--- NOTE | 2018-03-19 12:10 | Neurology Progress Note ---
Interim History Interim History Interim History Mr. Albarado continues to feel better. He sat up at the edge of his bed with the PT today. The mind is clearer. He is still amnestic of the circumstances that brought him to the hospital. He continues to be cognitively impoverished. He continues to be generally weak. The left shoulder and hip pain are better. His left upper extremity is still swollen. He denies any new neurologic symptoms. Review of Systems Neuro Review of Systems Benign. Objective Physical Exam Last Vital Signs Date Time Temp Pulse Resp B/P (MAP) Pulse Ox O2 Delivery O2 Flow Rate FiO2 03/19/18 10:14 84 141/85 03/19/18 08:00 97.2 20 94 97.2 03/19/18 07:42 Nasal Cannula 2.0 28 Laboratory Tests Test 03/19/18 05:30 White Blood Count 11.1 K/UL (4.8-10.8) H Red Blood Count 2.88 M/UL (4.70-6.10) L Hemoglobin 9.0 G/DL (14.2-18.0) L Hematocrit 27.4 % (42.0-52.0) L Mean Corpuscular Volume 95 FL (80-99) Mean Corpuscular Hemoglobin 31.4 PG (27.0-31.0) H Mean Corpuscular Hemoglobin Concent 33.0 G/DL (32.0-36.0) Red Cell Distribution Width 12.7 % (11.6-14.8) Platelet Count 203 K/UL (150-450) Mean Platelet Volume 5.7 FL (6.5-10.1) L Neutrophils (%) (Auto) 77.0 % (45.0-75.0) H Lymphocytes (%) (Auto) 9.5 % (20.0-45.0) L Monocytes (%) (Auto) 12.1 % (1.0-10.0) H Eosinophils (%) (Auto) 1.1 % (0.0-3.0) Basophils (%) (Auto) 0.4 % (0.0-2.0) Sodium Level 141 MMOL/L (136-145) Potassium Level 3.7 MMOL/L (3.5-5.1) Chloride Level 111 MMOL/L (98-107) H Carbon Dioxide Level 19 MMOL/L (21-32) L Anion Gap 11 mmol/L (5-15) Blood Urea Nitrogen 52 mg/dL (7-18) H Creatinine 1.6 MG/DL (0.55-1.30) H Estimat Glomerular Filtration Rate 43.3 mL/min (>60) Glucose Level 119 MG/DL (74-106) H Uric Acid 3.5 MG/DL (2.6-7.2) Calcium Level 8.5 MG/DL (8.5-10.1) Phosphorus Level 2.7 MG/DL (2.5-4.9) Magnesium Level 1.7 MG/DL (1.8-2.4) L Total Bilirubin 0.3 MG/DL (0.2-1.0) Aspartate Amino Transf (AST/SGOT) 209 U/L (15-37) H Alanine Aminotransferase (ALT/SGPT) 112 U/L (12-78) H Alkaline Phosphatase 57 U/L (46-116) Total Creatine Kinase 3953 U/L (26-308) H C-Reactive Protein, Quantitative 7.0 mg/dL (0.00-0.90) H Total Protein 4.3 G/DL (6.4-8.2) L Albumin 1.5 G/DL (3.4-5.0) L Globulin 2.8 g/dL Albumin/Globulin Ratio 0.5 (1.0-2.7) L Neurologic Exam Objective PHYSICAL EXAMINATION: GENERAL: He is a well-developed, well-nourished, gentleman, lying in bed, in no acute distress. HEAD: Normocephalic and atraumatic. EENT: Examination benign. NECK: No neck rigidity was observed. NEUROLOGIC EXAMINATION: MENTAL STATUS EXAMINATION: He was awake and more alert. He was oriented to Ech[employer], Stitcher Baker and March 19, 2018. He was able to recall 3/3 words immediately, but could only remember 2/3 words in 1 minute and 3 minutes. He was able to remember presidents Trump and Obama only. His mathematical skills were impaired. His visuospatial function was also impaired. SPEECH: He had no dysarthria. LANGUAGE: He had a mild anomia. CRANIAL NERVE EXAMINATION: II: The visual oquendo were intact on confrontation testing. III, IV & : External ocular movements were full and the pupils 3 mm in diameter, equal, round, regular, and reactive to light. V: He had normal facial sensations and the temporales, masseters, and pterygoids functioned normally. VII: He had normal facial expressions and no facial asymmetry. VIII: He was able to hear well bilaterally and had no nystagmus. IX: The palate moved symmetrically on phonation. X: He had no hoarseness of voice. XI: Sternocleidomastoids and trapezii functioned normally. XII: The tongue was in the midline without any fasciculations or atrophy. MOTOR SYSTEM: The tone was normal in all four extremities. Examination of muscle mass revealed mild generalized wasting. Examination of power was exceedingly difficult to perform because of varying degrees of cooperation. He however moved all four extremities relatively well, but tended to move his left side less due to pain in his left shoulder and left hip. SENSORY EXAMINATION: He was unable to cooperate for sensory testing. He did however feel painful stimuli well. REFLEXES: 0 at the biceps, triceps, brachioradialis, knees, and ankles. The plantar responses were flexor bilaterally. COORDINATION: He performed well on finger to nose testing. STANCE & GAIT: Could not be tested. Impression/Recommendations Diagnostic Impression 1. Mr. Jana Albarado is a 67-year-old, right-handed, gentleman, who does have a past history of ALS, seizures, depression, glaucoma, and spinal problems who apparently fell down in the absence of any one at home and was found on the next day by his caregiver lying on his left-side, with bruises over his left side in a confused disoriented state. 2. He continues to feel better. He sat up at the edge of his bed with the PT today. The mind is clearer. He is still amnestic of the circumstances that brought him to the hospital. He continues to be cognitively impoverished. He continues to be generally weak. The left shoulder and hip pain are better. His left upper extremity is still swollen. He denies any new neurologic symptoms. 3. On neurological examination, at this time, he has is fully oriented, He has problems with recent and remote memory, visuospatial function, higher cognitive function, and language - all of which are better. He is also generally weak and gives a poor effort with motor testing. He also has globally absent deep tendon reflexes. 4. The CT of the brain is normal. 5. The EEG revealed findings consistent with a toxic/metabolic encephalopathy. 6. The patient's history and neurological examination are most compatible with an ongoing encephalopathic process, the exact etiology for the encephalopathy is unclear at this point in time. Offending factors could be an acute infectious process as he does have WBC count elevated to 15,400. He also has renal dysfunction with a BUN of 48 with a creatinine of 1.6. His blood glucose is elevated at 197. He has liver dysfunction in the form of AST elevated to 856 and ALT elevated to 229, and he does have rhabdomyolysis with his CK is greater than 10,000. His free T4 is normal at 0.92. His urinalysis also reveals 1+ leukocyte esterase, 0-4 RBCs and 0-2 WBCs per high-power field. His encephalopathy is improving. 7. Although, the patient carries a history of ALS, his neurological findings at this point in time are not very consistent with it. The diagnosis is suspect. Recommendations 1. Continue present management. 2. Increase activity as tolerated. 3. The patient should be mobilized with the help of physical and occupational therapy. Sandra Obregon M.D., M.S.P.SANDRA LOPEZ Mar 19, 2018 12:10
--- NOTE | 2018-03-19 12:23 | Nephrology Progress Note ---
Assessment/Plan Problem List: (1) ATN (acute tubular necrosis) (2) Rhabdomyolysis Assessment: or high CK due to ALS?? (3) Sepsis (4) ALS (amyotrophic lateral sclerosis) (5) Hypotension (6) Dehydration (7) Hypoalbuminemia due to protein-calorie malnutrition Assessment: 3+ proteinuria Assessment Hypotension, leading to acute renal failure and rising Cr- Cr now lower to 1.6 CPK high too ALS (amyotrophic lateral sclerosis) Generalized weakness Dehydration Gastroenteritis Hypoalbuminemia , Malnutrition Elevated liver enzymes, improving Plan Bolus IV as needed Monitor renal parameters Avoid Nephrotoxics Urine studies per orders discussed with RN low dose beta aarti Subjective ROS Limited/Unobtainable: No Constitutional: Reports: malaise Objective Objective Last 24 Hour Vital Signs Date Time Temp Pulse Resp B/P (MAP) Pulse Ox O2 Delivery O2 Flow Rate FiO2 03/19/18 10:14 84 141/85 03/19/18 08:00 97.2 84 20 141/85 (103) 94 97.2 03/19/18 07:42 98 Nasal Cannula 2.0 28 03/19/18 07:42 Nasal Cannula 2.0 28 03/19/18 04:00 98.4 99 20 137/63 (87) 97 98.4 03/19/18 00:00 98.6 94 20 136/64 (88) 93 98.6 03/18/18 21:00 90 110/57 03/18/18 21:00 Nasal Cannula 2.0 03/18/18 20:00 98.4 94 20 121/61 (81) 97 98.4 03/18/18 19:54 Nasal Cannula 2.0 28 03/18/18 19:54 97 Nasal Cannula 2.0 28 03/18/18 16:00 97.7 90 20 110/57 (74) 98 97.7 Intake and Output 03/18/18 03/19/18 19:00 07:00 Intake Total 1100 ml 750 ml Output Total 800 ml 1250 ml Balance 300 ml -500 ml Intake Oral 200 ml IV Total 900 ml 750 ml Output Urine Total 800 ml 1250 ml Laboratory Tests 03/19/18 05:30: White Blood Count 11.1H, Red Blood Count 2.88L, Hemoglobin 9.0L, Hematocrit 27.4L, Mean Corpuscular Volume 95, Mean Corpuscular Hemoglobin 31.4H, Mean Corpuscular Hemoglobin Concent 33.0, Red Cell Distribution Width 12.7, Platelet Count 203, Mean Platelet Volume 5.7L, Neutrophils (%) (Auto) 77.0H, Lymphocytes (%) (Auto) 9.5L, Monocytes (%) (Auto) 12.1H, Eosinophils (%) (Auto) 1.1, Basophils (%) (Auto) 0.4, Sodium Level 141, Potassium Level 3.7, Chloride Level 111H, Carbon Dioxide Level 19L, Anion Gap 11, Blood Urea Nitrogen 52H, Creatinine 1.6H, Estimat Glomerular Filtration Rate 43.3, Glucose Level 119H, Uric Acid 3.5, Calcium Level 8.5, Phosphorus Level 2.7, Magnesium Level 1.7L, Total Bilirubin 0.3, Aspartate Amino Transf (AST/SGOT) 209H, Alanine Aminotransferase (ALT/SGPT) 112H, Alkaline Phosphatase 57, Total Creatine Kinase 3953H, C-Reactive Protein, Quantitative 7.0H, Total Protein 4.3L, Albumin 1.5L, Globulin 2.8, Albumin/Globulin Ratio 0.5L Height (Feet): 5 Height (Inches): 5.00 Weight (Pounds): 156 General Appearance: no apparent distress Cardiovascular: normal rate Respiratory/Chest: decreased breath sounds Abdomen: soft Objective PE not changed Eleazar Aguilar MD Mar 19, 2018 12:23
--- NOTE | 2018-03-19 14:11 | Pulmonology Progress Note ---
Assessment/Plan Problems: (1) Hypotension (2) ALS (amyotrophic lateral sclerosis) (3) ATN (acute tubular necrosis) (4) Generalized weakness (5) Amyotrophic lateral sclerosis (ALS) (6) Diabetes mellitus (7) Depression Assessment/Plan no new complains eating better improving renal function better pt/ot med/surg sliding scale renal f/u dc planning Subjective ROS Limited/Unobtainable: No Constitutional: Reports: no symptoms HEENT: Repors: no symptoms Respiratory: Reports: no symptoms Cardiovascular: Reports: no symptoms Allergies: Coded Allergies: CEPHALEXIN MONOHYDRATE (Verified Allergy, Unknown, 01/24/12) TETRACYCLINE (Verified Allergy, Unknown, 01/24/12) Objective Last 24 Hour Vital Signs Date Time Temp Pulse Resp B/P (MAP) Pulse Ox O2 Delivery O2 Flow Rate FiO2 03/19/18 12:00 98.4 97 20 117/59 (78) 98 98.4 03/19/18 10:14 84 141/85 03/19/18 09:00 Nasal Cannula 2.0 03/19/18 08:00 97.2 84 20 141/85 (103) 94 97.2 03/19/18 07:42 98 Nasal Cannula 2.0 28 03/19/18 07:42 Nasal Cannula 2.0 28 03/19/18 04:00 98.4 99 20 137/63 (87) 97 98.4 03/19/18 00:00 98.6 94 20 136/64 (88) 93 98.6 03/18/18 21:00 90 110/57 03/18/18 21:00 Nasal Cannula 2.0 03/18/18 20:00 98.4 94 20 121/61 (81) 97 98.4 03/18/18 19:54 Nasal Cannula 2.0 28 03/18/18 19:54 97 Nasal Cannula 2.0 28 03/18/18 16:00 97.7 90 20 110/57 (74) 98 97.7 Intake and Output 03/18/18 03/19/18 19:00 07:00 Intake Total 1100 ml 750 ml Output Total 800 ml 1250 ml Balance 300 ml -500 ml Intake Oral 200 ml IV Total 900 ml 750 ml Output Urine Total 800 ml 1250 ml Objective General Appearance: cachectic HEENT: normocephalic, atraumatic Respiratory/Chest: chest wall non-tender, lungs clear Breasts: no masses Cardiovascular: normal peripheral pulses, no gallop/murmur Abdomen: no organomegaly, no mass Genitourinary: normal external genitalia Extremities: no clubbing Laboratory Tests 03/19/18 05:30: White Blood Count 11.1H, Red Blood Count 2.88L, Hemoglobin 9.0L, Hematocrit 27.4L, Mean Corpuscular Volume 95, Mean Corpuscular Hemoglobin 31.4H, Mean Corpuscular Hemoglobin Concent 33.0, Red Cell Distribution Width 12.7, Platelet Count 203, Mean Platelet Volume 5.7L, Neutrophils (%) (Auto) 77.0H, Lymphocytes (%) (Auto) 9.5L, Monocytes (%) (Auto) 12.1H, Eosinophils (%) (Auto) 1.1, Basophils (%) (Auto) 0.4, Sodium Level 141, Potassium Level 3.7, Chloride Level 111H, Carbon Dioxide Level 19L, Anion Gap 11, Blood Urea Nitrogen 52H, Creatinine 1.6H, Estimat Glomerular Filtration Rate 43.3, Glucose Level 119H, Uric Acid 3.5, Calcium Level 8.5, Phosphorus Level 2.7, Magnesium Level 1.7L, Total Bilirubin 0.3, Aspartate Amino Transf (AST/SGOT) 209H, Alanine Aminotransferase (ALT/SGPT) 112H, Alkaline Phosphatase 57, Total Creatine Kinase 3953H, C-Reactive Protein, Quantitative 7.0H, Total Protein 4.3L, Albumin 1.5L, Globulin 2.8, Albumin/Globulin Ratio 0.5L Current Medications Medications (Trade) Dose Ordered Sig/Maria Victoria Route PRN Reason Start Time Stop Time Status Last Admin Dose Admin Acetaminophen (Tylenol) 650 mg Q4H PRN ORAL fever 03/16/18 14:00 04/12/18 21:59 Divalproex Sodium (Depakote) 500 mg BEDTIME ORAL 03/16/18 21:00 04/13/18 15:14 03/18/18 21:00 Gabapentin (Neurontin) 600 mg Q12HR ORAL 03/16/18 21:00 04/13/18 11:59 03/19/18 10:14 Heparin Sodium (Porcine) (Heparin 5000 units/ml) 5,000 units EVERY 12 HOURS SUBQ 03/16/18 21:00 04/12/18 22:14 03/19/18 10:17 Insulin Aspart (NovoLOG) BEFORE MEALS AND HS SUBQ 03/16/18 16:30 04/13/18 11:29 03/19/18 12:59 Levofloxacin (Levaquin) 750 mg Q48H ORAL 03/17/18 15:00 03/22/18 14:59 03/17/18 15:31 Metoprolol Tartrate (Lopressor) 12.5 mg Q12HR ORAL 03/16/18 21:00 04/15/18 20:59 03/19/18 10:14 Mirtazapine (Remeron) 15 mg BEDTIME ORAL 03/16/18 21:00 04/13/18 20:59 03/18/18 21:00 Modafinil (Provigil) 200 mg DAILY ORAL 03/17/18 09:00 03/21/18 08:59 03/19/18 10:15 Nitroglycerin (Ntg) 0.4 mg Q5M PRN SL Prn Chest Pain 03/16/18 12:15 04/12/18 21:59 Nortriptyline HCl (Pamelor) 50 mg BEDTIME ORAL 03/16/18 21:00 04/12/18 22:59 03/18/18 21:00 Ondansetron HCl (Zofran) 4 mg Q6H PRN IVP Nausea & Vomiting 03/16/18 13:30 04/12/18 13:29 Pantoprazole (Protonix) 40 mg DAILY ORAL 03/17/18 09:00 04/13/18 08:59 03/19/18 10:14 Pilocarpine (Isopto Carpine 2% Op Soln) 1 drop BID BOTH EYES 03/16/18 18:00 04/13/18 08:59 03/19/18 10:17 Pramipexole (Mirapex) 0.25 mg TID ORAL 03/16/18 14:00 04/15/18 13:59 03/19/18 13:00 Risperidone (RisperDAL) 2 mg BEDTIME ORAL 03/16/18 21:00 04/13/18 20:59 03/18/18 21:00 Sodium Chloride 1,000 ml @ 75 mls/hr [id number] IV 03/16/18 13:30 04/14/18 13:29 8/12/18 06:13 Temazepam (Restoril) 15 mg HSPRN PRN ORAL Insomnia 03/16/18 21:00 03/20/18 20:59 Loulou Ernandez MD Mar 19, 2018 14:11
[2018-03-19] MEDS ORDERED: Fleet's Enema 133ml RECTAL SCH (14:30)
--- NOTE | 2018-03-19 15:36 | Internal Med Progress Note ---
Subjective Date of Service: Mar 19, 2018 Physician Name Pipo Marvin Attending Physician Marc Conley MD Current Medications Medications (Trade) Dose Ordered Sig/Maria Victoria Route PRN Reason Start Time Stop Time Status Last Admin Dose Admin Acetaminophen (Tylenol) 650 mg Q4H PRN ORAL fever 03/16/18 14:00 04/12/18 21:59 Divalproex Sodium (Depakote) 500 mg BEDTIME ORAL 03/16/18 21:00 04/13/18 15:14 03/18/18 21:00 Gabapentin (Neurontin) 600 mg Q12HR ORAL 03/16/18 21:00 04/13/18 11:59 03/19/18 10:14 Heparin Sodium (Porcine) (Heparin 5000 units/ml) 5,000 units EVERY 12 HOURS SUBQ 03/16/18 21:00 04/12/18 22:14 03/19/18 10:17 Insulin Aspart (NovoLOG) BEFORE MEALS AND HS SUBQ 03/16/18 16:30 04/13/18 11:29 03/19/18 12:59 Levofloxacin (Levaquin) 750 mg Q48H ORAL 03/17/18 15:00 03/22/18 14:59 03/19/18 14:50 Metoprolol Tartrate (Lopressor) 12.5 mg Q12HR ORAL 03/16/18 21:00 04/15/18 20:59 03/19/18 10:14 Mirtazapine (Remeron) 15 mg BEDTIME ORAL 03/16/18 21:00 04/13/18 20:59 03/18/18 21:00 Modafinil (Provigil) 200 mg DAILY ORAL 03/17/18 09:00 03/21/18 08:59 03/19/18 10:15 Nitroglycerin (Ntg) 0.4 mg Q5M PRN SL Prn Chest Pain 03/16/18 12:15 04/12/18 21:59 Nortriptyline HCl (Pamelor) 50 mg BEDTIME ORAL 03/16/18 21:00 04/12/18 22:59 03/18/18 21:00 Ondansetron HCl (Zofran) 4 mg Q6H PRN IVP Nausea & Vomiting 03/16/18 13:30 04/12/18 13:29 Pantoprazole (Protonix) 40 mg DAILY ORAL 03/17/18 09:00 04/13/18 08:59 03/19/18 10:14 Pilocarpine (Isopto Carpine 2% Op Soln) 1 drop BID BOTH EYES 03/16/18 18:00 04/13/18 08:59 03/19/18 10:17 Pramipexole (Mirapex) 0.25 mg TID ORAL 03/16/18 14:00 04/15/18 13:59 03/19/18 13:00 Risperidone (RisperDAL) 2 mg BEDTIME ORAL 03/16/18 21:00 04/13/18 20:59 03/18/18 21:00 Sitagliptin Phosphate (Januvia) 50 mg ACBREAKFAST ORAL 03/20/18 06:30 04/19/18 06:29 Sodium Chloride 1,000 ml @ 75 mls/hr [id number] IV 03/16/18 13:30 04/14/18 13:29 03/19/18 06:13 Temazepam (Restoril) 15 mg HSPRN PRN ORAL Insomnia 03/16/18 21:00 03/20/18 20:59 Allergies: Coded Allergies: CEPHALEXIN MONOHYDRATE (Verified Allergy, Unknown, 01/24/12) TETRACYCLINE (Verified Allergy, Unknown, 01/24/12) ROS Limited/Unobtainable: Yes Subjective 67 YO M with a history of ALS, admitted with syncope. Now rhabdomyolysis. Cover for Int Med-Dr Conley. C/O left upper arm swelling Objective Last Vital Signs Date Time Temp Pulse Resp B/P (MAP) Pulse Ox O2 Delivery O2 Flow Rate FiO2 03/19/18 12:00 98.4 97 20 117/59 (78) 98 98.4 03/19/18 09:00 Nasal Cannula 2.0 03/19/18 07:42 28 Laboratory Tests Test 03/19/18 05:30 White Blood Count 11.1 K/UL (4.8-10.8) H Red Blood Count 2.88 M/UL (4.70-6.10) L Hemoglobin 9.0 G/DL (14.2-18.0) L Hematocrit 27.4 % (42.0-52.0) L Mean Corpuscular Volume 95 FL (80-99) Mean Corpuscular Hemoglobin 31.4 PG (27.0-31.0) H Mean Corpuscular Hemoglobin Concent 33.0 G/DL (32.0-36.0) Red Cell Distribution Width 12.7 % (11.6-14.8) Platelet Count 203 K/UL (150-450) Mean Platelet Volume 5.7 FL (6.5-10.1) L Neutrophils (%) (Auto) 77.0 % (45.0-75.0) H Lymphocytes (%) (Auto) 9.5 % (20.0-45.0) L Monocytes (%) (Auto) 12.1 % (1.0-10.0) H Eosinophils (%) (Auto) 1.1 % (0.0-3.0) Basophils (%) (Auto) 0.4 % (0.0-2.0) Sodium Level 141 MMOL/L (136-145) Potassium Level 3.7 MMOL/L (3.5-5.1) Chloride Level 111 MMOL/L (98-107) H Carbon Dioxide Level 19 MMOL/L (21-32) L Anion Gap 11 mmol/L (5-15) Blood Urea Nitrogen 52 mg/dL (7-18) H Creatinine 1.6 MG/DL (0.55-1.30) H Estimat Glomerular Filtration Rate 43.3 mL/min (>60) Glucose Level 119 MG/DL (74-106) H Uric Acid 3.5 MG/DL (2.6-7.2) Calcium Level 8.5 MG/DL (8.5-10.1) Phosphorus Level 2.7 MG/DL (2.5-4.9) Magnesium Level 1.7 MG/DL (1.8-2.4) L Total Bilirubin 0.3 MG/DL (0.2-1.0) Aspartate Amino Transf (AST/SGOT) 209 U/L (15-37) H Alanine Aminotransferase (ALT/SGPT) 112 U/L (12-78) H Alkaline Phosphatase 57 U/L (46-116) Total Creatine Kinase 3953 U/L (26-308) H C-Reactive Protein, Quantitative 7.0 mg/dL (0.00-0.90) H Total Protein 4.3 G/DL (6.4-8.2) L Albumin 1.5 G/DL (3.4-5.0) L Globulin 2.8 g/dL Albumin/Globulin Ratio 0.5 (1.0-2.7) L Intake and Output 03/18/18 03/19/18 19:00 07:00 Intake Total 1100 ml 750 ml Output Total 800 ml 1250 ml Balance 300 ml -500 ml Intake Oral 200 ml IV Total 900 ml 750 ml Output Urine Total 800 ml 1250 ml Objective General Appearance: WD/WN, no apparent distress, alert EENT: PERRL/EOMI, normal ENT inspection Neck: non-tender, normal alignment, supple Cardiovascular: normal peripheral pulses, normal rate, regular rhythm, no gallop/murmur Respiratory/Chest: chest wall non-tender, lungs clear, normal breath sounds, no respiratory distress, no accessory muscle use Abdomen: normal bowel sounds, non tender, soft, no organomegaly, no mass Extremities: other - gen weakness 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 See nephrology and cardiology note. (2) Syncope (3) Diabetes mellitus type II, controlled Assessment & Plan: Continue novolog sliding sclae. (4) Renal failure (5) Amyotrophic lateral sclerosis (ALS) Assessment & Plan: See neuro note. (6) Seizure disorder Assessment & Plan: D/C topamax. See neruo note. (7) Pain in left arm Assessment & Plan: X-ray neg for fracture. Doppler = neg DVT Status: progressing Pipo Marvin MD Mar 19, 2018 15:36
[2018-03-19 16:00] VITALS: BP 115/55
[2018-03-19 20:00] VITALS: BP 137/58
[2018-03-19] MEDS: Miralax 17gm pkt ORAL SCH (20:22)
[2018-03-19] MEDS: Nortriptyline 25mg cap ORAL SCH (20:22)
[2018-03-19] MEDS: Depakote 500mg tab ORAL SCH (20:23)
[2018-03-20] VITALS: BP 130/60
[2018-03-20 04:00] VITALS: BP 139/65
[2018-03-20 05:59] LABS: HEMOGLOBIN 8.9 G/DL (14.2-18.0); LYMPHOCYTES % (AUTO) 10.4 % (20.0-45.0); MEAN CORPUSCULAR VOLUME 96 FL (80-99); MONOCYTES % (AUTO) 13.8 % (1.0-10.0); NEUTROPHILS % (AUTO) 71.8 % (45.0-75.0); PLATELET COUNT 233 K/UL (150-450); RED BLOOD COUNT 2.83 M/UL (4.70-6.10); RED CELL DISTRIBUTION WIDTH 12.9 % (11.6-14.8); WHITE BLOOD COUNT 12.9 K/UL (4.8-10.8)
[2018-03-20] MEDS ORDERED: sitaGLIPtin 50mg tab ORAL SCH (06:30)
[2018-03-20] MEDS: NovoLOG Insulin Flexpen SUBQ SCH ×4 (06:30→21:34)
[2018-03-20 06:33] LABS: ALANINE AMINOTRANSFERASE 103 U/L (12-78); ALBUMIN 1.4 G/DL (3.4-5.0); ALBUMIN/GLOBULIN RATIO 0.5 (1.0-2.7); ALKALINE PHOSPHATASE 48 U/L (46-116); ANION GAP 10 mmol/L (5-15); ASPARTATE AMINO TRANSFERASE 164 U/L (15-37); BILIRUBIN,TOTAL 0.3 MG/DL (0.2-1.0); BLOOD UREA NITROGEN 41 mg/dL (7-18); CALCIUM 7.8 MG/DL (8.5-10.1); CARBON DIOXIDE 20 MMOL/L (21-32); CHLORIDE 111 MMOL/L (98-107); CREATINE KINASE 2283 U/L (26-308); CREATININE 1.3 MG/DL (0.55-1.30); PHOSPHORUS 2.9 MG/DL (2.5-4.9); POTASSIUM 3.4 MMOL/L (3.5-5.1); SODIUM 141 MMOL/L (136-145)
[2018-03-20 08:00] VITALS: BP 104/49
[2018-03-20] MEDS: Metoprolol Tartrate 12.5mg TAB ORAL SCH (09:00)
[2018-03-20] MEDS: Sennosides 8.6mg ORAL SCH (09:14)
[2018-03-20] MEDS: Modafinil 100mg tab ORAL SCH (09:14)
[2018-03-20] MEDS: Heparin 5000 units/ml inj SUBQ SCH ×2 (09:17→21:33)
[2018-03-20] MEDS: Pilocarpine 2% Opth 15ml Soln BOTH EYES SCH ×2 (09:18→16:49)
--- NOTE | 2018-03-20 09:27 | Infectious Diseases Prog Note ---
Assessment/Plan Assessment/Plan Mr. Albarado is a 67 yo male with ALS who is presenting with weakness and AMS after a fall #Leukocytosis - recurred - 2/2 to UTI / PNA - K. pneumo on UCx CXR no clear sign of PNA # UTI - See above #Diabetes mellitus #ALS (amyotrophic lateral sclerosis) #Depression #S/P Fall with bruising of left shoulder PLAN -Continue Levofloxacin #6/7 - end date 03/21/18 - 03/15 SP Vancomycin #2 - Monitor CBC and Temps - Supportive care Thank you for consulting us for the care of this patient. We will continue to follow with you. Subjective Allergies: Coded Allergies: CEPHALEXIN MONOHYDRATE (Verified Allergy, Unknown, 01/24/12) TETRACYCLINE (Verified Allergy, Unknown, 01/24/12) Subjective No acute events Patient reports that he continues to feel better physically but a little depressed today No N/V/D or fever Objective Vital Signs Last 24 Hour Vital Signs Date Time Temp Pulse Resp B/P (MAP) Pulse Ox O2 Delivery O2 Flow Rate FiO2 03/20/18 09:00 96 104/49 03/20/18 08:00 98.6 96 20 104/49 (67) 96 98.6 03/20/18 04:00 97.5 100 20 139/65 (89) 97 97.5 03/20/18 00:00 98.1 90 18 130/60 (83) 95 98.1 03/19/18 21:00 Nasal Cannula 2.0 03/19/18 20:22 86 115/55 03/19/18 20:00 99.5 95 20 137/58 (84) 96 99.5 03/19/18 19:00 97 Nasal Cannula 2.0 28 03/19/18 19:00 Nasal Cannula 2.0 28 03/19/18 16:00 98.2 86 18 115/55 (75) 97 98.2 03/19/18 12:00 98.4 97 20 117/59 (78) 98 98.4 03/19/18 10:14 84 141/85 Height (Feet): 5 Height (Inches): 5.00 Weight (Pounds): 160 Objective Gen: NAD, Thin male. HEENT: NCAT, MMM, EOMI LUNGS: CTAB, No W/C, CARDS: RRR, S1, S2, No M/R/G, ABD: Soft, NT, ND, No R/G, + BS Ext: C/C/E, Pulses 2+ B/L (DP, Rad), Left shoulder with bruising and decreased ROM pain with movement NEURO: A/O x 4, Strength and Sensation Grossly intact SKIN:~ warm/dry, No rashes, Multiple erythematous patches/bruising. Laboratory Tests Test 03/20/18 04:55 White Blood Count 12.9 K/UL (4.8-10.8) H Red Blood Count 2.83 M/UL (4.70-6.10) L Hemoglobin 8.9 G/DL (14.2-18.0) L Hematocrit 27.0 % (42.0-52.0) L Mean Corpuscular Volume 96 FL (80-99) Mean Corpuscular Hemoglobin 31.3 PG (27.0-31.0) H Mean Corpuscular Hemoglobin Concent 32.7 G/DL (32.0-36.0) Red Cell Distribution Width 12.9 % (11.6-14.8) Platelet Count 233 K/UL (150-450) Mean Platelet Volume 4.8 FL (6.5-10.1) L Neutrophils (%) (Auto) 71.8 % (45.0-75.0) Lymphocytes (%) (Auto) 10.4 % (20.0-45.0) L Monocytes (%) (Auto) 13.8 % (1.0-10.0) H Eosinophils (%) (Auto) 3.0 % (0.0-3.0) Basophils (%) (Auto) 1.0 % (0.0-2.0) Sodium Level 141 MMOL/L (136-145) Potassium Level 3.4 MMOL/L (3.5-5.1) L Chloride Level 111 MMOL/L (98-107) H Carbon Dioxide Level 20 MMOL/L (21-32) L Anion Gap 10 mmol/L (5-15) Blood Urea Nitrogen 41 mg/dL (7-18) H Creatinine 1.3 MG/DL (0.55-1.30) Estimat Glomerular Filtration Rate 55.1 mL/min (>60) Glucose Level 108 MG/DL (74-106) H Uric Acid 3.4 MG/DL (2.6-7.2) Calcium Level 7.8 MG/DL (8.5-10.1) L Phosphorus Level 2.9 MG/DL (2.5-4.9) Magnesium Level 1.4 MG/DL (1.8-2.4) L Total Bilirubin 0.3 MG/DL (0.2-1.0) Aspartate Amino Transf (AST/SGOT) 164 U/L (15-37) H Alanine Aminotransferase (ALT/SGPT) 103 U/L (12-78) H Alkaline Phosphatase 48 U/L (46-116) Total Creatine Kinase 2283 U/L (26-308) H C-Reactive Protein, Quantitative 7.1 mg/dL (0.00-0.90) H Pro-B-Type Natriuretic Peptide 464 pg/mL (0-125) H Total Protein 4.3 G/DL (6.4-8.2) L Albumin 1.4 G/DL (3.4-5.0) L Globulin 2.9 g/dL Albumin/Globulin Ratio 0.5 (1.0-2.7) L Current Medications Medications (Trade) Dose Ordered Sig/Maria Victoria Route PRN Reason Start Time Stop Time Status Last Admin Dose Admin Acetaminophen (Tylenol) 650 mg Q4H PRN ORAL fever 03/16/18 14:00 04/12/18 21:59 Divalproex Sodium (Depakote) 500 mg BEDTIME ORAL 03/16/18 21:00 04/13/18 15:14 03/19/18 20:23 Gabapentin (Neurontin) 600 mg Q12HR ORAL 03/16/18 21:00 04/13/18 11:59 03/20/18 09:14 Heparin Sodium (Porcine) (Heparin 5000 units/ml) 5,000 units EVERY 12 HOURS SUBQ 03/16/18 21:00 04/12/18 22:14 03/20/18 09:17 Insulin Aspart (NovoLOG) BEFORE MEALS AND HS SUBQ 03/16/18 16:30 04/13/18 11:29 03/19/18 20:24 Levofloxacin (Levaquin) 750 mg Q48H ORAL 03/17/18 15:00 03/22/18 14:59 03/19/18 14:50 Magnesium Sulfate 100 ml @ 100 mls/hr Q1H IVPB 03/20/18 10:00 03/20/18 12:59 Metoprolol Tartrate (Lopressor) 12.5 mg Q12HR ORAL 03/16/18 21:00 04/15/18 20:59 03/19/18 20:22 Mirtazapine (Remeron) 15 mg BEDTIME ORAL 03/16/18 21:00 04/13/18 20:59 03/19/18 20:22 Modafinil (Provigil) 200 mg DAILY ORAL 03/17/18 09:00 03/21/18 08:59 03/20/18 09:14 Nitroglycerin (Ntg) 0.4 mg Q5M PRN SL Prn Chest Pain 03/16/18 12:15 04/12/18 21:59 Nortriptyline HCl (Pamelor) 50 mg BEDTIME ORAL 03/16/18 21:00 04/12/18 22:59 03/19/18 20:22 Ondansetron HCl (Zofran) 4 mg Q6H PRN IVP Nausea & Vomiting 03/16/18 13:30 04/12/18 13:29 Pantoprazole (Protonix) 40 mg DAILY ORAL 03/17/18 09:00 04/13/18 08:59 03/20/18 09:14 Pilocarpine (Isopto Carpine 2% Op Soln) 1 drop BID BOTH EYES 03/16/18 18:00 04/13/18 08:59 03/20/18 09:18 Polyethylene Glycol (Miralax) 17 gm BEDTIME ORAL 03/19/18 21:00 04/18/18 20:59 03/19/18 20:22 Potassium Chloride (K-Dur) 40 meq ONCE ORAL 03/20/18 09:30 03/20/18 10:30 Pramipexole (Mirapex) 0.25 mg TID ORAL 03/16/18 14:00 04/15/18 13:59 03/20/18 09:14 Risperidone (RisperDAL) 2 mg BEDTIME ORAL 03/16/18 21:00 04/13/18 20:59 03/19/18 20:22 Sennosides (Senokot) 1 tab DAILY ORAL 03/20/18 09:00 04/19/18 08:59 03/20/18 09:14 Sitagliptin Phosphate (Januvia) 50 mg ACBREAKFAST ORAL 03/20/18 06:30 04/19/18 06:29 Sodium Chloride 1,000 ml @ 75 mls/hr [id number] IV 03/16/18 13:30 04/14/18 13:29 03/20/18 09:22 Temazepam (Restoril) 15 mg HSPRN PRN ORAL Insomnia 03/16/18 21:00 03/20/18 20:59 Ovidio Acosta M.D. Mar 20, 2018 09:27
--- NOTE | 2018-03-20 10:46 | Cardiology Progress Note ---
Assessment/Plan Status: stable Assessment/Plan Assessment/Plan Problem List: (1) Hypotension (2) ALS (amyotrophic lateral sclerosis) (3) ATN (acute tubular necrosis) (4) Generalized weakness (5) Amyotrophic lateral sclerosis (ALS) (6) Diabetes mellitus (7) Depression Plan: Improving clinically continue IV fluids until CK normal H/H stable Cultures - continue abx treatment of UTI until 8-14 No indication for cath CT brain negative for CVA Carotid US Mental status improving Physical therapy Ultrasound reviewed, no acute clot, has old jugular venous clot, x ray negative for fracture. Ok to med surg Dispo planning Subjective Cardiovascular: Reports: no symptoms Respiratory: Reports: no symptoms Gastrointestinal/Abdominal: Reports: no symptoms Genitourinary: Reports: no symptoms Subjective Mental status improved. vitals stable, creatinine improved, ck improved, patient is stable. No acute events, no complaints. Still has EMILE swelling, X ray negative for fracture and negative for acute thrombus. Objective Last 24 Hour Vital Signs Date Time Temp Pulse Resp B/P (MAP) Pulse Ox O2 Delivery O2 Flow Rate FiO2 03/20/18 09:00 96 104/49 03/20/18 08:00 98.6 96 20 104/49 (67) 96 98.6 03/20/18 04:00 97.5 100 20 139/65 (89) 97 97.5 03/20/18 00:00 98.1 90 18 130/60 (83) 95 98.1 03/19/18 21:00 Nasal Cannula 2.0 03/19/18 20:22 86 115/55 03/19/18 20:00 99.5 95 20 137/58 (84) 96 99.5 03/19/18 19:00 97 Nasal Cannula 2.0 28 03/19/18 19:00 Nasal Cannula 2.0 28 03/19/18 16:00 98.2 86 18 115/55 (75) 97 98.2 03/19/18 12:00 98.4 97 20 117/59 (78) 98 98.4 General Appearance: no apparent distress, alert, thin EENT: PERRL/EOMI, normal ENT inspection Neck: non-tender, normal alignment Rhythm: NSR Cardiovascular: normal peripheral pulses, normal rate Respiratory/Chest: chest wall non-tender, lungs clear Abdomen: normal bowel sounds, non tender Extremities: normal range of motion, non-tender Neurologic: eeler II-XII grossly normal Intake and Output 03/19/18 03/20/18 19:00 07:00 Intake Total 1480 ml 1075 ml Output Total 1200 ml 1325 ml Balance 280 ml -250 ml Intake Oral 580 ml 400 ml IV Total 900 ml 675 ml Output Urine Total 1200 ml 1325 ml Laboratory Tests Test 03/20/18 04:55 White Blood Count 12.9 K/UL (4.8-10.8) H Red Blood Count 2.83 M/UL (4.70-6.10) L Hemoglobin 8.9 G/DL (14.2-18.0) L Hematocrit 27.0 % (42.0-52.0) L Mean Corpuscular Volume 96 FL (80-99) Mean Corpuscular Hemoglobin 31.3 PG (27.0-31.0) H Mean Corpuscular Hemoglobin Concent 32.7 G/DL (32.0-36.0) Red Cell Distribution Width 12.9 % (11.6-14.8) Platelet Count 233 K/UL (150-450) Mean Platelet Volume 4.8 FL (6.5-10.1) L Neutrophils (%) (Auto) 71.8 % (45.0-75.0) Lymphocytes (%) (Auto) 10.4 % (20.0-45.0) L Monocytes (%) (Auto) 13.8 % (1.0-10.0) H Eosinophils (%) (Auto) 3.0 % (0.0-3.0) Basophils (%) (Auto) 1.0 % (0.0-2.0) Sodium Level 141 MMOL/L (136-145) Potassium Level 3.4 MMOL/L (3.5-5.1) L Chloride Level 111 MMOL/L (98-107) H Carbon Dioxide Level 20 MMOL/L (21-32) L Anion Gap 10 mmol/L (5-15) Blood Urea Nitrogen 41 mg/dL (7-18) H Creatinine 1.3 MG/DL (0.55-1.30) Estimat Glomerular Filtration Rate 55.1 mL/min (>60) Glucose Level 108 MG/DL (74-106) H Uric Acid 3.4 MG/DL (2.6-7.2) Calcium Level 7.8 MG/DL (8.5-10.1) L Phosphorus Level 2.9 MG/DL (2.5-4.9) Magnesium Level 1.4 MG/DL (1.8-2.4) L Total Bilirubin 0.3 MG/DL (0.2-1.0) Aspartate Amino Transf (AST/SGOT) 164 U/L (15-37) H Alanine Aminotransferase (ALT/SGPT) 103 U/L (12-78) H Alkaline Phosphatase 48 U/L (46-116) Total Creatine Kinase 2283 U/L (26-308) H C-Reactive Protein, Quantitative 7.1 mg/dL (0.00-0.90) H Pro-B-Type Natriuretic Peptide 464 pg/mL (0-125) H Total Protein 4.3 G/DL (6.4-8.2) L Albumin 1.4 G/DL (3.4-5.0) L Globulin 2.9 g/dL Albumin/Globulin Ratio 0.5 (1.0-2.7) L Ovidio Duque M.D. Mar 20, 2018 10:46
--- NOTE | 2018-03-20 11:32 | Neurology Progress Note ---
Interim History Interim History Interim History Mr. Albarado continues to feel better. He is kept in bed all day. The mind is clearer. He continues to be cognitively impoverished. He continues to be generally weak. The left shoulder and hip pain are better. His left upper extremity is still swollen. He denies any new neurologic symptoms. Review of Systems Neuro Review of Systems Benign. Objective Physical Exam Last Vital Signs Date Time Temp Pulse Resp B/P (MAP) Pulse Ox O2 Delivery O2 Flow Rate FiO2 03/20/18 09:00 96 104/49 03/20/18 08:00 98.6 20 96 98.6 03/19/18 21:00 Nasal Cannula 2.0 03/19/18 19:00 28 Laboratory Tests Test 03/20/18 04:55 White Blood Count 12.9 K/UL (4.8-10.8) H Red Blood Count 2.83 M/UL (4.70-6.10) L Hemoglobin 8.9 G/DL (14.2-18.0) L Hematocrit 27.0 % (42.0-52.0) L Mean Corpuscular Volume 96 FL (80-99) Mean Corpuscular Hemoglobin 31.3 PG (27.0-31.0) H Mean Corpuscular Hemoglobin Concent 32.7 G/DL (32.0-36.0) Red Cell Distribution Width 12.9 % (11.6-14.8) Platelet Count 233 K/UL (150-450) Mean Platelet Volume 4.8 FL (6.5-10.1) L Neutrophils (%) (Auto) 71.8 % (45.0-75.0) Lymphocytes (%) (Auto) 10.4 % (20.0-45.0) L Monocytes (%) (Auto) 13.8 % (1.0-10.0) H Eosinophils (%) (Auto) 3.0 % (0.0-3.0) Basophils (%) (Auto) 1.0 % (0.0-2.0) Sodium Level 141 MMOL/L (136-145) Potassium Level 3.4 MMOL/L (3.5-5.1) L Chloride Level 111 MMOL/L (98-107) H Carbon Dioxide Level 20 MMOL/L (21-32) L Anion Gap 10 mmol/L (5-15) Blood Urea Nitrogen 41 mg/dL (7-18) H Creatinine 1.3 MG/DL (0.55-1.30) Estimat Glomerular Filtration Rate 55.1 mL/min (>60) Glucose Level 108 MG/DL (74-106) H Uric Acid 3.4 MG/DL (2.6-7.2) Calcium Level 7.8 MG/DL (8.5-10.1) L Phosphorus Level 2.9 MG/DL (2.5-4.9) Magnesium Level 1.4 MG/DL (1.8-2.4) L Total Bilirubin 0.3 MG/DL (0.2-1.0) Aspartate Amino Transf (AST/SGOT) 164 U/L (15-37) H Alanine Aminotransferase (ALT/SGPT) 103 U/L (12-78) H Alkaline Phosphatase 48 U/L (46-116) Total Creatine Kinase 2283 U/L (26-308) H C-Reactive Protein, Quantitative 7.1 mg/dL (0.00-0.90) H Pro-B-Type Natriuretic Peptide 464 pg/mL (0-125) H Total Protein 4.3 G/DL (6.4-8.2) L Albumin 1.4 G/DL (3.4-5.0) L Globulin 2.9 g/dL Albumin/Globulin Ratio 0.5 (1.0-2.7) L Neurologic Exam Objective PHYSICAL EXAMINATION: GENERAL: He is a well-developed, well-nourished, gentleman, lying in bed, in no acute distress. HEAD: Normocephalic and atraumatic. EENT: Examination benign. NECK: No neck rigidity was observed. NEUROLOGIC EXAMINATION: MENTAL STATUS EXAMINATION: He was awake and more alert. He was oriented to [employer], [facility] and March 20, 2018. He was able to recall 3/3 words immediately, but could only remember 2/3 words in 1 minute and 3 minutes. He was able to remember presidents Trump and Obama only. His mathematical skills were impaired. His visuospatial function was also impaired. SPEECH: He had no dysarthria. LANGUAGE: He had a mild anomia. CRANIAL NERVE EXAMINATION: II: The visual oquendo were intact on confrontation testing. III, IV & : External ocular movements were full and the pupils 3 mm in diameter, equal, round, regular, and reactive to light. V: He had normal facial sensations and the temporales, masseters, and pterygoids functioned normally. VII: He had normal facial expressions and no facial asymmetry. VIII: He was able to hear well bilaterally and had no nystagmus. IX: The palate moved symmetrically on phonation. X: He had no hoarseness of voice. XI: Sternocleidomastoids and trapezii functioned normally. XII: The tongue was in the midline without any fasciculations or atrophy. MOTOR SYSTEM: The tone was normal in all four extremities. Examination of muscle mass revealed mild generalized wasting. Examination of power was exceedingly difficult to perform because of varying degrees of cooperation. He however moved all four extremities relatively well, but tended to move his left side less due to pain in his left shoulder and left hip. SENSORY EXAMINATION: He was unable to cooperate for sensory testing. He did however feel painful stimuli well. REFLEXES: 0 at the biceps, triceps, brachioradialis, knees, and ankles. The plantar responses were flexor bilaterally. COORDINATION: He performed well on finger to nose testing. STANCE & GAIT: Could not be tested. Impression/Recommendations Diagnostic Impression 1. Mr. Jana Albarado is a 67-year-old, right-handed, gentleman, who does have a past history of ALS, seizures, depression, glaucoma, and spinal problems who apparently fell down in the absence of any one at home and was found on the next day by his caregiver lying on his left-side, with bruises over his left side in a confused disoriented state. 2. He continues to feel better. He is kept in bed all day. The mind is clearer. He continues to be cognitively impoverished. He continues to be generally weak. The left shoulder and hip pain are better. His left upper extremity is still swollen. He denies any new neurologic symptoms. 3. On neurological examination, at this time, he is fully oriented, He has problems with recent and remote memory, visuospatial function, higher cognitive function, and language - all of which are better. He is also generally weak and gives a poor effort with motor testing. He also has globally absent deep tendon reflexes. 4. The CT of the brain is normal. 5. The EEG revealed findings consistent with a toxic/metabolic encephalopathy. 6. The patient's history and neurological examination are most compatible with an ongoing encephalopathic process, the exact etiology for the encephalopathy is unclear at this point in time. Offending factors could be an acute infectious process as he does have WBC count elevated to 15,400. He also has renal dysfunction with a BUN of 48 with a creatinine of 1.6. His blood glucose is elevated at 197. He has liver dysfunction in the form of AST elevated to 856 and ALT elevated to 229, and he does have rhabdomyolysis with his CK is greater than 10,000. His free T4 is normal at 0.92. His urinalysis also reveals 1+ leukocyte esterase, 0-4 RBCs and 0-2 WBCs per high-power field. His encephalopathy is improving. 7. Although, the patient carries a history of ALS, his neurological findings at this point in time are not very consistent with it. The diagnosis is suspect. Recommendations 1. Continue present management. 2. Increase activity as tolerated. 3. The patient should be mobilized with the help of physical and occupational therapy. 4. Out of bed in chair daily. Sandra Obregon M.D., M.S.P.SANDRA LOPEZ Mar 20, 2018 11:32
[2018-03-20 12:00] VITALS: BP 102/58
--- NOTE | 2018-03-20 12:49 | Nephrology Progress Note ---
Assessment/Plan Problem List: (1) ATN (acute tubular necrosis) (2) Rhabdomyolysis Assessment: or high CK due to ALS?? (3) Sepsis (4) ALS (amyotrophic lateral sclerosis) (5) Hypotension (6) Dehydration (7) Hypoalbuminemia due to protein-calorie malnutrition Assessment: 3+ proteinuria Assessment Hypotension, leading to acute renal failure and rising Cr- Cr now lower to 1.3 CPK high now lowering ALS (amyotrophic lateral sclerosis) Generalized weakness Dehydration Gastroenteritis Hypoalbuminemia , Malnutrition Elevated liver enzymes, improving Plan Bolus IV as needed Monitor renal parameters Avoid Nephrotoxics Urine studies per orders discussed with RN low dose beta aarti DC planning Subjective ROS Limited/Unobtainable: No Constitutional: Reports: malaise, weakness Objective Objective Last 24 Hour Vital Signs Date Time Temp Pulse Resp B/P (MAP) Pulse Ox O2 Delivery O2 Flow Rate FiO2 03/20/18 09:00 Nasal Cannula 2.0 03/20/18 09:00 96 104/49 03/20/18 08:00 98.6 96 20 104/49 (67) 96 98.6 03/20/18 04:00 97.5 100 20 139/65 (89) 97 97.5 03/20/18 00:00 98.1 90 18 130/60 (83) 95 98.1 03/19/18 21:00 Nasal Cannula 2.0 03/19/18 20:22 86 115/55 03/19/18 20:00 99.5 95 20 137/58 (84) 96 99.5 03/19/18 19:00 97 Nasal Cannula 2.0 28 03/19/18 19:00 Nasal Cannula 2.0 28 03/19/18 16:00 98.2 86 18 115/55 (75) 97 98.2 Intake and Output 03/19/18 03/20/18 19:00 07:00 Intake Total 1480 ml 1075 ml Output Total 1200 ml 1325 ml Balance 280 ml -250 ml Intake Oral 580 ml 400 ml IV Total 900 ml 675 ml Output Urine Total 1200 ml 1325 ml Current Medications Medications (Trade) Dose Ordered Sig/Maria Victoria Route PRN Reason Start Time Stop Time Status Last Admin Dose Admin Acetaminophen (Tylenol) 650 mg Q4H PRN ORAL fever 03/16/18 14:00 04/12/18 21:59 Divalproex Sodium (Depakote) 500 mg BEDTIME ORAL 8/9/18 21:00 04/13/18 15:14 03/19/18 20:23 Gabapentin (Neurontin) 600 mg Q12HR ORAL 03/16/18 21:00 04/13/18 11:59 03/20/18 09:14 Heparin Sodium (Porcine) (Heparin 5000 units/ml) 5,000 units EVERY 12 HOURS SUBQ 03/16/18 21:00 04/12/18 22:14 03/20/18 09:17 Insulin Aspart (NovoLOG) BEFORE MEALS AND HS SUBQ 03/16/18 16:30 04/13/18 11:29 03/20/18 12:13 Levofloxacin (Levaquin) 750 mg Q48H ORAL 03/17/18 15:00 03/22/18 14:59 03/19/18 14:50 Magnesium Sulfate 100 ml @ 100 mls/hr Q1H IVPB 03/20/18 10:00 03/20/18 12:59 03/20/18 12:10 Metoprolol Tartrate (Lopressor) 12.5 mg Q12HR ORAL 03/16/18 21:00 04/15/18 20:59 03/19/18 20:22 Mirtazapine (Remeron) 15 mg BEDTIME ORAL 03/16/18 21:00 04/13/18 20:59 03/19/18 20:22 Modafinil (Provigil) 200 mg DAILY ORAL 03/17/18 09:00 03/21/18 08:59 03/20/18 09:14 Nitroglycerin (Ntg) 0.4 mg Q5M PRN SL Prn Chest Pain 03/16/18 12:15 04/12/18 21:59 Nortriptyline HCl (Pamelor) 50 mg BEDTIME ORAL 03/16/18 21:00 04/12/18 22:59 03/19/18 20:22 Ondansetron HCl (Zofran) 4 mg Q6H PRN IVP Nausea & Vomiting 03/16/18 13:30 04/12/18 13:29 Pantoprazole (Protonix) 40 mg DAILY ORAL 03/17/18 09:00 04/13/18 08:59 03/20/18 09:14 Pilocarpine (Isopto Carpine 2% Op Soln) 1 drop BID BOTH EYES 03/16/18 18:00 04/13/18 08:59 03/20/18 09:18 Polyethylene Glycol (Miralax) 17 gm BEDTIME ORAL 03/19/18 21:00 04/18/18 20:59 03/19/18 20:22 Pramipexole (Mirapex) 0.25 mg TID ORAL 03/16/18 14:00 04/15/18 13:59 03/20/18 12:10 Risperidone (RisperDAL) 2 mg BEDTIME ORAL 03/16/18 21:00 04/13/18 20:59 03/19/18 20:22 Sennosides (Senokot) 1 tab DAILY ORAL 03/20/18 09:00 04/19/18 08:59 03/20/18 09:14 Sitagliptin Phosphate (Januvia) 50 mg ACBREAKFAST ORAL 03/20/18 06:30 04/19/18 06:29 Sodium Chloride 1,000 ml @ 75 mls/hr [id number] IV 03/16/18 13:30 04/14/18 13:29 03/20/18 09:22 Temazepam (Restoril) 15 mg HSPRN PRN ORAL Insomnia 03/16/18 21:00 03/20/18 20:59 Laboratory Tests 03/20/18 04:55: White Blood Count 12.9H, Red Blood Count 2.83L, Hemoglobin 8.9L, Hematocrit 27.0L, Mean Corpuscular Volume 96, Mean Corpuscular Hemoglobin 31.3H, Mean Corpuscular Hemoglobin Concent 32.7, Red Cell Distribution Width 12.9, Platelet Count 233, Mean Platelet Volume 4.8L, Neutrophils (%) (Auto) 71.8, Lymphocytes ( %) (Auto) 10.4L, Monocytes (%) (Auto) 13.8H, Eosinophils (%) (Auto) 3.0, Basophils (%) (Auto) 1.0, Sodium Level 141, Potassium Level 3.4L, Chloride Level 111H, Carbon Dioxide Level 20L, Anion Gap 10, Blood Urea Nitrogen 41H, Creatinine 1.3, Estimat Glomerular Filtration Rate 55.1, Glucose Level 108H, Uric Acid 3.4, Calcium Level 7.8L, Phosphorus Level 2.9, Magnesium Level 1.4L, Total Bilirubin 0.3, Aspartate Amino Transf (AST/SGOT) 164H, Alanine Aminotransferase (ALT/SGPT) 103H, Alkaline Phosphatase 48, Total Creatine Kinase 2283H, C-Reactive Protein, Quantitative 7.1H, Pro-B-Type Natriuretic Peptide 464H, Total Protein 4.3L, Albumin 1.4L, Globulin 2.9, Albumin/Globulin Ratio 0.5L Height (Feet): 5 Height (Inches): 5.00 Weight (Pounds): 160 General Appearance: no apparent distress, lethargic Cardiovascular: tachycardia Respiratory/Chest: decreased breath sounds Abdomen: soft Objective PE not changed Eleazar Aguilar MD Mar 20, 2018 12:49
--- NOTE | 2018-03-20 12:53 | General Progress Note ---
Assessment/Plan Assessment/Plan MDD Anxiety d/o Encephalopathy -Remeron 15mg qhs -change risperdal to qhs -depakote Subjective Neurologic/Psychiatric: Reports: anxiety, depressed, emotional problems Allergies: Coded Allergies: CEPHALEXIN MONOHYDRATE (Verified Allergy, Unknown, 01/24/12) TETRACYCLINE (Verified Allergy, Unknown, 01/24/12) Subjective appetite improved Objective Last 24 Hour Vital Signs Date Time Temp Pulse Resp B/P (MAP) Pulse Ox O2 Delivery O2 Flow Rate FiO2 03/20/18 09:00 Nasal Cannula 2.0 03/20/18 09:00 96 104/49 03/20/18 08:00 98.6 96 20 104/49 (67) 96 98.6 03/20/18 04:00 97.5 100 20 139/65 (89) 97 97.5 03/20/18 00:00 98.1 90 18 130/60 (83) 95 98.1 03/19/18 21:00 Nasal Cannula 2.0 03/19/18 20:22 86 115/55 03/19/18 20:00 99.5 95 20 137/58 (84) 96 99.5 03/19/18 19:00 97 Nasal Cannula 2.0 28 03/19/18 19:00 Nasal Cannula 2.0 28 03/19/18 16:00 98.2 86 18 115/55 (75) 97 98.2 Intake and Output 03/19/18 03/20/18 19:00 07:00 Intake Total 1480 ml 1075 ml Output Total 1200 ml 1325 ml Balance 280 ml -250 ml Intake Oral 580 ml 400 ml IV Total 900 ml 675 ml Output Urine Total 1200 ml 1325 ml Laboratory Tests 03/20/18 04:55: White Blood Count 12.9H, Red Blood Count 2.83L, Hemoglobin 8.9L, Hematocrit 27.0L, Mean Corpuscular Volume 96, Mean Corpuscular Hemoglobin 31.3H, Mean Corpuscular Hemoglobin Concent 32.7, Red Cell Distribution Width 12.9, Platelet Count 233, Mean Platelet Volume 4.8L, Neutrophils (%) (Auto) 71.8, Lymphocytes ( %) (Auto) 10.4L, Monocytes (%) (Auto) 13.8H, Eosinophils (%) (Auto) 3.0, Basophils (%) (Auto) 1.0, Sodium Level 141, Potassium Level 3.4L, Chloride Level 111H, Carbon Dioxide Level 20L, Anion Gap 10, Blood Urea Nitrogen 41H, Creatinine 1.3, Estimat Glomerular Filtration Rate 55.1, Glucose Level 108H, Uric Acid 3.4, Calcium Level 7.8L, Phosphorus Level 2.9, Magnesium Level 1.4L, Total Bilirubin 0.3, Aspartate Amino Transf (AST/SGOT) 164H, Alanine Aminotransferase (ALT/SGPT) 103H, Alkaline Phosphatase 48, Total Creatine Kinase 2283H, C-Reactive Protein, Quantitative 7.1H, Pro-B-Type Natriuretic Peptide 464H, Total Protein 4.3L, Albumin 1.4L, Globulin 2.9, Albumin/Globulin Ratio 0.5L Height (Feet): 5 Height (Inches): 5.00 Weight (Pounds): 160 Merritt Martinez MD Mar 20, 2018 12:53
[2018-03-20 16:00] VITALS: BP 127/60
--- NOTE | 2018-03-20 17:28 | Internal Med Progress Note ---
Subjective Date of Service: Mar 20, 2018 Physician Name ShavonnePipo Attending Physician Marc Conley MD Current Medications Medications (Trade) Dose Ordered Sig/Maria Victoria Route PRN Reason Start Time Stop Time Status Last Admin Dose Admin Acetaminophen (Tylenol) 650 mg Q4H PRN ORAL fever 03/16/18 14:00 04/12/18 21:59 Divalproex Sodium (Depakote) 500 mg BEDTIME ORAL 03/16/18 21:00 04/13/18 15:14 03/19/18 20:23 Gabapentin (Neurontin) 600 mg Q12HR ORAL 03/16/18 21:00 04/13/18 11:59 03/20/18 09:14 Heparin Sodium (Porcine) (Heparin 5000 units/ml) 5,000 units EVERY 12 HOURS SUBQ 03/16/18 21:00 04/12/18 22:14 03/20/18 09:17 Insulin Aspart (NovoLOG) BEFORE MEALS AND HS SUBQ 03/16/18 16:30 04/13/18 11:29 03/20/18 16:57 Levofloxacin (Levaquin) 750 mg Q48H ORAL 03/17/18 15:00 03/22/18 14:59 03/19/18 14:50 Metoprolol Tartrate (Lopressor) 25 mg Q12HR ORAL 03/20/18 21:00 04/15/18 20:59 Mirtazapine (Remeron) 15 mg BEDTIME ORAL 03/16/18 21:00 04/13/18 20:59 03/19/18 20:22 Modafinil (Provigil) 200 mg DAILY ORAL 03/17/18 09:00 03/21/18 08:59 03/20/18 09:14 Nitroglycerin (Ntg) 0.4 mg Q5M PRN SL Prn Chest Pain 03/16/18 12:15 04/12/18 21:59 Nortriptyline HCl (Pamelor) 25 mg BEDTIME ORAL 03/20/18 21:00 04/12/18 22:59 Ondansetron HCl (Zofran) 4 mg Q6H PRN IVP Nausea & Vomiting 03/16/18 13:30 04/12/18 13:29 Pantoprazole (Protonix) 40 mg DAILY ORAL 03/17/18 09:00 04/13/18 08:59 03/20/18 09:14 Pilocarpine (Isopto Carpine 2% Op Soln) 1 drop BID BOTH EYES 03/16/18 18:00 04/13/18 08:59 03/20/18 16:49 Polyethylene Glycol (Miralax) 17 gm BEDTIME ORAL 03/19/18 21:00 04/18/18 20:59 03/19/18 20:22 Pramipexole (Mirapex) 0.25 mg TID ORAL 03/16/18 14:00 04/15/18 13:59 03/20/18 16:49 Risperidone (RisperDAL) 2 mg BEDTIME ORAL 03/16/18 21:00 04/13/18 20:59 03/19/18 20:22 Sennosides (Senokot) 1 tab DAILY ORAL 03/20/18 09:00 04/19/18 08:59 03/20/18 09:14 Sodium Chloride 1,000 ml @ 75 mls/hr [id number] IV 03/16/18 13:30 04/14/18 13:29 03/20/18 09:22 Temazepam (Restoril) 15 mg HSPRN PRN ORAL Insomnia 03/16/18 21:00 03/20/18 20:59 Allergies: Coded Allergies: CEPHALEXIN MONOHYDRATE (Verified Allergy, Unknown, 01/24/12) TETRACYCLINE (Verified Allergy, Unknown, 01/24/12) ROS Limited/Unobtainable: No Subjective 67 YO M with a history of ALS, admitted with syncope. Now rhabdomyolysis. Cover for Int Med-Dr Conley. C/O left upper arm swelling Objective Last Vital Signs Date Time Temp Pulse Resp B/P (MAP) Pulse Ox O2 Delivery O2 Flow Rate FiO2 03/20/18 16:00 98.4 96 18 127/60 (82) 95 98.4 03/20/18 09:00 Nasal Cannula 2.0 03/19/18 19:00 28 Laboratory Tests Test 03/20/18 04:55 White Blood Count 12.9 K/UL (4.8-10.8) H Red Blood Count 2.83 M/UL (4.70-6.10) L Hemoglobin 8.9 G/DL (14.2-18.0) L Hematocrit 27.0 % (42.0-52.0) L Mean Corpuscular Volume 96 FL (80-99) Mean Corpuscular Hemoglobin 31.3 PG (27.0-31.0) H Mean Corpuscular Hemoglobin Concent 32.7 G/DL (32.0-36.0) Red Cell Distribution Width 12.9 % (11.6-14.8) Platelet Count 233 K/UL (150-450) Mean Platelet Volume 4.8 FL (6.5-10.1) L Neutrophils (%) (Auto) 71.8 % (45.0-75.0) Lymphocytes (%) (Auto) 10.4 % (20.0-45.0) L Monocytes (%) (Auto) 13.8 % (1.0-10.0) H Eosinophils (%) (Auto) 3.0 % (0.0-3.0) Basophils (%) (Auto) 1.0 % (0.0-2.0) Sodium Level 141 MMOL/L (136-145) Potassium Level 3.4 MMOL/L (3.5-5.1) L Chloride Level 111 MMOL/L (98-107) H Carbon Dioxide Level 20 MMOL/L (21-32) L Anion Gap 10 mmol/L (5-15) Blood Urea Nitrogen 41 mg/dL (7-18) H Creatinine 1.3 MG/DL (0.55-1.30) Estimat Glomerular Filtration Rate 55.1 mL/min (>60) Glucose Level 108 MG/DL (74-106) H Uric Acid 3.4 MG/DL (2.6-7.2) Calcium Level 7.8 MG/DL (8.5-10.1) L Phosphorus Level 2.9 MG/DL (2.5-4.9) Magnesium Level 1.4 MG/DL (1.8-2.4) L Total Bilirubin 0.3 MG/DL (0.2-1.0) Aspartate Amino Transf (AST/SGOT) 164 U/L (15-37) H Alanine Aminotransferase (ALT/SGPT) 103 U/L (12-78) H Alkaline Phosphatase 48 U/L (46-116) Total Creatine Kinase 2283 U/L (26-308) H C-Reactive Protein, Quantitative 7.1 mg/dL (0.00-0.90) H Pro-B-Type Natriuretic Peptide 464 pg/mL (0-125) H Total Protein 4.3 G/DL (6.4-8.2) L Albumin 1.4 G/DL (3.4-5.0) L Globulin 2.9 g/dL Albumin/Globulin Ratio 0.5 (1.0-2.7) L Intake and Output 03/19/18 03/20/18 19:00 07:00 Intake Total 1480 ml 1075 ml Output Total 1200 ml 1325 ml Balance 280 ml -250 ml Intake Oral 580 ml 400 ml IV Total 900 ml 675 ml Output Urine Total 1200 ml 1325 ml Objective General Appearance: WD/WN, no apparent distress, alert EENT: PERRL/EOMI, normal ENT inspection Neck: non-tender, normal alignment, supple Cardiovascular: normal peripheral pulses, normal rate, regular rhythm, no gallop/murmur Respiratory/Chest: chest wall non-tender, lungs clear, normal breath sounds, no respiratory distress, no accessory muscle use Abdomen: normal bowel sounds, non tender, soft, no organomegaly, no mass Extremities: other - gen weakness 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 See nephrology and cardiology note. (2) Syncope (3) Diabetes mellitus type II, controlled Assessment & Plan: Continue novolog sliding sclae. (4) Renal failure (5) Amyotrophic lateral sclerosis (ALS) Assessment & Plan: See neuro note. (6) Seizure disorder Assessment & Plan: D/C topamax. See neruo note. (7) Pain in left arm Assessment & Plan: X-ray neg for fracture. Doppler = neg DVT Status: progressing Pipo Marvin MD Mar 20, 2018 17:28
[2018-03-20] MEDS: Amitiza 24mcg cap ORAL SCH (19:31)
[2018-03-20 20:00] VITALS: BP 146/71
[2018-03-20] MEDS ORDERED: Nortriptyline 25mg cap ORAL SCH (21:00)
[2018-03-20] MEDS: Miralax 17gm pkt ORAL SCH (21:31)
[2018-03-20] MEDS: Metoprolol 25mg tab ORAL SCH (21:32)
[2018-03-20] MEDS: Depakote 500mg tab ORAL SCH (21:32)
[2018-03-21] VITALS: BP_SYST 113; BP_SYST 163; BP_DIAS 56; BP_DIAS 83
[2018-03-21] MEDS: NovoLOG Insulin Flexpen SUBQ SCH ×4 (06:00→20:52)
[2018-03-21 07:17] LABS: BASOPHILS % (AUTO) 1.1 % (0.0-2.0); EOSINOPHILS % (AUTO) 2.6 % (0.0-3.0); HEMATOCRIT 28.6 % (42.0-52.0); HEMOGLOBIN 9.4 G/DL (14.2-18.0); LYMPHOCYTES % (AUTO) 10.7 % (20.0-45.0); MEAN CORPUSCULAR VOLUME 95 FL (80-99); MONOCYTES % (AUTO) 14.3 % (1.0-10.0); NEUTROPHILS % (AUTO) 71.4 % (45.0-75.0); PLATELET COUNT 291 K/UL (150-450); RED CELL DISTRIBUTION WIDTH 12.7 % (11.6-14.8); WHITE BLOOD COUNT 14.3 K/UL (4.8-10.8)
[2018-03-21 07:28] LABS: ANION GAP 9 mmol/L (5-15); BLOOD UREA NITROGEN 33 mg/dL (7-18); CARBON DIOXIDE 21 MMOL/L (21-32); CHLORIDE 111 MMOL/L (98-107); CREATININE 1.1 MG/DL (0.55-1.30); SODIUM 141 MMOL/L (136-145)
[2018-03-21 08:00] VITALS: BP 123/73
--- NOTE | 2018-03-21 09:17 | Infectious Diseases Prog Note ---
Assessment/Plan Assessment/Plan Mr. Albarado is a 67 yo male with ALS who is presenting with weakness and AMS after a fall #Leukocytosis - recurred and increasing - 2/2 to UTI / PNA - K. pneumo on UCx CXR no clear sign of PNA # UTI - See above #Diabetes mellitus #ALS (amyotrophic lateral sclerosis) #Depression #S/P Fall with bruising of left shoulder PLAN - Continued leukocytosis - - Likely reactionary to left arm swelling secondary to trauma. - Swelling not significantly improved. Reasonable to D/C off antibiotics if thomas has close follow up. - No current sign of infection of the lest arm. But should be monitored. Given the leukocytosis -Continue Levofloxacin #7/ - end date 03/21/18 - 03/15 SP Vancomycin #2 - Monitor CBC and Temps - Supportive care Thank you for consulting us for the care of this patient. We will continue to follow with you. Subjective Allergies: Coded Allergies: CEPHALEXIN MONOHYDRATE (Verified Allergy, Unknown, 01/24/12) TETRACYCLINE (Verified Allergy, Unknown, 01/24/12) Subjective No acute events No N/V/D or fever Objective Vital Signs Last 24 Hour Vital Signs Date Time Temp Pulse Resp B/P (MAP) Pulse Ox O2 Delivery O2 Flow Rate FiO2 03/21/18 08:00 98.0 89 18 123/73 (90) 98 98.0 03/21/18 00:00 99.3 81 19 113/56 (75) 96 99.3 03/20/18 21:32 95 146/71 03/20/18 21:00 Nasal Cannula 2.0 03/20/18 20:35 97 Nasal Cannula 2.0 28 03/20/18 20:35 Nasal Cannula 2.0 28 03/20/18 20:00 99.1 95 20 146/71 (96) 95 99.1 03/20/18 16:00 98.4 96 18 127/60 (82) 95 98.4 03/20/18 15:05 100 Nasal Cannula 2.0 28 03/20/18 15:05 Nasal Cannula 2.0 28 03/20/18 12:00 98.4 94 19 102/58 (73) 96 98.4 Height (Feet): 5 Height (Inches): 5.00 Weight (Pounds): 161 Objective Gen: NAD, Thin male, awake and alert HEENT: NCAT, MMM, EOMI LUNGS: CTAB, No W/C, CARDS: RRR, S1, S2, No M/R/G, ABD: Soft, NT, ND, No R/G, + BS Ext: C/C/E, Pulses 2+ B/L (DP, Rad), Left shoulder with bruising and decreased ROM pain with movement, Left elbow swollen but no erythema. NEURO: A/O x 4, Strength and Sensation Grossly intact SKIN:~ warm/dry, No rashes, Multiple erythematous patches/bruising. Laboratory Tests Test 03/21/18 06:05 White Blood Count 14.3 K/UL (4.8-10.8) H Red Blood Count 3.00 M/UL (4.70-6.10) L Hemoglobin 9.4 G/DL (14.2-18.0) L Hematocrit 28.6 % (42.0-52.0) L Mean Corpuscular Volume 95 FL (80-99) Mean Corpuscular Hemoglobin 31.5 PG (27.0-31.0) H Mean Corpuscular Hemoglobin Concent 33.1 G/DL (32.0-36.0) Red Cell Distribution Width 12.7 % (11.6-14.8) Platelet Count 291 K/UL (150-450) Mean Platelet Volume 5.1 FL (6.5-10.1) L Neutrophils (%) (Auto) 71.4 % (45.0-75.0) Lymphocytes (%) (Auto) 10.7 % (20.0-45.0) L Monocytes (%) (Auto) 14.3 % (1.0-10.0) H Eosinophils (%) (Auto) 2.6 % (0.0-3.0) Basophils (%) (Auto) 1.1 % (0.0-2.0) Sodium Level 141 MMOL/L (136-145) Potassium Level 4.0 MMOL/L (3.5-5.1) Chloride Level 111 MMOL/L (98-107) H Carbon Dioxide Level 21 MMOL/L (21-32) Anion Gap 9 mmol/L (5-15) Blood Urea Nitrogen 33 mg/dL (7-18) H Creatinine 1.1 MG/DL (0.55-1.30) Estimat Glomerular Filtration Rate > 60 mL/min (>60) Glucose Level 107 MG/DL (74-106) H Calcium Level 8.0 MG/DL (8.5-10.1) L Current Medications Medications (Trade) Dose Ordered Sig/Maria Victoria Route PRN Reason Start Time Stop Time Status Last Admin Dose Admin Acetaminophen (Tylenol) 650 mg Q4H PRN ORAL fever 03/16/18 14:00 04/12/18 21:59 Divalproex Sodium (Depakote) 500 mg BEDTIME ORAL 03/16/18 21:00 04/13/18 15:14 03/20/18 21:32 Gabapentin (Neurontin) 600 mg Q12HR ORAL 03/16/18 21:00 04/13/18 11:59 03/20/18 21:31 Heparin Sodium (Porcine) (Heparin 5000 units/ml) 5,000 units EVERY 12 HOURS SUBQ 03/16/18 21:00 04/12/18 22:14 03/20/18 21:33 Insulin Aspart (NovoLOG) BEFORE MEALS AND HS SUBQ 03/16/18 16:30 04/13/18 11:29 03/20/18 21:34 Levofloxacin (Levaquin) 750 mg Q48H ORAL 03/17/18 15:00 03/22/18 14:59 03/19/18 14:50 Lubiprostone (Amitiza) 24 mcg TWICE A DAY ORAL 03/20/18 18:00 04/19/18 17:59 03/20/18 19:31 Metoprolol Tartrate (Lopressor) 25 mg Q12HR ORAL 03/20/18 21:00 04/15/18 20:59 03/20/18 21:32 Mirtazapine (Remeron) 15 mg BEDTIME ORAL 03/16/18 21:00 04/13/18 20:59 03/20/18 21:31 Nitroglycerin (Ntg) 0.4 mg Q5M PRN SL Prn Chest Pain 03/16/18 12:15 04/12/18 21:59 Nortriptyline HCl (Pamelor) 25 mg BEDTIME ORAL 03/20/18 21:00 04/12/18 22:59 03/20/18 21:31 Ondansetron HCl (Zofran) 4 mg Q6H PRN IVP Nausea & Vomiting 03/16/18 13:30 04/12/18 13:29 Pantoprazole (Protonix) 40 mg DAILY ORAL 03/17/18 09:00 04/13/18 08:59 03/20/18 09:14 Pilocarpine (Isopto Carpine 2% Op Soln) 1 drop BID BOTH EYES 03/16/18 18:00 04/13/18 08:59 03/20/18 16:49 Polyethylene Glycol (Miralax) 17 gm BEDTIME ORAL 03/19/18 21:00 04/18/18 20:59 03/20/18 21:31 Pramipexole (Mirapex) 0.25 mg TID ORAL 03/16/18 14:00 04/15/18 13:59 03/20/18 16:49 Risperidone (RisperDAL) 2 mg BEDTIME ORAL 03/16/18 21:00 04/13/18 20:59 03/20/18 21:31 Sennosides (Senokot) 1 tab DAILY ORAL 03/20/18 09:00 04/19/18 08:59 03/20/18 09:14 Sodium Chloride 1,000 ml @ 75 mls/hr [id number] IV 03/16/18 13:30 04/14/18 13:29 03/21/18 00:27 Ovidio Acosta M.D. Mar 21, 2018 09:17
[2018-03-21] MEDS: Amitiza 24mcg cap ORAL SCH ×2 (10:01→18:15)
[2018-03-21] MEDS: Sennosides 8.6mg ORAL SCH (10:01)
[2018-03-21] MEDS: Metoprolol 25mg tab ORAL SCH ×2 (10:02→20:48)
[2018-03-21] MEDS: Heparin 5000 units/ml inj SUBQ SCH ×2 (10:03→20:49)
[2018-03-21] MEDS: Pilocarpine 2% Opth 15ml Soln BOTH EYES SCH ×2 (10:05→18:15)
[2018-03-21] MEDS ORDERED: MIRAPEX0.125 MG ORAL (11:10)
[2018-03-21] MEDS ORDERED: RISPERDAL2 MG ORAL (11:10)
[2018-03-21] MEDS ORDERED: SENNA-GEN8.6 M1 ORAL (11:10)
[2018-03-21] MEDS ORDERED: ISOPTO CARPINE1 DRO2 BOTH EYES (11:10)
[2018-03-21] MEDS ORDERED: MIRTAZAPINE15 M3 ORAL ×2 (11:10→12:27)
[2018-03-21] MEDS ORDERED: MIRALAX17 GM ORAL (11:10)
[2018-03-21] MEDS ORDERED: DIVALPROEX SOD500 MG ORAL (11:10)
--- NOTE | 2018-03-21 11:11 | Pulmonology Progress Note ---
Assessment/Plan Problems: (1) Hypotension (2) ALS (amyotrophic lateral sclerosis) (3) ATN (acute tubular necrosis) (4) Generalized weakness (5) Amyotrophic lateral sclerosis (ALS) (6) Diabetes mellitus (7) Depression Assessment/Plan no new complains eating better improving renal function better pt/ot med/surg renal f/u dc planning Subjective ROS Limited/Unobtainable: No Constitutional: Reports: no symptoms HEENT: Repors: no symptoms Respiratory: Reports: no symptoms Allergies: Coded Allergies: CEPHALEXIN MONOHYDRATE (Verified Allergy, Unknown, 01/24/12) TETRACYCLINE (Verified Allergy, Unknown, 01/24/12) Objective Last 24 Hour Vital Signs Date Time Temp Pulse Resp B/P (MAP) Pulse Ox O2 Delivery O2 Flow Rate FiO2 03/21/18 10:02 89 123/73 03/21/18 08:00 98.0 89 18 123/73 (90) 98 98.0 03/21/18 00:00 99.3 81 19 113/56 (75) 96 99.3 03/20/18 21:32 95 146/71 03/20/18 21:00 Nasal Cannula 2.0 03/20/18 20:35 97 Nasal Cannula 2.0 28 03/20/18 20:35 Nasal Cannula 2.0 28 03/20/18 20:00 99.1 95 20 146/71 (96) 95 99.1 03/20/18 16:00 98.4 96 18 127/60 (82) 95 98.4 03/20/18 15:05 100 Nasal Cannula 2.0 28 03/20/18 15:05 Nasal Cannula 2.0 28 03/20/18 12:00 98.4 94 19 102/58 (73) 96 98.4 Intake and Output 03/20/18 03/21/18 19:00 07:00 Intake Total 1170 ml 825 ml Output Total 900 ml 2000 ml Balance 270 ml -1175 ml Intake Oral 720 ml IV Total 450 ml 825 ml Output Urine Total 900 ml 2000 ml Objective General Appearance: cachectic HEENT: normocephalic, atraumatic Respiratory/Chest: chest wall non-tender, lungs clear Breasts: no masses Cardiovascular: normal peripheral pulses, no gallop/murmur Abdomen: no organomegaly, no mass Genitourinary: normal external genitalia Extremities: no clubbing Laboratory Tests 03/21/18 06:05: White Blood Count 14.3H, Red Blood Count 3.00L, Hemoglobin 9.4L, Hematocrit 28.6L, Mean Corpuscular Volume 95, Mean Corpuscular Hemoglobin 31.5H, Mean Corpuscular Hemoglobin Concent 33.1, Red Cell Distribution Width 12.7, Platelet Count 291, Mean Platelet Volume 5.1L, Neutrophils (%) (Auto) 71.4, Lymphocytes ( %) (Auto) 10.7L, Monocytes (%) (Auto) 14.3H, Eosinophils (%) (Auto) 2.6, Basophils (%) (Auto) 1.1, Sodium Level 141, Potassium Level 4.0, Chloride Level 111H, Carbon Dioxide Level 21, Anion Gap 9, Blood Urea Nitrogen 33H, Creatinine 1.1, Estimat Glomerular Filtration Rate > 60, Glucose Level 107H, Calcium Level 8.0L Current Medications Medications (Trade) Dose Ordered Sig/Maria Victoria Route PRN Reason Start Time Stop Time Status Last Admin Dose Admin Acetaminophen (Tylenol) 650 mg Q4H PRN ORAL fever 03/16/18 14:00 04/12/18 21:59 Divalproex Sodium (Depakote) 500 mg BEDTIME ORAL 03/16/18 21:00 04/13/18 15:14 03/20/18 21:32 Gabapentin (Neurontin) 600 mg Q12HR ORAL 03/16/18 21:00 04/13/18 11:59 03/21/18 10:02 Heparin Sodium (Porcine) (Heparin 5000 units/ml) 5,000 units EVERY 12 HOURS SUBQ 03/16/18 21:00 04/12/18 22:14 03/21/18 10:03 Insulin Aspart (NovoLOG) BEFORE MEALS AND HS SUBQ 03/16/18 16:30 04/13/18 11:29 03/20/18 21:34 Levofloxacin (Levaquin) 750 mg Q48H ORAL 03/17/18 15:00 03/22/18 14:59 03/19/18 14:50 Lubiprostone (Amitiza) 24 mcg TWICE A DAY ORAL 03/20/18 18:00 04/19/18 17:59 03/21/18 10:01 Metoprolol Tartrate (Lopressor) 25 mg Q12HR ORAL 03/20/18 21:00 04/15/18 20:59 03/21/18 10:02 Mirtazapine (Remeron) 15 mg BEDTIME ORAL 03/16/18 21:00 04/13/18 20:59 03/20/18 21:31 Nitroglycerin (Ntg) 0.4 mg Q5M PRN SL Prn Chest Pain 03/16/18 12:15 04/12/18 21:59 Nortriptyline HCl (Pamelor) 25 mg BEDTIME ORAL 03/20/18 21:00 04/12/18 22:59 03/20/18 21:31 Ondansetron HCl (Zofran) 4 mg Q6H PRN IVP Nausea & Vomiting 03/16/18 13:30 04/12/18 13:29 Pantoprazole (Protonix) 40 mg DAILY ORAL 03/17/18 09:00 04/13/18 08:59 03/21/18 10:02 Pilocarpine (Isopto Carpine 2% Op Soln) 1 drop BID BOTH EYES 03/16/18 18:00 04/13/18 08:59 03/21/18 10:05 Polyethylene Glycol (Miralax) 17 gm BEDTIME ORAL 03/19/18 21:00 04/18/18 20:59 03/20/18 21:31 Pramipexole (Mirapex) 0.25 mg TID ORAL 03/16/18 14:00 04/15/18 13:59 03/21/18 10:01 Risperidone (RisperDAL) 2 mg BEDTIME ORAL 03/16/18 21:00 04/13/18 20:59 03/20/18 21:31 Sennosides (Senokot) 1 tab DAILY ORAL 03/20/18 09:00 04/19/18 08:59 03/21/18 10:01 Sodium Chloride 1,000 ml @ 75 mls/hr [id number] IV 03/16/18 13:30 04/14/18 13:29 03/21/18 00:27 Loulou Ernandez MD Mar 21, 2018 11:11
--- NOTE | 2018-03-21 11:41 | Cardiology Progress Note ---
Assessment/Plan Status: stable Assessment/Plan Assessment/Plan Problem List: (1) Hypotension (2) ALS (amyotrophic lateral sclerosis) (3) ATN (acute tubular necrosis) (4) Generalized weakness (5) Amyotrophic lateral sclerosis (ALS) (6) Diabetes mellitus (7) Depression Plan: Improving clinically H/H stable Cultures - continue abx treatment of UTI until 03-21 - reculture urine for rising WBC No indication for cath CT brain negative for CVA Physical therapy Ultrasound reviewed, no acute clot, has old jugular venous clot, x ray negative for fracture. CV stable Outpatient stress test Dispo planning Subjective Cardiovascular: Reports: no symptoms Respiratory: Reports: no symptoms Gastrointestinal/Abdominal: Reports: no symptoms Genitourinary: Reports: no symptoms Subjective Mental status improved. vitals stable, creatinine improved, ck improved, patient is stable. No acute events, no complaints. Still has EMILE swelling, X ray negative for fracture and negative for acute thrombus. Appetite improved WBC is rising but no signs of infection, will need repeat urine analysis/culture Objective Last 24 Hour Vital Signs Date Time Temp Pulse Resp B/P (MAP) Pulse Ox O2 Delivery O2 Flow Rate FiO2 03/21/18 10:02 89 123/73 03/21/18 08:00 98.0 89 18 123/73 (90) 98 98.0 03/21/18 00:00 99.3 81 19 113/56 (75) 96 99.3 03/20/18 21:32 95 146/71 03/20/18 21:00 Nasal Cannula 2.0 03/20/18 20:35 97 Nasal Cannula 2.0 28 03/20/18 20:35 Nasal Cannula 2.0 28 03/20/18 20:00 99.1 95 20 146/71 (96) 95 99.1 03/20/18 16:00 98.4 96 18 127/60 (82) 95 98.4 03/20/18 15:05 100 Nasal Cannula 2.0 28 03/20/18 15:05 Nasal Cannula 2.0 28 03/20/18 12:00 98.4 94 19 102/58 (73) 96 98.4 General Appearance: no apparent distress, alert EENT: PERRL/EOMI, normal ENT inspection Neck: non-tender, supple Rhythm: NSR Cardiovascular: normal peripheral pulses, normal rate, regular rhythm Respiratory/Chest: chest wall non-tender, lungs clear Abdomen: normal bowel sounds, non tender Extremities: normal range of motion, non-tender, severe edema 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 Intake and Output 03/20/18 03/21/18 19:00 07:00 Intake Total 1170 ml 825 ml Output Total 900 ml 2000 ml Balance 270 ml -1175 ml Intake Oral 720 ml IV Total 450 ml 825 ml Output Urine Total 900 ml 2000 ml Laboratory Tests Test 03/21/18 06:05 White Blood Count 14.3 K/UL (4.8-10.8) H Red Blood Count 3.00 M/UL (4.70-6.10) L Hemoglobin 9.4 G/DL (14.2-18.0) L Hematocrit 28.6 % (42.0-52.0) L Mean Corpuscular Volume 95 FL (80-99) Mean Corpuscular Hemoglobin 31.5 PG (27.0-31.0) H Mean Corpuscular Hemoglobin Concent 33.1 G/DL (32.0-36.0) Red Cell Distribution Width 12.7 % (11.6-14.8) Platelet Count 291 K/UL (150-450) Mean Platelet Volume 5.1 FL (6.5-10.1) L Neutrophils (%) (Auto) 71.4 % (45.0-75.0) Lymphocytes (%) (Auto) 10.7 % (20.0-45.0) L Monocytes (%) (Auto) 14.3 % (1.0-10.0) H Eosinophils (%) (Auto) 2.6 % (0.0-3.0) Basophils (%) (Auto) 1.1 % (0.0-2.0) Sodium Level 141 MMOL/L (136-145) Potassium Level 4.0 MMOL/L (3.5-5.1) Chloride Level 111 MMOL/L (98-107) H Carbon Dioxide Level 21 MMOL/L (21-32) Anion Gap 9 mmol/L (5-15) Blood Urea Nitrogen 33 mg/dL (7-18) H Creatinine 1.1 MG/DL (0.55-1.30) Estimat Glomerular Filtration Rate > 60 mL/min (>60) Glucose Level 107 MG/DL (74-106) H Calcium Level 8.0 MG/DL (8.5-10.1) L Ovidio Duque M.D. Mar 21, 2018 11:41
[2018-03-21] MEDS ORDERED: AMITIZA24 MCG ORAL (12:27)
--- NOTE | 2018-03-21 15:37 | General Progress Note ---
Assessment/Plan Status: stable, progressing Assessment/Plan MDD Anxiety d/o Encephalopathy -Remeron 15mg qhs -change risperdal to qhs -depakote Subjective Date patient seen: Mar 21, 2018 Neurologic/Psychiatric: Reports: anxiety, depressed, emotional problems Allergies: Coded Allergies: CEPHALEXIN MONOHYDRATE (Verified Allergy, Unknown, 01/24/12) TETRACYCLINE (Verified Allergy, Unknown, 01/24/12) Subjective appetite improved Objective Last 24 Hour Vital Signs Date Time Temp Pulse Resp B/P (MAP) Pulse Ox O2 Delivery O2 Flow Rate FiO2 03/21/18 10:02 89 123/73 03/21/18 08:00 98.0 89 18 123/73 (90) 98 98.0 03/21/18 00:00 99.3 81 19 113/56 (75) 96 99.3 03/20/18 21:32 95 146/71 03/20/18 21:00 Nasal Cannula 2.0 03/20/18 20:35 97 Nasal Cannula 2.0 28 03/20/18 20:35 Nasal Cannula 2.0 28 03/20/18 20:00 99.1 95 20 146/71 (96) 95 99.1 03/20/18 16:00 98.4 96 18 127/60 (82) 95 98.4 Intake and Output 03/20/18 03/21/18 19:00 07:00 Intake Total 1170 ml 825 ml Output Total 900 ml 2000 ml Balance 270 ml -1175 ml Intake Oral 720 ml IV Total 450 ml 825 ml Output Urine Total 900 ml 2000 ml Laboratory Tests 03/21/18 06:05: White Blood Count 14.3H, Red Blood Count 3.00L, Hemoglobin 9.4L, Hematocrit 28.6L, Mean Corpuscular Volume 95, Mean Corpuscular Hemoglobin 31.5H, Mean Corpuscular Hemoglobin Concent 33.1, Red Cell Distribution Width 12.7, Platelet Count 291, Mean Platelet Volume 5.1L, Neutrophils (%) (Auto) 71.4, Lymphocytes ( %) (Auto) 10.7L, Monocytes (%) (Auto) 14.3H, Eosinophils (%) (Auto) 2.6, Basophils (%) (Auto) 1.1, Sodium Level 141, Potassium Level 4.0, Chloride Level 111H, Carbon Dioxide Level 21, Anion Gap 9, Blood Urea Nitrogen 33H, Creatinine 1.1, Estimat Glomerular Filtration Rate > 60, Glucose Level 107H, Calcium Level 8.0L Height (Feet): 5 Height (Inches): 5.00 Weight (Pounds): 161 General Appearance: no apparent distress, alert Neurologic: oriented x 3, responsive, depressed affect Merritt Martinez MD Mar 21, 2018 15:37
--- NOTE | 2018-03-21 17:09 | Internal Med Progress Note ---
Subjective Date of Service: Mar 21, 2018 Physician Name Marvin,Pipo Attending Physician Marc Conley MD Current Medications Medications (Trade) Dose Ordered Sig/Maria Victoria Route PRN Reason Start Time Stop Time Status Last Admin Dose Admin Acetaminophen (Tylenol) 650 mg Q4H PRN ORAL fever 03/16/18 14:00 04/12/18 21:59 Gabapentin (Neurontin) 600 mg Q12HR ORAL 03/16/18 21:00 04/13/18 11:59 03/21/18 10:02 Heparin Sodium (Porcine) (Heparin 5000 units/ml) 5,000 units EVERY 12 HOURS SUBQ 03/16/18 21:00 04/12/18 22:14 03/21/18 10:03 Insulin Aspart (NovoLOG) BEFORE MEALS AND HS SUBQ 03/16/18 16:30 04/13/18 11:29 03/20/18 21:34 Levofloxacin (Levaquin) 750 mg Q48H ORAL 03/17/18 15:00 03/22/18 14:59 03/19/18 14:50 Lubiprostone (Amitiza) 24 mcg TWICE A DAY ORAL 03/20/18 18:00 04/19/18 17:59 03/21/18 10:01 Metoprolol Tartrate (Lopressor) 25 mg Q12HR ORAL 03/20/18 21:00 04/15/18 20:59 03/21/18 10:02 Mirtazapine (Remeron) 30 mg BEDTIME ORAL 03/21/18 21:00 04/20/18 20:59 Nitroglycerin (Ntg) 0.4 mg Q5M PRN SL Prn Chest Pain 03/16/18 12:15 04/12/18 21:59 Ondansetron HCl (Zofran) 4 mg Q6H PRN IVP Nausea & Vomiting 03/16/18 13:30 04/12/18 13:29 Pantoprazole (Protonix) 40 mg DAILY ORAL 03/17/18 09:00 04/13/18 08:59 03/21/18 10:02 Pilocarpine (Isopto Carpine 2% Op Soln) 1 drop BID BOTH EYES 03/16/18 18:00 04/13/18 08:59 03/21/18 10:05 Polyethylene Glycol (Miralax) 17 gm BEDTIME ORAL 03/19/18 21:00 04/18/18 20:59 03/20/18 21:31 Pramipexole (Mirapex) 0.25 mg TID ORAL 03/16/18 14:00 04/15/18 13:59 03/21/18 10:01 Risperidone (RisperDAL) 2 mg BEDTIME ORAL 03/16/18 21:00 04/13/18 20:59 03/20/18 21:31 Sennosides (Senokot) 1 tab DAILY ORAL 03/20/18 09:00 04/19/18 08:59 03/21/18 10:01 Allergies: Coded Allergies: CEPHALEXIN MONOHYDRATE (Verified Allergy, Unknown, 01/24/12) TETRACYCLINE (Verified Allergy, Unknown, 01/24/12) ROS Limited/Unobtainable: No Constitutional: Reports: no symptoms HEENT: Reports: no symptoms Cardiovascular: Reports: no symptoms Respiratory: Reports: no symptoms Gastrointestinal/Abdominal: Reports: no symptoms Genitourinary: Reports: no symptoms Neurologic/Psychiatric: Reports: no symptoms Subjective 67 YO M with a history of ALS, admitted with syncope. Now rhabdomyolysis. Cover for Int Med-Dr Conley. Objective Last Vital Signs Date Time Temp Pulse Resp B/P (MAP) Pulse Ox O2 Delivery O2 Flow Rate FiO2 03/21/18 10:02 89 123/73 03/21/18 08:00 Nasal Cannula 2.0 03/21/18 08:00 98.0 18 98 98.0 03/20/18 20:35 28 Laboratory Tests Test 03/21/18 06:05 White Blood Count 14.3 K/UL (4.8-10.8) H Red Blood Count 3.00 M/UL (4.70-6.10) L Hemoglobin 9.4 G/DL (14.2-18.0) L Hematocrit 28.6 % (42.0-52.0) L Mean Corpuscular Volume 95 FL (80-99) Mean Corpuscular Hemoglobin 31.5 PG (27.0-31.0) H Mean Corpuscular Hemoglobin Concent 33.1 G/DL (32.0-36.0) Red Cell Distribution Width 12.7 % (11.6-14.8) Platelet Count 291 K/UL (150-450) Mean Platelet Volume 5.1 FL (6.5-10.1) L Neutrophils (%) (Auto) 71.4 % (45.0-75.0) Lymphocytes (%) (Auto) 10.7 % (20.0-45.0) L Monocytes (%) (Auto) 14.3 % (1.0-10.0) H Eosinophils (%) (Auto) 2.6 % (0.0-3.0) Basophils (%) (Auto) 1.1 % (0.0-2.0) Sodium Level 141 MMOL/L (136-145) Potassium Level 4.0 MMOL/L (3.5-5.1) Chloride Level 111 MMOL/L (98-107) H Carbon Dioxide Level 21 MMOL/L (21-32) Anion Gap 9 mmol/L (5-15) Blood Urea Nitrogen 33 mg/dL (7-18) H Creatinine 1.1 MG/DL (0.55-1.30) Estimat Glomerular Filtration Rate > 60 mL/min (>60) Glucose Level 107 MG/DL (74-106) H Calcium Level 8.0 MG/DL (8.5-10.1) L Intake and Output 03/20/18 03/21/18 19:00 07:00 Intake Total 1170 ml 825 ml Output Total 900 ml 2000 ml Balance 270 ml -1175 ml Intake Oral 720 ml IV Total 450 ml 825 ml Output Urine Total 900 ml 2000 ml Objective General Appearance: WD/WN, no apparent distress, alert EENT: PERRL/EOMI, normal ENT inspection Neck: non-tender, normal alignment, supple Cardiovascular: normal peripheral pulses, normal rate, regular rhythm, no gallop/murmur Respiratory/Chest: chest wall non-tender, lungs clear, normal breath sounds, no respiratory distress, no accessory muscle use Abdomen: normal bowel sounds, non tender, soft, no organomegaly, no mass Extremities: other - gen weakness Neurologic: laserist II-XII grossly normal, motor weakness Skin: normal pigmentation, warm/dry Assessment/Plan Problem List: (1) Rhabdomyolysis Assessment & Plan: Continue IV fluids. See nephrology and cardiology note. (2) Syncope (3) Diabetes mellitus type II, controlled Assessment & Plan: Continue novolog sliding sclae. (4) Renal failure (5) Amyotrophic lateral sclerosis (ALS) Assessment & Plan: See neuro note. (6) Seizure disorder Assessment & Plan: D/C topamax. See neruo note. (7) Pain in left arm Assessment & Plan: X-ray neg for fracture. Doppler = neg DVT (8) Leukocytosis Assessment & Plan: levaquin D#7/7 per ID Status: progressing Assessment/Plan Discharge plan: [facility] Pipo Marvin MD Mar 21, 2018 17:09
--- NOTE | 2018-03-21 18:33 | Neurology Progress Note ---
Interim History Interim History Interim History Mr. Albarado continues to feel better. He got out of bed and took a few steps with the PT and a walker today. The mind is clearer. His cognitive function is better but still impaired. He continues to be generally weak. The left shoulder and hip pain are better. His left upper extremity is still swollen. He denies any new neurologic symptoms. His primary Dr. would like him to go to an assisted living facility but he and his caregiver want to go home. Review of Systems Neuro Review of Systems Benign. Objective Physical Exam Last Vital Signs Date Time Temp Pulse Resp B/P (MAP) Pulse Ox O2 Delivery O2 Flow Rate FiO2 03/21/18 10:02 89 123/73 03/21/18 08:00 Nasal Cannula 2.0 03/21/18 08:00 98.0 18 98 98.0 03/20/18 20:35 28 Laboratory Tests Test 03/21/18 06:05 White Blood Count 14.3 K/UL (4.8-10.8) H Red Blood Count 3.00 M/UL (4.70-6.10) L Hemoglobin 9.4 G/DL (14.2-18.0) L Hematocrit 28.6 % (42.0-52.0) L Mean Corpuscular Volume 95 FL (80-99) Mean Corpuscular Hemoglobin 31.5 PG (27.0-31.0) H Mean Corpuscular Hemoglobin Concent 33.1 G/DL (32.0-36.0) Red Cell Distribution Width 12.7 % (11.6-14.8) Platelet Count 291 K/UL (150-450) Mean Platelet Volume 5.1 FL (6.5-10.1) L Neutrophils (%) (Auto) 71.4 % (45.0-75.0) Lymphocytes (%) (Auto) 10.7 % (20.0-45.0) L Monocytes (%) (Auto) 14.3 % (1.0-10.0) H Eosinophils (%) (Auto) 2.6 % (0.0-3.0) Basophils (%) (Auto) 1.1 % (0.0-2.0) Sodium Level 141 MMOL/L (136-145) Potassium Level 4.0 MMOL/L (3.5-5.1) Chloride Level 111 MMOL/L (98-107) H Carbon Dioxide Level 21 MMOL/L (21-32) Anion Gap 9 mmol/L (5-15) Blood Urea Nitrogen 33 mg/dL (7-18) H Creatinine 1.1 MG/DL (0.55-1.30) Estimat Glomerular Filtration Rate > 60 mL/min (>60) Glucose Level 107 MG/DL (74-106) H Calcium Level 8.0 MG/DL (8.5-10.1) L Neurologic Exam Objective PHYSICAL EXAMINATION: GENERAL: He is a well-developed, well-nourished, gentleman, lying in bed, in no acute distress. HEAD: Normocephalic and atraumatic. EENT: Examination benign. NECK: No neck rigidity was observed. NEUROLOGIC EXAMINATION: MENTAL STATUS EXAMINATION: He was awake and alert. He was oriented to [facility], [facility] and March 21, 2018. He was able to recall 3/3 words immediately, and could remember them in 1 minute and 3 minutes. He was able to remember presidents Trump and Obama only. His mathematical skills were impaired. His visuospatial function was also impaired. SPEECH: He had no dysarthria. LANGUAGE: He had a mild anomia. CRANIAL NERVE EXAMINATION: II: The visual oquendo were intact on confrontation testing. III, IV & : External ocular movements were full and the pupils 3 mm in diameter, equal, round, regular, and reactive to light. V: He had normal facial sensations and the temporales, masseters, and pterygoids functioned normally. VII: He had normal facial expressions and no facial asymmetry. VIII: He was able to hear well bilaterally and had no nystagmus. IX: The palate moved symmetrically on phonation. X: He had no hoarseness of voice. XI: Sternocleidomastoids and trapezii functioned normally. XII: The tongue was in the midline without any fasciculations or atrophy. MOTOR SYSTEM: The tone was normal in all four extremities. Examination of muscle mass revealed mild generalized wasting. Examination of power revealed a quadriparesis involving the left side lmore than the right. SENSORY EXAMINATION: He had intact sensations to pin prick and light touch. REFLEXES: 0 at the biceps, triceps, brachioradialis, knees, and ankles. The plantar responses were flexor bilaterally. COORDINATION: He performed well on finger to nose testing. STANCE & GAIT: Could not be tested. Impression/Recommendations Diagnostic Impression 1. Mr. Jana Albarado is a 67-year-old, right-handed, gentleman, who does have a past history of ALS, seizures, depression, glaucoma, and spinal problems who apparently fell down in the absence of any one at home and was found on the next day by his caregiver lying on his left-side, with bruises over his left side in a confused disoriented state. 2. He continues to feel better. He got out of bed and took a few steps with the PT and a walker today. The mind is clearer. His cognitive function is better but still impaired. He continues to be generally weak. The left shoulder and hip pain are better. His left upper extremity is still swollen. He denies any new neurologic symptoms. His primary Dr. would like him to go to an assisted living facility but he and his caregiver want to go home. 3. On neurological examination, at this time, he is fully oriented. He has problems with memory, visuospatial function, higher cognitive function, and language - all of which are better. He is also generally weak and gives a poor effort with motor testing with left > right weakness. He also has globally absent deep tendon reflexes. 4. The CT of the brain is normal. 5. The EEG revealed findings consistent with a toxic/metabolic encephalopathy. 6. The patient's history and neurological examination are most compatible with an ongoing encephalopathic process, the exact etiology for the encephalopathy is unclear at this point in time. Offending factors could be an acute infectious process as he does have WBC count elevated to 15,400. He also has renal dysfunction with a BUN of 48 with a creatinine of 1.6. His blood glucose is elevated at 197. He has liver dysfunction in the form of AST elevated to 856 and ALT elevated to 229, and he does have rhabdomyolysis with his CK is greater than 10,000. His free T4 is normal at 0.92. His urinalysis also reveals 1+ leukocyte esterase, 0-4 RBCs and 0-2 WBCs per high-power field. His encephalopathy is improving. 7. Although, the patient carries a history of ALS, his neurological findings at this point in time are not very consistent with it. The diagnosis is suspect. Recommendations 1. Continue present management. 2. Increase activity as tolerated. 3. The patient should be mobilized with the help of physical and occupational therapy. 4. Out of bed in chair daily. Sandra Obregon M.D., VinSRonel. SANDRA OBREGON Mar 21, 2018 18:33
[2018-03-21 20:00] VITALS: BP 136/73
[2018-03-21] MEDS: Miralax 17gm pkt ORAL SCH (20:48)
[2018-03-22] VITALS: BP 112/62
[2018-03-22 04:00] VITALS: BP 117/66
[2018-03-22] MEDS: NovoLOG Insulin Flexpen SUBQ SCH ×2 (06:14→11:30)
[2018-03-22 06:45] LABS: BASOPHILS % (AUTO) 0.5 % (0.0-2.0); HEMATOCRIT 28.2 % (42.0-52.0); HEMOGLOBIN 9.3 G/DL (14.2-18.0); LYMPHOCYTES % (AUTO) 12.3 % (20.0-45.0); MEAN CORPUSCULAR VOLUME 95 FL (80-99); MONOCYTES % (AUTO) 12.8 % (1.0-10.0); NEUTROPHILS % (AUTO) 72.5 % (45.0-75.0); PLATELET COUNT 371 K/UL (150-450); RED BLOOD COUNT 2.95 M/UL (4.70-6.10); RED CELL DISTRIBUTION WIDTH 12.7 % (11.6-14.8); WHITE BLOOD COUNT 12.8 K/UL (4.8-10.8)
[2018-03-22 06:54] LABS: ANION GAP 7 mmol/L (5-15); BLOOD UREA NITROGEN 31 mg/dL (7-18); CALCIUM 7.8 MG/DL (8.5-10.1); CARBON DIOXIDE 24 MMOL/L (21-32); CHLORIDE 108 MMOL/L (98-107); CREATININE 0.8 MG/DL (0.55-1.30); POTASSIUM 3.7 MMOL/L (3.5-5.1); SODIUM 139 MMOL/L (136-145)
[2018-03-22 08:00] VITALS: BP 150/74
[2018-03-22] MEDS: Metoprolol 25mg tab ORAL SCH (08:55)
[2018-03-22] MEDS: Sennosides 8.6mg ORAL SCH (08:55)
[2018-03-22] MEDS: Amitiza 24mcg cap ORAL SCH (08:55)
[2018-03-22] MEDS: Heparin 5000 units/ml inj SUBQ SCH (08:58)
[2018-03-22] MEDS: Pilocarpine 2% Opth 15ml Soln BOTH EYES SCH (08:59)
--- NOTE | 2018-03-22 09:44 | Cardiology Progress Note ---
Assessment/Plan Status: stable Assessment/Plan Assessment/Plan Problem List: (1) Hypotension (2) ALS (amyotrophic lateral sclerosis) (3) ATN (acute tubular necrosis) (4) Generalized weakness (5) Amyotrophic lateral sclerosis (ALS) (6) Diabetes mellitus (7) Depression Plan: Improving clinically H/H stable Abx completed No indication for cath CT brain negative for CVA Physical therapy Ultrasound reviewed, no acute clot, has old jugular venous clot, x ray negative for fracture. CV stable Outpatient stress test Dispo planning SNF vs Assisted living Subjective Cardiovascular: Reports: no symptoms Respiratory: Reports: no symptoms Gastrointestinal/Abdominal: Reports: no symptoms Genitourinary: Reports: no symptoms Subjective Patient base to baseline, labs normalized, he wants to go home with caregiver. Vitals stable, no CP/SOB Objective Last 24 Hour Vital Signs Date Time Temp Pulse Resp B/P (MAP) Pulse Ox O2 Delivery O2 Flow Rate FiO2 03/22/18 08:55 95 150/74 03/22/18 04:00 97.1 85 19 117/66 (83) 96 97.1 03/22/18 00:00 97.8 86 19 112/62 (79) 98 97.8 03/21/18 21:00 Nasal Cannula 2.0 03/21/18 20:48 89 136/73 03/21/18 20:00 99.6 89 19 136/73 (94) 96 99.6 03/21/18 10:02 89 123/73 General Appearance: no apparent distress, alert EENT: PERRL/EOMI, normal ENT inspection Neck: non-tender, normal alignment, supple, normal inspection Rhythm: NSR Cardiovascular: normal peripheral pulses, normal rate, regular rhythm Respiratory/Chest: chest wall non-tender, lungs clear Abdomen: normal bowel sounds, non tender Extremities: normal range of motion, non-tender 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 Intake and Output 03/21/18 03/22/18 19:00 07:00 Output Total 700 ml Balance -700 ml Output Urine Total 700 ml # Voids 3 Laboratory Tests Test 03/22/18 06:10 White Blood Count 12.8 K/UL (4.8-10.8) H Red Blood Count 2.95 M/UL (4.70-6.10) L Hemoglobin 9.3 G/DL (14.2-18.0) L Hematocrit 28.2 % (42.0-52.0) L Mean Corpuscular Volume 95 FL (80-99) Mean Corpuscular Hemoglobin 31.3 PG (27.0-31.0) H Mean Corpuscular Hemoglobin Concent 32.8 G/DL (32.0-36.0) Red Cell Distribution Width 12.7 % (11.6-14.8) Platelet Count 371 K/UL (150-450) Mean Platelet Volume 5.0 FL (6.5-10.1) L Neutrophils (%) (Auto) 72.5 % (45.0-75.0) Lymphocytes (%) (Auto) 12.3 % (20.0-45.0) L Monocytes (%) (Auto) 12.8 % (1.0-10.0) H Eosinophils (%) (Auto) 2.0 % (0.0-3.0) Basophils (%) (Auto) 0.5 % (0.0-2.0) Sodium Level 139 MMOL/L (136-145) Potassium Level 3.7 MMOL/L (3.5-5.1) Chloride Level 108 MMOL/L (98-107) H Carbon Dioxide Level 24 MMOL/L (21-32) Anion Gap 7 mmol/L (5-15) Blood Urea Nitrogen 31 mg/dL (7-18) H Creatinine 0.8 MG/DL (0.55-1.30) Estimat Glomerular Filtration Rate > 60 mL/min (>60) Glucose Level 115 MG/DL (74-106) H Calcium Level 7.8 MG/DL (8.5-10.1) L Ovidio Duque M.D. Mar 22, 2018 09:44
--- NOTE | 2018-03-22 11:16 | Nephrology Progress Note ---
Assessment/Plan Problem List: (1) ATN (acute tubular necrosis) (2) Rhabdomyolysis Assessment: or high CK due to ALS?? (3) Sepsis (4) ALS (amyotrophic lateral sclerosis) (5) Hypotension (6) Dehydration (7) Hypoalbuminemia due to protein-calorie malnutrition Assessment: 3+ proteinuria Assessment Hypotension, leading to acute renal failure and rising Cr- Cr now lower to 1.3 CPK high now lowering ALS (amyotrophic lateral sclerosis) Generalized weakness Dehydration Gastroenteritis Hypoalbuminemia , Malnutrition Elevated liver enzymes, improving Plan Bolus IV as needed Monitor renal parameters Avoid Nephrotoxics Urine studies per orders discussed with RN low dose beta aarti DC planning Subjective ROS Limited/Unobtainable: No Constitutional: Reports: malaise Objective Objective Last 24 Hour Vital Signs Date Time Temp Pulse Resp B/P (MAP) Pulse Ox O2 Delivery O2 Flow Rate FiO2 03/22/18 09:00 Nasal Cannula 2.0 03/22/18 08:55 95 150/74 03/22/18 04:00 97.1 85 19 117/66 (83) 96 97.1 03/22/18 00:00 97.8 86 19 112/62 (79) 98 97.8 03/21/18 21:00 Nasal Cannula 2.0 03/21/18 20:48 89 136/73 03/21/18 20:00 99.6 89 19 136/73 (94) 96 99.6 Intake and Output 03/21/18 03/22/18 19:00 07:00 Output Total 700 ml Balance -700 ml Output Urine Total 700 ml # Voids 3 Laboratory Tests 03/22/18 06:10: White Blood Count 12.8H, Red Blood Count 2.95L, Hemoglobin 9.3L, Hematocrit 28.2L, Mean Corpuscular Volume 95, Mean Corpuscular Hemoglobin 31.3H, Mean Corpuscular Hemoglobin Concent 32.8, Red Cell Distribution Width 12.7, Platelet Count 371, Mean Platelet Volume 5.0L, Neutrophils (%) (Auto) 72.5, Lymphocytes ( %) (Auto) 12.3L, Monocytes (%) (Auto) 12.8H, Eosinophils (%) (Auto) 2.0, Basophils (%) (Auto) 0.5, Sodium Level 139, Potassium Level 3.7, Chloride Level 108H, Carbon Dioxide Level 24, Anion Gap 7, Blood Urea Nitrogen 31H, Creatinine 0.8, Estimat Glomerular Filtration Rate > 60, Glucose Level 115H, Calcium Level 7.8L Height (Feet): 5 Height (Inches): 5.00 Weight (Pounds): 162 General Appearance: no apparent distress Objective PE not changed Eleazar Aguilar MD Mar 22, 2018 11:16
[2018-03-22 12:00] VITALS: BP 109/57
--- NOTE | 2018-03-22 12:08 | General Progress Note ---
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 Objective Last 24 Hour Vital Signs Date Time Temp Pulse Resp B/P (MAP) Pulse Ox O2 Delivery O2 Flow Rate FiO2 03/22/18 09:00 Nasal Cannula 2.0 03/22/18 08:55 95 150/74 03/22/18 04:00 97.1 85 19 117/66 (83) 96 97.1 03/22/18 00:00 97.8 86 19 112/62 (79) 98 97.8 03/21/18 21:00 Nasal Cannula 2.0 03/21/18 20:48 89 136/73 03/21/18 20:00 99.6 89 19 136/73 (94) 96 99.6 Intake and Output 03/21/18 03/22/18 19:00 07:00 Output Total 700 ml Balance -700 ml Output Urine Total 700 ml # Voids 3 Laboratory Tests 03/22/18 06:10: White Blood Count 12.8H, Red Blood Count 2.95L, Hemoglobin 9.3L, Hematocrit 28.2L, Mean Corpuscular Volume 95, Mean Corpuscular Hemoglobin 31.3H, Mean Corpuscular Hemoglobin Concent 32.8, Red Cell Distribution Width 12.7, Platelet Count 371, Mean Platelet Volume 5.0L, Neutrophils (%) (Auto) 72.5, Lymphocytes ( %) (Auto) 12.3L, Monocytes (%) (Auto) 12.8H, Eosinophils (%) (Auto) 2.0, Basophils (%) (Auto) 0.5, Sodium Level 139, Potassium Level 3.7, Chloride Level 108H, Carbon Dioxide Level 24, Anion Gap 7, Blood Urea Nitrogen 31H, Creatinine 0.8, Estimat Glomerular Filtration Rate > 60, Glucose Level 115H, Calcium Level 7.8L Height (Feet): 5 Height (Inches): 5.00 Weight (Pounds): 162 General Appearance: no apparent distress, alert Neurologic: oriented x 3, responsive, depressed affect Merritt Martinez MD Mar 22, 2018 12:08
--- NOTE | 2018-03-22 12:14 | Internal Med Progress Note ---
Subjective Date of Service: Mar 22, 2018 Physician Name Marvin,Pipo Attending Physician Marc Conley MD Current Medications Medications (Trade) Dose Ordered Sig/Maria Victoria Route PRN Reason Start Time Stop Time Status Last Admin Dose Admin Acetaminophen (Tylenol) 650 mg Q4H PRN ORAL fever 03/16/18 14:00 04/12/18 21:59 Gabapentin (Neurontin) 600 mg Q12HR ORAL 03/16/18 21:00 04/13/18 11:59 03/22/18 08:59 Heparin Sodium (Porcine) (Heparin 5000 units/ml) 5,000 units EVERY 12 HOURS SUBQ 03/16/18 21:00 04/12/18 22:14 03/22/18 08:58 Insulin Aspart (NovoLOG) BEFORE MEALS AND HS SUBQ 03/16/18 16:30 04/13/18 11:29 03/22/18 06:14 Levofloxacin (Levaquin) 750 mg Q48H ORAL 03/17/18 15:00 03/22/18 14:59 03/19/18 14:50 Lubiprostone (Amitiza) 24 mcg TWICE A DAY ORAL 03/20/18 18:00 04/19/18 17:59 03/22/18 08:55 Metoprolol Tartrate (Lopressor) 25 mg Q12HR ORAL 03/20/18 21:00 04/15/18 20:59 03/22/18 08:55 Mirtazapine (Remeron) 30 mg BEDTIME ORAL 03/21/18 21:00 04/20/18 20:59 03/21/18 20:47 Nitroglycerin (Ntg) 0.4 mg Q5M PRN SL Prn Chest Pain 03/16/18 12:15 04/12/18 21:59 Ondansetron HCl (Zofran) 4 mg Q6H PRN IVP Nausea & Vomiting 03/16/18 13:30 04/12/18 13:29 Pantoprazole (Protonix) 40 mg DAILY ORAL 03/17/18 09:00 04/13/18 08:59 03/22/18 08:55 Pilocarpine (Isopto Carpine 2% Op Soln) 1 drop BID BOTH EYES 03/16/18 18:00 04/13/18 08:59 03/22/18 08:59 Polyethylene Glycol (Miralax) 17 gm BEDTIME ORAL 03/19/18 21:00 04/18/18 20:59 03/21/18 20:48 Pramipexole (Mirapex) 0.25 mg TID ORAL 03/16/18 14:00 04/15/18 13:59 03/22/18 08:55 Risperidone (RisperDAL) 2 mg BEDTIME ORAL 03/16/18 21:00 04/13/18 20:59 03/21/18 20:48 Sennosides (Senokot) 1 tab DAILY ORAL 03/20/18 09:00 04/19/18 08:59 03/22/18 08:55 Allergies: Coded Allergies: CEPHALEXIN MONOHYDRATE (Verified Allergy, Unknown, 01/24/12) TETRACYCLINE (Verified Allergy, Unknown, 01/24/12) ROS Limited/Unobtainable: No Constitutional: Reports: no symptoms HEENT: Reports: no symptoms Cardiovascular: Reports: no symptoms Respiratory: Reports: no symptoms Gastrointestinal/Abdominal: Reports: no symptoms Genitourinary: Reports: no symptoms Neurologic/Psychiatric: Reports: no symptoms Subjective 67 YO M with a history of ALS, admitted with syncope. Now rhabdomyolysis. Cover for Int Med-Dr Conley. Objective Last Vital Signs Date Time Temp Pulse Resp B/P (MAP) Pulse Ox O2 Delivery O2 Flow Rate FiO2 03/22/18 09:00 Nasal Cannula 2.0 03/22/18 08:55 95 150/74 03/22/18 04:00 97.1 19 96 97.1 03/20/18 20:35 28 Laboratory Tests Test 03/22/18 06:10 White Blood Count 12.8 K/UL (4.8-10.8) H Red Blood Count 2.95 M/UL (4.70-6.10) L Hemoglobin 9.3 G/DL (14.2-18.0) L Hematocrit 28.2 % (42.0-52.0) L Mean Corpuscular Volume 95 FL (80-99) Mean Corpuscular Hemoglobin 31.3 PG (27.0-31.0) H Mean Corpuscular Hemoglobin Concent 32.8 G/DL (32.0-36.0) Red Cell Distribution Width 12.7 % (11.6-14.8) Platelet Count 371 K/UL (150-450) Mean Platelet Volume 5.0 FL (6.5-10.1) L Neutrophils (%) (Auto) 72.5 % (45.0-75.0) Lymphocytes (%) (Auto) 12.3 % (20.0-45.0) L Monocytes (%) (Auto) 12.8 % (1.0-10.0) H Eosinophils (%) (Auto) 2.0 % (0.0-3.0) Basophils (%) (Auto) 0.5 % (0.0-2.0) Sodium Level 139 MMOL/L (136-145) Potassium Level 3.7 MMOL/L (3.5-5.1) Chloride Level 108 MMOL/L (98-107) H Carbon Dioxide Level 24 MMOL/L (21-32) Anion Gap 7 mmol/L (5-15) Blood Urea Nitrogen 31 mg/dL (7-18) H Creatinine 0.8 MG/DL (0.55-1.30) Estimat Glomerular Filtration Rate > 60 mL/min (>60) Glucose Level 115 MG/DL (74-106) H Calcium Level 7.8 MG/DL (8.5-10.1) L Intake and Output 03/21/18 03/22/18 19:00 07:00 Output Total 700 ml Balance -700 ml Output Urine Total 700 ml # Voids 3 Objective General Appearance: WD/WN, no apparent distress, alert EENT: PERRL/EOMI, normal ENT inspection Neck: non-tender, normal alignment, supple Cardiovascular: normal peripheral pulses, normal rate, regular rhythm, no gallop/murmur Respiratory/Chest: chest wall non-tender, lungs clear, normal breath sounds, no respiratory distress, no accessory muscle use Abdomen: normal bowel sounds, non tender, soft, no organomegaly, no mass Extremities: other - gen weakness 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 See nephrology and cardiology note. (2) Syncope (3) Diabetes mellitus type II, controlled Assessment & Plan: Continue novolog sliding sclae. (4) Renal failure (5) Amyotrophic lateral sclerosis (ALS) Assessment & Plan: See neuro note. (6) Seizure disorder Assessment & Plan: D/C topamax. See neruo note. (7) Pain in left arm Assessment & Plan: X-ray neg for fracture. Doppler = neg DVT (8) Leukocytosis Assessment & Plan: S/P levaquin D#7/7 per ID Status: stable Assessment/Plan Discharge Home [facility] Pipo Marvin MD Mar 22, 2018 12:14
--- NOTE | 2018-03-22 12:18 | Infectious Diseases Prog Note ---
Assessment/Plan Assessment/Plan Mr. Albarado is a 67 yo male with ALS who is presenting with weakness and AMS after a fall #Leukocytosis - resolving - 2/2 to UTI / PNA / Trauma - K. pneumo on UCx CXR no clear sign of PNA # UTI - See above #Diabetes mellitus #ALS (amyotrophic lateral sclerosis) #Depression #S/P Fall with bruising of left shoulder PLAN - Continued leukocytosis - - Likely reactionary to left arm swelling secondary to trauma as continue to decrease. - Swelling of left arm. Reasonable to D/C off antibiotics if he has close follow up. - No current sign of infection of the lest arm. But should be monitored. Given the leukocytosis -Continue Levofloxacin #/ - end date 03/21/18 - 03/15 SP Vancomycin #2 - Monitor CBC and Temps - Supportive care Thank you for consulting us for the care of this patient. We will continue to follow with you. Subjective Allergies: Coded Allergies: CEPHALEXIN MONOHYDRATE (Verified Allergy, Unknown, 01/24/12) TETRACYCLINE (Verified Allergy, Unknown, 01/24/12) Subjective No acute events Still with elbow swelling Objective Vital Signs Last 24 Hour Vital Signs Date Time Temp Pulse Resp B/P (MAP) Pulse Ox O2 Delivery O2 Flow Rate FiO2 03/22/18 09:00 Nasal Cannula 2.0 03/22/18 08:55 95 150/74 03/22/18 04:00 97.1 85 19 117/66 (83) 96 97.1 03/22/18 00:00 97.8 86 19 112/62 (79) 98 97.8 03/21/18 21:00 Nasal Cannula 2.0 03/21/18 20:48 89 136/73 03/21/18 20:00 99.6 89 19 136/73 (94) 96 99.6 Height (Feet): 5 Height (Inches): 5.00 Weight (Pounds): 162 Objective Gen: NAD, Thin male HEENT: NCAT, MMM, EOMI LUNGS: CTAB, No W/C, CARDS: RRR, S1, S2, No M/R/G, ABD: Soft, NT, ND, No R/G, Ext: C/C/E, Pulses 2+ B/L (DP, Rad), Left shoulder with bruising and decreased ROM pain with movement, Left elbow swollen but no erythema. NEURO: A/O x 4, Strength and Sensation Grossly intact Laboratory Tests Test 03/22/18 06:10 White Blood Count 12.8 K/UL (4.8-10.8) H Red Blood Count 2.95 M/UL (4.70-6.10) L Hemoglobin 9.3 G/DL (14.2-18.0) L Hematocrit 28.2 % (42.0-52.0) L Mean Corpuscular Volume 95 FL (80-99) Mean Corpuscular Hemoglobin 31.3 PG (27.0-31.0) H Mean Corpuscular Hemoglobin Concent 32.8 G/DL (32.0-36.0) Red Cell Distribution Width 12.7 % (11.6-14.8) Platelet Count 371 K/UL (150-450) Mean Platelet Volume 5.0 FL (6.5-10.1) L Neutrophils (%) (Auto) 72.5 % (45.0-75.0) Lymphocytes (%) (Auto) 12.3 % (20.0-45.0) L Monocytes (%) (Auto) 12.8 % (1.0-10.0) H Eosinophils (%) (Auto) 2.0 % (0.0-3.0) Basophils (%) (Auto) 0.5 % (0.0-2.0) Sodium Level 139 MMOL/L (136-145) Potassium Level 3.7 MMOL/L (3.5-5.1) Chloride Level 108 MMOL/L (98-107) H Carbon Dioxide Level 24 MMOL/L (21-32) Anion Gap 7 mmol/L (5-15) Blood Urea Nitrogen 31 mg/dL (7-18) H Creatinine 0.8 MG/DL (0.55-1.30) Estimat Glomerular Filtration Rate > 60 mL/min (>60) Glucose Level 115 MG/DL (74-106) H Calcium Level 7.8 MG/DL (8.5-10.1) L Current Medications Medications (Trade) Dose Ordered Sig/Maria Victoria Route PRN Reason Start Time Stop Time Status Last Admin Dose Admin Acetaminophen (Tylenol) 650 mg Q4H PRN ORAL fever 03/16/18 14:00 04/12/18 21:59 Gabapentin (Neurontin) 600 mg Q12HR ORAL 03/16/18 21:00 04/13/18 11:59 03/22/18 08:59 Heparin Sodium (Porcine) (Heparin 5000 units/ml) 5,000 units EVERY 12 HOURS SUBQ 03/16/18 21:00 04/12/18 22:14 03/22/18 08:58 Insulin Aspart (NovoLOG) BEFORE MEALS AND HS SUBQ 03/16/18 16:30 04/13/18 11:29 03/22/18 06:14 Levofloxacin (Levaquin) 750 mg Q48H ORAL 03/17/18 15:00 03/22/18 14:59 03/19/18 14:50 Lubiprostone (Amitiza) 24 mcg TWICE A DAY ORAL 03/20/18 18:00 04/19/18 17:59 03/22/18 08:55 Metoprolol Tartrate (Lopressor) 25 mg Q12HR ORAL 03/20/18 21:00 04/15/18 20:59 03/22/18 08:55 Mirtazapine (Remeron) 30 mg BEDTIME ORAL 03/21/18 21:00 04/20/18 20:59 03/21/18 20:47 Nitroglycerin (Ntg) 0.4 mg Q5M PRN SL Prn Chest Pain 03/16/18 12:15 04/12/18 21:59 Ondansetron HCl (Zofran) 4 mg Q6H PRN IVP Nausea & Vomiting 03/16/18 13:30 04/12/18 13:29 Pantoprazole (Protonix) 40 mg DAILY ORAL 03/17/18 09:00 04/13/18 08:59 03/22/18 08:55 Pilocarpine (Isopto Carpine 2% Op Soln) 1 drop BID BOTH EYES 03/16/18 18:00 04/13/18 08:59 03/22/18 08:59 Polyethylene Glycol (Miralax) 17 gm BEDTIME ORAL 03/19/18 21:00 04/18/18 20:59 03/21/18 20:48 Pramipexole (Mirapex) 0.25 mg TID ORAL 03/16/18 14:00 04/15/18 13:59 03/22/18 08:55 Risperidone (RisperDAL) 2 mg BEDTIME ORAL 03/16/18 21:00 04/13/18 20:59 03/21/18 20:48 Sennosides (Senokot) 1 tab DAILY ORAL 03/20/18 09:00 04/19/18 08:59 03/22/18 08:55 Ovidio Acosta M.D. Mar 22, 2018 12:18
--- NOTE | 2018-03-23 13:41 | Discharge Summary ---
Discharge Summary Discharge Summary _ DATE OF ADMISSION: 03/13/2018 DATE OF DISCHARGE: 03/22/2018 CONSULTANTS: Dr. Ovidio Obregon [facility]SE: Patient is a 67-year-old male, with history of amyotrophic lateral sclerosis, hypertension and diabetes, presented with chief complaint of syncopal episode. Patient apparently lives alone. The patient has a caregiver who comes in rehab department manager. History of present illness started on 03/22/2018, patient was on his way to the kitchen,however decided to go to the bathroom then fell. He denied loss of consciousness. He was found by his caregiver and patient was transported to [facility]. Unknown how long the patient was down. He is DO NOT RESUSCITATE. On evaluation at ED, blood pressure was 100/68, pulse rate 110. He was given IV fluids. Blood work showed WBC 12, sodium was 134, BUN 48, creatinine 1.3. He had elevated liver function tests, AST 1206 and ALT was 270. CK elevated. He had x-ray of the hips and shoulder, which was negative for acute fracture or dislocation. He was hypotensive and had altered mentation. He was admitted to ICU for further evaluation. He was given IV hydration. He was started empirically on vancomycin pending culture results. He had elevated total CK. Levels were monitored. He has history of seizure and depression. Patient has not been eating and had been depressed with low energy. Sister committed suicide last November. He was seen by psychiatrist. He was placed on Remeron, and Klonopin. Topamax and Wellbutrin were discontinued. He was started on Depakote. He had slightly to elevated troponin. Serial troponins were monitored. Echocardiogram showed normal left ventricular chamber size, however left ventricle cavity was poorly visualized. Neurologic evaluation was done. Patient with ongoing encephalopathic process. CT of the brain was normal. He had an EEG that revealed findings consistent with toxic/metabolic encephalopathy. He was given mobility protocol with physical therapy. Leukocytosis possibly secondary to UTI. Vancomycin was discontinued and was given levofloxacin. He received antibiotics for 7 days and was observed off antibiotics. Troponins down trended. There was no indication for catheterization at this time. He had swollen left arm. 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 No evidence of acute deep vein thrombosis. X-rays of left humerus and elbow was negative for fractures. Depakote was discontinued. Risperdal was changed to daily at bedtime. He was given physical therapy. He was eventually discharged home with home health. FINAL DIAGNOSES: Acute rhabdomyolysis Syncope Acute tubular necrosis Diabetes mellitus type 2 ALS Seizure disorder Left arm swelling and pain status post fall Depression UTI with Klebsiella Major depressive disorder Anxiety disorder Acute toxic metabolic Encephalopathy Hypotension Dehydration Hypoalbuminemia due to protein calorie malnutrition DISPOSITION: Patient was discharged home with home health. DISCHARGE MEDICATIONS: Refer to Discharge Medication List. DISCHARGE INSTRUCTIONS: Follow up within a week. I have been assigned to dictate discharge summary on this account, and I was not involved in the patient's management. Tara Oakley NP Mar 23, 2018 13:41
== END 2018-03-22 14:09 | disposition home health service (06) | DRG 682 ==
LOC: EDBD 17:22 → EMR 17:37 → ICU 17:56 → EDBEDREQ 18:54 → EDBEDREQSVC 19:07 → EDBEDREQ 19:23 → 2W 03-15 17:28 → 4E 03-16 12:35
DX: N17.0 Acute kidney failure with tubular necrosis (principal); G92 Toxic encephalopathy; G12.21 Amyotrophic lateral sclerosis; M62.82 Rhabdomyolysis; N39.0 Urinary tract infection, site not specified; E46 Unspecified protein-calorie malnutrition; I82.C22 Chronic embolism and thrombosis of left internal jugular vein; I10 Essential (primary) hypertension; E11.9 Type 2 diabetes mellitus without complications; Z66 Do not resuscitate; G40.909 Epilepsy, unspecified, not intractable, without status epilepticus; F32.9 Major depressive disorder, single episode, unspecified; B96.1 Klebsiella pneumoniae [K. pneumoniae] as the cause of diseases classified elsewhere; F41.9 Anxiety disorder, unspecified; Z88.1 Allergy status to other antibiotic agents; M79.602 Pain in left arm; M79.89 Other specified soft tissue disorders; Z88.8 Allergy status to other drugs, medicaments and biological substances; E86.0 Dehydration; K52.9 Noninfective gastroenteritis and colitis, unspecified; H40.9 Unspecified glaucoma; Z79.4 Long term (current) use of insulin; Z60.2 Problems related to living alone
CPT/HCPCS: 36415; 36600; 70450; 71045; 80048; 80053; 80061; 81001; 81025; 82140; 82306; 82533; 82550; 82553; 82607; 82746; 82803; 82962; 82977; 83036; 83735; 83880; 83930; 84100; 84133; 84300; 84439; 84443; 84484; 84550; 85007; 85025; 85610; 85651; 85730; 86140; 86592; 86850; 86900; 86901; 87040; 87081; 87086; 87181; 89050; 93005; 93306; 93971; 94660; 94664; 94760; 95819; 99291; J1815; J8499